=== PATIENT | female | born 1955 | race Two or more races ===

== ENCOUNTER 2021-05-02 14:00 | Outpatient (RCR) | payer OTHER, SELFPAY ==
--- NOTE | 2021-05-02 15:14 | MHC.PT.OD ---
[facility] [place] Office [place] Office [place] Office [address] Mckenzie Coughlin [address] [phone] F: [phone] F: [phone] F: [phone] F: [phone] Physical Therapy Daily Note Diagnosis: Low back pain initial eval and treat signed by Kristin Raymond date of script 04/03/21 Date of Surgery: Date of Evaluation: 04/15/21 Date of Treatment: 05/02/21 Treatments to Date: Cancellations to Date: No Shows to Date: Authorized Visits: 2 Insurance End Date: Precautions/ Contraindications:hx bipolar disorder, hx lumbar surgery in the past (pt unclear of what exactly was done presents with brace on) Subjective: Pt arrives stated she has an appt with walk in for migraine/R temporal sx which have been present for two weeks. Pt emotional and tearful. Pain Score and Location: Objective Flowsheet: Tests & Measures BP taken L UE 138/84mmHg, HR 67 bpm, 97% Sp02 Neuro screen, UE/LE appear symmetrical ROM/nursing home manager strength. Finger to nose (normal and accurate bilaterally. Reports blurred vision worsening over past few weeks but also stated has not had recent eye exam. Reports chronic migraines- denies any treatment/medication which she uses for this. Smile normal and (-) tongue deviation Bed mobility S level with Min A to rise from supine<>sit. Encouraged core recruitment with functional mobility Exercises Neuro screen, assessment vitals. Hooklying posterior pelvic tilt, pain reported radiating R LE to height of knee>intermittent ankle. Pt emotional expressing concerns for housing situation, she reports she was placed in first floor handicap apartment, but did not request this and wishes to be moved out of WC accessible apartment due to heights and constant need to bend forward. Pt also addressing emotional matters impacting her pain. Pt positioned in L SL for trial of gentle STM to lumbar and R posterior hip>extending to ITB>knee in effort to reduce spasm and minimize sensation of burning/radiation of R LE sx. Pt verbalized presence of these sx which have been present for two weeks. We trialed use of roller and without roller pt expressed both were comfotable, I can tell something is being done. We discussed benefit in using AD with two points of stability vs single point stability such as cane which could be impacting her LE/sciatica sx. Pt reports use of back brace daily, educated re: importance of trying to recruit/activate her abdominals vs always relying on external brace to provide her with support, try to conserve use of brace for when she is upright and doing a lot of moving, or when in a lot of pain. Educated chronic use of external support can decreased her strength. Difficult to redirect and engage patient in active exercise as her emotional state was very disrupted re: housing issues and chronic pain. This therapist listened to patients current LE exercises she reports doing, therapist encouraged her to keep moving, keep walking, and continue to do her best in addition to pursuing PT. ENcourgement for partcipation, giving therapy a chance to work, education to come to PT when having back pain therapist may be able to help Modalities Assessment: 05/02/21 Pt was last seen here 17 days ago for initial evaluation. She arrives for her appt at 2:00pm today stating she has a walk in scheduled for 2:30pm with PCP to address some ongoing housing issues, desire to fill out healthcare proxy form, and two week history of migraine in R temporal region. Her vital signs are stable, negative neuro screen during assessment. She reports history of chronic migraines however this particular one seems different she states. Pt trialed in L SL position for manual therapy at site of central lumbar and R proximal hip/lateral hip region today in effort to ease sx. She also expresses newer onset of pain at site of L dorsum of foot. During inspection (-) cuts bruises present. She denies injury/fall (+) hx neuropathy. Pt encouraged to continue with PT however her current emotional is unstable and she has difficulty composing herself when carrying on conversation and was noted to cry about her current circumstances. She has chronic pain and may benefit from referral to pain management to address if PT is unable to help her. She reports she last spoke to her counselor on Thursday, however she may benefit from further intervention as she repeatedly expressed how she feels unsafe being alone in her apartment secondary to panic attacks and anxiety. Pt to see Kristin Raymond DNP, today at end of PT appt. 04/15/21Pt is a RHD 65 y/o female with chronic low back pain referred to PT from PCP Kristin Raymond DNP, with referral date of 04/03/21 with PMH significant for bipolar disorder, history of lumbar back surgery, and history of stroke. Pt exhibits fair rehab prognosis due to significant psychological and emotional barriers observed at time evaluation. Pt to be seen in office 1x/week to start with goal of establishing compliance with home program and if positive response is observed pt will be increased to twice weekly. Pt was noted to cry/yell out in severe pain during basic/simple mobility screening with concern for psysomatic and/or malingering behavior. Evaluation of LE assessment this date with poor tolerance displayed for AROM/strength screening. Pt exhibited (-) SLR, but did showcase weakness in her B LE and trunk. She completed 2 reps of sit<>stand and stand<>sit in 30 seconds and demonstrated gait instability with use of std cane in R UE. She reports she does have a walker, shower bench, and HEALTH INSURANCE ASSESSOR (her son)who aides her 4 hours per day. She expresses she is involved with a therapist who she works with at a frequency of 1x/week. She would most certainly benefit from PT however she has be willing to actively participate with poor tolerance for screening. Therapist educated her of goals and encouraged her for active participation in therapy when she was feeling pain. I wanted to call in and cancel. I feel like my bones are crumbling around me. PT Plan: 1x/week to start Short Term Goals: 1. Reduce back pain by 25%. 2. Initiate HEP program. 3. Pt will demonstrate sit<>stand on first attempt. 4. Complete bed mobility MOD I with sx <4/10 VAS scale. [facility] Goals: 1. Improve back pain by 75%. 2. I HEP for core/hip stabilization. 3. Strength SLR 5/5 B. 4. Strength hip abd 5/5 B. 5. Good eccentric control with functional transfers. 6. Bridge with good control for bed mobility. Electronically signed by: Roselia Bhakta, PT, DPT
== END 2021-08-23 14:10 | disposition home or self-care (01) ==
LOC: HO.PTWFD 14:00
PROVIDERS: Visit Provider Hospitalist
DX: M54.50 Low back pain, unspecified (principal)
CPT/HCPCS: 97110; 97140; 97162; 97535

== ENCOUNTER 2021-05-15 08:22 | Outpatient (REF) | payer OTHER, SELFPAY ==
[2021-05-15 11:16] LABS: Hematocrit 40.8 % (37.0-47.0); Hemoglobin 13.4 g/dl (12.0-16.0); Mean Corpuscular HGB Conc 32.8 g/dl (31.0-35.0); Mean Corpuscular Hemoglobin 29.3 pg (27.0-33.0); Mean Corpuscular Volume 89.3 fL (80.0-98.0); Mean Platelet Volume 14.5 fL (9.4-12.3); Platelet Count 123 X10*3/uL (160-400); Red Blood Count 4.57 X10*6/uL (4.20-5.50); Red Cell Distribution Width 12.7 % (11.0-16.0); White Blood Count 4.3 X10*3/uL (4.8-10.8)
[2021-05-15 11:43] LABS: Alanine Aminotransferase 25 U/L (0-31); Alkaline Phosphatase 78 U/L (39-117); Anion Gap 10 (12-20); Aspartate Amino Transferase 24 U/L (5-31); Bilirubin Total 0.8 mg/dL (0.0-1.0); Blood Urea Nitrogen 11 mg/dL (9-16); Calcium 9.7 mg/dL (8.4-10.2); Carbon Dioxide 28 mmol/L (22-29); Chloride 106 mmol/L (96-108); Cholesterol 142 mg/dL; Estimated Glomerular Filt Rate > 60; Glucose Fasting 118 mg/dL (60-99); HDL Cholesterol 52 mg/dL; LDL Cholesterol Calculated 71 mg/dl; Potassium 4.4 mmol/L (3.3-5.1); Sodium 140 mmol/L (135-145); Total Protein 6.6 g/dL (6.5-8.0); Triglycerides 95 mg/dL
[2021-05-15 12:02] LABS: Erythrocyte Sedimentation Rate 6 MM/HR (0-20)
[2021-05-15 12:06] LABS: TSH reflex Free T4 1.47 uIU/mL (0.32-4.0)
[2021-05-17 15:26] LABS: CRP High Sensitivity 0.3 mg/L
== END 2021-05-15 08:23 | disposition home or self-care (01) ==
LOC: HO.WFDLDS 08:22
PROVIDERS: Visit Provider Hospitalist
DX: Z00.00 Encounter for general adult medical examination without abnormal findings (principal); M25.522 Pain in left elbow; E11.9 Type 2 diabetes mellitus without complications; M06.9 Rheumatoid arthritis, unspecified
CPT/HCPCS: 36415; 80053; 80061; 84443; 85027; 85652; 86141

== ENCOUNTER 2021-09-26 11:55 | Outpatient (REF) | payer OTHER, SELFPAY ==
--- NOTE | ~2021-09-26 | XR_ITS ---
EXAMINATION: XR CHEST CLINICAL INFORMATION: Dyspnea. COMPARISON: None TECHNIQUE: 2 views of the chest were obtained. FINDINGS: No significant abnormality is noted involving the heart, lungs, mediastinum, bony thorax or soft tissues. XR/XR chest 2V IMPRESSION: No acute cardiopulmonary process.
[2021-09-26 13:47] LABS: B Type Natriuretic Peptide 117 pg/mL (<100)
== END 2021-09-26 11:56 | disposition home or self-care (01) ==
LOC: HO.LAB 11:55
PROVIDERS: PCP Hospitalist; Visit Provider Hospitalist
DX: R06.09 Other forms of dyspnea (principal); R63.5 Abnormal weight gain
CPT/HCPCS: 36415; 71046; 83880

== ENCOUNTER 2021-12-24 10:32 | Outpatient (REF) | payer OTHER, SELFPAY ==
[2021-12-24 15:04] LABS: Influenza A PCR NEGATIVE (Negative); Influenza B PCR NEGATIVE (Negative); Resp Syncy Virus RNA Qual PCR NEGATIVE (Negative); SARS COV2 PCR INHOUSE NEGATIVE (Negative)
== END 2021-12-24 10:33 | disposition home or self-care (01) ==
LOC: HO.LAB 10:32
PROVIDERS: Visit Provider Hospitalist
DX: Z20.822 Contact with and (suspected) exposure to COVID-19 (principal)
CPT/HCPCS: 0241U

== ENCOUNTER 2022-02-19 13:40 | Outpatient (REF) | payer OTHER, SELFPAY ==
--- NOTE | ~2022-02-19 | MM_ITS ---
EXAMINATION: MM SCREENING DIGITAL BREAST TOMOSYNTHESIS, BILATERAL CLINICAL INFORMATION: Screening. Asymptomatic. The lifetime risk of breast cancer based on the Tyrer-Cuzick Model is 3%. COMPARISON: Mammography: None TECHNIQUE: Digital breast tomosynthesis is performed in both the craniocaudal and mediolateral oblique views along with computer-aided detection (CAD). Synthesized 2D images are generated from the tomosynthesis. FINDINGS: There are scattered areas of fibroglandular density (ACR BI-RADS breast composition Category b). No suspicious left breast findings are present with no abnormal dominant mass or suspicious grouping of microcalcifications. Within the deep upper outer aspect of the right breast there is a 3 mm well-circumscribed density without microcalcifications but without fatty cleft being appreciated on the images. This likely does represent intramammary lymph node. Since old studies are not available to check on stability I recommend ultrasound evaluation of the right breast deep upper outer aspect. MM/MM tomosynthesis screening BI IMPRESSION: Right breast density likely representing intramammary lymph node for which ultrasound is recommended. ASSESSMENT: BI-RADS 0: Incomplete - Need Additional Imaging Evaluation RECOMMENDATION: Targeted right breast ultrasound.
== END 2022-02-19 13:41 | disposition home or self-care (01) ==
LOC: HO.MAMMO 13:40
PROVIDERS: PCP Hospitalist; Visit Provider Hospitalist
DX: Z12.31 Encounter for screening mammogram for malignant neoplasm of breast (principal)
CPT/HCPCS: 77063; 77067

== ENCOUNTER → 2022-02-25 10:55 | Outpatient (BNVA) | payer OTHER, SELFPAY | PROVIDERS: PCP Hospitalist; Visit Provider Physician Assistant | DX: R13.10 Dysphagia, unspecified (principal); K59.01 Slow transit constipation; K21.9 Gastro-esophageal reflux disease without esophagitis; Z12.11 Encounter for screening for malignant neoplasm of colon | CPT/HCPCS: 99202 ==

== ENCOUNTER 2022-02-27 13:06 | Outpatient (REF) | payer OTHER, SELFPAY ==
--- NOTE | ~2022-02-27 | US_ITS ---
EXAMINATION: US DIAGNOSTIC ULTRASOUND BREAST, RIGHT CLINICAL INFORMATION: Right breast density. COMPARISON: Mammography of 02/19/2022. TECHNIQUE: Ultrasound of the breast is performed with real-time wheeler scale imaging and color Doppler. FINDINGS: At the 9 o'clock position approximately 9 cm from the nipple there is a hypoechoic lesion without distal sound shadowing. This measures approximately 3 x 3 x 2 mm in size and has internal vascularity with the appearance of a lymph node. Results are discussed with the patient at time of visit. US/US breast RT limited IMPRESSION: Mammographic abnormality upper outer quadrant of the right breast corresponds to an intramammary lymph node. ASSESSMENT: BI-RADS 2: Benign RECOMMENDATION: Routine annual mammography screening. This patient's information was entered into a reminder system with a target due date for their next mammogram.
== END 2022-02-27 13:07 | disposition home or self-care (01) ==
LOC: HO.MAMMO 13:06
PROVIDERS: PCP Hospitalist; Visit Provider Hospitalist
DX: R92.2 Inconclusive mammogram (principal)
CPT/HCPCS: 76642

== ENCOUNTER 2022-04-23 10:30 | Outpatient (REF) | payer OTHER, SELFPAY ==
--- NOTE | ~2022-04-23 | FL_ITS ---
EXAMINATION: FL BARIUM SWALLOW CLINICAL INFORMATION: R13.10 - Dysphagia, unspecified COMPARISON: Chest radiographs 09/26/2021 TECHNIQUE: Barium swallow examination is performed using fluoroscopic evaluation in addition to multiple fluoroscopic spot views, including cine images during swallowing. The patient is imaged both upright and prone and using both thick and thin sulfate along with effervescent granules. Barium pill challenge also performed. Fluoroscopy time: 1.6 minutes DAP: 3.734 Gycm2 Images: 42 FINDINGS: Swallowing function is normal and there is no aspiration. The cervical esophagus has no web or diverticulum or stricture. The cervical thoracic junction appears normal. No cervical achalasia. The thoracic esophagus primarily showed normal motility. There is one episode of mild transient tertiary contraction. No obstruction, stricture, or ulceration. There is no hiatal hernia or reflux seen despite use of provocative maneuvers (prone Valsalva and water siphon test, respectively). A cursory view of the upper abdomen shows no gastric outlet obstruction. There is prompt transit of the barium pill from mouth to stomach. Cursory view upper abdomen shows no gastric outlet obstruction. FL/FL barium swallow IMPRESSION: -Essentially normal study. There is one episode of mild transient tertiary contraction thoracic esophagus. Otherwise normal motility. -No hiatal hernia or reflux.
== END 2022-04-23 10:31 | disposition home or self-care (01) ==
LOC: HO.XRAY 10:30
PROVIDERS: Visit Provider Physician Assistant
DX: R13.10 Dysphagia, unspecified (principal); K21.9 Gastro-esophageal reflux disease without esophagitis; K59.01 Slow transit constipation
CPT/HCPCS: 74220

== ENCOUNTER 2022-04-30 12:27 | Outpatient (REF) | payer OTHER, SELFPAY ==
[2022-04-30 14:05] LABS: Hemoglobin 13.8 g/dl (12.0-16.0); Mean Corpuscular HGB Conc 32.9 g/dl (31.0-35.0); Mean Corpuscular Hemoglobin 29.1 pg (27.0-33.0); Mean Corpuscular Volume 88.6 fL (80.0-98.0); Mean Platelet Volume 13.5 fL (9.4-12.3); Platelet Count 136 X10*3/uL (160-400); Red Blood Count 4.74 X10*6/uL (4.20-5.50); Red Cell Distribution Width 13.2 % (11.0-16.0); White Blood Count 5.9 X10*3/uL (4.8-10.8)
[2022-04-30 14:14] LABS: Alanine Aminotransferase 37 U/L (0-31); Albumin Level 4.1 g/dL (3.5-5.0); Alkaline Phosphatase 96 U/L (39-117); Anion Gap 11 (12-20); Aspartate Amino Transferase 30 U/L (5-31); Bilirubin Total 0.6 mg/dL (0.0-1.0); Blood Urea Nitrogen 15 mg/dL (9-16); Calcium 9.7 mg/dL (8.4-10.2); Carbon Dioxide 29 mmol/L (22-29); Chloride 105 mmol/L (96-108); Estimated Glomerular Filt Rate 59; Glucose Fasting 255 mg/dL (60-99); Magnesium 1.9 mg/dL (1.6-2.6); Potassium 4.9 mmol/L (3.3-5.1); Sodium 140 mmol/L (135-145); Total Protein 6.7 g/dL (6.5-8.0)
[2022-04-30 14:18] LABS: Estimated Average Glucose 180 mg/dL; Hemoglobin A1c % 7.9 %
== END 2022-04-30 12:28 | disposition home or self-care (01) ==
LOC: HO.WFDLDS 12:27
PROVIDERS: Visit Provider Nurse Practitioner Family
DX: R10.9 Unspecified abdominal pain (principal); E11.9 Type 2 diabetes mellitus without complications
CPT/HCPCS: 36415; 80053; 83036; 83735; 85027

== ENCOUNTER 2022-08-22 12:55 | Outpatient (AMB) | payer OTHER, SELFPAY ==
[2022-08-22 13:01] VITALS: BP 124/72; PULSE 66; RESP 12; TEMP 36.6; O2SAT 98; BMI 41.3
--- NOTE | 2022-08-22 13:01 | A.OFFPC_ITS ---
Vital Signs 08/22/22 13:01 Height 5 ft 4 in Weight 240 lb 9 oz BMI 41.3 BP 124/72 Blood Pressure Location Lt brachial Position Sitting Respiration 12 Pulse 66 Pulse Source Pulse Oximeter Temp 97.8 F Temp Source Temporal Artery Scan Pulse Oximetry (%) 98 Oxygen Delivery Method Room Air Intake Visit Reasons: [facility]/ 08-12-22/Heart palpatations Intake Note: Patient states she is currently feeling better and would like to discuss her diabetes due to her having high glucose test. 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 Accompanied by: Self / Same As Patient Allergies Penicillins Allergy (Intermediate, Verified 08/22/22 14:09) itchy, hives lisinopril Adverse Reaction (Intermediate, Verified 08/22/22 14:09) Cough prednisone Adverse Reaction (Intermediate, Verified 08/22/22 14:09) high blood pressure Medication List - Last Reconciled 08/22/22 by Kimberley Almazan CNP albuterol sulfate 90 mcg/actuation 2 puffs inhalation BID 30 days albuterol sulfate 2.5 mg (3 mL) inhalation Q6H PRN 1 month apixaban 5 mg PO BID aspirin 81 mg PO DAILY atorvastatin 40 mg PO DAILY bisacodyl (Dulcolax (bisacodyl)) 10 mg (2 x 5 mg) PO ONCE 1 day blood pressure monitor As directed blood sugar diagnostic (Four Eyes Clubuch Ultra Test strips) test blood sugar two to three time a day calcium carbonate-vitamin D3 600 mg-10 mcg (400 unit) TAKE 1 TABLET BY MOUTH AT BEDTIME clonazepam 1 mg PO BEDTIME PRN clonazepam 0.5 mg PO QAM diltiazem HCl 120 mg PO DAILY fluticasone propion-salmeterol 115-21 mcg/actuation (Advair HFA) 2 puffs inhalation BID fluticasone propionate 110 mcg/actuation (Flovent HFA) 1 puff inhalation BID 30 days lancets (Four Eyes Clubuch UltraSoft Lancets) check blood sugar twice a day and as needed for s/s of dm lancets (introNetworksTouch Delica Plus Lancet) As directed loratadine 10 mg PO DAILY metformin ER 500 mg PO BID metoprolol succinate ER TAKE 1 TABLET BY MOUTH EVERY DAY mirtazapine 30 mg PO BEDTIME mirtazapine 30 mg PO BEDTIME miscellaneous medical supply skin sealents, protectants, moisturiszre, ointments any type and size as directed; miscellaneous medical supply disposable linner/shield/guard/pad/undergarment for incontinence as directed; miscellaneous medical supply diabetic shoes as directed; miscellaneous medical supply Aleotouch wipes, frag free 110/pk incont supply as directed; miscellaneous medical supply incontinence prod, disp large underpads as directed; multivitamin 1 tab PO DAILY oxcarbazepine 600 mg PO BID pantoprazole 40 mg PO DAILY pantoprazole (Protonix) 40 mg PO DAILY polyethylene glycol 3350 (Miralax) 238 grams PO ONCE 1 day Tobacco use date assessed: 08/22/22 Fall risk assessment: 1 Fall in past year Last assessed Fall Risk: 08/22/22 Dental Screening Dental Screen Date: 08/22/22 Did you have a dental visit in the last 12 months?: Yes Did you have a dental problem in the last 6 months where you did not have access to dental care?: No Was dental information given to patient?: Patient has dentist HPI HPI Comments History of Present Illness Details 67 y/o female presents for a follow up visit visit She was evaluated at [facility] on 08/14/2022, was admitted and treated for palpitations She was discharged on Eliquis and diltiazem which she notes she has been taking twice daily as prescribed She has been on aspirin She notes she has not had palpitation since her recent hospital discharge She states that she takes all of her medications as prescribed She states she established with a automotive parts specialist this week [facility] Medical History (Updated 08/22/22 @ 14:24 by Kimberley Almazan CNP) No pertinent past medical history Surgical History History of back surgery History of hand surgery Family History Other Mental health disorder Substance use disorder Social History (Updated 08/22/22 @ 13:31 by Jaclyn Olmedo MA) Household Members: Other Housing: Apartment Are you a primary lawn care worker to a significant other at home: No Do you presently have visiting nurse or other home services: Yes 75 years or older and lives alone: No Alcohol intake: never Patient Tobacco Use Status: Former Tobacco user Tobacco use type: Cigarette Smoked in Last 30 Days: No e-Cigarette/Vaping Use: Never Used Patient Interested in Nicotine Replacement: No Patient Given Instructions on How to Stop Smoking: No Second Hand Smoke Exposure: Yes Encourage to stop smoking at least 8hrs prior to surgery: No Use of substances other than those prescribed or required for medical reasons: No Currently Displaying Signs/Symptoms of Drug Intoxication Withdrawal: No Any prior treatment program specific to substance use: No Have you been hit, kicked, punched, or otherwise hurt by someone within the past year? If so, by whom?: No Do you feel safe in your current relationship?: No Current Relationship Is there a partner from a previous relationship who is making you feel unsafe now?: No Are you made to feel afraid or neglected: No [facility]: [facility] Special jeannette needs: No Agree to transfusion: Yes Are you DNR?: No Advance Directives: No Advance Directives Information Provided: No Advance Directives on File: No Healthcare Proxy: Yes If Yes to HCP, is it invoked: Yes Guardian: No Access to Firearms: No Do you have thoughts of harming others: None Do you have a plan to hurt others: No Plan Do you have the means to hurt others: No Current Diet: Other Recently lost weight without trying: No Eating poorly because of decreased appetite: No Nutrition Risks: No Nutritional Risk Patient : No : No Visits dentist regularly: Yes Poor oral hygiene: No service: No Current occupational status: disabled Current occupational exposures/hazards: No Sexually active: No Sexual orientation: Straight/Heterosexual Gender identity: Female Cognitive needs: Yes (cane) Hearing needs: Yes (hearing aide) Vision needs: Yes (Glasses) Questionnaire PHQ-9 Over the last 2 weeks, how often have you been bothered by any of the following problems? 1. Little interest or pleasure in doing things: several days 2. Feeling down, depressed, or hopeless: nearly every day 3. Trouble falling or staying asleep, or sleeping too much: several days 4. Feeling tired or having little energy: nearly every day 5. Poor appetite or overeating: several days 6. Feeling bad about yourself - or that you are a failure or have let yourself or your family down: not at all 7. Trouble concentrating on things, such as reading the newspaper or watching television: several days 8. Moving or speaking so slowly that other people could have noticed. Or the opposite - being so fidgety or restless that you have been moving around a lot more than usual: not at all 9. Thoughts that you would be better off or of hurting yourself in some way: not at all Total score: 10 Source: Developed by Drs. Jose D Lundy, Madalyn Henry, Marty Carrasco and colleagues, with an educational simeon from [employer]. Thrive Questionnaire Date Thrive assessed: 08/22/22 I am a: Patient What is your living situation today?: I have a steady place to live Within the past 12 months, did the food you bought not last and you didn't have the money to get more?: Sometimes True Within the past 12 months, did you worry whether your food would run out before you got money to buy more?: Sometimes True Do you have trouble paying for medicines?: No Do you have trouble getting transportation to medical appointments?: No Do you have trouble paying your heating and electricity bill?: No Do you have trouble taking care of your child, family member or friend?: No Do you have trouble with day-to-day activities such as bathing, preparing meals, shopping, managing finances, etc.?: Yes Are you currently unemployed and looking for a job?: No Are you interested in more education?: No Please select the resources that you would like help with: Food and Daily support Currently or been in a relationship where the following occur: no concerns reported AUDIT C Alcohol Use Questionnaire (AUDIT-C) 1. How often do you have a drink containing alcohol?: Never 3. How often do you have six or more drinks on one occasion?: Never Total Score: 0 MATTHEW-7 AMB Questionnaire MATTHEW-7 Date MATTHEW - 7 assessed: 08/22/22 Feeling nervous, anxious, or on edge: 2 = More than half the days Not being able to stop or control worryin = Nearly every day Worrying too much about different things: 3 = Nearly every day Trouble relaxin = Several days Being so restless that it is hard to sit still: 1 = Several days Becoming easily annoyed or irritable: 1 = Several days Feeling afraid as if something awful might happen: 1 = Several days Total MATTHEW-7 score (0-4 normal; 5-9 mild; 10-14 moderate; 15-21 severe): 12 Source: Developed by Drs. Jose D Lundy, Madalyn Henry, Marty Carrasco and colleagues, with an educational smieon from [employer]. Review of Systems Const Details: Const Denies chills, Denies fatigue, Denies fever(s), Denies headache(s) and Denies weakness ENT Denies dizziness and Denies headache(s) Card Denies chest pain, Denies lightheadedness, Denies dyspnea and Denies other (Palpitations) Resp Denies cough, Denies dyspnea, Denies wheezing and Denies other ( shortness of breath) GI Denies abdominal pain, Denies melena, Denies hematochezia, Denies change in bowel habits, Denies dyspepsia and Denies nausea Denies hematuria and Denies dysuria Musc Denies abnormal gait, Denies myalgias, Denies arthralgias, Denies numbness and Denies tingling Skin/Breast Denies rash, Denies unusual bruising and Denies wounds Neuro Denies abnormal gait, Denies dizziness, Denies headache(s), Denies memory loss, Denies numbness, Denies Sensory deficit (Neuro), Denies tingling and Denies weakness Psych Denies anxiety and Denies depression Endo Denies cold intolerance, Denies fatigue, Denies heat intolerance, Denies polydipsia and Denies polyuria Aller/Immun Denies wheezing Physical exam (Primary Care) Vital Signs: Last Vital Signs Temp 97.8 F 08/22/22 13:01 Pulse 66 08/22/22 13:01 Resp 12 08/22/22 13:01 BP 124/72 08/22/22 13:01 Pulse Ox 98 08/22/22 13:01 Oxygen Delivery Method Room Air 08/22/22 13:01 BMI result Body Mass Index 41.3 Tobacco/Smoking Status: Tobacco use Status Tobacco use date assessed 08/22/22 08/22/22 13:37 Patient Tobacco Use Status Former Tobacco user 08/22/22 13:37 Tobacco use type Cigarette 08/22/22 13:37 e-Cigarette/Vaping Use Never Used 08/22/22 13:37 PHQ-9: PHQ-9 Score PHQ-9: Total score 23 14:17 Thrive Assessment: Date of Thrive Assessment Date Thrive assessed 08/22/22 08/22/22 13:37 Currently or been in a relationship where the following occur: no concerns reported Const Other: General: no acute distress and well developed Nutritional Appearance: well nourished Orientation/consciousness: patient oriented x3 [facility] Head: Yes normocephalic and Yes atraumatic Eyes General: appearance normal, both eyes and all related structures Pupils: Equal, round and reactive pupils present EOM: EOMs intact bilaterally Resp Effort & Inspection: normal respiratory effort Auscultation: clear to auscultation bilaterally Cardio Rate: regular rate Rhythm: regular rhythm Heart sounds: S1 normal heart sound present, S2 normal heart sound present, no gallops, no murmurs and no rubs GI Palpation (GI): No Abdominal aortic bruit present, Soft to palpation, nontender, No hepatosplenomegaly present and No Rebound tenderness present Auscultation: normal bowel sounds General: Yes no CVA tenderness Back/Spine/Pelvis Back: no CVA tenderness Cervical Spine: cervical ROM normal and No Cervical spine tenderness Thoracic/Lumbar Spine: thoraco-lumbar ROM normal, No pain with thoraco-lumbar ROM, No thoracic spinal tenderness and No lumbar spinal tenderness Extrem General: Yes normal to inspection, No edema and No calf tenderness Skin General: warm and dry. Normal skin color. Normal skin turgor Lesions: no lesions Rashes: no rashes Trauma: no lacerations or abrasions Wounds: no wounds Nails: normal Neuro General: patient oriented x3, gait normal and no focal neuro deficit Cranial nerves: Yes Equal, round and reactive pupils present Cognition (Neuro): normal cognition Gait exam (Neuro): Normal gait present Sensory Exam: No Sensory deficit (Neuro) Psych Appearance: grossly normal Affect: normal affect Attitude: cooperative Thought process: Normal thought process present Results AMB Hemoglobin A1c AMB Hemoglobin A1c 7.7 % Last Edit by Jaclyn Olmedo MA on 08/22/22 16:30 Results Reviewed Results Reviewed: Laboratory Last Values Hgb A1c (Clinic) 7.7 % (4.0-6.0) H 08/22/22 14:39 Assessment and Plan Assessment & Plan (1) Palpitations: Code(s): R00.2 - Palpitations Plan: Resolved Eliquis, diltiazem, and aspirin as prescribed Follow-up with cardiology as planned Return with new or worsening symptoms Verbalized understanding and agreed with treatment plan. (2) Diabetes: Code(s): E11.9 - Type 2 diabetes mellitus without complications Plan: A1c is 7.7% today, above goal of less than 7.0% Previous A1c was 7.9% Continue to take metformin as prescribed ADA diet and routine exercise encouraged Follow-up in 3 months or return sooner with symptoms or concerns Verbalized understanding and agreed with treatment plan. (3) HTN (hypertension): Code(s): I10 - Essential (primary) hypertension Plan: Blood pressure is 124/72, within goal of less than 130/80 Diltiazem and metoprolol as prescribed Low-sodium diet encouraged Follow-up with PCP in 3 months or return sooner with symptoms or concerns Verbalized understanding and agreed with treatment plan. (4) High cholesterol: Code(s): E78.00 - Pure hypercholesterolemia, unspecified Plan: Normal lipid levels on 05/2021 LDL was 71, within goal of less than 100 She is on atorvastatin 40 mg daily. Advise to take as prescribed Healthy diet and routine exercise encouraged Lipid panel ordered. Encouraged to get fasting blood work done before next visit Follow-up in 3 months or return sooner with symptoms or concerns Verbalized understanding and agreed with treatment plan. Orders: Orders Lipid Panel Today E78.00 - Pure hypercholesterolemia, unspecified AMB Hemoglobin A1c Today Z13.9 - Encounter for screening, unspecified Coding Level of Care Code Est Pt Level 4 (99753) Diagnoses Palpitations R00.2 Diabetes E11.9 HTN (hypertension) I10 High cholesterol E78.00 Time Spent (min) 35
== END 2022-08-22 14:22 | disposition home or self-care (01) ==
PROVIDERS: PCP Hospitalist; Visit Provider Nurse Practitioner Family
DX: Z13.9 Encounter for screening, unspecified (principal)
CPT/HCPCS: 83036; 99214

== ENCOUNTER 2022-12-08 11:58 | Outpatient (AMB) | payer OTHER, SELFPAY ==
--- NOTE | 2022-12-08 14:05 | MHC.OFFWIV ---
Intake Vital Signs 12/08/22 14:06 Height 5 ft 4 in Weight 234 lb 8 oz BMI 40.2 BP 128/80 Blood Pressure Location Rt brachial Position Sitting Pulse 56 Pulse Source Pulse Oximeter Temp 98.2 F Temp Source Oral Pulse Oximetry (%) 94 Oxygen Delivery Method Room Air Intake Visit Reasons: EP LT arm pain Intake Note: Pt presents to the office today for c/o left arm pain. Pt states this started about 3 weeks ago. Pt states she is favoring the left arm because she needs a shoulder replacement in February 2023.Pt states the pain is from her left shoulder to her elbow. Patient Tobacco Use Status: Former Tobacco user Accompanied by: Friend Allergies Penicillins Allergy (Intermediate, Verified 12/08/22 14:11) itchy, hives lisinopril Adverse Reaction (Intermediate, Verified 12/08/22 14:11) Cough prednisone Adverse Reaction (Intermediate, Verified 12/08/22 14:11) high blood pressure HPI EP LT arm pain HPI Details 67-year-old female presents to the office for a sick visit. Patient is complaining of pain in the left shoulder for the past 1 month. Does not recall any fall or injury prior to the onset of symptoms. Patient is reporting that she is unable to lift her arm over the shoulder level. Unable to comb her hair with the left hand. Patient received a steroid injection in the left shoulder a month ago. 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 [facility] Medical History No pertinent past medical history Surgical History History of hand surgery History of back surgery Family History Other Mental health disorder Substance use disorder Social History Household Members: Other Housing: Apartment Are you a primary care manager to a significant other at home: No Do you presently have visiting nurse or other home services: Yes Alcohol intake: never Patient Tobacco Use Status: Former Tobacco user Tobacco use type: Cigarette e-Cigarette/Vaping Use: Never Used Second Hand Smoke Exposure: Yes Special jeannette needs: No Agree to transfusion: Yes service: No Current occupational status: disabled Current occupational exposures/hazards: No Sexual orientation: Straight/Heterosexual Gender identity: Female Cognitive needs: Yes (cane) Hearing needs: Yes (hearing aide) Vision needs: Yes (Glasses) Physical Exam Vital Signs: Last Vital Signs Temp 98.2 F 12/08/22 14:06 Pulse 56 12/08/22 14:06 BP 128/80 12/08/22 14:06 Pulse Ox 94 12/08/22 14:06 Oxygen Delivery Method Room Air 12/08/22 14:06 BMI result Body Mass Index 40.2 Extrem Other: Left arm: No AC joint tenderness. Range of motion: Abduction less than 90 degrees. Full adduction. Full internal and external rotation. Assessment & Plan Assessment & Plan (1) Sprain of left shoulder: Code(s): S43.402A - Unspecified sprain of left shoulder joint, initial encounter Plan: x-ray images personally reviewed by me. Meloxicam called in. arm sling provided. Orders: Orders XR shoulder LT min 2V Today S43.402A - Unspecified sprain of left shoulder joint, initial encounter Medications: New meloxicam 15 mg PO DAILY 7 tabs 0RF Coding Level of Care Code Est Pt Level 4 (80754) Diagnoses Sprain of left shoulder S43.402A
[2022-12-08 14:06] VITALS: BP 128/80; PULSE 56; TEMP 36.8; O2SAT 94; BMI 40.2
== END 2022-12-08 15:05 | disposition home or self-care (01) ==
PROVIDERS: PCP Hospitalist; Visit Provider Internal Medicine
DX: S43.402A Unspecified sprain of left shoulder joint, initial encounter (principal)
CPT/HCPCS: 99214

== ENCOUNTER 2022-12-08 14:36 | Outpatient (REF) | payer OTHER, SELFPAY ==
--- NOTE | ~2022-12-08 | XR_ITS ---
EXAMINATION: XR SHOULDER, LEFT CLINICAL INFORMATION: Left shoulder sprain COMPARISON: None available. TECHNIQUE: Two views of the left shoulder. FINDINGS: Moderate degenerative changes with hypertrophic change at the acromioclavicular joint. Hypertrophic spurring along the inferior aspect of the acromion. Glenohumeral alignment preserved. XR/XR shoulder LT min 2V IMPRESSION: Moderate degenerative changes in the shoulder on the 2 views provided.
== END 2022-12-08 14:37 | disposition home or self-care (01) ==
LOC: HO.HMGCX 14:36
PROVIDERS: PCP Hospitalist; Visit Provider Internal Medicine
DX: S43.402A Unspecified sprain of left shoulder joint, initial encounter (principal)
CPT/HCPCS: 73030

== ENCOUNTER 2022-12-11 11:24 | Outpatient (AMB) | payer OTHER, SELFPAY ==
[2022-12-11 11:48] VITALS: BP 134/76; PULSE 68; RESP 13; TEMP 36.4; O2SAT 98; BMI 40.4
--- NOTE | 2022-12-11 11:48 | A.OFFPC_ITS ---
Vital Signs 12/11/22 11:48 Height 5 ft 4 in Weight 235 lb 6 oz BMI 40.4 BP 134/76 Blood Pressure Location Lt brachial Position Sitting Respiration 13 Pulse 68 Pulse Source Pulse Oximeter Temp 97.6 F Temp Source Temporal Artery Scan Pulse Oximetry (%) 98 Oxygen Delivery Method Room Air Intake Visit Reasons: Diabetes issues Intake Note: Patient states that her sugars and BP has been elevated lately. Patient states that she has been getting prescribed alot of BP medication and its been causing issues. Doll Surgeon Required: No Accompanied by: Self / Same As Patient Allergies Penicillins Allergy (Intermediate, Verified 12/11/22 11:59) itchy, hives lisinopril Adverse Reaction (Intermediate, Verified 12/11/22 11:59) Cough prednisone Adverse Reaction (Intermediate, Verified 12/11/22 11:59) high blood pressure Tobacco use date assessed: 08/22/22 Fall risk assessment: 1 Fall in past year Last assessed Fall Risk: 12/11/22 Dental Screening Dental Screen Date: 12/11/22 Did you have a dental visit in the last 12 months?: Yes Did you have a dental problem in the last 6 months where you did not have access to dental care?: No Was dental information given to patient?: Patient has dentist HPI HPI Comments History of Present Illness Details 67-year-old female presents for diabetes follow-up. Her former PCP is TOMMY who is no longer with the practice. She admits to taking her medications as prescribed. She reports right and left left shoulder pain. She is currently on Meloxicam. She is followed by [facility]. She notes she will be having right shoulder surgery in 02/2023. She requests a referral for weight management. [facility] Medical History No pertinent past medical history Surgical History History of hand surgery History of back surgery Family History Other Mental health disorder Substance use disorder Social History Household Members: Other Housing: Apartment Are you a primary emergency care attendant to a significant other at home: No Do you presently have visiting nurse or other home services: Yes 75 years or older and lives alone: No Alcohol intake: never Patient Tobacco Use Status: Former Tobacco user Tobacco use type: Cigarette e-Cigarette/Vaping Use: Never Used Second Hand Smoke Exposure: Yes Special jeannette needs: No Agree to transfusion: Yes service: No Current occupational status: disabled Current occupational exposures/hazards: No Sexual orientation: Straight/Heterosexual Gender identity: Female Cognitive needs: Yes (cane) Hearing needs: Yes (hearing aide) Vision needs: Yes (Glasses) Questionnaire Thrive Questionnaire Date Thrive assessed: 08/22/22 MATTHEW-7 AMB Questionnaire MATTHEW-7 Date MATTHEW - 7 assessed: 08/22/22 Source: Developed by Drs. Jose D Lundy, Madalyn Henry, Marty Carrasco and colleagues, with an educational simeon from [employer]. Review of Systems Const Details: Const Denies chills, Denies fatigue, Denies fever(s), Denies headache(s) and Denies weakness ENT Denies dizziness and Denies headache(s) Card Denies chest pain, Denies lightheadedness, Denies dyspnea and Denies other (Palpitations) Resp Denies cough, Denies dyspnea, Denies wheezing and Denies other ( shortness of breath) GI Denies abdominal pain, Denies melena, Denies hematochezia, Denies change in bowel habits, Denies dyspepsia and Denies nausea Denies hematuria and Denies dysuria Musc Reports as per HPI Skin/Breast Denies rash, Denies unusual bruising and Denies wounds Neuro Denies abnormal gait, Denies dizziness, Denies headache(s), Denies memory loss, Denies numbness, Denies Sensory deficit (Neuro), Denies tingling and Denies weakness Psych Denies anxiety, Denies depression, Denies memory loss Endo Denies cold intolerance, Denies fatigue, Denies heat intolerance, Denies polydipsia and Denies polyuria Aller/Immun Denies wheezing Physical exam (Primary Care) Vital Signs: Last Vital Signs Temp 97.6 F 12/11/22 11:48 Pulse 68 12/11/22 11:48 Resp 13 12/11/22 11:48 BP 134/76 12/11/22 11:48 Pulse Ox 98 12/11/22 11:48 Oxygen Delivery Method Room Air 12/11/22 11:48 BMI result Body Mass Index 40.4 Tobacco/Smoking Status: Tobacco use Status Tobacco use date assessed 08/22/22 12/11/22 11:48 Patient Tobacco Use Status Former Tobacco user 12/11/22 11:48 Tobacco use type Cigarette 12/11/22 11:48 e-Cigarette/Vaping Use Never Used 12/11/22 11:48 Thrive Assessment: Date of Thrive Assessment Date Thrive assessed 08/22/22 12/11/22 11:48 Const Other: General: no acute distress and well developed Nutritional Appearance: well nourished Orientation/consciousness: patient oriented x3 HENPR Head: Yes normocephalic and Yes atraumatic Eyes General: appearance normal, both eyes and all related structures Pupils: Equal, round and reactive pupils present EOM: EOMs intact bilaterally Resp Effort & Inspection: normal respiratory effort Auscultation: clear to auscultation bilaterally Cardio Rate: regular rate Rhythm: regular rhythm Heart sounds: S1 normal heart sound present, S2 normal heart sound present, no gallops, no murmurs and no rubs GI Palpation (GI): No Abdominal aortic bruit present, Soft to palpation, nontender, No hepatosplenomegaly present and No Rebound tenderness present Auscultation: normal bowel sounds General: Yes no CVA tenderness Back/Spine/Pelvis Back: no CVA tenderness Cervical Spine: cervical ROM normal and No Cervical spine tenderness Thoracic/Lumbar Spine: thoraco-lumbar ROM normal, No pain with thoraco-lumbar ROM, No thoracic spinal tenderness and No lumbar spinal tenderness Extrem General: Yes normal to inspection, No edema and No calf tenderness Skin General: warm and dry. Normal skin color. Normal skin turgor Neuro General: patient oriented x3, gait normal and no focal neuro deficit Cranial nerves: Yes Equal, round and reactive pupils present Cognition (Neuro): normal cognition Gait exam (Neuro): Normal gait present Sensory Exam: No Sensory deficit (Neuro) Psych Appearance: grossly normal Affect: normal affect Attitude: cooperative Thought process: Normal thought process present Results AMB Hemoglobin A1c AMB Hemoglobin A1c 9.8 % Last Edit by Jamee Henley CMA on 12/11/22 12:37 Assessment and Plan Assessment & Plan (1) Diabetes: Code(s): E11.9 - Type 2 diabetes mellitus without complications Qualifiers: Diabetes mellitus type: type 2 Diabetes mellitus complication status: without complication Plan: Her A1c is 9.8% today, above goal of less than 7.0%. Previous A1c was 7.7% Will increase metformin to 1000 mg in the morning and 500 mg at night; advised to take as prescribed Jardiance ordered. Take as prescribed ADA diet and routine exercise encouraged Advised to monitor blood glucose 3 times daily, record readings, and bring to next appointment Follow-up in 1 month or return sooner with symptoms or concerns Verbalized understanding and agreed with treatment plan. (2) HTN (hypertension): Code(s): I10 - Essential (primary) hypertension Qualifiers: Hypertension type: primary hypertension Qualified Code(s): I10 - Essential (primary) hypertension Plan: Blood pressure is 134/76, slightly above goal of less than 130/80 Continue current treatment regimen Low-sodium diet encouraged Follow-up in 1 month Verbalized understanding and agreed with treatment plan. (3) Chronic pain of both shoulders: Code(s): M25.511 - Pain in right shoulder; M25.512 - Pain in left shoulder; G89.29 - Other chronic pain Plan: Reports chronic bilateral shoulder pain. On meloxicam. Followed by [facility]. Continue with current treatment regimen Warm/cool compresses encouraged Follow-up with [facility] as planned Return with symptoms or concerns Verbalized understanding and agreed with treatment plan. (4) Morbid obesity with BMI of 40.0-44.9, adult: Code(s): E66.01 - Morbid (severe) obesity due to excess calories; Z68.41 - Body mass index [BMI] 40.0-44.9, adult Plan: She weighs 235 lb, BMI is 40.4 Healthy dietary choices and routine exercise encouraged Referred to weight management Return with symptoms or concerns Verbalized understanding and agreed with treatment plan. Orders: Orders AMB Hemoglobin A1c Today Z13.9 - Encounter for screening, unspecified Referrals Medical Weight Management Referral E11.9 - Type 2 diabetes mellitus without complications, E66.01 - Morbid (severe) obesity due to excess calories, Z68.41 - Body mass index [BMI] 40.0-44.9, adult Medications: New metformin ER 500 mg PO QPM 30 days 30 tabs 3RF Z00.00 - Encounter for general adult medical examination without abnormal findings empagliflozin (Jardiance) 10 mg PO QAM 30 days 30 tabs 3RF Z00.00 - Encounter for general adult medical examination without abnormal findings metformin ER 1,000 mg PO DAILY 30 days 30 tabs 3RF Z00.00 - Encounter for general adult medical examination without abnormal findings Discontinued metformin ER Discontinued Reason: Doctor's Order 500 mg PO BID 180 tabs 3RF Coding Level of Care Code Est Pt Level 3 (58818) Diagnoses Diabetes E11.9 Diabetes mellitus type: type 2 Diabetes mellitus complication status: without complication Primary hypertension I10 Hypertension type: primary hypertension Chronic pain of both shoulders M25.511; M25.512; G89.29 Morbid obesity with BMI of 40.0-44.9, adult E66.01; Z68.41
== END 2022-12-11 12:33 | disposition home or self-care (01) ==
PROVIDERS: PCP Hospitalist; Visit Provider Nurse Practitioner Family
DX: E11.9 Type 2 diabetes mellitus without complications (principal); E66.01 Morbid (severe) obesity due to excess calories; Z68.41 Body mass index [BMI] 40.0-44.9, adult; I10 Essential (primary) hypertension; M25.511 Pain in right shoulder; M25.512 Pain in left shoulder; G89.29 Other chronic pain
CPT/HCPCS: 83036; 99213

== ENCOUNTER 2023-02-04 07:57 | Outpatient (AMB) | payer OTHER, SELFPAY ==
--- NOTE | 2023-02-04 08:01 | A.OFFPC_ITS ---
Vital Signs 02/04/23 08:10 Height 5 ft 4 in Weight 221 lb 4 oz BMI 38.0 BP 126/62 Blood Pressure Location Lt brachial Position Sitting Respiration 15 Pulse 76 Pulse Source Pulse Oximeter Pulse Oximetry (%) 100 Oxygen Delivery Method Room Air Intake Visit Reasons: [facility] 01/31 - RSV / AFIB Intake Note: Patient is here with her son-Jose D. Patient reports she was in the hospital 10 days with RSV which exacerbated her AFIB. 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 She presented with complaints of feeling generally unwell, palpitations, shortness of breath, intermittent cough, and body aches. She reported not taking her Eliquis or Cardizem over the past couple of days. She was diagnosed with RSV on 01/20/2023. EKG revealed AFib with RVR. CTA chest without PE or abnormality. Chest x-ray with perhaps mild bronchitis. Her heart rate was 124 on arrival to the emergency department. TSH was normal. According to Cardiology, her AFib and tachycardia may be attributed to a combination of RSV and the patient or taking her medications for several days. She was sent home on diltiazem and metoprolol. She was advised to follow-up with her head animal trainer, Dr. Espinosa and her PCP, and to return to the ED with symptoms She notes that her symptoms have improved. She denies chest pain, palpitations, sob, or acute symptoms at this time She notes that she is awaiting a call back from her head animal trainer for her appointment She is set up to have VNA services, including medication management, starting today She admits to taking her medications as prescribed [facility] Medical History No pertinent past medical history Surgical History History of hand surgery History of back surgery Family History Other Mental health disorder Substance use disorder Social History Household Members: Other Housing: Apartment Are you a primary complex care nurse practitioner to a significant other at home: No Do you presently have visiting nurse or other home services: Yes 75 years or older and lives alone: No Alcohol intake: never Patient Tobacco Use Status: Former Tobacco user Tobacco use type: Cigarette e-Cigarette/Vaping Use: Never Used Second Hand Smoke Exposure: Yes Special jeannette needs: No Agree to transfusion: Yes service: No Current occupational status: disabled Current occupational exposures/hazards: No Sexual orientation: Straight/Heterosexual Gender identity: Female Cognitive needs: Yes (cane) Hearing needs: Yes (hearing aide) Vision needs: Yes (Glasses) Questionnaire Thrive Questionnaire Date Thrive assessed: 08/22/22 MATTHEW-7 AMB Questionnaire MATTHEW-7 Date MATTHEW - 7 assessed: 08/22/22 Source: Developed by Drs. Jose D Lundy, Madalyn Henry, Marty Carrasco and colleagues, with an educational simeon from [employer]. Review of Systems Const Details: Const Denies chills, Denies fatigue, Denies fever(s), Denies headache(s) and Denies weakness ENT Denies dizziness and Denies headache(s) Card Denies chest pain, Denies lightheadedness, Denies dyspnea and Denies other (Palpitations) Resp Denies cough, Denies dyspnea, Denies wheezing and Denies other ( shortness of breath) GI Denies abdominal pain, Denies melena, Denies hematochezia, Denies change in maggie l habits, Denies dyspepsia and Denies nausea Denies hematuria and Denies dysuria Musc Denies abnormal gait, Denies myalgias, Denies arthralgias, Denies numbness and Denies tingling Skin/Breast Denies rash, Denies unusual bruising and Denies wounds Neuro Denies abnormal gait, Denies dizziness, Denies headache(s), Denies memory loss, Denies numbness, Denies Sensory deficit (Neuro), Denies tingling and Denies weakness Psych Denies anxiety, Denies depression, Denies memory loss Endo Denies cold intolerance, Denies fatigue, Denies heat intolerance, Denies polydipsia and Denies polyuria Aller/Immun Denies wheezing Physical exam (Primary Care) Tobacco/Smoking Status: Tobacco use Status Tobacco use date assessed 08/22/22 02/04/23 08:02 Patient Tobacco Use Status Former Tobacco user 02/04/23 08:02 Tobacco use type Cigarette 02/04/23 08:02 e-Cigarette/Vaping Use Never Used 02/04/23 08:02 Thrive Assessment: Date of Thrive Assessment Date Thrive assessed 08/22/22 02/04/23 08:02 Const Other: General: no acute distress and well developed Nutritional Appearance: well nourished Orientation/consciousness: patient oriented x3 HENMT Head: Yes normocephalic and Yes atraumatic Eyes General: appearance normal, both eyes and all related structures Pupils: Equal, round and reactive pupils present EOM: EOMs intact bilaterally Resp Effort & Inspection: normal respiratory effort Auscultation: clear to auscultation bilaterally Cardio Rate: regular rate Rhythm: Regularly irregular rhythm Heart sounds: S1 normal heart sound present, S2 normal heart sound present, no gallops, no murmurs and no rubs GI Palpation (GI): No Abdominal aortic bruit present, Soft to palpation, nontender, No hepatosplenomegaly present and No Rebound tenderness present Auscultation: normal bowel sounds General: Yes no CVA tenderness Back/Spine/Pelvis Back: no CVA tenderness Cervical Spine: cervical ROM normal and No Cervical spine tenderness Thoracic/Lumbar Spine: thoraco-lumbar ROM normal, No pain with thoraco-lumbar ROM, No thoracic spinal tenderness and No lumbar spinal tenderness Extrem General: Yes normal to inspection, No edema and No calf tenderness Skin General: warm and dry. Normal skin color. Normal skin turgor Neuro General: patient oriented x3, gait normal and no focal neuro deficit Cranial nerves: Yes Equal, round and reactive pupils present Cognition (Neuro): normal cognition Gait exam (Neuro): Normal gait present Sensory Exam: No Sensory deficit (Neuro) Psych Appearance: grossly normal Affect: normal affect Attitude: cooperative Thought process: Normal thought process present Assessment and Plan Assessment & Plan (1) A-fib: Code(s): I48.91 - Unspecified atrial fibrillation Plan: No current symptoms Heart rate regularly irregular Continue current treatment regimen Encouraged to take medications as prescribed and to not stop taking her medication without notifying her PCP Follow-up in 1 month for transfer of care return or return sooner or go to the ED with symptoms or concerns Follow-up with Cardiology as planned VNA to help with medication management Verbalized understanding and agreed with treatment plan Coding Level of Care Code Est Pt Level 4 (70025) Diagnoses A-fib I48.91
[2023-02-04 08:10] VITALS: BP 126/62; PULSE 76; RESP 15; O2SAT 100; BMI 38.0
== END 2023-02-04 08:51 | disposition home or self-care (01) ==
PROVIDERS: PCP Nurse Practitioner Family; Visit Provider Nurse Practitioner Family
DX: I48.91 Unspecified atrial fibrillation (principal)
CPT/HCPCS: 99214

== ENCOUNTER 2023-03-13 15:57 | Outpatient (AMB) | payer OTHER, SELFPAY ==
[2023-03-13 16:01] VITALS: BP 114/60; PULSE 82; RESP 13; TEMP 36.2; O2SAT 96; BMI 38.4
--- NOTE | 2023-03-13 16:01 | A.OFFPC_ITS ---
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 Allergies Penicillins Allergy (Intermediate, Verified 03/13/23 16:19) itchy, hives lisinopril Adverse Reaction (Intermediate, Verified 03/13/23 16:19) Cough prednisone Adverse Reaction (Intermediate, Verified 03/13/23 16:19) high blood pressure Medication List - Last Reconciled 03/13/23 by Kimberley Almazan CNP albuterol sulfate 90 mcg/actuation 2 puffs inhalation BID 30 days albuterol sulfate 2.5 mg (3 mL) inhalation Q6H PRN 1 month apixaban 5 mg PO BID aspirin 81 mg PO DAILY atorvastatin 40 mg PO DAILY bisacodyl (Dulcolax (bisacodyl)) 10 mg (2 x 5 mg) PO ONCE 1 day blood pressure monitor As directed blood sugar diagnostic ([employer] Ultra Test strips) test blood sugar two to three time a day blood-glucose meter ([employer] Ultra2 Meter) As directed budesonide-formoterol 160-4.5 mcg/actuation (Symbicort) inhalation calcium carbonate-vitamin D3 600 mg-10 mcg (400 unit) TAKE 1 TABLET BY MOUTH AT BEDTIME clonazepam 1 mg PO BEDTIME PRN clonazepam 0.5 mg PO QAM diltiazem HCl 360 mg PO DAILY empagliflozin (Jardiance) 10 mg PO QAM 30 days fluticasone propion-salmeterol 115-21 mcg/actuation (Advair HFA) 2 puffs inhalation BID fluticasone propionate 110 mcg/actuation (Flovent HFA) 1 puff inhalation BID 30 days lancets ([employer] UltraSoft Lancets) check blood sugar twice a day and as needed for s/s of dm lancets ([employer] Delica Plus Lancet) As directed loratadine 10 mg PO DAILY losartan 25 mg PO DAILY 30 days meloxicam 15 mg PO DAILY metformin ER 1,000 mg (2 x 500 mg) PO BID 30 days metoprolol succinate ER 200 mg PO DAILY mirtazapine 30 mg PO BEDTIME mirtazapine 30 mg PO BEDTIME miscellaneous medical supply skin sealents, protectants, moisturiszre, ointments any type and size as directed; miscellaneous medical supply disposable linner/shield/guard/pad/undergarment for incontinence as directed; miscellaneous medical supply diabetic shoes as directed; miscellaneous medical supply Aleotouch wipes, frag free 110/pk incont supply as directed; miscellaneous medical supply incontinence prod, disp large underpads as directed; multivitamin 1 tab PO DAILY oxcarbazepine 600 mg PO BID pantoprazole 40 mg PO DAILY pantoprazole (Protonix) 40 mg PO DAILY polyethylene glycol 3350 (Miralax) 238 grams PO ONCE 1 day Tobacco use date assessed: 03/13/23 Fall risk assessment: No Falls in past year Last assessed Fall Risk: 03/13/23 Dental Screening Dental Screen Date: 03/13/23 Did you have a dental visit in the last 12 months?: Yes Did you have a dental problem in the last 6 months where you did not have access to dental care?: No Was dental information given to patient?: Patient has dentist HPI HPI Comments History of Present Illness Details 67-year-old female, accompanied by son, presents for diabetes and hypertension follow-up She admits to taking her medications as prescribed without adverse reactions She admits to making healthy dietary choices She [place] [facility] [place] However, she notes she has not been contacted She is followed by [facility]. Per cardiology notes, she has an appointment on 03/23/23 for AMADO guided cardioversion to correct a-fib. There is question about noncompliant with Eliquis [facility] Medical History No pertinent past medical history Surgical History History of hand surgery History of back surgery Family History Other Mental health disorder Substance use disorder Social History Household Members: Other Housing: Apartment Are you a primary care support representative to a significant other at home: No Do you presently have visiting nurse or other home services: Yes 75 years or older and lives alone: No Alcohol intake: never Patient Tobacco Use Status: Former Tobacco user Tobacco use type: Cigarette e-Cigarette/Vaping Use: Never Used Second Hand Smoke Exposure: Yes Special jeannette needs: No Agree to transfusion: Yes service: No Current occupational status: disabled Current occupational exposures/hazards: No Sexual orientation: Straight/Heterosexual Gender identity: Female Cognitive needs: No (cane) Hearing needs: No (hearing aide) Vision needs: No (Glasses) Questionnaire Thrive Questionnaire Date Thrive assessed: 08/22/22 MATTHEW-7 AMB Questionnaire MATTHEW-7 Date MATTHEW - 7 assessed: 08/22/22 Source: Developed by Drs. Jose D Lundy, Madalyn Henry, Marty Carrasco and colleagues, with an educational simeon from [employer]. Review of Systems Const Details: Const Denies chills, Denies fatigue, Denies fever(s), Denies headache(s) and Denies weakness ENT Denies dizziness and Denies headache(s) Card Denies chest pain, Denies lightheadedness, Denies dyspnea and Denies other (Palpitations) Resp Denies cough, Denies dyspnea, Denies wheezing and Denies other ( shortness of breath) GI Denies abdominal pain, Denies melena, Denies hematochezia, Denies change in bowel habits, Denies dyspepsia and Denies nausea Denies hematuria and Denies dysuria Musc Denies abnormal gait, Denies myalgias, Denies arthralgias, Denies numbness and Denies tingling Skin/Breast Denies rash, Denies unusual bruising and Denies wounds Neuro Denies abnormal gait, Denies dizziness, Denies headache(s), Denies memory loss, Denies numbness, Denies Sensory deficit (Neuro), Denies tingling and Denies weakness Psych Denies anxiety, Denies depression, Denies memory loss Endo Denies cold intolerance, Denies fatigue, Denies heat intolerance, Denies polydipsia and Denies polyuria Aller/Immun Denies wheezing Physical exam (Primary Care) Vital Signs: Last Vital Signs Temp 97.1 F 03/13/23 16:01 Pulse 82 03/13/23 16:01 Resp 13 03/13/23 16:01 BP 114/60 03/13/23 16:01 Pulse Ox 96 03/13/23 16:01 Oxygen Delivery Method Room Air 03/13/23 16:01 BMI result Body Mass Index 38.4 Tobacco/Smoking Status: Tobacco use Status Tobacco use date assessed 03/13/23 03/13/23 16:16 Patient Tobacco Use Status Former Tobacco user 03/13/23 16:01 Tobacco use type Cigarette 03/13/23 16:01 e-Cigarette/Vaping Use Never Used 03/13/23 16:01 Thrive Assessment: Date of Thrive Assessment Date Thrive assessed 08/22/22 03/13/23 16:01 Const Other: General: no acute distress and well developed Nutritional Appearance: well nourished Orientation/consciousness: patient oriented x3 HENMT Head: Yes normocephalic and Yes atraumatic Eyes General: appearance normal, both eyes and all related structures Pupils: Equal, round and reactive pupils present EOM: EOMs intact bilaterally Resp Effort & Inspection: normal respiratory effort Auscultation: clear to auscultation bilaterally Cardio Rate: regular rate Rhythm: regular rhythm Heart sounds: S1 normal heart sound present, S2 normal heart sound present, no gallops, no murmurs and no rubs GI Palpation (GI): No Abdominal aortic bruit present, Soft to palpation, nontender, No hepatosplenomegaly present and No Rebound tenderness present Auscultation: normal bowel sounds General: Yes no CVA tenderness Back/Spine/Pelvis Back: no CVA tenderness Cervical Spine: cervical ROM normal and No Cervical spine tenderness Thoracic/Lumbar Spine: thoraco-lumbar ROM normal, No pain with thoraco-lumbar ROM, No thoracic spinal tenderness and No lumbar spinal tenderness Extrem General: Yes normal to inspection, No edema and No calf tenderness Skin General: warm and dry. Normal skin color. Normal skin turgor Neuro General: patient oriented x3, gait normal and no focal neuro deficit Cranial nerves: Yes Equal, round and reactive pupils present Cognition (Neuro): normal cognition Gait exam (Neuro): Normal gait present Sensory Exam: No Sensory deficit (Neuro) Psych Appearance: grossly normal Affect: normal affect Attitude: cooperative Thought process: Normal thought process present Assessment and Plan Assessment & Plan (1) HTN (hypertension): Code(s): I10 - Essential (primary) hypertension Qualifiers: Hypertension type: primary hypertension Qualified Code(s): I10 - Essential (primary) hypertension Plan: Blood pressure is 114/60, within goal of less than 130/80 Continue current treatment regimen Low-sodium diet encouraged Will continue to monitor Will check routine labs. Advised to fast for 10-12 hours, may drink water only, and get blood work done before next visit Follow-up in 1 month for an extended physical exam and bipolar Return sooner with symptoms or concerns Verbalized understanding and agreed with treatment plan (2) Diabetes: Code(s): E11.9 - Type 2 diabetes mellitus without complications Qualifiers: Diabetes mellitus type: type 2 Diabetes mellitus complication status: without complication Plan: A1c today is 7.8%, above goal of less than 7.0%. Previous A1c was 9.8% Continue current treatment regimen ADA diet and routine exercise encouraged Will recheck A1c in 3 months Verbalized understanding and agreed with treatment plan (3) Morbid obesity with BMI of 40.0-44.9, adult: Code(s): E66.01 - Morbid (severe) obesity due to excess calories; Z68.41 - Body mass index [BMI] 40.0-44.9, adult Plan: She notes she has not been contacted for an appointment with weight management The MA will contact [facility] [place] regarding an appointment for the patient Orders: Orders Complete Blood Count Auto Diff Today Z00.00 - Encounter for general adult medical examination without abnormal findings UA CC w/rflx Micro + Cult Today Z00.00 - Encounter for general adult medical examination without abnormal findings Comprehensive Imperial. Panel Fast Today Z00.00 - Encounter for general adult medical examination without abnormal findings Lipid Panel Today Z00.00 - Encounter for general adult medical examination without abnormal findings TSH reflex Free T4 Today Z00.00 - Encounter for general adult medical examination without abnormal findings Coding Level of Care Code Est Pt Level 4 (92400) Diagnoses Primary hypertension I10 Hypertension type: primary hypertension Diabetes E11.9 Diabetes mellitus type: type 2 Diabetes mellitus complication status: without complication Morbid obesity with BMI of 40.0-44.9, adult E66.01; Z68.41
== END 2023-03-13 17:49 | disposition home or self-care (01) ==
PROVIDERS: PCP Nurse Practitioner Family; Visit Provider Nurse Practitioner Family
DX: E11.9 Type 2 diabetes mellitus without complications (principal)
CPT/HCPCS: 83036; 99214

== ENCOUNTER 2023-04-03 15:29 | Outpatient (AMB) | payer OTHER, SELFPAY ==
--- NOTE | 2023-04-03 15:37 | MHC.PC.OV ---
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 Accompanied by: Family/Other Allergies Penicillins Allergy (Intermediate, Verified 04/03/23 16:12) itchy, hives lisinopril Adverse Reaction (Intermediate, Verified 04/03/23 16:12) Cough prednisone Adverse Reaction (Intermediate, Verified 04/03/23 16:12) high blood pressure Medication List - Last Reconciled 04/03/23 by Kimberley Almazan CNP albuterol sulfate 90 mcg/actuation 2 puffs inhalation BID 30 days albuterol sulfate 2.5 mg (3 mL) inhalation Q6H PRN 1 month apixaban 5 mg PO BID aspirin 81 mg PO DAILY atorvastatin 40 mg PO DAILY blood pressure monitor As directed blood sugar diagnostic ([employer] Ultra Test strips) test blood sugar two to three time a day blood-glucose meter ([employer] Ultra2 Meter) As directed budesonide-formoterol 160-4.5 mcg/actuation (Symbicort) inhalation calcium carbonate-vitamin D3 600 mg-10 mcg (400 unit) TAKE 1 TABLET BY MOUTH AT BEDTIME clonazepam 1 mg PO BEDTIME PRN clonazepam 0.5 mg PO QAM diltiazem HCl 360 mg PO DAILY 30 days empagliflozin (Jardiance) 10 mg PO QAM 30 days fluticasone propion-salmeterol 115-21 mcg/actuation (Advair HFA) 2 puffs inhalation BID fluticasone propionate 110 mcg/actuation (Flovent HFA) 1 puff inhalation BID 30 days lancets ([employer] UltraSoft Lancets) check blood sugar twice a day and as needed for s/s of dm lancets ([employer] Delica Plus Lancet) As directed loratadine 10 mg PO DAILY losartan 25 mg PO DAILY 30 days metformin ER 1,000 mg (2 x 500 mg) PO BID 30 days metoprolol succinate ER 200 mg PO DAILY 30 days mirtazapine 30 mg PO BEDTIME mirtazapine 30 mg PO BEDTIME miscellaneous medical supply skin sealents, protectants, moisturiszre, ointments any type and size as directed; miscellaneous medical supply disposable linner/shield/guard/pad/undergarment for incontinence as directed; miscellaneous medical supply diabetic shoes as directed; miscellaneous medical supply Aleotouch wipes, frag free 110/pk incont supply as directed; miscellaneous medical supply incontinence prod, disp large underpads as directed; multivitamin 1 tab PO DAILY oxcarbazepine 600 mg PO BID pantoprazole 40 mg PO DAILY polyethylene glycol 3350 (Miralax) 238 grams PO ONCE 1 day Tobacco use date assessed: 03/13/23 Dental Screening Dental Screen Date: 04/03/23 Did you have a dental visit in the last 12 months?: No Did you have a dental problem in the last 6 months where you did not have access to dental care?: No Was dental information given to patient?: Patient has dentist HPI HPI Comments History of Present Illness Details 67-year-old female, accompanied by her son, presents for a follow-up visit. She underwent AMADO and cardioversion on 03/23/2023 at [facility]. Flecainide was administered without conversion. She remained in AFib. 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 On 03/25/2023, she presented at [facility] ED for palpitations, difficulty sleeping, and chest pressure. She was admitted for management of AFib RVR. Lab work was unremarkable. Chest x-ray showed no abnormality. EKG showed AFib RVR with no ischemic changes. She was discharged on 03/28/2023 On 03/31/2023, she presented to [facility] emergency department for shortness of breath and AFib. She reported persistent shortness breath. She attributed her symptoms to AFib. A dose of flecainide to 100 mg was administered. However, patient did not convert and continued on a rate controlled AFib. She was hemodynamically stable and therefore discharged home with instructions to follow-up with her livestock farmers. She reports continued chest tightness, fatigue, weakness, swelling to her lower legs and ankles, and intermittent shortness of breath and blurry vision. She notes that she has an appointment with her livestock farmers on Thursday04/06/2023 She notes that she was prescribed lisinopril at [facility] ED, however, she was unable to find medication at the pharmacy [facility] Medical History No pertinent past medical history Surgical History History of hand surgery History of back surgery Family History Other Mental health disorder Substance use disorder Social History Household Members: Other Housing: Apartment Are you a primary nursing care attendant to a significant other at home: No Do you presently have visiting nurse or other home services: Yes 75 years or older and lives alone: No Alcohol intake: never Patient Tobacco Use Status: Former Tobacco user Tobacco use type: Cigarette e-Cigarette/Vaping Use: Never Used Second Hand Smoke Exposure: Yes Special jeannette needs: No Agree to transfusion: Yes service: No Current occupational status: disabled Current occupational exposures/hazards: No Sexual orientation: Straight/Heterosexual Gender identity: Female Cognitive needs: No (cane) Hearing needs: No (hearing aide) Vision needs: No (Glasses) Questionnaire Thrive Questionnaire Date Thrive assessed: 08/22/22 MATTHEW-7 AMB Questionnaire MATTHEW-7 Date MATTHEW - 7 assessed: 08/22/22 Source: Developed by Drs. Jose D Lundy, Madalyn Henry, Marty Carrasco and colleagues, with an educational simeon from [employer]. Review of Systems Const Details: Const Denies chills, Reports fatigue, Denies fever(s), Denies headache(s) and Denies weakness ENT Denies dizziness and Denies headache(s) Card Reports chest tightness, Denies lightheadedness, Reports dyspnea and Denies other (Palpitations) Resp Denies cough, Denies dyspnea, Denies wheezing GI Denies abdominal pain, Denies melena, Denies hematochezia, Denies change in bowel habits, Denies dyspepsia and Denies nausea Denies hematuria and Denies dysuria Musc Denies abnormal gait, Denies myalgias, Denies arthralgias, Denies numbness and Denies tingling Skin/Breast Denies rash, Denies unusual bruising and Denies wounds Neuro Denies abnormal gait, Denies dizziness, Denies headache(s), Denies memory loss, Denies numbness, Denies Sensory deficit (Neuro), Denies tingling and Reports weakness Psych Denies anxiety, Denies depression, Denies memory loss Endo Denies cold intolerance, Reports fatigue, Denies heat intolerance, Denies polydipsia and Denies polyuria Aller/Immun Denies wheezing Physical exam (Primary Care) Vital Signs: Last Vital Signs Temp 97.3 F 04/03/23 15:38 Pulse 76 04/03/23 15:38 Resp 15 04/03/23 15:38 BP 140/80 H 04/03/23 15:38 Pulse Ox 98 04/03/23 15:38 Oxygen Delivery Method Room Air 04/03/23 15:38 BMI result Body Mass Index 40.1 Tobacco/Smoking Status: Tobacco use Status Tobacco use date assessed 03/13/23 04/03/23 16:01 Patient Tobacco Use Status Former Tobacco user 04/03/23 16:01 Tobacco use type Cigarette 04/03/23 16:01 e-Cigarette/Vaping Use Never Used 04/03/23 16:01 Thrive Assessment: Date of Thrive Assessment Date Thrive assessed 08/22/22 04/03/23 16:01 Const Other: General: no acute distress and well developed Nutritional Appearance: well nourished Orientation/consciousness: patient oriented x3 HENMT Head: Yes normocephalic and Yes atraumatic Eyes General: appearance normal, both eyes and all related structures Pupils: Equal, round and reactive pupils present EOM: EOMs intact bilaterally Resp Effort & Inspection: normal respiratory effort Auscultation: clear to auscultation bilaterally Cardio Rate: Irregular Rhythm: Irregular Heart sounds: S1 normal heart sound present, S2 normal heart sound present, no gallops, no murmurs and no rubs GI Palpation (GI): No Abdominal aortic bruit present, Soft to palpation, nontender, No hepatosplenomegaly present and No Rebound tenderness present Auscultation: normal bowel sounds General: Yes no CVA tenderness Back/Spine/Pelvis Back: no CVA tenderness Cervical Spine: cervical ROM normal and No Cervical spine tenderness Thoracic/Lumbar Spine: thoraco-lumbar ROM normal, No pain with thoraco-lumbar ROM, No thoracic spinal tenderness and No lumbar spinal tenderness Extrem General: Yes normal to inspection, No calf tenderness Moderate nonpitting edema noted to bilateral lower legs and ankles Skin General: warm and dry. Normal skin color. Normal skin turgor Neuro General: patient oriented x3, gait normal and no focal neuro deficit Cranial nerves: Yes Equal, round and reactive pupils present Cognition (Neuro): normal cognition Gait exam (Neuro): Normal gait present Sensory Exam: No Sensory deficit (Neuro) Psych Appearance: grossly normal Affect: normal affect Attitude: cooperative Thought process: Normal thought process present Assessment and Plan Assessment & Plan (1) A-fib: Code(s): I48.91 - Unspecified atrial fibrillation Plan: She reports continued chest tightness, fatigue, weakness, swelling to her lower legs and ankles, and intermittent shortness of breath and blurry vision Lung sounds clear and equal bilaterally Irregular heart rate and rhythm EKG in the office revealed AFib with rapid ventricular response, nonspecific ST and T-wave abnormality; similar to the one done in the ED on 03/31/2023 Moderate nonpitting edema noted to bilateral lower legs and ankles Her symptoms may be attributed to AFib Lasix 20 mg twice daily ordered. Take as prescribed Advised to maintain a low-salt diet Follow-up with cardiology as planned in 4 days or go to the ED with worsening or new symptoms Verbalized understanding and agreed with treatment plan EKG reviewed by Dr. Allen Orders: Orders AMB EKG-In Office Today I48.91 - Unspecified atrial fibrillation Medications: New furosemide (Lasix) 20 mg PO DAILY 7 days 7 tabs 0RF furosemide (Lasix) 20 mg PO BID 7 days 14 tabs 0RF furosemide (Lasix) 20 mg PO BID 7 days 14 tabs 0RF Coding Level of Care Code Est Pt Level 4 (91845) Diagnoses A-fib I48.91
[2023-04-03 15:38] VITALS: BP 140/80; PULSE 76; RESP 15; TEMP 36.3; O2SAT 98; BMI 40.1
== END 2023-04-03 17:57 | disposition home or self-care (01) ==
PROVIDERS: PCP Nurse Practitioner Family; Visit Provider Nurse Practitioner Family
DX: I48.91 Unspecified atrial fibrillation (principal)
CPT/HCPCS: 99214

== ENCOUNTER 2023-04-14 15:02 | Outpatient (AMB) | payer OTHER, SELFPAY ==
[2023-04-14 15:05] VITALS: BP 124/64; PULSE 74; RESP 14; TEMP 36.3; O2SAT 99; BMI 38.3
--- NOTE | 2023-04-14 15:05 | MHC.PC.OV ---
Vital Signs 04/14/23 15:05 Height 5 ft 4 in Weight 223 lb 6 oz BMI 38.3 BP 124/64 Blood Pressure Location Rt brachial Position Sitting Respiration 14 Pulse 74 Pulse Source Pulse Oximeter Temp 97.3 F Temp Source Temporal Artery Scan Pulse Oximetry (%) 99 Oxygen Delivery Method Room Air Intake Visit Reasons: mercy, heart issues Weight Checker Required: No Accompanied by: Family/Other Allergies Penicillins Allergy (Intermediate, Verified 04/14/23 15:12) itchy, hives lisinopril Adverse Reaction (Intermediate, Verified 04/14/23 15:12) Cough prednisone Adverse Reaction (Intermediate, Verified 04/14/23 15:12) high blood pressure Tobacco use date assessed: 04/14/23 Fall risk assessment: No Falls in past year Last assessed Fall Risk: 04/14/23 Dental Screening Dental Screen Date: 04/14/23 Did you have a dental visit in the last 12 months?: No Did you have a dental problem in the last 6 months where you did not have access to dental care?: No Was dental information given to patient?: Patient has dentist HPI HPI Comments History of Present Illness Details 67-year-old female, accompanied by her son, presents for follow-up visit Her last visit of was 10 days ago due to continued chest tightness, fatigue, weakness, swelling to her lower legs and ankles, and intermittent shortness of breath and blurry vision related to AFib She notes that her symptoms have resolved. She denies acute symptoms at this time She notes that she saw her veterinarian laboratory animal care at [facility] on 04/06/2023 and was manually cardioverted. Diltiazem and metoprolol were discontinued. She was started on Sotolol 80mg twice daily. She admits to taking her medications as prescribed without adverse reactions. She notes that she has a follow up appointment with cardiology on 04/20/2023 She brought document for request for reasonable accommodation for a first-floor apartment to be signed by her PCP [facility] Medical History History of cardioversion No pertinent past medical history Surgical History History of hand surgery History of back surgery Family History Other Mental health disorder Substance use disorder Social History Household Members: Other Housing: Apartment Are you a primary attending ambulatory care to a significant other at home: No Do you presently have visiting nurse or other home services: Yes 75 years or older and lives alone: No Alcohol intake: never Patient Tobacco Use Status: Former Tobacco user Tobacco use type: Cigarette e-Cigarette/Vaping Use: Never Used Second Hand Smoke Exposure: Yes Special jeannette needs: No Agree to transfusion: Yes service: No Current occupational status: disabled Current occupational exposures/hazards: No Sexual orientation: Straight/Heterosexual Gender identity: Female Cognitive needs: No (cane) Hearing needs: No (hearing aide) Vision needs: No (Glasses) Questionnaire Thrive Questionnaire Date Thrive assessed: 08/22/22 MATTHEW-7 AMB Questionnaire MATTHEW-7 Date MATTHEW - 7 assessed: 08/22/22 Source: Developed by Drs. Jose D Lundy, Madalyn Henry, Marty Carrasco and colleagues, with an educational simeon from [employer]. Review of Systems Const Details: Const Denies chills, Denies fatigue, Denies fever(s), Denies headache(s) and Denies weakness ENT Denies dizziness and Denies headache(s) Card Denies chest pain, Denies lightheadedness, Denies dyspnea and Denies other (Palpitations) Resp Denies cough, Denies dyspnea, Denies wheezing and Denies other ( shortness of breath) GI Denies abdominal pain, Denies melena, Denies hematochezia, Denies change in bowel habits, Denies dyspepsia and Denies nausea Denies hematuria and Denies dysuria Musc Denies abnormal gait, Denies myalgias, Denies arthralgias, Denies numbness and Denies tingling Skin/Breast Denies rash, Denies unusual bruising and Denies wounds Neuro Denies abnormal gait, Denies dizziness, Denies headache(s), Denies memory loss, Denies numbness, Denies Sensory deficit (Neuro), Denies tingling and Denies weakness Psych Denies anxiety, Denies depression, Denies memory loss Endo Denies cold intolerance, Denies fatigue, Denies heat intolerance, Denies polydipsia and Denies polyuria Aller/Immun Denies wheezing Physical exam (Primary Care) Vital Signs: Last Vital Signs Temp 97.3 F 04/14/23 15:05 Pulse 74 04/14/23 15:05 Resp 14 04/14/23 15:05 BP 124/64 04/14/23 15:05 Pulse Ox 99 04/14/23 15:05 Oxygen Delivery Method Room Air 04/14/23 15:05 BMI result Body Mass Index 38.3 Tobacco/Smoking Status: Tobacco use Status Tobacco use date assessed 04/14/23 04/14/23 15:16 Patient Tobacco Use Status Former Tobacco user 04/14/23 15:16 Tobacco use type Cigarette 04/14/23 15:16 e-Cigarette/Vaping Use Never Used 04/14/23 15:16 Thrive Assessment: Date of Thrive Assessment Date Thrive assessed 08/22/22 04/14/23 15:16 Const Other: General: no acute distress and well developed Nutritional Appearance: well nourished Orientation/consciousness: patient oriented x3 HENMT Head: Yes normocephalic and Yes atraumatic Eyes General: appearance normal, both eyes and all related structures Pupils: Equal, round and reactive pupils present EOM: EOMs intact bilaterally Resp Effort & Inspection: normal respiratory effort Auscultation: clear to auscultation bilaterally Cardio Rate: regular rate Rhythm: regular rhythm Heart sounds: S1 normal heart sound present, S2 normal heart sound present, no gallops, no murmurs and no rubs GI Palpation (GI): No Abdominal aortic bruit present, Soft to palpation, nontender, No hepatosplenomegaly present and No Rebound tenderness present Auscultation: normal bowel sounds General: Yes no CVA tenderness Back/Spine/Pelvis Back: no CVA tenderness Cervical Spine: cervical ROM normal and No Cervical spine tenderness Thoracic/Lumbar Spine: thoraco-lumbar ROM normal, No pain with thoraco-lumbar ROM, No thoracic spinal tenderness and No lumbar spinal tenderness Extrem General: Yes normal to inspection, No edema and No calf tenderness Skin General: warm and dry. Normal skin color. Normal skin turgor Neuro General: patient oriented x3, gait normal and no focal neuro deficit Cranial nerves: Yes Equal, round and reactive pupils present Cognition (Neuro): normal cognition Gait exam (Neuro): Normal gait present Sensory Exam: No Sensory deficit (Neuro) Psych Appearance: grossly normal Affect: normal affect Attitude: cooperative Thought process: Normal thought process present Assessment and Plan Assessment & Plan (1) A-fib: Code(s): I48.91 - Unspecified atrial fibrillation Plan: Stable Heart regular rate and rhythm Continue current treatment regimen Follow-up with cardiology as planned Return in 1 month for an extended physical exam or sooner with symptoms or concerns Request for reasonable accommodation for a first-floor apartment signed Verbalized understanding and agreed with treatment plan Orders: Orders AMB Hemoglobin A1c 03/13/23 E11.9 - Type 2 diabetes mellitus without complications Coding Level of Care Code Est Pt Level 3 (51563) Diagnoses A-fib I48.91
== END 2023-04-14 15:42 | disposition home or self-care (01) ==
PROVIDERS: PCP Nurse Practitioner Family
DX: I48.91 Unspecified atrial fibrillation (principal)
CPT/HCPCS: 99213

== ENCOUNTER 2023-05-05 13:07 | Outpatient (AMB) | payer OTHER, SELFPAY ==
--- NOTE | 2023-05-05 13:08 | MHC.PC.OV ---
Vital Signs 05/05/23 13:09 Height 5 ft 4 in Weight 224 lb BMI 38.4 BP 116/62 Blood Pressure Location Lt brachial Position Sitting Respiration 13 Pulse 66 Pulse Source Pulse Oximeter Intake Visit Reasons: [facility] from [facility] Intake Note: Patient is here for transfer of care from [place] to . Patient is accompanied by Joo. Patient reports she needs a letter of accommodation for a first floor apartment due to heart condition, chronic pain and walks with a cane. Patient has 14 steps to go up to enter her apartment. Patient has a nurse that comes to her home every morning. Patient has had surgery on her heart. English Language Arts Teacher Required: No Accompanied by: Son Allergies Penicillins Allergy (Intermediate, Verified 05/05/23 13:28) itchy, hives lisinopril Adverse Reaction (Intermediate, Verified 05/05/23 13:28) Cough prednisone Adverse Reaction (Intermediate, Verified 05/05/23 13:28) high blood pressure Medication List - Last Reconciled 05/05/23 by Hiral Leo, [facility]- albuterol sulfate 90 mcg/actuation 2 puffs inhalation BID 30 days albuterol sulfate 2.5 mg (3 mL) inhalation Q6H PRN 1 month apixaban 5 mg PO BID aspirin 81 mg PO DAILY atorvastatin 40 mg PO DAILY blood pressure monitor As directed blood sugar diagnostic ([employer] Ultra Test strips) test blood sugar two to three time a day blood-glucose meter ([employer] Ultra2 Meter) As directed budesonide-formoterol 160-4.5 mcg/actuation (Symbicort) inhalation calcium carbonate-vitamin D3 600 mg-10 mcg (400 unit) TAKE 1 TABLET BY MOUTH AT BEDTIME clonazepam 1 mg PO BEDTIME PRN clonazepam 0.5 mg PO QAM empagliflozin (Jardiance) 10 mg PO QAM 30 days fluticasone propion-salmeterol 115-21 mcg/actuation (Advair HFA) 2 puffs inhalation BID fluticasone propionate 110 mcg/actuation (Flovent HFA) 1 puff inhalation BID 30 days furosemide (Lasix) 20 mg PO BID 7 days lancets ([employer] UltraSoft Lancets) check blood sugar twice a day and as needed for s/s of dm lancets ([employer] Delica Plus Lancet) As directed loratadine 10 mg PO DAILY losartan 25 mg PO DAILY 30 days metformin ER 1,000 mg (2 x 500 mg) PO BID 30 days mirtazapine 30 mg PO BEDTIME mirtazapine 30 mg PO BEDTIME miscellaneous medical supply skin sealents, protectants, moisturiszre, ointments any type and size as directed; miscellaneous medical supply disposable linner/shield/guard/pad/undergarment for incontinence as directed; miscellaneous medical supply diabetic shoes as directed; miscellaneous medical supply Aleotouch wipes, frag free 110/pk incont supply as directed; miscellaneous medical supply incontinence prod, disp large underpads as directed; multivitamin 1 tab PO DAILY oxcarbazepine 600 mg PO BID pantoprazole 40 mg PO DAILY polyethylene glycol 3350 (Miralax) 238 grams PO ONCE 1 day sotalol 80 mg PO BID 30 days Tobacco use date assessed: 04/14/23 Fall risk assessment: No Falls in past year Last assessed Fall Risk: 05/05/23 Dental Screening Dental Screen Date: 05/05/23 Did you have a dental visit in the last 12 months?: Yes Did you have a dental problem in the last 6 months where you did not have access to dental care?: No Was dental information given to patient?: Patient has dentist HPI HPI Comments History of Present Illness Details 67-year-old female with AFib, GERD, hyperlipidemia, bipolar disorder, mild intermittent asthma, CVA (2002), seasonal allergies, diabetes 2, hypertension, urinary incontinence, LAURITA, fibromyalgia, pulmonary hypertension, nephrolithiasis, venous insufficiency of bilateral lower extremities, cirrhosis, osteoarthritis, microalbuminuria, Anxiety with panic, CHF, empty sella syndrome, former smoker Specialists [facility] Cardiology appt this week, [facility] - no longer active w/ Dr Schrader Pulmonology [facility] Pap ASCUS 2016 normal, 2020 NIL negative HPV Mammogram 02/19/2022 within normal limits Hemoglobin A1c 7.8% 03/13/2023 Colonoscopy reports has not had one, referral placed today [facility] [place] reports UTD AMADO 03/23/2023 shows normal ventricular size and systolic function with ejection fraction 55-60% Creatinine clearance 57.50 03/23/23 Here today w/ son Joo to est care Needs note for first floor apart; has a cane and cardiac conditions needs Mammo and Dexa order, placed today Has pain in RUQ described as cramping that comes and goes. Known cirrhosis. Ok w GI referral for mgmt Has some edema BLE that is at baseline. was on prn lasix bid x 7 days. completed this. reports weighs daily. Stable. [facility] Medical History Chronic pain of both shoulders Back pain with left-sided sciatica Constipation by delayed colonic transit Chronic low back pain History of cardioversion No pertinent past medical history Surgical History History of hand surgery History of back surgery Family History Other Mental health disorder Substance use disorder Social History Household Members: Other Housing: Apartment Are you a primary medicare insurance specialist to a significant other at home: No Do you presently have visiting nurse or other home services: Yes 75 years or older and lives alone: No Alcohol intake: never Patient Tobacco Use Status: Former Tobacco user Tobacco use type: Cigarette e-Cigarette/Vaping Use: Never Used Second Hand Smoke Exposure: Yes Special jeannette needs: No Agree to transfusion: Yes service: No Current occupational status: disabled Current occupational exposures/hazards: No Sexual orientation: Straight/Heterosexual Gender identity: Female Cognitive needs: No (cane) Hearing needs: No (hearing aide) Vision needs: No (Glasses) Questionnaire PHQ-9 Over the last 2 weeks, how often have you been bothered by any of the following problems? 1. Little interest or pleasure in doing things: not at all 2. Feeling down, depressed, or hopeless: more than half the days 3. Trouble falling or staying asleep, or sleeping too much: more than half the days 4. Feeling tired or having little energy: more than half the days 5. Poor appetite or overeating: several days 6. Feeling bad about yourself - or that you are a failure or have let yourself or your family down: several days 7. Trouble concentrating on things, such as reading the newspaper or watching television: not at all 8. Moving or speaking so slowly that other people could have noticed. Or the opposite - being so fidgety or restless that you have been moving around a lot more than usual: more than half the days 9. Thoughts that you would be better off or of hurting yourself in some way: not at all Total score: 10 Depression Screening Interpretation: Positive Depression Screening Done: Yes 59643 - PHQ-9 Billing: Yes Source: Developed by Drs. Jose D Lundy, Madalyn Henry, Marty Carrasco and colleagues, with an educational simeon from [employer]. Thrive Questionnaire Date Thrive assessed: 08/22/22 AUDIT C Alcohol Use Questionnaire (AUDIT-C) 1. How often do you have a drink containing alcohol?: Never 3. How often do you have six or more drinks on one occasion?: Never Total Score: 0 MATTHEW-7 AMB Questionnaire MATTHEW-7 Date MATTHEW - 7 assessed: 05/05/23 Feeling nervous, anxious, or on edge: 2 = More than half the days Not being able to stop or control worryin = More than half the days Worrying too much about different things: 2 = More than half the days Trouble relaxin = More than half the days Being so restless that it is hard to sit still: 0 = Not at all Becoming easily annoyed or irritable: 0 = Not at all Feeling afraid as if something awful might happen: 3 = Nearly every day Total MATTHEW-7 score (0-4 normal; 5-9 mild; 10-14 moderate; 15-21 severe): 11 Source: Developed by Drs. Jose D Lundy, Madalyn Henry, Marty Carrasco and colleagues, with an educational simeon from [employer]. MATTHEW-7 Assessment Billing MATTHEW-7 Assessment Tool: MATTHEW-7 Assessment 09102 Review of Systems Const All systems reviewed & are unremarkable except as noted in HPI and below Physical exam (Primary Care) Vital Signs: Last Vital Signs Pulse 66 05/05/23 13:09 Resp 13 05/05/23 13:09 BP 116/62 05/05/23 13:09 BMI result Body Mass Index 38.4 Tobacco/Smoking Status: Tobacco use Status Tobacco use date assessed 04/14/23 05/05/23 13:08 Patient Tobacco Use Status Former Tobacco user 05/05/23 13:08 Tobacco use type Cigarette 05/05/23 13:08 e-Cigarette/Vaping Use Never Used 05/05/23 13:08 PHQ-9: PHQ-9 Score PHQ-9: Total score 10 05/05/23 14:01 Depression Screening Interpretation: Positive Thrive Assessment: Date of Thrive Assessment Date Thrive assessed 08/22/22 05/05/23 13:08 Const Other: awake alert NAD accompanied by son JOO [place] nonicteric bilat RRR LS CTAB BLE skin intact, decreased PP, trace edema, hairless Amb w/ cane Assessment and Plan Assessment & Plan (1) A-fib: Comment: Status post cardioversion, managed by Cardiology. On Eliquis 5 mg p.o. b.i.d. and sotalol 80 mg p.o. b.i.d.. Code(s): I48.91 - Unspecified atrial fibrillation Qualifiers: Atrial fibrillation type: paroxysmal Qualified Code(s): I48.0 - Paroxysmal atrial fibrillation (2) Diabetes mellitus type 2 with complications: Comment: Hemoglobin A1c 7.8% March of 2023. She reports that she is up-to-date on diabetic eye exam. I will need to obtain this records. She is currently maintained on Jardiance 10 mg p.o. q.a.m., metformin ER a 1000 mg p.o. b.i.d. On Arb, losartan 25 mg p.o. daily Code(s): E11.8 - Type 2 diabetes mellitus with unspecified complications (3) Bipolar 1 disorder, depressed, moderate: Comment: Controlled on current medications Code(s): F31.32 - Bipolar disorder, current episode depressed, moderate (4) HTN (hypertension): Comment: Blood pressure at goal on losartan 25 mg p.o. daily and sotalol 80 mg p.o. b.i.d. Code(s): I10 - Essential (primary) hypertension Qualifiers: Hypertension type: primary hypertension Qualified Code(s): I10 - Essential (primary) hypertension (5) High cholesterol: Comment: On atorvastatin 40 mg p.o. daily. Update labs and titrate to effect Code(s): E78.00 - Pure hypercholesterolemia, unspecified (6) CHF (congestive heart failure): Comment: Appears euvolemic on exam today Dry weight 225lbs TE 03/23/2023 shows normal ventricular size and systolic function with ejection fraction 55-60% Managed by [facility], next appt 05/07/23 on Jardiance, Losartan, Sotalol. Was on 7 day RX for lasix 20mg BID. Code(s): I50.9 - Heart failure, unspecified Qualifiers: Heart failure chronicity: chronic Heart failure type: diastolic Qualified Code(s): I50.32 - Chronic diastolic (congestive) heart failure (7) Asthma, mild intermittent, well-controlled: Comment: Managed by pulmonology at [place]. Doing well on p.r.n. albuterol; Symbicort & Advair reported by patient. We will get updated records from pulmonology to clarify this. As she should not be both on Symbicort and Advair. Code(s): J45.20 - Mild intermittent asthma, uncomplicated (8) Venous insufficiency of both lower extremities: Comment: Was active with Dr. Schrader in the past. Has no interest in following with vascular. On aspirin and statin continue. Monitor skin integrity. Code(s): I87.2 - Venous insufficiency (chronic) (peripheral) (9) Cirrhosis: Comment: Noted on imaging. Refer to GI for further evaluation and treatment Code(s): K74.60 - Unspecified cirrhosis of liver Qualifiers: Hepatic cirrhosis type: unspecified hepatic cirrhosis (10) Colon cancer screening: Comment: Refer to GI for colonoscopy Code(s): Z12.11 - Encounter for screening for malignant neoplasm of colon (11) Menopause: Comment: DEXA ordered Code(s): Z78.0 - Asymptomatic menopausal state (12) Screening mammogram for breast cancer: Comment: Mammo ordered today Code(s): Z12.31 - Encounter for screening mammogram for malignant neoplasm of breast Plan This note is constructed using voice recognition software. While every effort has been made to ensure accuracy in firefighter, still errors may have been included Sometimes, these errors may affect the content or meaning of the given sentence . Total time spent caring for the patient today was 60 minutes. This includes time spent before the visit reviewing the chart, time spent during the visit, and time spent after the visit on documentation Orders: Orders XR DEXA axial skeleton Today Z12.31 - Encounter for screening mammogram for malignant neoplasm of breast, Z78.0 - Asymptomatic menopausal state Comprehensive Met. Panel Today E11.8 - Type 2 diabetes mellitus with unspecified complications, I48.91 - Unspecified atrial fibrillation, I50.9 - Heart failure, unspecified, K74.60 - Unspecified cirrhosis of liver TSH reflex Free T4 Today E11.8 - Type 2 diabetes mellitus with unspecified complications, I48.91 - Unspecified atrial fibrillation, I50.9 - Heart failure, unspecified, K74.60 - Unspecified cirrhosis of liver MM screening mammo BI Today Z12.31 - Encounter for screening mammogram for malignant neoplasm of breast LDL Cholesterol Direct Today E11.8 - Type 2 diabetes mellitus with unspecified complications, I48.91 - Unspecified atrial fibrillation, I50.9 - Heart failure, unspecified, K74.60 - Unspecified cirrhosis of liver Vitamin D 1,25 dihydroxy Today E11.8 - Type 2 diabetes mellitus with unspecified complications, I48.91 - Unspecified atrial fibrillation, I50.9 - Heart failure, unspecified, K74.60 - Unspecified cirrhosis of liver Microalbumin, Random (w Creat) Today E11.8 - Type 2 diabetes mellitus with unspecified complications, I48.91 - Unspecified atrial fibrillation, I50.9 - Heart failure, unspecified, K74.60 - Unspecified cirrhosis of liver Referrals Gastroenterology Referral K74.60 - Unspecified cirrhosis of liver, Z12.11 - Encounter for screening for malignant neoplasm of colon Medications: Discontinued furosemide (Lasix) Discontinued Reason: Patient Completed Course 20 mg PO BID 7 days 14 tabs 0RF Patient Instructions: Return to office in 2-3 weeks to review labs and optimize medication and review chronic diseases sooner as needed. Coding Level of Care Code Est Pt Level 5 (67103) Diagnoses Paroxysmal atrial fibrillation I48.0 Atrial fibrillation type: paroxysmal Diabetes mellitus type 2 with complications E11.8 Bipolar 1 disorder, depressed, moderate F31.32 Primary hypertension I10 Hypertension type: primary hypertension High cholesterol E78.00 Chronic diastolic congestive heart failure I50.32 Heart failure chronicity: chronic Heart failure type: diastolic Asthma, mild intermittent, well-controlled J45.20 Venous insufficiency of both lower extremities I87.2 Cirrhosis K74.60 Hepatic cirrhosis type: unspecified hepatic cirrhosis Colon cancer screening Z12.11 Menopause Z78.0 Screening mammogram for breast cancer Z12.31 Additional Codes MATTHEW-7 Assessment Billing - MATTHEW-7 Assessment Tool: MATTHEW-7 Assessment 53436 ([id number])
[2023-05-05 13:09] VITALS: BP 116/62; PULSE 66; RESP 13; BMI 38.4
== END 2023-05-05 14:06 | disposition home or self-care (01) ==
PROVIDERS: PCP Nurse Practitioner Family; Visit Provider Nurse Practitioner Family
DX: I48.0 Paroxysmal atrial fibrillation (principal); E11.8 Type 2 diabetes mellitus with unspecified complications; F31.32 Bipolar disorder, current episode depressed, moderate; I50.32 Chronic diastolic (congestive) heart failure; K74.60 Unspecified cirrhosis of liver; I10 Essential (primary) hypertension; E78.00 Pure hypercholesterolemia, unspecified; J45.20 Mild intermittent asthma, uncomplicated; I87.2 Venous insufficiency (chronic) (peripheral); Z12.11 Encounter for screening for malignant neoplasm of colon; Z78.0 Asymptomatic menopausal state; Z12.31 Encounter for screening mammogram for malignant neoplasm of breast
CPT/HCPCS: 99215

== ENCOUNTER 2023-06-02 12:02 | Outpatient (REF) | payer OTHER, SELFPAY ==
[2023-06-02 14:59] LABS: Creatinine Urine 58.89 mg/dL; Microalbum/Creatinine Ratio Ur 15.2 ug/mg cr (<30)
[2023-06-02 15:09] LABS: Alanine Aminotransferase 23 U/L (0-31); Albumin Level 3.8 g/dL (3.5-5.0); Alkaline Phosphatase 71 U/L (39-117); Anion Gap 12 (12-20); Aspartate Amino Transferase 29 U/L (5-31); Bilirubin Total 0.5 mg/dL (0.0-1.0); Blood Urea Nitrogen 12 mg/dL (9-16); Calcium 9.5 mg/dL (8.4-10.2); Carbon Dioxide 25 mmol/L (22-29); Chloride 108 mmol/L (96-108); Estimated Glomerular Filt Rate > 60; Glucose Random 163 mg/dL (60-115); Sodium 141 mmol/L (135-145); Total Protein 6.9 g/dL (6.5-8.0)
[2023-06-02 15:27] LABS: TSH reflex Free T4 1.82 uIU/mL (0.32-4.0)
[2023-06-04 08:45] LABS: LDL Cholesterol Direct 91 mg/dL (<100)
[2023-06-06 15:12] LABS: VITAMIN D (1,25 OH) D3 10 pg/mL; Vit D (1,25-Dihydroxy) Total 10 pg/mL (18-72); Vitamin D (1,25 OH) D2 <8 pg/mL
== END 2023-06-02 12:03 | disposition home or self-care (01) ==
LOC: HO.WFDLDS 12:02
PROVIDERS: Visit Provider Nurse Practitioner Family
DX: K74.60 Unspecified cirrhosis of liver (principal); I50.9 Heart failure, unspecified; I48.91 Unspecified atrial fibrillation; E11.8 Type 2 diabetes mellitus with unspecified complications
CPT/HCPCS: 36415; 80053; 82043; 82570; 82652; 83721; 84443

== ENCOUNTER 2023-06-03 | Outpatient (REF) | payer OTHER, SELFPAY ==
[2023-06-04 12:41] LABS: Influenza A PCR NEGATIVE (Negative); Influenza B PCR NEGATIVE (Negative); Resp Syncy Virus RNA Qual PCR NEGATIVE (Negative); SARS COV2 PCR INHOUSE NEGATIVE (Negative)
== END 2023-06-03 00:01 | disposition home or self-care (01) ==
LOC: HO.LNP
PROVIDERS: Visit Provider Nurse Practitioner Family
DX: R09.89 Other specified symptoms and signs involving the circulatory and respiratory systems (principal); J06.9 Acute upper respiratory infection, unspecified
CPT/HCPCS: 0241U

== ENCOUNTER 2023-06-03 13:12 | Outpatient (AMB) | payer OTHER, SELFPAY ==
--- NOTE | 2023-06-03 13:19 | A.OFFPC_ITS ---
Vital Signs 06/03/23 13:20 Height 5 ft 4 in Weight 217 lb BMI 37.2 BP 122/66 Blood Pressure Location Lt brachial Position Sitting Respiration 13 Pulse 71 Pulse Source Pulse Oximeter Pulse Oximetry (%) 96 Oxygen Delivery Method Room Air Intake Visit Reasons: bodyaches Intake Note: Patient reports she has body aches x2 days, patient notes she has been very tired and her seasonal allergies are bothering her. Patient reports the only difference is she had OT on Thursday. Patient notes her voice is pitched differently due to procedure which strained her vocal cords. Rn Lpn Cna Required: No Accompanied by: Self / Same As Patient Allergies Penicillins Allergy (Intermediate, Verified 06/03/23 13:41) itchy, hives lisinopril Adverse Reaction (Intermediate, Verified 06/03/23 13:41) Cough prednisone Adverse Reaction (Intermediate, Verified 06/03/23 13:41) high blood pressure Medication List - Last Reconciled 06/03/23 by Hiral Leo, [facility]- albuterol sulfate 90 mcg/actuation 2 puffs inhalation BID 30 days albuterol sulfate 2.5 mg (3 mL) inhalation Q6H PRN 1 month apixaban 5 mg PO BID aspirin 81 mg PO DAILY atorvastatin 40 mg PO DAILY blood pressure monitor As directed blood sugar diagnostic (FlowboxTouch Ultra Test strips) test blood sugar two to three time a day blood-glucose meter (EVaultuch Ultra2 Meter) As directed budesonide-formoterol 160-4.5 mcg/actuation (Symbicort) inhalation calcium carbonate-vitamin D3 600 mg-10 mcg (400 unit) TAKE 1 TABLET BY MOUTH AT BEDTIME clonazepam 1 mg PO BEDTIME PRN clonazepam 0.5 mg PO QAM empagliflozin (Jardiance) 10 mg PO QAM 30 days lancets (FlowboxTouch UltraSoft Lancets) check blood sugar twice a day and as needed for s/s of dm lancets (FlowboxTouch Delica Plus Lancet) As directed loratadine 10 mg PO DAILY losartan 25 mg PO DAILY 90 days metformin ER 1,000 mg (2 x 500 mg) PO BID 30 days mirtazapine 30 mg PO BEDTIME miscellaneous medical supply skin sealents, protectants, moisturiszre, ointments any type and size as directed; miscellaneous medical supply disposable linner/shield/guard/pad/undergarment for incontinence as directed; miscellaneous medical supply diabetic shoes as directed; miscellaneous medical supply Aleotouch wipes, frag free 110/pk incont supply as directed; miscellaneous medical supply incontinence prod, disp large underpads as directed; multivitamin 1 tab PO DAILY oxcarbazepine 600 mg PO BID pantoprazole 40 mg PO DAILY polyethylene glycol 3350 (Miralax) 238 grams PO ONCE 1 day sotalol 80 mg PO BID 30 days Tobacco use date assessed: 04/14/23 Dental Screening Dental Screen Date: 05/05/23 HPI HPI Comments History of Present Illness Details 67-year-old female with AFib, GERD, hype rlipidemia, bipolar disorder, mild intermittent asthma, CVA (2002), seasonal allergies, diabetes, hypertension, urinary incontinence, LAURITA, fibromyalgia, pulmonary hypertension, nephrolithiasis, venous insufficiency of bilateral lower extremities, cirrhosis, osteoarthritis, microalbuminuria, Anxiety with panic,MDD, CHF, empty sella syndrome, former smoker Status post right lower extremity endovenous laser ablation 2019, L4-L5 bilateral laminectomy, partial facetectomy, removal of synovial cyst on the right side in 2017, cataract removal bilat, trigger finger release on the right 2009 PFT 03/19/21 FVC is 103% of predicted, FEV1 is 121% predicted, FEV1/FEC is 117. No signifcant response to bronchodilator. TLC 94% predicted, RV 70% predicted. Uncorrected diffusion capacity is normal 18 or 83% Specialists GI Cardiology Podiatry Vascular Pulmonology Health maintenance Pap ASCUS 2016 normal, 2020 NIL negative HPV Mammogram 02/19/2022 within normal limits Hemoglobin A1c 7.8% 03/13/2023 Here today for c/o back pain & generalized body aches, headache, sore throat. [place] a lump on left side of throat yesterday. Pushed on it and it went away. Reports she was active yesterday and exercising & wonders if this contributed. Took APAP arthritis with some relief. Started crying during exam. Talking about being lonely and depressed. Does not have a counselor. Interested in counseling. Needs help at home. Son is current paid caregiver. She feels she needs more. [facility]LY [facility] Medical History Chronic pain of both shoulders Back pain with left-sided sciatica Constipation by delayed colonic transit Chronic low back pain History of cardioversion No pertinent past medical history Surgical History History of hand surgery History of back surgery Family History Other Mental health disorder Substance use disorder Social History Household Members: Other Housing: Apartment Are you a primary technical healthcare consultant to a significant other at home: No Do you presently have visiting nurse or other home services: Yes 75 years or older and lives alone: No Alcohol intake: never Patient Tobacco Use Status: Former Tobacco user Tobacco use type: Cigarette e-Cigarette/Vaping Use: Never Used Second Hand Smoke Exposure: Yes Special jeannette needs: No Agree to transfusion: Yes service: No Current occupational status: disabled Current occupational exposures/hazards: No Sexual orientation: Straight/Heterosexual Gender identity: Female Cognitive needs: No (cane) Hearing needs: No (hearing aide) Vision needs: No (Glasses) Questionnaire Thrive Questionnaire Date Thrive assessed: 08/22/22 MATTHEW-7 AMB Questionnaire MATTHEW-7 Date MATTHEW - 7 assessed: 05/05/23 Source: Developed by Drs. Jose D Lundy, Madalyn Henry, Marty Carrasco and colleagues, with an educational simeon from [employer]. Review of Systems Const All systems reviewed & are unremarkable except as noted in HPI and below Physical exam (Primary Care) Vital Signs: Last Vital Signs Pulse 71 06/03/23 13:20 Resp 13 06/03/23 13:20 BP 122/66 06/03/23 13:20 Pulse Ox 96 06/03/23 13:20 Oxygen Delivery Method Room Air 06/03/23 13:20 BMI result Body Mass Index 37.2 Tobacco/Smoking Status: Tobacco use Status Tobacco use date assessed 04/14/23 06/03/23 13:26 Patient Tobacco Use Status Former Tobacco user 06/03/23 13:26 Tobacco use type Cigarette 06/03/23 13:26 e-Cigarette/Vaping Use Never Used 06/03/23 13:26 Thrive Assessment: Date of Thrive Assessment Date Thrive assessed 08/22/22 06/03/23 13:26 Const Other: awake alert NAD scleras nonicteric bilat, conjunctiva clear bilat TM intact, mild erythema left TM Nares patent, sinuses nontender pharynx clear, voice wraspy RRR LS CTAB BLE skin intact, decreased PP, trace edema, hairless Amb w/ cane Crying and mentioning she is depressed Assessment and Plan Assessment & Plan (1) Bipolar 1 disorder, depressed, moderate: Comment: Controlled on current medications Referred to counseling today Message sent to [place] to call [facility] health care aide to see if they can asst w more help in the home. Code(s): F31.32 - Bipolar disorder, current episode depressed, moderate (2) Flu-like symptoms: Comment: supportive care at this time to include APAP Viral swab obtained and pending Will f/u w her once results are available. Code(s): R68.89 - Other general symptoms and signs Orders: Orders SARS-CoV2/FLU/RSV Today R09.89 - Other specified symptoms and signs involving the circulatory and respiratory systems Referrals Counseling Referral F31.32 - Bipolar disorder, current episode depressed, moderate Coding Level of Care Code Est Pt Level 4 (18519) Diagnoses Bipolar 1 disorder, depressed, moderate F31.32 Flu-like symptoms R68.89
[2023-06-03 13:20] VITALS: BP 122/66; PULSE 71; RESP 13; O2SAT 96; BMI 37.2
== END 2023-06-03 16:08 | disposition home or self-care (01) ==
PROVIDERS: PCP Nurse Practitioner Family; Visit Provider Nurse Practitioner Family
DX: F31.32 Bipolar disorder, current episode depressed, moderate (principal); R68.89 Other general symptoms and signs
CPT/HCPCS: 99214

== ENCOUNTER 2023-06-05 10:54 | Outpatient (REF) | payer OTHER, SELFPAY ==
--- NOTE | ~2023-06-05 | MM_ITS ---
EXAMINATION: BONE DENSITOMETRY CLINICAL INDICATION: Asymptomatic menopausal state. COMPARISON: This is the patient's baseline examination. TECHNIQUE: Using a Upower DXA System (software version: 13.1) manufactured by [facility], dual-energy x-ray absorptiometry was performed of the lumbar spine and left hip. The images are of good technical quality. Summary results are attached. FINDINGS: LEFT FEMUR, NECK: BMD 0.764 g/cm2, Z-score -1.1, T-score -2.0, osteopenia. LEFT FEMUR, TOTAL: BMD 0.958 g/cm2, Z-score 0.2, T-score -0.4, normal. AP SPINE L1-L2 (excluding L3 and L4): The data of L1-L4 has been changed to exclude the L3 and L4 vertebral bodies, because degenerative sclerosis at these levels may cause overestimation of lumbar spine density. BMD 1.189 g/cm2, Z-score 0.7, T-score 0.2, normal. IDENTIFIED RISK FACTORS: Anticonvulsant, height loss, early menopause, secondary osteoporosis, recurrent falls. HISTORY OF FRACTURE: None listed. MEDICATIONS: Calcium, vitamin D. MM/XR DEXA axial skeleton IMPRESSION: 1. DIAGNOSIS: Osteopenia based on the lowest T-score value of -2.0 in the femoral neck applying World Health Organization criteria. 2. 10-YEAR FRACTURE RISK PREDICTION, FRAX: Major osteoporotic fracture (clinical spine, forearm, hip or shoulder) 5.9%. Hip fracture 1.0%. 3. Treatment Recommendations: NOF guidelines recommend consideration for treatment in postmenopausal women and men age 50 and older presenting with the following: -A hip or vertebral (clinical or morphometric) fracture. -T-score less than or equal to -2.5 at the femoral neck or spine after appropriate evaluation to exclude secondary causes. -Low bone mass at the hip or spine and a 10-year fracture probability by FRAX of greater than or equal to 3% for hip fracture or greater than or equal to 20% for major osteoporotic fracture based on the [place] adapted WHO algorithm. 4. Other Recommendations: All treatment decisions require clinical judgment and consideration of individual patient factors, including patient preferences, comorbidities, previous drug use, risk factors not captured in the FRAX model (e.g. frailty, falls, vitamin D deficiency, increased bone turnover, interval significant decline in bone density) and possible under or overestimation of fracture risk by FRAX. Additional medical evaluation for secondary cause of low bone mineral density may be appropriate. FUTURE SCAN RECOMMENDATION: People with diagnosed cases of osteoporosis or at high risk for fracture should have regular bone mineral density tests. For patients eligible for Medicare, routine testing is allowed once every 2 years. The testing frequency can be increased to one year for patients who have rapidly progressing disease, those who are receiving or discontinuing medical therapy to restore bone mass, or have additional risk factors.
--- NOTE | ~2023-06-05 | MM_ITS ---
EXAMINATION: MM SCREENING DIGITAL BREAST TOMOSYNTHESIS, BILATERAL CLINICAL INFORMATION: Screening. Asymptomatic. COMPARISON: Mammography: 02/19/2022 ([facility]); right breast targeted ultrasound 02/27/2022 (intramammary lymph node). TECHNIQUE: Digital breast tomosynthesis is performed in both the craniocaudal and mediolateral oblique views along with computer-aided detection (CAD). Synthesized 2D images are generated from the tomosynthesis. FINDINGS: There are scattered areas of fibroglandular density (ACR BI-RADS breast composition Category b). There are scattered bilateral skin calcifications. Many of these are lucent centered. There are no suspicious calcifications. Tiny intramammary lymph node in the far lateral upper right breast. There are no suspicious masses, suspicious grouped calcifications, or areas of architectural distortion in either breast. The parenchymal pattern is stable from prior exams. No skin or axillary abnormality. MM/MM tomosynthesis screening BI IMPRESSION: No mammographic evidence of malignancy. ASSESSMENT: BI-RADS BI-RADS 2 - Benign Findings RECOMMENDATION: Routine annual mammography screening. 1 year F/U This examination should not preclude the clinical evaluation of a suspicious palpable abnormality. This patient's information was entered into a reminder system with a target due date for their next mammogram.
== END 2023-06-05 10:55 | disposition home or self-care (01) ==
LOC: HO.MAMMO 10:54
PROVIDERS: PCP Nurse Practitioner Family; Visit Provider Nurse Practitioner Family
DX: Z12.31 Encounter for screening mammogram for malignant neoplasm of breast (principal); Z13.820 Encounter for screening for osteoporosis; Z78.0 Asymptomatic menopausal state
CPT/HCPCS: 77063; 77067; 77080

== ENCOUNTER → 2023-06-05 11:30 | Outpatient (BNV) | payer OTHER, SELFPAY | PROVIDERS: PCP Nurse Practitioner Family; Visit Provider Radiology Diagnostic Radiology | DX: Z12.31 Encounter for screening mammogram for malignant neoplasm of breast (principal) | CPT/HCPCS: 77063; 77067 ==

== ENCOUNTER 2023-09-03 12:26 | Outpatient (AMB) | payer OTHER, SELFPAY ==
--- NOTE | 2023-09-03 12:30 | MHC.PC.OV ---
Vital Signs 09/03/23 12:36 Weight 223 lb BP 118/60 Blood Pressure Location Rt brachial Position Sitting Respiration 16 Pulse 66 Pulse Source Pulse Oximeter Temp 97.7 F Temp Source Oral Pulse Oximetry (%) 99 Oxygen Delivery Method Room Air Intake Visit Reasons: Follow up Intake Note: richard t here for follow up Educational Therapist Required: No Is last menstrual period known: No Post menopausal: No Patient : No Allergies Penicillins Allergy (Intermediate, Verified 09/03/23 12:55) itchy, hives lisinopril Adverse Reaction (Intermediate, Verified 09/03/23 12:55) Cough prednisone Adverse Reaction (Intermediate, Verified 09/03/23 12:55) high blood pressure Medication List - Last Reconciled 09/03/23 by Hiral Leo [facility]- albuterol sulfate 90 mcg/actuation 2 puffs inhalation BID 30 days albuterol sulfate 2.5 mg (3 mL) inhalation Q6H PRN 1 month apixaban 5 mg PO BID atorvastatin 40 mg PO DAILY blood pressure monitor As directed blood sugar diagnostic (Tvoopuch Ultra Test strips) test blood sugar two to three time a day blood-glucose meter (Tvoopuch Ultra2 Meter) As directed budesonide-formoterol 160-4.5 mcg/actuation (Symbicort) inhalation cholecalciferol (vitamin D3) 1,250 mcg PO QWEEK clonazepam 1 mg PO BEDTIME PRN clonazepam 0.5 mg PO QAM empagliflozin (Jardiance) 10 mg PO QAM 30 days lancets ([employer]Touch UltraSoft Lancets) check blood sugar twice a day and as needed for s/s of dm lancets ([employer]Touch Delica Plus Lancet) As directed loratadine 10 mg PO DAILY losartan 25 mg PO DAILY 90 days metformin ER 1,000 mg (2 x 500 mg) PO BID 30 days mirtazapine 30 mg PO BEDTIME miscellaneous medical supply skin sealents, protectants, moisturiszre, ointments any type and size as directed; miscellaneous medical supply disposable linner/shield/guard/pad/undergarment for incontinence as directed; miscellaneous medical supply diabetic shoes as directed; miscellaneous medical supply Aleotouch wipes, frag free 110/pk incont supply as directed; miscellaneous medical supply incontinence prod, disp large underpads as directed; multivitamin 1 tab PO DAILY oxcarbazepine 600 mg PO BID pantoprazole 40 mg PO DAILY polyethylene glycol 3350 (Miralax) 238 grams PO ONCE 1 day sotalol 80 mg PO BID 30 days Tobacco use date assessed: 09/03/23 Fall risk assessment: No Falls in past year Dental Screening Dental Screen Date: 09/03/23 Did you have a dental visit in the last 12 months?: No Did you have a dental problem in the last 6 months where you did not have access to dental care?: No Was dental information given to patient?: Patient has dentist HPI HPI Comments History of Present Illness Details 67-year-old female with AFib, GERD, hyperlipidemia, bipolar disorder, mild intermittent asthma, CVA (2002), seasonal allergies, diabetes, hypertension, urinary incontinence, LAURITA, fibromyalgia, pulmonary hypertension, nephrolithiasis, venous insufficiency of bilateral lower extremities, cirrhosis, osteoarthritis, microalbuminuria, Anxiety with panic,MDD, CHF, empty sella syndrome, former smoker, osteopenia Status post right lower extremity endovenous laser ablation 2019, L4-L5 bilateral laminectomy, partial facetectomy, removal of synovial cyst on the right side in 2017, cataract removal bilat, trigger finger release on the right 2009 PFT 03/19/21 FVC is 103% of predicted, FEV1 is 121% predicted, FEV1/FEC is 117. No signifcant response to bronchodilator. TLC 94% predicted, RV 70% predicted. Uncorrected diffusion capacity is normal 18 or 83% Specialists GI Cardiology Podiatry Vascular Pulmonology Health maintenance Pap ASCUS 2016 normal, 2020 NIL negative HPV Mammogram 02/19/2022 within normal limits Hemoglobin A1c 7.8% 03/13/2023, 6.5% 08/2023 DEXA 06/05/23 Osteopenia based on the lowest T-score value of -2.0 in the femoral neck applying World Health Organization criteria. Here today for routine follow up of chronic conditions. Since last office visit she remains tolerant and compliant of her medications. Taking all as directed. I reviewed with her her medical record which include several requests from multiple different people about multiple different things. I reviewed each item with her. The 1st is that of a stat cardiology referral. When I asked her about this and reminded her that she was already active with Cardiology she states that she only needed the relay tester to complete a dental form for her. She shows me a voicemail from 09/02/2023 from [facility] stating that the form was received and she was cleared to proceed with routine cleaning and dental procedures. I showed her a copy of the form which was also on my desk to complete. She states she does not know why this was sent to me and that she does not need this form completed. The next is that for a referral to ENT. She reports that she was active with an ENT for hearing loss and vocal cord issues. Has already received her hearing aid. She unfortunately missed her ENT appointment and now needs a new referral placed. That referral was placed today. Mentions needing new diabetic shoes & needs a referral to podiatry for this. She also reports today that she needs a lumbar back support, raised toilet seat and a shower chair. She would like these to be sent to [facility] in [place]. She is overdue for routine screening labs & she will get these done today. Exam: awake alert NAD RRR LS CTAB BLE skin intact, decreased PP, trace edema, hairless, healing scabbed areas to inside aspect of bilat feet caused from shoes that were too tight. Healing w/o infection. Amb w/ cane AOx 3 Labs from 06/02/2023 show normal electrolytes, normal renal function, random glucose 163, normal LFTs, normal TSH, normal urine microalbumin creatinine ratio, LDL 91 Plan: DME orders placed and to be faxed to [facility] in [place] Referral for podiatry and ENT placed today. Labs from today show normal electrolytes, normal renal function, hemoglobin A1c 6.5%, normal LFTs, normal B12, direct LDL 97, normal vitamin-D and folate... these are stable/improved. Cont all meds as currently prescribed. RTO in 4-6 months for 30 minute appt to fu on chronic conditions, sooner PRN This note is constructed using voice recognition software. While every effort has been made to ensure accuracy in route rider, still errors may have been included Sometimes, these errors may affect the content or meaning of the given sentence . Total time spent caring for the patient today was 48 minutes. This includes time spent before the visit reviewing the chart, time spent during the visit, and time spent after the visit on documentation [facility] Medical History (Updated 09/05/23 @ 12:11 by Hiral Leo [facility]) Chronic low back pain Chronic pain of both shoulders Back pain with left-sided sciatica Constipation by delayed colonic transit History of cardioversion No pertinent past medical history Surgical History History of hand surgery History of back surgery Family History Other Mental health disorder Substance use disorder Social History Household Members: Other Housing: Apartment Are you a primary care team coordinator scheduler to a significant other at home: No Do you presently have visiting nurse or other home services: Yes Alcohol intake: never Patient Tobacco Use Status: Former Tobacco user Tobacco use type: Cigarette e-Cigarette/Vaping Use: Never Used Second Hand Smoke Exposure: Yes Special jeannette needs: No Agree to transfusion: Yes service: No Current occupational status: disabled Current occupational exposures/hazards: No Sexual orientation: Straight/Heterosexual Gender identity: Female Cognitive needs: No (cane) Hearing needs: No (hearing aide) Vision needs: No (Glasses) Questionnaire PHQ-9 Over the last 2 weeks, how often have you been bothered by any of the following problems? Depression Screening Interpretation: Positive Depression Screening Done: Yes Source: Developed by Drs. Jose D Lundy, Madalyn Henry, Marty Carrasco and colleagues, with an educational simeon from [employer]. Thrive Questionnaire Date Thrive assessed: 08/22/22 MATTHEW-7 AMB Questionnaire MATTHEW-7 Date MATTHEW - 7 assessed: 05/05/23 Source: Developed by Drs. Jose D Lundy, Madalyn Henry, Marty Carrasco and colleagues, with an educational simeon from [employer]. Physical exam (Primary Care) Vital Signs: Last Vital Signs Temp 97.7 F 09/03/23 12:36 Pulse 66 09/03/23 12:36 Resp 16 09/03/23 12:36 BP 118/60 09/03/23 12:36 Pulse Ox 99 09/03/23 12:36 Oxygen Delivery Method Room Air 09/03/23 12:36 Tobacco/Smoking Status: Tobacco use Status Tobacco use date assessed 09/03/23 09/03/23 12:40 Patient Tobacco Use Status Former Tobacco user 09/03/23 12:31 Tobacco use type Cigarette 09/03/23 12:31 e-Cigarette/Vaping Use Never Used 09/03/23 12:31 Depression Screening Interpretation: Positive Thrive Assessment: Date of Thrive Assessment Date Thrive assessed 08/22/22 09/03/23 12:31 Assessment and Plan Assessment & Plan (1) Dysphagia: Code(s): R13.10 - Dysphagia, unspecified Qualifiers: Dysphagia type: unspecified Qualified Code(s): R13.10 - Dysphagia, unspecified (2) Vertigo: Code(s): R42 - Dizziness and giddiness (3) Hard of hearing: Code(s): H91.90 - Unspecified hearing loss, unspecified ear (4) Diabetes mellitus type 2 with complications: Comment: She reports that she is up-to-date on diabetic eye exam. I will need to obtain this records. She is currently maintained on Jardiance 10 mg p.o. q.a.m., metformin ER a 1000 mg p.o. b.i.d. On Arb, losartan 25 mg p.o. daily Code(s): E11.8 - Type 2 diabetes mellitus with unspecified complications (5) High cholesterol: Comment: On atorvastatin 40 mg p.o. daily. Code(s): E78.00 - Pure hypercholesterolemia, unspecified (6) Vitamin D deficiency: Comment: 05/2023 start Vitamin D3 50,000 IU Qweek x 6 months. Code(s): E55.9 - Vitamin D deficiency, unspecified (7) Limited mobility: Code(s): Z74.09 - Other reduced mobility (8) Chronic low back pain: Code(s): M54.50 - Low back pain, unspecified; G89.29 - Other chronic pain Qualifiers: Back pain laterality: midline Sciatica presence: without sciatica Qualified Code(s): M54.50 - Low back pain, unspecified; G89.29 - Other chronic pain Orders: Orders Vitamin B12 and Folate 09/03/23 E11.8 - Type 2 diabetes mellitus with unspecified complications, E55.9 - Vitamin D deficiency, unspecified, E78.00 - Pure hypercholesterolemia, unspecified Vitamin D 25-OH Total 09/03/23 E11.8 - Type 2 diabetes mellitus with unspecified complications, E55.9 - Vitamin D deficiency, unspecified, E78.00 - Pure hypercholesterolemia, unspecified LDL Cholesterol Direct 09/03/23 E11.8 - Type 2 diabetes mellitus with unspecified complications, E55.9 - Vitamin D deficiency, unspecified, E78.00 - Pure hypercholesterolemia, unspecified Comprehensive Met. Panel 09/03/23 E11.8 - Type 2 diabetes mellitus with unspecified complications, E55.9 - Vitamin D deficiency, unspecified, E78.00 - Pure hypercholesterolemia, unspecified Hemoglobin A1c 09/03/23 E11.8 - Type 2 diabetes mellitus with unspecified complications, E55.9 - Vitamin D deficiency, unspecified, E78.00 - Pure hypercholesterolemia, unspecified Referrals Ear/Nose/Throat Referral H91.90 - Unspecified hearing loss, unspecified ear, R13.10 - Dysphagia, unspecified, R42 - Dizziness and giddiness Podiatry Referral E11.8 - Type 2 diabetes mellitus with unspecified complications Medications: New miscellaneous medical supply As directed, RAISED TOILET SEAT WITH ARMS 1 ea 0RF Z74.09 - Other reduced mobility back brace As directed LUMBAR SACRAL SUPPORT WITH OVERLAP ABD BELT 10 , SIZE XXXL 1 ea 0RF G89.29 - Other chronic pain, M54.50 - Low back pain, unspecified Shower Chair As directed BATH BENCH 1 ea 0RF Z74.09 - Other reduced mobility Coding Level of Care Code Est Pt Level 5 (04564) Complex EM visit Add On G2211 Diagnoses Dysphagia, unspecified type R13.10 Dysphagia type: unspecified Vertigo R42 Hard of hearing H91.90 Diabetes mellitus type 2 with complications E11.8 High cholesterol E78.00 Vitamin D deficiency E55.9 Limited mobility Z74.09 Chronic midline low back pain without sciatica M54.50; G89.29 Back pain laterality: midline Sciatica presence: without sciatica
[2023-09-03 12:36] VITALS: BP 118/60; PULSE 66; RESP 16; TEMP 36.5; O2SAT 99
== END 2023-09-03 13:10 | disposition home or self-care (01) ==
PROVIDERS: PCP Nurse Practitioner Family; Visit Provider Nurse Practitioner Family
DX: R13.10 Dysphagia, unspecified (principal); R42 Dizziness and giddiness; H91.90 Unspecified hearing loss, unspecified ear; E11.8 Type 2 diabetes mellitus with unspecified complications; E78.00 Pure hypercholesterolemia, unspecified; E55.9 Vitamin D deficiency, unspecified; Z74.09 Other reduced mobility; M54.50 Low back pain, unspecified; G89.29 Other chronic pain
CPT/HCPCS: 99214; G2211

== ENCOUNTER 2023-09-03 13:16 | Outpatient (REF) | payer OTHER, SELFPAY ==
[2023-09-03 14:16] LABS: Estimated Average Glucose 140 mg/dL; Hemoglobin A1c % 6.5 % (<6.0)
[2023-09-03 14:41] LABS: Alanine Aminotransferase 25 U/L (0-31); Albumin Level 3.9 g/dL (3.5-5.0); Alkaline Phosphatase 88 U/L (39-117); Anion Gap 15 (12-20); Aspartate Amino Transferase 23 U/L (5-31); Bilirubin Total 0.4 mg/dL (0.0-1.0); Blood Urea Nitrogen 18 mg/dL (9-16); Calcium 10.2 mg/dL (8.4-10.2); Carbon Dioxide 26 mmol/L (22-29); Chloride 106 mmol/L (96-108); Estimated Glomerular Filt Rate > 60; Glucose Random 133 mg/dL (60-115); Potassium 4.6 mmol/L (3.3-5.1); Sodium 142 mmol/L (135-145); Total Protein 6.9 g/dL (6.5-8.0)
[2023-09-03 14:58] LABS: Vitamin D 25-OH Total 45.1 ng/mL (>30)
[2023-09-03 15:10] LABS: Folate 8.6 ng/mL (> or = 4.0); Vitamin B12 343 pg/mL (200-900)
[2023-09-05 08:49] LABS: LDL Cholesterol Direct 97 mg/dL (<100)
== END 2023-09-03 13:17 | disposition home or self-care (01) ==
LOC: HO.WFDLDS 13:16
PROVIDERS: Visit Provider Nurse Practitioner Family
DX: E55.9 Vitamin D deficiency, unspecified (principal); E11.8 Type 2 diabetes mellitus with unspecified complications; E78.00 Pure hypercholesterolemia, unspecified
CPT/HCPCS: 36415; 80053; 82306; 82607; 82746; 83036; 83721

== ENCOUNTER 2023-12-09 11:49 | Outpatient (AMB) | payer OTHER, SELFPAY ==
--- NOTE | 2023-12-09 11:53 | MHC.PC.OV ---
Vital Signs 12/09/23 11:58 Height 5 ft 4 in Weight 216 lb 6 oz BMI 37.1 BP 122/70 Blood Pressure Location Rt brachial Position Sitting Respiration 13 Pulse 68 Pulse Source Pulse Oximeter Pulse Oximetry (%) 98 Oxygen Delivery Method Room Air Intake Visit Reasons: 4-6 months routine fu 30 min complex conditions Intake Note: routine follow up. Patient is complaining of upper back pain and upper right side of the abd pain for months Allergies Penicillins Allergy (Intermediate, Verified 12/09/23 12:10) itchy, hives lisinopril Adverse Reaction (Intermediate, Verified 12/09/23 12:10) Cough prednisone Adverse Reaction (Intermediate, Verified 12/09/23 12:10) high blood pressure Medication List - Last Reconciled 12/09/23 by Hiral Leo [employer]- albuterol sulfate 90 mcg/actuation 2 puffs inhalation BID 30 days albuterol sulfate 2.5 mg (3 mL) inhalation Q6H PRN 1 month apixaban 5 mg PO BID atorvastatin 40 mg PO DAILY back brace As directed LUMBAR SACRAL SUPPORT WITH OVERLAP ABD BELT 10 , SIZE XXXL blood pressure monitor As directed blood sugar diagnostic (OneTouch Ultra Test strips) test blood sugar two to three time a day blood-glucose meter (TellWiseTouch Ultra2 Meter) As directed budesonide-formoterol 160-4.5 mcg/actuation (Symbicort) inhalation cholecalciferol (vitamin D3) 1,250 mcg PO QWEEK clonazepam 1 mg PO BEDTIME PRN clonazepam 0.5 mg PO QAM empagliflozin (Jardiance) 10 mg PO QAM 30 days lancets (OneTouch UltraSoft Lancets) check blood sugar twice a day and as needed for s/s of dm lancets (OneTouch Delica Plus Lancet) As directed loratadine 10 mg PO DAILY losartan 25 mg PO DAILY 90 days metformin ER 1,000 mg (2 x 500 mg) PO BID 30 days mirtazapine 30 mg PO BEDTIME miscellaneous medical supply skin sealents, protectants, moisturiszre, ointments any type and size as directed; miscellaneous medical supply disposable linner/shield/guard/pad/undergarment for incontinence as directed; miscellaneous medical supply diabetic shoes as directed; miscellaneous medical supply As directed, RAISED TOILET SEAT WITH ARMS miscellaneous medical supply Aleotouch wipes, frag free 110/pk incont supply as directed; miscellaneous medical supply incontinence prod, disp large underpads as directed; multivitamin 1 tab PO DAILY oxcarbazepine 600 mg PO BID pantoprazole 40 mg PO DAILY polyethylene glycol 3350 (Miralax) 238 grams PO ONCE 1 day Shower Chair As directed BATH BENCH sotalol 80 mg PO BID Tobacco use date assessed: 09/03/23 Dental Screening Dental Screen Date: 09/03/23 HPI HPI Comments History of Present Illness Details 68-year-old female with AFib, GERD, hyperlipidemia, bipolar disorder, mild intermittent asthma, CVA (2002), seasonal allergies, diabetes, hypertension, urinary incontinence, LAURITA, fibromyalgia, pulmonary hypertension, nephrolithiasis, venous insufficiency of bilateral lower extremities, cirrhosis, osteoarthritis, microalbuminuria, Anxiety with panic,MDD, CHF, empty sella syndrome, former smoker, osteopenia Status post right lower extremity endovenous laser ablation 2019, L4-L5 bilateral laminectomy, partial facetectomy, removal of synovial cyst on the right side in 2017, cataract removal bilat, trigger finger release on the right 2009 PFT 03/19/21 FVC is 103% of predicted, FEV1 is 121% predicted, FEV1/FEC is 117. No signifcant response to bronchodilator. TLC 94% predicted, RV 70% predicted. Uncorrected diffusion capacity is normal 18 or 83% Specialists GI Cardiology Podiatry Vascular Pulmonology ENT Health maintenance Pap ASCUS 2016 normal, 2020 NIL negative HPV Mammogram 05/2023 WNL DEXA 06/05/23 Osteopenia based on the lowest T-score value of -2.0 in the femoral neck applying World Health Organization criteria. Tdap 2017 Flu declined 2023 Colon referred to [facility] in April, she no showed the appt. New referral placed again today. Here today for routine chronic disease mgmt Since last office visit, she is taking all meds. Taking losartan QOD not QD. BP at goal on current meds. A1c done in office today 6.6% stable Has chronic upper back pain and cramping in upper abd. Cont to look for new first floor apt. Using a cane. Occasional urinary incont. Has initial appt w/ Podiatry coming up. has bilat foot pain, cramps. Toe nail fungus R great toe. Did see ENT, i do not have this consult note. Reports she has a f/u scheduled. Was referred to [facility] but she does not think this was helpful. Had 2 cortisone shots in shoulder w/o relief. C/o headaches, daily c/o hairloss worse over the last few months Exam: awake alert NAD RRR LS CTAB BLE skin intact, decreased PP, trace edema, hairless, varicose veins ble . Amb w/ cane AOx 3 Plan A1c 6.6% today, stable Screening labs today cont all meds as currently prescribed. will review labs and make changes PRN cont care w/ care team RTO 6 months for CPE, sooner PRN This note is constructed using voice recognition software. While every effort has been made to ensure accuracy in charger operator, still errors may have been included Sometimes, these errors may affect the content or meaning of the given sentence . Total time spent caring for the patient today was 45 minutes. This includes time spent before the visit reviewing the chart, time spent during the visit, and time spent after the visit on documentation [facility] Medical History (Updated 12/09/23 @ 13:21 by Hiral Leo, [facility]) Chronic low back pain Chronic pain of both shoulders Back pain with left-sided sciatica Constipation by delayed colonic transit History of cardioversion No pertinent past medical history Surgical History History of hand surgery History of back surgery Family History Other Mental health disorder Substance use disorder Social History Household Members: Other Housing: Apartment Are you a primary animal care supervisor to a significant other at home: No Do you presently have visiting nurse or other home services: Yes Alcohol intake: never Patient Tobacco Use Status: Former Tobacco user Tobacco use type: Cigarette e-Cigarette/Vaping Use: Never Used Second Hand Smoke Exposure: Yes Special jeannette needs: No Agree to transfusion: Yes service: No Current occupational status: disabled Current occupational exposures/hazards: No Sexual orientation: Straight/Heterosexual Gender identity: Female Cognitive needs: No (cane) Hearing needs: No (hearing aide) Vision needs: No (Glasses) Questionnaire Thrive Questionnaire Date Thrive assessed: 08/22/22 MATTHEW-7 AMB Questionnaire MATTHEW-7 Date MATTHEW - 7 assessed: 05/05/23 Source: Developed by DrsEllen Lundy, Madalyn Henry, Marty Carrasco and colleagues, with an educational simeon from [employer]. Physical exam (Primary Care) Vital Signs: Last Vital Signs Pulse 68 12/09/23 11:58 Resp 13 12/09/23 11:58 BP 122/70 12/09/23 11:58 Pulse Ox 98 12/09/23 11:58 Oxygen Delivery Method Room Air 12/09/23 11:58 BMI result Body Mass Index 37.1 Tobacco/Smoking Status: Tobacco use Status Tobacco use date assessed 09/03/23 12/09/23 11:55 Patient Tobacco Use Status Former Tobacco user 12/09/23 11:55 Tobacco use type Cigarette 12/09/23 11:55 e-Cigarette/Vaping Use Never Used 12/09/23 11:55 Thrive Assessment: Date of Thrive Assessment Date Thrive assessed 08/22/22 12/09/23 11:55 Results AMB Hemoglobin A1c AMB Hemoglobin A1c 6.6 % Last Edit by Bri Ayers MA on 12/09/23 12:26 Results Reviewed Results Reviewed: Laboratory Last Values Hgb A1c (Clinic) 6.6 % (4.0-6.0) H 12/09/23 12:14 Coding Level of Care Code Est Pt Level 5 (92562) Complex EM visit Add On G2211 Diagnoses Diabetes mellitus type 2 with complications E11.8 High cholesterol E78.00 Paroxysmal atrial fibrillation I48.0 Atrial fibrillation type: paroxysmal Chronic diastolic congestive heart failure I50.32 Heart failure chronicity: chronic Heart failure type: diastolic Hair loss L65.9 Cirrhosis of liver without ascites, unspecified hepatic cirrhosis type K74.60 Hepatic cirrhosis type: unspecified hepatic cirrhosis Ascites presence: without ascites Venous insufficiency of both lower extremities I87.2 Stress incontinence N39.3 Primary hypertension I10 Hypertension type: primary hypertension Secondary hypercoagulability disorder D68.69 Assessment & Plan Assessment & Plan (1) Diabetes mellitus type 2 with complications: Comment: She reports that she is up-to-date on diabetic eye exam. I will need to obtain this records. She is currently maintained on Jardiance 10 mg p.o. q.a.m., metformin ER a 1000 mg p.o. b.i.d. On Arb, losartan 25 mg p.o. daily Code(s): E11.8 - Type 2 diabetes mellitus with unspecified complications Category: Medical Plan: . (2) High cholesterol: Comment: On atorvastatin 40 mg p.o. daily. Code(s): E78.00 - Pure hypercholesterolemia, unspecified Category: Medical Plan: . (3) A-fib: Comment: Status post cardioversion, managed by Cardiology. w/ secondary hypercoaguable state On Eliquis 5 mg p.o. b.i.d. and sotalol 80 mg p.o. b.i.d.. Code(s): I48.91 - Unspecified atrial fibrillation Category: Medical Qualifiers: Atrial fibrillation type: paroxysmal Qualified Code(s): I48.0 - Paroxysmal atrial fibrillation Plan: . (4) CHF (congestive heart failure): Comment: Appears euvolemic on exam today Dry weight 225lbs TE 03/23/2023 shows normal ventricular size and systolic function with ejection fraction 55-60% Managed by [facility], next appt 05/07/23 on Jardiance, Losartan, Sotalol. Code(s): I50.9 - Heart failure, unspecified Category: Medical Qualifiers: Heart failure chronicity: chronic Heart failure type: diastolic Qualified Code(s): I50.32 - Chronic diastolic (congestive) heart failure Plan: . (5) Hair loss: Code(s): L65.9 - Nonscarring hair loss, unspecified Category: Medical Plan: . (6) Cirrhosis: Comment: Noted on imaging. Refer to GI for further evaluation and treatment Code(s): K74.60 - Unspecified cirrhosis of liver Category: Medical Qualifiers: Hepatic cirrhosis type: unspecified hepatic cirrhosis Ascites presence: without ascites Qualified Code(s): K74.60 - Unspecified cirrhosis of liver Plan: . (7) Venous insufficiency of both lower extremities: Comment: Was active with Dr. Schrader in the past. Has no interest in following with vascular. On aspirin and statin continue. Monitor skin integrity. Code(s): I87.2 - Venous insufficiency (chronic) (peripheral) Category: Medical Plan: . (8) Stress incontinence: Code(s): N39.3 - Stress incontinence (female) (male) Category: Medical Plan: . (9) HTN (hypertension): Comment: Blood pressure at goal on losartan 25 mg p.o. daily and sotalol 80 mg p.o. b.i.d. Code(s): I10 - Essential (primary) hypertension Category: Medical Qualifiers: Hypertension type: primary hypertension Qualified Code(s): I10 - Essential (primary) hypertension Plan: . (10) Secondary hypercoagulability disorder: Comment: d/t Afib on Eliquis Code(s): D68.69 - Other thrombophilia Category: Medical Plan: . Plan . Orders: Orders AMB Hemoglobin A1c Today E11.8 - Type 2 diabetes mellitus with unspecified complications Lipid Panel Today E11.8 - Type 2 diabetes mellitus with unspecified complications, E78.00 - Pure hypercholesterolemia, unspecified, I48.0 - Paroxysmal atrial fibrillation, I50.32 - Chronic diastolic (congestive) heart failure IRON PROFILE Today L65.9 - Nonscarring hair loss, unspecified Comprehensive Met. Panel Today E11.8 - Type 2 diabetes mellitus with unspecified complications, E78.00 - Pure hypercholesterolemia, unspecified, I48.0 - Paroxysmal atrial fibrillation, I50.32 - Chronic diastolic (congestive) heart failure Microalbumin, Random (w Creat) Today E11.8 - Type 2 diabetes mellitus with unspecified complications, E78.00 - Pure hypercholesterolemia, unspecified, I48.0 - Paroxysmal atrial fibrillation, I50.32 - Chronic diastolic (congestive) heart failure TSH reflex Free T4 Today E11.8 - Type 2 diabetes mellitus with unspecified complications, E78.00 - Pure hypercholesterolemia, unspecified, I48.0 - Paroxysmal atrial fibrillation, I50.32 - Chronic diastolic (congestive) heart failure Vitamin B12 and Folate Today E11.8 - Type 2 diabetes mellitus with unspecified complications, E78.00 - Pure hypercholesterolemia, unspecified, I48.0 - Paroxysmal atrial fibrillation, I50.32 - Chronic diastolic (congestive) heart failure Complete Blood Count no Diff Today L65.9 - Nonscarring hair loss, unspecified Ferritin Today L65.9 - Nonscarring hair loss, unspecified
[2023-12-09 11:58] VITALS: BP 122/70; PULSE 68; RESP 13; O2SAT 98; BMI 37.1
== END 2023-12-09 12:37 | disposition home or self-care (01) ==
LOC: HO.HMCFM 11:49
PROVIDERS: PCP Nurse Practitioner Family; Visit Provider Nurse Practitioner Family
DX: E11.8 Type 2 diabetes mellitus with unspecified complications (principal); I48.0 Paroxysmal atrial fibrillation; I50.32 Chronic diastolic (congestive) heart failure; K74.60 Unspecified cirrhosis of liver; I11.0 Hypertensive heart disease with heart failure; D68.69 Other thrombophilia; E78.00 Pure hypercholesterolemia, unspecified; L65.9 Nonscarring hair loss, unspecified; I87.2 Venous insufficiency (chronic) (peripheral); N39.3 Stress incontinence (female) (male)

== ENCOUNTER → 2023-12-09 11:49 | Outpatient (BNVA) | payer OTHER, SELFPAY | PROVIDERS: PCP Nurse Practitioner Family; Visit Provider Nurse Practitioner Family | DX: E11.8 Type 2 diabetes mellitus with unspecified complications (principal); E78.00 Pure hypercholesterolemia, unspecified; I48.0 Paroxysmal atrial fibrillation; I50.32 Chronic diastolic (congestive) heart failure; L65.9 Nonscarring hair loss, unspecified; K74.60 Unspecified cirrhosis of liver; I87.2 Venous insufficiency (chronic) (peripheral); N39.3 Stress incontinence (female) (male); I10 Essential (primary) hypertension; D68.69 Other thrombophilia; Z79.01 Long term (current) use of anticoagulants; Z79.899 Other long term (current) drug therapy | CPT/HCPCS: 83036 ==

== ENCOUNTER 2023-12-09 12:41 | Outpatient (REF) | payer OTHER, SELFPAY ==
[2023-12-09 14:53] LABS: Hematocrit 44.9 % (37.0-47.0); Mean Corpuscular HGB Conc 33.4 g/dl (31.0-35.0); Mean Corpuscular Hemoglobin 30.2 pg (27.0-33.0); Mean Corpuscular Volume 90.5 fL (80.0-98.0); PLT CLUMP 1; Red Blood Count 4.96 X10*6/uL (4.20-5.50)
[2023-12-09 15:07] LABS: Creatinine Urine 19.74 mg/dL; Microalbumin Urine < 5.0 mg/L
[2023-12-09 15:19] LABS: Alanine Aminotransferase 52 U/L (0-31); Alkaline Phosphatase 87 U/L (39-117); Anion Gap 14 (12-20); Aspartate Amino Transferase 30 U/L (5-31); Bilirubin Total 0.5 mg/dL (0.0-1.0); Blood Urea Nitrogen 15 mg/dL (9-16); Calcium 9.7 mg/dL (8.4-10.2); Carbon Dioxide 28 mmol/L (22-29); Chloride 102 mmol/L (96-108); Cholesterol 219 mg/dL (<200); Estimated Glomerular Filt Rate 60; Glucose Random 191 mg/dL (60-115); HDL Cholesterol 51 mg/dL (>40); Iron 109 mcg/dL (30-160); LDL Cholesterol Calculated 107 mg/dL (<100); Mean Platelet Volume 13.9 fL (9.4-12.3); Percent Iron Saturation 33 % (15-50); Platelet Count 151 X10*3/uL (160-400); Sodium 140 mmol/L (135-145); Total Iron Binding Capacity 327 mcg/dL (228-428); Total Protein 7.1 g/dL (6.5-8.0); Triglycerides 306 mg/dL (<150); Unsaturated Iron Binding 218 ug/dL
[2023-12-09 15:29] LABS: Ferritin 55 ng/mL (10-250); TSH reflex Free T4 1.76 uIU/mL (0.32-4.0)
[2023-12-09 15:41] LABS: Folate 9.4 ng/mL (> or = 4.0); Vitamin B12 314 pg/mL (200-900)
== END 2023-12-09 12:42 | disposition home or self-care (01) ==
LOC: HO.WFDLDS 12:41
PROVIDERS: Visit Provider Nurse Practitioner Family
DX: L65.9 Nonscarring hair loss, unspecified (principal); E78.00 Pure hypercholesterolemia, unspecified; I48.0 Paroxysmal atrial fibrillation; E11.8 Type 2 diabetes mellitus with unspecified complications; I50.32 Chronic diastolic (congestive) heart failure
CPT/HCPCS: 36415; 80053; 80061; 82043; 82570; 82607; 82728; 82746; 83540; 84443; 85027

== ENCOUNTER 2023-12-24 11:16 | Outpatient (AMB) | payer OTHER, SELFPAY ==
--- NOTE | 2023-12-24 11:39 | A.OFFPC_ITS ---
Vital Signs 12/24/23 11:46 Height 5 ft 3 in Weight 213 lb BMI 37.7 BP 113/53 L Blood Pressure Location Rt brachial Position Sitting Respiration 16 Pulse 64 Pulse Source Pulse Oximeter Temp 97.7 F Temp Source Oral Pulse Oximetry (%) 99 Oxygen Delivery Method Room Air Intake Visit Reasons: est/hdf afib Intake Note: patient here for hdf afib Real Estate Lawyer Required: No Is last menstrual period known: No Post menopausal: No Patient : No Allergies Penicillins Allergy (Intermediate, Verified 12/24/23 11:46) itchy, hives lisinopril Adverse Reaction (Intermediate, Verified 12/24/23 11:46) Cough prednisone Adverse Reaction (Intermediate, Verified 12/24/23 11:46) high blood pressure Medication List - Last Reconciled 12/24/23 by Hiral Leo [employer]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- albuterol sulfate 90 mcg/actuation 2 puffs inhalation BID 30 days albuterol sulfate 2.5 mg (3 mL) inhalation Q6H PRN 1 month apixaban 5 mg PO BID atorvastatin 80 mg PO BEDTIME back brace As directed LUMBAR SACRAL SUPPORT WITH OVERLAP ABD BELT 10 , SIZE XXXL blood pressure monitor As directed blood sugar diagnostic (3yy game platformTouch Ultra Test strips) test blood sugar two to three time a day blood-glucose meter (3yy game platformTouch Ultra2 Meter) As directed budesonide-formoterol 160-4.5 mcg/actuation (Symbicort) inhalation cholecalciferol (vitamin D3) 1,250 mcg PO QWEEK clonazepam 1 mg PO BEDTIME PRN clonazepam 0.5 mg PO QAM empagliflozin (Jardiance) 10 mg PO QAM 30 days lancets (OneTouch UltraSoft Lancets) check blood sugar twice a day and as needed for s/s of dm lancets (OneTouch Delica Plus Lancet) As directed loratadine 10 mg PO DAILY losartan 25 mg PO DAILY 90 days metformin ER 1,000 mg (2 x 500 mg) PO BID 30 days mirtazapine 30 mg PO BEDTIME miscellaneous medical supply skin sealents, protectants, moisturiszre, ointments any type and size as directed; miscellaneous medical supply disposable linner/shield/guard/pad/undergarment for incontinence as directed; miscellaneous medical supply diabetic shoes as directed; miscellaneous medical supply As directed, RAISED TOILET SEAT WITH ARMS miscellaneous medical supply Aleotouch wipes, frag free 110/pk incont supply as directed; miscellaneous medical supply incontinence prod, disp large underpads as directed; oxcarbazepine 600 mg PO BID pantoprazole 40 mg PO DAILY polyethylene glycol 3350 (Miralax) 238 grams PO ONCE 1 day Shower Chair As directed BATH BENCH sotalol 80 mg PO BID Tobacco use date assessed: 12/24/23 Fall risk assessment: No Falls in past year Last assessed Fall Risk: 12/24/23 Dental Screening Dental Screen Date: 12/24/23 Did you have a dental visit in the last 12 months?: Yes Did you have a dental problem in the last 6 months where you did not have access to dental care?: No Was dental information given to patient?: Patient has dentist HPI HPI Comments History of Present Illness Details 68-year-old female with AFib with second dereje hypercoaguable state, GERD, hyperlipidemia, bipolar disorder, mild intermittent asthma, CVA (2002), seasonal allergies, diabetes, hypertension, urinary incontinence, LAURITA, fibromyalgia, pulmonary hypertension, nephrolithiasis, venous insufficiency of bilateral lower extremities, cirrhosis, osteoarthritis, microalbuminuria, Anxiety with panic,MDD, CHF, empty sella syndrome, former smoker, osteopenia Status post right lower extremity endovenous laser ablation 2019, L4-L5 bilateral laminectomy, partial facetectomy, removal of synovial cyst on the right side in 2017, cataract removal bilat, trigger finger release on the right 2009 PFT 03/19/21 FVC is 103% of predicted, FEV1 is 121% predicted, FEV1/FEC is 117. No signifcant response to bronchodilator. TLC 94% predicted, RV 70% predicted. Uncorrected diffusion capacity is normal 18 or 83% [facility] Cardiology Podiatry Vascular Pulmonology Health maintenance Pap ASCUS 2016 normal, 2020 NIL negative HPV Mammogram 02/19/2022 within normal limits Hemoglobin A1c 7.8% 03/13/2023 DEXA 06/05/23 Osteopenia based on the lowest T-score value of -2.0 in the femoral neck applying World Health Organization criteria. Here today for a Transitional Care Management Visit Discharge summary reviewed. Transferred from [facility] to [facility] for AFib with RVR. Status post successful ablation. The discharge plan included follow up with Cardiology and assess need for Eliquis based on CHADS-VASc score, follow up on need for sotalol. Noted to have UTI, treated w/ Bactrim Admission Date: 12/17/23 Discharge Date: 12/22/2023 Hospital: [facility] Date of interactive contact with Nurse Mccall: as documented in chart Pending diagnostic tests/treatments: none Pending consults: none DME: no new PT/OT/DRAWER IN DOBBY LOOM/VNA: [facility], active. Home Health Aide/ELECTRICIAN BUS: current, active Referrals: No new referrals. Active w/ [facility], next appt 12/25/23 Medications reconciled & updated. During todays TCM visit, the d/c summary was reviewed, along with the need for or follow-up on pending diagnostic tests and treatments, as necessary interaction with other health director of primary care who will assume or reassume care of the beneficiary?s system-specific problems was done or is being worked on, education was provided to the beneficiary, family, guardian, and/or caregiver, referrals to establish or re-establish and arrange needed community resources we completed, assistance in scheduling required follow-up with community providers and services & finally updated medication list given to patient/caregiver Presents today w/ Son. Reports she now has migraine headaches Worried about incision sites, as she took a shower. Denies any urinary sx today. Denies any palpitations, syncope. She reports that she has been coughing for several days. Reports that this started after receiving the flu vaccine. She was prescribed inhalers but did not take today. She worries about her brain. She feels like she is not herself since returning home. The son is here with her today and does not note a change in cognition. Exam awake alert NAD RRR LS ins/exp wheezing throughout BLE skin intact, decreased PP, trace edema, hairless, varicose veins ble . Inguinal incisions w/o infection, dressings removed, area cleansed and DCD replaced Amb w/ cane AOx 3 Plan She has not taken any of her inhalers yet today. Advised to take them when she returns home. We will check a chest x-ray to rule out infection. Urinalysis performed today in the office and results as below. UA done and negative for infection. Continue all medications as currently prescribed. Follow up with Cardiology tomorrow as scheduled. Return to the office as scheduled for routine follow up, sooner as needed. This note is constructed using voice recognition software. While every effort has been made to ensure accuracy in food aide, still errors may have been included Sometimes, these errors may affect the content or meaning of the given sentence . Total time spent caring for the patient today was 50 minutes. This includes time spent before the visit reviewing the chart, time spent during the visit, and time spent after the visit on documentation [facility] Medical History (Updated 12/24/23 @ 12:07 by Hiral Leo, [facility] [place]) Chronic low back pain Chronic pain of both shoulders Back pain with left-sided sciatica Constipation by delayed colonic transit History of cardioversion No pertinent past medical history Surgical History History of hand surgery History of back surgery Family History Other Mental health disorder Substance use disorder Social History Household Members: Other Housing: Apartment Are you a primary critical care educator to a significant other at home: No Do you presently have visiting nurse or other home services: Yes 75 years or older and lives alone: No Alcohol intake: never Patient Tobacco Use Status: Former Tobacco user Tobacco use type: Cigarette e-Cigarette/Vaping Use: Never Used Second Hand Smoke Exposure: Yes Special jeannette needs: No Agree to transfusion: Yes Patient : No service: No Current occupational status: disabled Current occupational exposures/hazards: No Sexual orientation: Straight/Heterosexual Gender identity: Female Cognitive needs: No (cane) Hearing needs: No (hearing aide) Vision needs: No (Glasses) Questionnaire Thrive Questionnaire Date Thrive assessed: 08/22/22 I am a: Patient What is your living situation today?: I have a steady place to live Within the past 12 months, did the food you bought not last and you didn't have the money to get more?: Often true Within the past 12 months, did you worry whether your food would run out before you got money to buy more?: I choose not to answer this question Do you have trouble paying for medicines?: I choose not to answer this question Do you have trouble getting transportation to medical appointments?: I choose not to answer this question Do you have trouble paying your heating and electricity bill?: I choose not to answer this question Do you have trouble taking care of your child, family member or friend?: I choose not to answer this question Do you have trouble with day-to-day activities such as bathing, preparing meals, shopping, managing finances, etc.?: I choose not to answer this question Are you currently unemployed and looking for a job?: I choose not to answer this question Are you interested in more education?: I choose not to answer this question Please select the resources that you would like help with: None Currently or been in a relationship where the following occur: I choose not to answer THRIVE Score: 1 AUDIT C Alcohol Use Questionnaire (AUDIT-C) 1. How often do you have a drink containing alcohol?: Never Total Score: 0 MATTHEW-7 AMB Questionnaire MATTHEW-7 Date MATTHEW - 7 assessed: 05/05/23 Feeling nervous, anxious, or on edge: 0 = Not at all Not being able to stop or control worryin = Not at all Worrying too much about different things: 0 = Not at all Trouble relaxin = Not at all Being so restless that it is hard to sit still: 0 = Not at all Becoming easily annoyed or irritable: 0 = Not at all Feeling afraid as if something awful might happen: 0 = Not at all Total MATTHEW-7 score (0-4 normal; 5-9 mild; 10-14 moderate; 15-21 severe): 0 Source: Developed by Drs. Jose D Lundy, Madalyn Henry, Marty Carrasco and colleagues, with an educational simeon from [employer]. Physical exam (Primary Care) Vital Signs: Last Vital Signs Temp 97.7 F 12/24/23 11:46 Pulse 64 12/24/23 11:46 Resp 16 12/24/23 11:46 BP 113/53 L 12/24/23 11:46 Pulse Ox 99 12/24/23 11:46 Oxygen Delivery Method Room Air 12/24/23 11:46 BMI result Body Mass Index 37.7 Tobacco/Smoking Status: Tobacco use Status Tobacco use date assessed 12/24/23 12/24/23 11:51 Patient Tobacco Use Status Former Tobacco user 12/24/23 11:41 Tobacco use type Cigarette 12/24/23 11:41 e-Cigarette/Vaping Use Never Used 12/24/23 11:41 Thrive Assessment: Date of Thrive Assessment Date Thrive assessed 08/22/22 12/24/23 11:41 Currently or been in a relationship where the following occur: I choose not to answer Results AMB Urinalysis, Automated UA Leukoctes 0 Adamaris/uL Last Edit by Funmilayo Mercado on 12/24/23 12:32 UA Nitrite Negative Last Edit by Funmilayo Mercado on 12/24/23 12:32 UA Urobilinogen 0 mg/dL Last Edit by Funmilayo Mercado on 12/24/23 12:32 UA Protein 0 mg/dL Last Edit by Funmilayo Mercado on 12/24/23 12:32 UA pH 0 Last Edit by Funmilayo Mercado on 12/24/23 12:32 UA Blood 0 Bry/uL Last Edit by Funmilayo Mercado on 12/24/23 12:32 UA Specific Dexter 1.010 Last Edit by Funmilayo Mercado on 12/24/23 12:32 UA Ketone Negative Last Edit by Funmilayo Mercado on 12/24/23 12:32 UA Bilirubin 1 mg/dL Last Edit by Funmilayo Mercado on 12/24/23 12:32 UA Glucose 1000 mg/dL Last Edit by Funmilayo Mercado on 12/24/23 12:32 Results Reviewed Results Reviewed: Laboratory Last Values Urine pH (Auto) 0 12/24/23 11:57 Specific Dexter (Auto) 1.010 12/24/23 11:57 Urine Protein (Auto) 0 mg/dL 12/24/23 11:57 Glucose (UA)(Auto) 1000 mg/dL 12/24/23 11:57 Urine Ketones (Auto) Negative 12/24/23 11:57 Urine Blood (Auto) 0 Bry/uL 12/24/23 11:57 Urine Nitrite (Auto) Negative 12/24/23 11:57 Urine Bilirubin (Auto) 1 mg/dL 12/24/23 11:57 Urine Urobilinogen (Auto) 0 mg/dL 12/24/23 11:57 Leukocyte Esterase (Auto) 0 Adamaris/uL 12/24/23 11:57 Coding Level of Care Code TCM High MDM <= 7 Days Complex EM visit Add On G2211 Diagnoses Hospital discharge follow-up Z09 Paroxysmal atrial fibrillation I48.0 Atrial fibrillation type: paroxysmal Secondary hypercoagulability disorder D68.69 Asthma, mild intermittent, well-controlled J45.20 Assessment & Plan Assessment & Plan (1) Hospital discharge follow-up: Code(s): Z09 - Encounter for follow-up examination after completed treatment for conditions other than malignant neoplasm Plan: . (2) A-fib: Comment: Status post cardioversion, managed by Cardiology. w/ secondary hypercoagulable state On Eliquis 5 mg p.o. b.i.d. and sotalol 80 mg p.o. b.i.d.. w/ RVR 12/2023 s/p successful ablation. Code(s): I48.91 - Unspecified atrial fibrillation Category: Medical Qualifiers: Atrial fibrillation type: paroxysmal Qualified Code(s): I48.0 - Paroxysmal atrial fibrillation Plan: . (3) Secondary hypercoagulability disorder: Comment: d/t Afib on Eliquis Code(s): D68.69 - Other thrombophilia Category: Medical Plan: . (4) Asthma, mild intermittent, well-controlled: Comment: Managed by pulmonology at [place]. Doing well on p.r.n. albuterol; Symbicort Code(s): J45.20 - Mild intermittent asthma, uncomplicated Category: Medical Plan . Orders: Orders AMB Urinalysis Automated Today Z13.9 - Encounter for screening, unspecified XR chest 2V Today R06.2 - Wheezing
[2023-12-24 11:46] VITALS: BP 113/53; PULSE 64; RESP 16; TEMP 36.5; O2SAT 99; BMI 37.7
== END 2023-12-24 12:32 | disposition home or self-care (01) ==
PROVIDERS: PCP Nurse Practitioner Family; Visit Provider Nurse Practitioner Family
DX: I48.0 Paroxysmal atrial fibrillation (principal); D68.69 Other thrombophilia; Z09 Encounter for follow-up examination after completed treatment for conditions other than malignant neoplasm; J45.20 Mild intermittent asthma, uncomplicated

== ENCOUNTER → 2023-12-24 11:16 | Outpatient (BNVA) | payer OTHER, SELFPAY | PROVIDERS: PCP Nurse Practitioner Family; Visit Provider Nurse Practitioner Family ==

== ENCOUNTER 2023-12-30 15:25 | Outpatient (AMB) | payer OTHER, SELFPAY ==
--- NOTE | 2023-12-30 14:46 | A.OFFPC_ITS ---
Intake Visit Reasons: fill out paperwork Intake Note: patient here for follow up telehealth to fill out paper work Charge Operator Required: No Accompanied by: Son Is last menstrual period known: No Post menopausal: No Patient : No Allergies Penicillins Allergy (Intermediate, Verified 12/30/23 16:36) itchy, hives lisinopril Adverse Reaction (Intermediate, Verified 12/30/23 16:36) Cough prednisone Adverse Reaction (Intermediate, Verified 12/30/23 16:36) high blood pressure Medication List - Last Reconciled 12/30/23 by Hiral Leo, [facility] albuterol sulfate 90 mcg/actuation 2 puffs inhalation BID 30 days albuterol sulfate 2.5 mg (3 mL) inhalation Q6H PRN 1 month apixaban 5 mg PO BID atorvastatin 80 mg PO BEDTIME back brace As directed LUMBAR SACRAL SUPPORT WITH OVERLAP ABD BELT 10 , SIZE XXXL blood pressure monitor As directed blood sugar diagnostic (NodeableTouch Ultra Test strips) test blood sugar two to three time a day blood-glucose meter (NodeableTouch Ultra2 Meter) As directed budesonide-formoterol 160-4.5 mcg/actuation (Symbicort) inhalation cholecalciferol (vitamin D3) 1,250 mcg PO QWEEK clonazepam 1 mg PO BEDTIME PRN clonazepam 0.5 mg PO QAM empagliflozin (Jardiance) 10 mg PO QAM 30 days lancets (OneTouch UltraSoft Lancets) check blood sugar twice a day and as needed for s/s of dm lancets (OneTouch Delica Plus Lancet) As directed loratadine 10 mg PO DAILY losartan 25 mg PO DAILY 90 days metformin ER 1,000 mg (2 x 500 mg) PO BID 30 days mirtazapine 30 mg PO BEDTIME miscellaneous medical supply skin sealents, protectants, moisturiszre, ointments any type and size as directed; miscellaneous medical supply disposable linner/shield/guard/pad/undergarment for incontinence as directed; miscellaneous medical supply diabetic shoes as directed; miscellaneous medical supply As directed, RAISED TOILET SEAT WITH ARMS miscellaneous medical supply Aleotouch wipes, frag free 110/pk incont supply as directed; miscellaneous medical supply incontinence prod, disp large underpads as directed; oxcarbazepine 600 mg PO BID pantoprazole 40 mg PO DAILY polyethylene glycol 3350 (Miralax) 238 grams PO ONCE 1 day Shower Chair As directed BATH BENCH sotalol 80 mg PO BID Tobacco use date assessed: 12/30/23 Fall risk assessment: No Falls in past year Last assessed Fall Risk: 12/30/23 Dental Screening Dental Screen Date: 12/30/23 Did you have a dental visit in the last 12 months?: Yes Did you have a dental problem in the last 6 months where you did not have access to dental care?: No Was dental information given to patient?: Patient has dentist HPI HPI Comments History of Present Illness Details History of Present Illness The patient is a 68-year-old female presenting with the need for assistance in coordinating caregiving support by her Son, Jose D Ahumada. The patient previously utilized family and medical leave for her mother's care in 2018 but now seeks guidance on filing for [facility] family medical leave, due to her current employment obligations. The patient requests bi-weekly intermittent leave to assist in attending her mother's medical appointments. Additionally, the patient requires a supporting letter for her mother's relocation to a first- floor apartment from both her mother's charge account authorizer and the current provider, emphasizing this adjustment as critical to health management. Patient has history of cardiac issues, resides on the second floor and there are challenges in securing a first-floor apartment to accommodate her mobility needs. Note: This physical exam was conducted in conjunction with the patient via our Telehealth platform. Plan 1. Coordinated paperwork for [facility] paid family medical leave for the son/caregiver to take intermittent leave for caregiving responsibilities, set at twice per week, four hours per time. 2. Prepared and provided a letter to sup port the relocation of the patient's mother to a first-floor apartment 3. Documentation of these arrangements w ill be recorded in the mother's medical chart. Patient was informed and verbally consented to the use of an ambient scribe for clinic note documentation during this visit. Patient Instructions - supervisor heading the completed paperwork at the front end web designer. - Attend mother's appointments as needed using the arranged intermittent leave. - Provide the relocation letter along wi th the charge account authorizer's letter to facilitate her mother's move to a first-floor apartment. Total time spent caring for the patient today was 15 minutes. This includes time spent before the visit reviewing the chart, time spent during the visit, and time spent after the visit on documentation [facility] Medical History (Updated 12/30/23 @ 16:36 by Hiral Leo [facility]) Chronic low back pain Chronic pain of both shoulders Back pain with left-sided sciatica Constipation by delayed colonic transit History of cardioversion No pertinent past medical history Surgical History History of hand surgery History of back surgery Family History Other Mental health disorder Substance use disorder Social History Household Members: Other Housing: Apartment Are you a primary field care coordinator to a significant other at home: No Do you presently have visiting nurse or other home services: Yes 75 years or older and lives alone: No Alcohol intake: never Patient Tobacco Use Status: Former Tobacco user Tobacco use type: Cigarette e-Cigarette/Vaping Use: Never Used Second Hand Smoke Exposure: Yes Special jeannette needs: No Agree to transfusion: Yes Patient : No service: No Current occupational status: disabled Current occupational exposures/hazards: No Sexual orientation: Straight/Heterosexual Gender identity: Female Cognitive needs: No (cane) Hearing needs: No (hearing aide) Vision needs: No (Glasses) Questionnaire Thrive Questionnaire Date Thrive assessed: 08/22/22 MATTHEW-7 AMB Questionnaire MATTHEW-7 Date MATTHEW - 7 assessed: 05/05/23 Source: Developed by Drs. Jose D Lundy, Madalyn Henry, Marty Carrasco and colleagues, with an educational simeon from [employer]. Physical exam (Primary Care) Tobacco/Smoking Status: Tobacco use Status Tobacco use date assessed 12/30/23 12/30/23 14:50 Patient Tobacco Use Status Former Tobacco user 12/30/23 14:50 Tobacco use type Cigarette 12/30/23 14:50 e-Cigarette/Vaping Use Never Used 12/30/23 14:50 Thrive Assessment: Date of Thrive Assessment Date Thrive assessed 08/22/22 12/30/23 14:50 Telehealth Telehealth Telehealth Platform: Telephone Location of provider rendering services: practice address Location of patient: address on file Patient Identification confirmed using: Name, : Yes Telehealth method: voice only Patient verbally consented to treatment: Yes Patient verbally consented to billing insurance company: Yes Patient informed of any privacy concerns related to visit: Yes Minutes spent on Phone/Video with Pt.: 6 Coding Level of Care Code Tele Est Pt Level 2 (75386) Complex EM visit Add On G2211 Diagnoses Encounters for administrative purpose Z02.9 Chronic diastolic congestive heart failure I50.32 Heart failure type: diastolic Heart failure chronicity: chronic Limited mobility Z74.09 Assessment & Plan Assessment & Plan (1) Encounters for administrative purpose: Code(s): Z02.9 - Encounter for administrative examinations, unspecified (2) CHF (congestive heart failure): Comment: Dry weight 225lbs TE 03/23/2023 shows normal ventricular size and systolic function with ejection fraction 55-60% Managed by [facility], next appt 05/07/23 on Jardiance, Losartan, Sotalol. Code(s): I50.9 - Heart failure, unspecified Category: Medical Qualifiers: Heart failure type: diastolic Heart failure chronicity: chronic Qualified Code(s): I50.32 - Chronic diastolic (congestive) heart failure (3) Limited mobility: Code(s): Z74.09 - Other reduced mobility Category: Medical Plan .
== END 2023-12-30 16:32 | disposition home or self-care (01) ==
LOC: HO.HMCFM 15:25
PROVIDERS: PCP Nurse Practitioner Family; Visit Provider Nurse Practitioner Family
DX: I50.32 Chronic diastolic (congestive) heart failure (principal); Z74.09 Other reduced mobility

== ENCOUNTER → 2024-01-11 23:59 | Outpatient (BNV) | payer OTHER, SELFPAY | PROVIDERS: PCP Nurse Practitioner Family; Visit Provider Nurse Practitioner Family | DX: I48.91 Unspecified atrial fibrillation (principal); I11.0 Hypertensive heart disease with heart failure; E11.9 Type 2 diabetes mellitus without complications | CPT/HCPCS: G0180 ==

== ENCOUNTER 2024-02-23 09:07 | Outpatient (AMB) | payer OTHER, SELFPAY ==
--- NOTE | 2024-02-23 09:08 | A.OFFPC_ITS ---
Vital Signs 02/23/24 09:17 Height 5 ft 3 in Weight 216 lb 6 oz BMI 38.3 BP 124/72 Blood Pressure Location Lt brachial Position Sitting Respiration 12 Pulse 69 Pulse Source Pulse Oximeter Pulse Oximetry (%) 100 Oxygen Delivery Method Room Air Intake Visit Reasons: insurance paperwork Intake Note: follow up and patient had two falls, one was in Dec and the other fall was a week ago. Patient also needs insurance paperwork filled out paperwork. Felt Cementer Required: No Allergies Penicillins Allergy (Intermediate, Verified 02/23/24 09:09) itchy, hives lisinopril Adverse Reaction (Intermediate, Verified 02/23/24 09:09) Cough prednisone Adverse Reaction (Intermediate, Verified 02/23/24 09:09) high blood pressure Tobacco use date assessed: 12/30/23 Dental Screening Dental Screen Date: 12/30/23 HPI HPI Comments History of Present Illness Details 68-year-old female with AFib with second dereje hypercoaguable state, GERD, hyperlipidemia, bipolar disorder, mild intermittent asthma, CVA (2002), seasonal allergies, diabetes, hypertension, urinary incontinence, LAURITA, fibromyalgia, pulmonary hypertension, nephrolithiasis, venous insufficiency of bilateral lower extremities, cirrhosis, osteoarthritis, microalbuminuria, Anxiety with panic,MDD, CHF, empty sella syndrome, former smoker, osteopenia Status post right lower extremity endovenous laser ablation 2019, L4-L5 bilateral laminectomy, partial facetectomy, removal of synovial cyst on the right side in 2017, cataract removal bilat, trigger finger release on the right 2009 PFT 03/19/21 FVC is 103% of predicted, FEV1 is 121% predicted, FEV1/FEC is 117. No signifcant response to bronchodilator. TLC 94% predicted, RV 70% predicted. Uncorrected diffusion capacity is normal 18 or 83% Specialists GI Cardiology Podiatry Vascular Pulmonology Health maintenance Pap ASCUS 2016 normal, 2020 NIL negative HPV Mammogram 02/19/2022 within normal limits Hemoglobin A1c 7.8% 03/13/2023 DEXA 06/05/23 Osteopenia based on the lowest T-score value of -2.0 in the femoral neck applying World Health Organization criteria. Here today with son, Joo. The patient is a 68-year-old female presenting with a history of falls. She reports she has experienced multiple falls, which have exacerbated her weakness and resulted in difficulty with mobility, particularly navigating stairs to her second-floor apartment. The patient has been on anticoagulation therapy, which increases her risk of injury from falls. She also reported an falls resulting in significant hyperextension, affecting her mobility. Her housing situation involves navigating stairs, contributing to her condition. Her recent history involves shoulder degeneration, which limits her ability to regain balance during falls, and knee issues attributed to meniscal tears. Additionally, the patient has diabetes mellitus.. She has Afib & cardiomyopathy, monitored by a contract law specialist. Last visit 12/2023, consult note reviewed, next visit 6 mo. Bipolar with medication management through clonazepam; she does not have a counselor. Son states she jennifer only do it if someone comes to the house or if its remote but even then she may not participate. The physical limitations have caused apprehension about being home alone, in light of the potential risk of falls. The patient has expressed that these issues, compounded by feeling forgetful, impact her ability to manage her health and appointments. Several referrals have been placed for her. She has not ff'd up or attended the appt. Stating she forgets. Son does his best to help manage. c/o abd pain - referred to GI 11/2023... she did not schedule appt c/o multiple chronic joint pain -- referred to Ortho... insurance approved 12/09/23 ... but she did not go Brings me form from [employer] after in home medicare wellness screen. Form reviewed today. Requesting form for Emergency Medical condition to be completed to help w/ housing. Reviewed form. It is asking me to state that she has a medical emergency, which she does not have. Explained in great detail to her and son that if i thought that were the case should would not be safe to be at home alone. Both agree that is not the case. She is safe. She would just be better off in first floor housing. I returned the form to her today - i did not complete. I have already written 2 letters for 1st floor housing. Asked me for rX for bed rail and other home modifications. Social History - Housing: Currently resides in a second -floor apartment without an elevator which poses difficulty in case of emergencies. - Living Situation: Lives alone, has a l padmini line - Pet Ownership: Owns a dog with heart p roblems, contributing stress regarding housing decisions. - Physical Limitations: Reports concerns about mobility limitations and safety within her home environment. Uses a cane. Drives. Needs handicap placard renewal. . - Neurological/Behavioral: Expresses for getfulness and mentioned difficulties related to recent falls impacting safety evaluation. Results - Labs: Hemoglobin A1c today 6.2%, indic ative of good glucose control. Exam awake alert NAD RRR LS clear throughout LLE 2 healing superficial skin tears to anterior aspect, no signs of infection. JOURDAN. Decreased but palp pulse on the L with trace edema, hairless, varicose veins, c/o pain w palp over anterior paredes, left anterior knee, left great toe, arch of left foot and medial malleolus L ankle. Amb w cane, slow gait. RLE skin intact, decreased PP, trace edema, hairless, varicose veins . AOx 3 Sobbing when I talked to her about the ramifications of stating she is not safe at home and the 2nd floor apt would cause her to . Cooperative. Plan Explained in great detail along w/ chart review about all of the referrals placed to date. Made aware some agency is coming in her home and requesting DME equipment Rx which i have been signing and faxing. If she needs addl DME she needs to consult w/ them. She states she knows the RX are being sent but doesnt know where her stuff is. - [facility] per request. - Pursue x-ray imaging of the left lower ext to assess for acute injuries. - Initiate referrals for physical therap y to strengthen weak areas and possibly mitigate fall risks. Prefers to get done at agency of their choice. - Seconf referral to a delivery consultant for fo ot and ankle evaluation and to manage diabetic foot care. - Explore memory evaluative testing thro [facility] neurology referral to address cognitive concerns. - Follow up with a contract law specialist for ongo ing monitoring of Afib and anticoagulation management. - Continue current diabetes management v ia nutrition and glucose monitoring. - Review antidepressant therapy under be havioral health and consider further counseling options through [facility]. Referral placed - Pursue administrative advocacy by prov iding necessary documentation to facilitate securing a first-floor apartment. _ handicap placard completed at time of visit and returned to son. Patient was informed and verbally consented to the use of an ambient scribe for clinic note documentation during this visit. Discussion Notes I discussed with the patient the significant risks associated with her current living situation, considering her recent falls and anticoagulation therapy. We reviewed the risks and steps to improve her safety, including the necessity for housing modifications and physical therapy. For her reported forgetfulness, I recommended neurological assessment to evaluate cognitive status. I reaffirmed that ensuring safety at home requires interdisciplinary interventions. The patient's A1c value indicates positive diabetes control, and her current cardiac interventions continue unchanged, pending cardiology follow-up. The possibility of counseling telehealth services was endorsed, particularly given transportation constraints and prior documentation efforts for housing transition to a more accessible unit were acknowledged. I confirmed that proactive appointments and a structured follow-up could be facilitated via the patient portal to assist in ongoing health management. Very complex patient, with mutliple providers and lack of follow through. Patient Instructions - Follow up with recommended specialty a ppointments, including cardiology, orthopedics, physical therapy, and podiatry. - Attend to housing form documentation p romptly, ensuring accurate representation of health needs. - Maintain diabetes monitoring and adher e to dietary recommendations. - Utilize personal safety alarms as nece ssary, given the risk of falls. - Engage in memory exercises and keep ap pointments for neurological evaluations. - Seek behavioral health support if avai lable as discussed, including exploring options for therapy. - Monitor and report any new symptoms, o r concerns regarding current health conditions. - Confirm all future medical appointment s are arranged timely, enabling family involvement where possible. Total time spent caring for the patient today was 75 minutes. This includes time spent before the visit reviewing the chart, time spent during the visit, and time spent after the visit on documentation This note is constructed using voice recognition software. While every effort has been made to ensure accuracy in yard manager, still errors may have been included Sometimes, these errors may affect the content or meaning of the given sentence . [facility] Medical History (Updated 02/23/24 @ 10:29 by FADI Cm-) Chronic low back pain Chronic pain of both shoulders Back pain with left-sided sciatica Constipation by delayed colonic transit History of cardioversion No pertinent past medical history Surgical History History of hand surgery History of back surgery Family History Other Mental health disorder Substance use disorder Social History Household Members: Other Housing: Apartment Are you a primary clinical care leader to a significant other at home: No Do you presently have visiting nurse or other home services: Yes 75 years or older and lives alone: No Alcohol intake: never Patient Tobacco Use Status: Former Tobacco user Tobacco use type: Cigarette e-Cigarette/Vaping Use: Never Used Second Hand Smoke Exposure: Yes Special jeannette needs: No Agree to transfusion: Yes service: No Current occupational status: disabled Current occupational exposures/hazards: No Sexual orientation: Straight/Heterosexual Gender identity: Female Cognitive needs: No (cane) Hearing needs: No (hearing aide) Vision needs: No (Glasses) Questionnaire PHQ-9 Over the last 2 weeks, how often have you been bothered by any of the following problems? 1. Little interest or pleasure in doing things: several days 2. Feeling down, depressed, or hopeless: not at all 3. Trouble falling or staying asleep, or sleeping too much: not at all 4. Feeling tired or having little energy: not at all 5. Poor appetite or overeating: not at all 6. Feeling bad about yourself - or that you are a failure or have let yourself or your family down: not at all 7. Trouble concentrating on things, such as reading the newspaper or watching television: not at all 8. Moving or speaking so slowly that other people could have noticed. Or the opposite - being so fidgety or restless that you have been moving around a lot more than usual: not at all 9. Thoughts that you would be better off or of hurting yourself in some way: not at all Total score: 1 Depression Screening Interpretation: Negative Depression Screening Done: Yes 35740 - PHQ-9 Billing: Yes Source: Developed by Drs. Jose D Lundy, Madalyn Henry, Marty Carrasco and colleagues, with an educational simeon from [employer]. Thrive Questionnaire Date Thrive assessed: 02/23/24 I am a: Patient What is your living situation today?: I choose not to answer this question Within the past 12 months, did the food you bought not last and you didn't have the money to get more?: I choose not to answer this question Within the past 12 months, did you worry whether your food would run out before you got money to buy more?: I choose not to answer this question Do you have trouble paying for medicines?: I choose not to answer this question Do you have trouble getting transportation to medical appointments?: I choose not to answer this question Do you have trouble paying your heating and electricity bill?: I choose not to answer this question Do you have trouble taking care of your child, family member or friend?: I choose not to answer this question Do you have trouble with day-to-day activities such as bathing, preparing meals, shopping, managing finances, etc.?: I choose not to answer this question Are you currently unemployed and looking for a job?: I choose not to answer this question Are you interested in more education?: I choose not to answer this question Please select the resources that you would like help with: None Currently or been in a relationship where the following occur: I choose not to answer THRIVE Score: 0 AUDIT C Alcohol Use Questionnaire (AUDIT-C) 1. How often do you have a drink containing alcohol?: Never 3. How often do you have six or more drinks on one occasion?: Never Total Score: 0 Score Reviewed/Action Taken: Yes MATTHEW-7 AMB Questionnaire MATTHEW-7 Date MATTHEW - 7 assessed: 02/23/24 Feeling nervous, anxious, or on edge: 0 = Not at all Not being able to stop or control worryin = Not at all Worrying too much about different things: 0 = Not at all Trouble relaxin = Not at all Being so restless that it is hard to sit still: 0 = Not at all Becoming easily annoyed or irritable: 0 = Not at all Feeling afraid as if something awful might happen: 0 = Not at all Total MATTHEW-7 score (0-4 normal; 5-9 mild; 10-14 moderate; 15-21 severe): 0 Source: Developed by Drs. Jose D Lundy, Madalyn Henry, Marty Carrasco and colleagues, with an educational simeon from [employer]. MATTHEW-7 Assessment Billing MATTHEW-7 Assessment Tool: MATTHEW-7 Assessment 06337 Physical exam (Primary Care) Vital Signs: Last Vital Signs Pulse 69 02/23/24 09:17 Resp 12 02/23/24 09:17 BP 124/72 02/23/24 09:17 Pulse Ox 100 02/23/24 09:17 Oxygen Delivery Method Room Air 02/23/24 09:17 BMI result Body Mass Index 38.3 BMI Assessment/Plan discussion: High BMI High, discussed plan: lifestyle and weight reduction Tobacco/Smoking Status: Tobacco use Status Tobacco use date assessed 12/30/23 02/23/24 09:11 Patient Tobacco Use Status Former Tobacco user 02/23/24 09:11 Tobacco use type Cigarette 02/23/24 09:11 e-Cigarette/Vaping Use Never Used 02/23/24 09:11 PHQ-9: PHQ-9 Score PHQ-9: Total score 1 02/23/24 09:11 Depression Screening Interpretation: Negative Thrive Assessment: Date of Thrive Assessment Date Thrive assessed 02/23/24 02/23/24 09:11 Currently or been in a relationship where the following occur: I choose not to answer Results AMB Hemoglobin A1c AMB Hemoglobin A1c 6.2 % Last Edit by Bri Ayers MA on 02/23/24 09:29 Coding Level of Care Code Est Pt Level 5 (04981) Complex EM visit Add On G2211 Diagnoses Diabetes mellitus type 2 with complications E11.8 Bipolar 1 disorder, depressed, moderate F31.32 Paroxysmal atrial fibrillation I48.0 Atrial fibrillation type: paroxysmal BMI 38.0-38.9,adult Z68.38 Secondary hypercoagulability disorder D68.69 Class 2 severe obesity due to excess calories with serious comorbidity and body mass index (BMI) of 38.0 to 38.9 in adult E66.812; E66.01; Z68.38 Obesity type: due to excess calories Multiple joint pain M25.50 Multiple falls R29.6 Injury of left lower extremity, initial encounter S89.92XA Encounter type: initial encounter Pain in both feet M79.671; M79.672 Laterality: bilateral Limited mobility Z74.09 Cognitive impairment, mild, so stated G31.84 Left foot pain M79.672 Acute left ankle pain M25.572 Chronicity: acute Cirrhosis of liver without ascites, unspecified hepatic cirrhosis type K74.60 Hepatic cirrhosis type: unspecified hepatic cirrhosis Ascites presence: without ascites Chronic diastolic congestive heart failure I50.32 Heart failure type: diastolic Heart failure chronicity: chronic Primary hypertension I10 Hypertension type: primary hypertension Complex care coordination Z71.89 CPT Codes PROLONG OUTPT/OFFICE VIS - G2212 Additional Codes MATTHEW-7 Assessment Billing - MATTHEW-7 Assessment Tool: MATTHEW-7 Assessment 97822 ([id number]) PHQ-9 - 87097 - PHQ-9 Billing: Yes ([id number]) Assessment & Plan Assessment & Plan (1) Diabetes mellitus type 2 with complications: Comment: She reports that she is up-to-date on diabetic eye exam. I will need to obtain this records. She is currently maintained on Jardiance 10 mg p.o. q.a.m., metformin ER a 1000 mg p.o. b.i.d. On Arb, losartan 25 mg p.o. daily Code(s): E11.8 - Type 2 diabetes mellitus with unspecified complications Category: Medical (2) Bipolar 1 disorder, depressed, moderate: Comment: Controlled on current medications Referred to counseling today Message sent to [place] to call [facility] mgr to see if they can asst w more help in the home. Code(s): F31.32 - Bipolar disorder, current episode depressed, moderate Category: Medical (3) A-fib: Comment: Status post cardioversion, managed by Cardiology. w/ secondary hypercoagulable state On Eliquis 5 mg p.o. b.i.d. and sotalol 80 mg p.o. b.i.d.. w/ RVR 12/2023 s/p successful ablation. Code(s): I48.91 - Unspecified atrial fibrillation Category: Medical Qualifiers: Atrial fibrillation type: paroxysmal Qualified Code(s): I48.0 - Paroxysmal atrial fibrillation (4) BMI 38.0-38.9,adult: Code(s): Z68.38 - Body mass index [BMI] 38.0-38.9, adult Category: Medical (5) Secondary hypercoagulability disorder: Comment: d/t Afib on Eliquis Code(s): D68.69 - Other thrombophilia Category: Medical (6) Class 2 severe obesity with serious comorbidity and body mass index (BMI) of 38.0 to 38.9 in adult: Comment: dm2 and afib Code(s): E66.812 - Obesity, class 2; E66.01 - Morbid (severe) obesity due to excess calories; Z68.38 - Body mass index [BMI] 38.0-38.9, adult Category: Medical Qualifiers: Obesity type: due to excess calories Qualified Code(s): E66.812 - Obesity, class 2; E66.01 - Morbid (severe) obesity due to excess calories; Z68.38 - Body mass index [BMI] 38.0-38.9, adult (7) Multiple joint pain: Code(s): M25.50 - Pain in unspecified joint Category: Medical (8) Multiple falls: Code(s): R29.6 - Repeated falls Category: Medical (9) Injury of left leg: Code(s): S89.92XA - Unspecified injury of left lower leg, initial encounter Category: Medical Qualifiers: Encounter type: initial encounter Qualified Code(s): S89.92XA - Unspecified injury of left lower leg, initial encounter (10) Foot pain: Code(s): M79.673 - Pain in unspecified foot Category: Medical Qualifiers: Laterality: bilateral Qualified Code(s): M79.671 - Pain in right foot; M79.672 - Pain in left foot (11) Limited mobility: Code(s): Z74.09 - Other reduced mobility Category: Medical (12) Cognitive impairment, mild, so stated: Code(s): G31.84 - Mild cognitive impairment of uncertain or unknown etiology Category: Medical (13) Left foot pain: Code(s): M79.672 - Pain in left foot Category: Medical (14) Left ankle pain: Code(s): M25.572 - Pain in left ankle and joints of left foot Category: Medical Qualifiers: Chronicity: acute Qualified Code(s): M25.572 - Pain in left ankle and joints of left foot (15) Cirrhosis: Comment: Noted on imaging. Referred to GI for further evaluation and treatment Code(s): K74.60 - Unspecified cirrhosis of liver Category: Medical Qualifiers: Hepatic cirrhosis type: unspecified hepatic cirrhosis Ascites presence: without ascites Qualified Code(s): K74.60 - Unspecified cirrhosis of liver (16) CHF (congestive heart failure): Comment: Dry weight 225lbs TE 03/23/2023 shows normal ventricular size and systolic function with ejection fraction 55-60% Managed by PV Jefferson, next appt 05/07/23 on Jardiance, Losartan, Sotalol. Code(s): I50.9 - Heart failure, unspecified Category: Medical Qualifiers: Heart failure type: diastolic Heart failure chronicity: chronic Qualified Code(s): I50.32 - Chronic diastolic (congestive) heart failure (17) HTN (hypertension): Comment: Blood pressure at goal on losartan 25 mg p.o. daily and sotalol 80 mg p.o. b.i.d. Code(s): I10 - Essential (primary) hypertension Category: Medical Qualifiers: Hypertension type: primary hypertension Qualified Code(s): I10 - Essential (primary) hypertension (18) Complex care coordination: Code(s): Z71.89 - Other specified counseling Plan . Orders: Orders PT Evaluation and Treatment Today M79.673 - Pain in unspecified foot, R29.6 - Repeated falls, S89.92XA - Unspecified injury of left lower leg, initial encounter, Z74.09 - Other reduced mobility XR ankle LT 2V Today M25.50 - Pain in unspecified joint, M25.572 - Pain in left ankle and joints of left foot, M79.672 - Pain in left foot, M79.673 - Pain in unspecified foot, R29.6 - Repeated falls, S89.92XA - Unspecified injury of left lower leg, initial encounter XR tibia fibula LT 2V Today M25.50 - Pain in unspecified joint, M25.572 - Pain in left ankle and joints of left foot, M79.672 - Pain in left foot, M79.673 - Pain in unspecified foot, R29.6 - Repeated falls, S89.92XA - Unspecified injury of left lower leg, initial encounter XR knee LT 2V Today M25.50 - Pain in unspecified joint, M25.572 - Pain in left ankle and joints of left foot, M79.672 - Pain in left foot, M79.673 - Pain in unspecified foot, R29.6 - Repeated falls, S89.92XA - Unspecified injury of left lower leg, initial encounter AMB Hemoglobin A1c Today Z13.9 - Encounter for screening, unspecified XR foot LT 2V Today M25.50 - Pain in unspecified joint, M25.572 - Pain in left ankle and joints of left foot, M79.672 - Pain in left foot, M79.673 - Pain in unspecified foot, R29.6 - Repeated falls, S89.92XA - Unspecified injury of left lower leg, initial encounter Referrals Podiatry Referral E11.8 - Type 2 diabetes mellitus with unspecified complications, M79.673 - Pain in unspecified foot Neurology Referral G31.84 - Mild cognitive impairment of uncertain or unknown etiology Orthopedics Referral M25.50 - Pain in unspecified joint, R29.6 - Repeated fall s, S89.92XA - Unspecified injury of left lower leg, initial encounter Counseling Referral F31.32 - Bipolar disorder, current episode depressed, moderate
[2024-02-23 09:17] VITALS: BP 124/72; PULSE 69; RESP 12; O2SAT 100; BMI 38.3
== END 2024-02-23 10:10 | disposition home or self-care (01) ==
PROVIDERS: PCP Nurse Practitioner Family; Visit Provider Nurse Practitioner Family
DX: E11.8 Type 2 diabetes mellitus with unspecified complications (principal); F31.32 Bipolar disorder, current episode depressed, moderate; I48.0 Paroxysmal atrial fibrillation; Z68.38 Body mass index [BMI] 38.0-38.9, adult; D68.69 Other thrombophilia; E66.812 Obesity, class 2; E66.01 Morbid (severe) obesity due to excess calories; M25.50 Pain in unspecified joint; R29.6 Repeated falls; S89.92XA Unspecified injury of left lower leg, initial encounter; K74.60 Unspecified cirrhosis of liver; I50.32 Chronic diastolic (congestive) heart failure; M79.671 Pain in right foot; M79.672 Pain in left foot; Z74.09 Other reduced mobility; G31.84 Mild cognitive impairment of uncertain or unknown etiology; M25.572 Pain in left ankle and joints of left foot; I10 Essential (primary) hypertension; Z71.89 Other specified counseling; Z13.9 Encounter for screening, unspecified

== ENCOUNTER → 2024-02-23 09:07 | Outpatient (BNVA) | payer OTHER, SELFPAY | PROVIDERS: PCP Nurse Practitioner Family; Visit Provider Nurse Practitioner Family | DX: E11.8 Type 2 diabetes mellitus with unspecified complications (principal); F31.32 Bipolar disorder, current episode depressed, moderate; I48.0 Paroxysmal atrial fibrillation; D68.69 Other thrombophilia; E66.812 Obesity, class 2; E66.01 Morbid (severe) obesity due to excess calories; Z68.38 Body mass index [BMI] 38.0-38.9, adult; M25.50 Pain in unspecified joint; R29.6 Repeated falls; S89.92XD Unspecified injury of left lower leg, subsequent encounter; M79.671 Pain in right foot; M79.672 Pain in left foot; G31.84 Mild cognitive impairment of uncertain or unknown etiology; M25.572 Pain in left ankle and joints of left foot; K74.60 Unspecified cirrhosis of liver; I11.0 Hypertensive heart disease with heart failure; I50.32 Chronic diastolic (congestive) heart failure; Z71.89 Other specified counseling; Z86.73 Personal history of transient ischemic attack (TIA), and cerebral infarction without residual deficits; Z79.01 Long term (current) use of anticoagulants; Z79.84 Long term (current) use of oral hypoglycemic drugs; Z79.899 Other long term (current) drug therapy; Z74.09 Other reduced mobility | CPT/HCPCS: 83036; 96127 ==

== ENCOUNTER 2024-03-14 10:15 | Outpatient (REF) | payer OTHER, SELFPAY | END 2024-03-14 10:16 | disposition home or self-care (01) | LOC: HO.LAB 10:15 | PROVIDERS: PCP Nurse Practitioner Family; Visit Provider Nurse Practitioner Family | DX: R31.9 Hematuria, unspecified (principal) | CPT/HCPCS: 81002; 87086 ==

== ENCOUNTER 2024-03-14 10:15 | Outpatient (REF) | payer OTHER, SELFPAY ==
--- OUTSIDE RECORDS SUMMARY | 2024-03-14 16:04 | XMS_ITS | Clinical Summary ---
Author Organization [facility] Address [address] [place] [address] Phone Care Team Providers Care Chief Revenue Officer Name Role Phone Roge Allen MD Primary [...] supply misc Misc. Devices (EXTENDABLE BEDSIDE RAIL) [facility] [place] Each by Does not apply route [...] Type Department Care Team Description 02/26/2024 Telephone [facility] Cardiology [facility] [address] [place] [address] Deb Albert MA Med Refill (Rf Incoming fax [facility] Specialty pharmacy for Eliquis 5mg ) 02/11/2024 Telephone [facility] - [address] [place] [address] Kai Espinosa MD 02/04/2024 Telephone [facility] - [address] [place] [address] Kai Espinosa MD paperwork ; questions 01/05/2024 Telephone [facility] - [address] [place] [address] Tish Farley MA note (See notes) 01/04/2024 Telephone [facility] - [address] [place] [address] Kai Espinosa MD Other (Letter ) 12/25/2023 10:50 AM EST Office Visit [facility] [address] [place] [address] Kai Espinosa MD Paroxysmal atrial fibrillation (CMS/HCC) (Primary Dx); Heart failure with preserved ejection fraction, unspecified HF chronicity (CMS/HCC) 12/17/2023 Telephone [facility] - [address] [facility] [address] [place] [address] Kai Espinosa MD FYI from [...] yrs OTHER SURGICAL HISTORY 05/23/2009 Right PROCEDURE: AR SYNVCT TDN SHTH RAD FLXR TDN PALM&/FNGR EA TDN; COMMENT: ring finger, tenosynovectomy BACK SURGERY 11/26/2017 PROCEDURE: HISTORICAL BACK SURGERY; COMMENT: L4/L5 daisha.laminotomy,partial facetectomy,foraminotomy,removal synovial cyst R side,facet arthrodesis L4/L5 OTHER SURGICAL HISTORY 12/11/2017 PROCEDURE: AR REMOVAL IMPLANT DEEP; COMMENT: Irrigation debridement lumbar wound w/ removal of posterior hardware CATARACT EXTRACTION Bilateral PROCEDURE: HISTORICAL CATARACT REMOVAL OTHER SURGICAL HISTORY 09/20/2019 Right PROCEDURE: ---- OTHER ----; COMMENT: Right lower extremity endovenous laser ablation Medical History Medical History Date Comments (HFpEF) heart failure with p reserved ejection fraction ([facility]) 05/26/2023 Atrial fibrillation ([facility]) 08/21/2022 SOB (shortness of breath) 12/13/2020 Palpitations 12/13/2020 Portopulmonary hypertension ([facility]) 12/12/2020 Nephrolithiasis 10/07/2019 Diabetes mellitus ([facility]) 04/27/2019 Type 2 Asthma 11/07/2016 GERD (gastroesophageal reflux disease) 7 Hyperlipidemia 11/07/2016 Right heart failure ([facility]) 11/07/2016 du e to pulmonary hypertension Morbid obesity with BMI of 4 0.0-44.9, adult ([facility]) 11/07/2016 DX:Morbid obesity with BMI o f 40.0-44.9, adult ([facility]) Depression 11/07/2016 DX:Depression Fibromyalgia 11/07/2016 DX:Fibromyalgia LAURITA (obstructive sleep apnea) 11/07/2016 DX :LAURITA (obstructive sleep apnea); COMMENT: CPAP Anxiety 11/07/2016 DX:Anxiety Asthma 11/07/2016 DX:Asthma Allergic rhinitis 11/07/2016 DX:Allergic rh initis GERD (gastroesophageal reflux disease) 11/07/2016 DX:GERD (gastroesophageal reflux disease) Overactive bladder 11/07/2016 DX:Overactive bladder Hyperlipidemia 11/07/2016 DX:Hyperlipidemi a Empty sella syndrome ([facility]) 11/07/2016 D X:Empty sella syndrome ([facility]) Panic attacks 11/07/2016 DX:Panic attacks Prediabetes 11/07/2016 DX:Prediabetes Right heart failure due to p ulmonary hypertension ([facility]) 11/07/2016 DX:Right heart failure due t o pulmonary hypertension ([facility]); COMMENT: H/O Fen- Phen use Bilateral chronic [...] GEMUSE QTc 408 ms GEMUSE P Wave Cecilia 72 degrees GEMUSE R Cecilia 61 degrees GEMUSE T Cecilia 53 degrees GEMUSE ECG Interpretation Normal sinus [...] Recently Relevant to Health Maintenance Care Teams Chief Revenue Officer Relationship Specialty Start Date End Date Roge Allen MD [address] [place] [address] Dr Mike MA PCP - General 05/26/23
--- OUTSIDE RECORDS SUMMARY | 2024-03-14 16:04 | XMS_ITS | Clinical Summary ---
Author Organization [facility] Address [address] [place] [address] Care Team Providers Care Line Supply Name Role Phone Katlyn Shi DMD Primary Care Provider [phone] Source Comments PLEASE NOTE, if this patient [...] Plan of Treatment Not on file Insurance [facility] [employer] [address] [place], [place] [address] Care Teams Line Supply Relationship Specialty Start Date End Date Katlyn Shi DMD [address] [place] [address] PCP - General 04/20/20
--- OUTSIDE RECORDS SUMMARY | 2024-03-14 16:04 | XMS_ITS | Encounter Summary ---
Author Organization [facility] Address [address] [place] [address] Care Team Providers Care Woodwinds Teacher Name Role Phone Roge Allen MD Primary Care Provider [phone] Reason for Visit * Reason Onset Date Comments Med Refill 02/26/[address] [facility] Specialty pharmacy for Eliquis 5mg Encounter Details Date Type Department Care Team (Late st Contact Info) Description 02/26/2024 Telephone [facility] - [address] [facility] [address] [place] [address] Deb Albert MA Med Refill (Rf Incoming fax [facility] Specialty pharmacy for Eliquis 5mg ) Social [...] 02/26/2024 2:40 PM EST Rf Incoming fax [facility] Specialty pharmacy for Eliquis 5mg [address] [...] documented as of this encounter Care Teams Woodwinds Teacher Relationship Specialty Start Date End Date Roge Allen MD [address] [place] [address] Dr Mike MA PCP - General 05/26/23 documented as of this encounter
--- OUTSIDE RECORDS SUMMARY | 2024-03-14 16:04 | XMS_ITS | Encounter Summary ---
Author Organization [facility] [place] [address] Care Team Providers Care Core Piler Name Role Phone Roge Allen MD Primary Care Provider Encounter Details Date Type Department Care Team (Late st Contact Info) Description 02/11/2024 Telephone [facility] - [facility] [address] [facility] [address] [place] [address] Kai Espinosa MD [address] [place] [address] Social History Tobacco Use Types Packs/Day Years [...] on filedocumented in this encounter Care Teams Core Piler Relationship Specialty Start Date End Date Roge Allen MD [address] [place] [address] Dr Mike MA PCP - General 05/26/23 documented as of this encounter
[2024-03-14 17:31] LABS: Influenza A PCR POSITIVE (Negative); Influenza B PCR NEGATIVE (Negative); Resp Syncy Virus RNA Qual PCR NEGATIVE (Negative); SARS COV2 PCR INHOUSE NEGATIVE (Negative)
== END 2024-03-14 10:16 | disposition home or self-care (01) ==
LOC: HO.LNP 10:15
PROVIDERS: Visit Provider Nurse Practitioner Family
DX: J11.1 Influenza due to unidentified influenza virus with other respiratory manifestations (principal); R09.89 Other specified symptoms and signs involving the circulatory and respiratory systems; R68.89 Other general symptoms and signs
CPT/HCPCS: 0241U

== ENCOUNTER 2024-03-14 10:15 | Outpatient (AMB) | payer OTHER, SELFPAY ==
--- NOTE | 2024-03-14 10:31 | A.OFFPC_ITS ---
Intake Visit Reasons: body ache/fever/headaches Allergies Penicillins Allergy (Intermediate, Verified 02/23/24 09:09) itchy, hives lisinopril Adverse Reaction (Intermediate, Verified 02/23/24 09:09) Cough prednisone Adverse Reaction (Intermediate, Verified 02/23/24 09:09) high blood pressure Tobacco use date assessed: 12/30/23 Dental Screening Dental Screen Date: 12/30/23 [facility] Medical History (Updated 02/23/24 @ 10:29 by Hiral Leo, [facility]) Chronic low back pain Chronic pain of both shoulders Back pain with left-sided sciatica Constipation by delayed colonic transit History of cardioversion No pertinent past medical history Surgical History History of hand surgery History of back surgery Family History Other Mental health disorder Substance use disorder Social History Household Members: Other Housing: Apartment Are you a primary direct care professional to a significant other at home: No Do you presently have visiting nurse or other home services: Yes 75 years or older and lives alone: No Alcohol intake: never Patient Tobacco Use Status: Former Tobacco user Tobacco use type: Cigarette e-Cigarette/Vaping Use: Never Used Second Hand Smoke Exposure: Yes Special jeannette needs: No Agree to transfusion: Yes service: No Current occupational status: disabled Current occupational exposures/hazards: No Sexual orientation: Straight/Heterosexual Gender identity: Female Cognitive needs: No (cane) Hearing needs: No (hearing aide) Vision needs: No (Glasses) Questionnaire Thrive Questionnaire Date Thrive assessed: 02/23/24 MATTHEW-7 AMB Questionnaire MATTHEW-7 Date MATTHEW - 7 assessed: 02/23/24 Source: Developed by Drs. Jose D Lundy, Madalyn Henyr, Marty Carrasco and colleagues, with an educational simeon from [email or web address]. Physical exam (Primary Care) Tobacco/Smoking Status: Tobacco use Status Tobacco use date assessed 12/30/23 02/23/24 09:11 Patient Tobacco Use Status Former Tobacco user 02/23/24 09:11 Tobacco use type Cigarette 02/23/24 09:11 e-Cigarette/Vaping Use Never Used 02/23/24 09:11 Thrive Assessment: Date of Thrive Assessment Date Thrive assessed 02/23/24 02/23/24 09:11 Coding
--- NOTE | 2024-03-14 10:34 | AM.OFFWIN_ITS ---
Intake Vital Signs 03/14/24 10:38 BP 118/72 Blood Pressure Location Rt brachial Position Sitting Respiration 18 Pulse 90 Pulse Source Pulse Oximeter Temp 99.7 F Temp Source Oral Pulse Oximetry (%) 96 Oxygen Delivery Method Room Air Intake Visit Reasons: body ache/fever/headaches Intake Note: Body aches, fever, headaches. coughing up blood, dark yellow and possible blood in urine. Fell 3 weeks and hit head, was not seen for it. Patient Tobacco Use Status: Former Tobacco user Allergies Penicillins Allergy (Intermediate, Verified 03/14/24 11:10) itchy, hives lisinopril Adverse Reaction (Intermediate, Verified 03/14/24 11:10) Cough prednisone Adverse Reaction (Intermediate, Verified 03/14/24 11:10) high blood pressure Medication List - Last Reconciled 03/14/24 by Hiral Leo, GENERAL INTERNIST- albuterol sulfate 90 mcg/actuation 2 puffs inhalation BID 30 days albuterol sulfate 2.5 mg (3 mL) inhalation Q6H PRN 1 month apixaban 5 mg PO BID atorvastatin 80 mg PO BEDTIME back brace As directed LUMBAR SACRAL SUPPORT WITH OVERLAP ABD BELT 10 , SIZE XXXL blood pressure monitor As directed blood sugar diagnostic (OneTouch Ultra Test strips) test blood sugar two to three time a day blood-glucose meter ([employer]Touch Ultra2 Meter) As directed budesonide-formoterol 160-4.5 mcg/actuation (Symbicort) inhalation cholecalciferol (vitamin D3) 1,250 mcg PO QWEEK clonazepam 1 mg PO BEDTIME PRN clonazepam 0.5 mg PO QAM empagliflozin (Jardiance) 10 mg PO QAM 30 days lancets (OneTouch UltraSoft Lancets) check blood sugar twice a day and as needed for s/s of dm lancets (OneTouch Delica Plus Lancet) As directed loratadine 10 mg PO DAILY losartan 25 mg PO DAILY 90 days metformin ER 1,000 mg (2 x 500 mg) PO BID 30 days mirtazapine 30 mg PO BEDTIME miscellaneous medical supply skin sealents, protectants, moisturiszre, ointments any type and size as directed; miscellaneous medical supply disposable linner/shield/guard/pad/undergarment for incontinence as directed; miscellaneous medical supply diabetic shoes as directed; miscellaneous medical supply As directed, RAISED TOILET SEAT WITH ARMS miscellaneous medical supply Aleotouch wipes, frag free 110/pk incont supply as directed; miscellaneous medical supply incontinence prod, disp large underpads as directed; oxcarbazepine 600 mg PO BID pantoprazole 40 mg PO DAILY polyethylene glycol 3350 (Miralax) 238 grams PO ONCE 1 day Shower Chair As directed BATH BENCH sotalol 80 mg PO BID Do you need a note to return to daycare/school/sports/work: No HPI HPI Comments History of Present Illness Details The patient is a 68-year-old female presenting with symptoms of body aches, headache, chest pain, congestion, and bilateral ear aches. Symptoms began approximately four days ago on Thursday, with the worst severity reported yesterday. The patient reports nasal bleeding, potentially due to severe coughing, which occasionally produces blood-tinged sputum. She is experiencing hematuria, describing urine as very red, progressing to a darker color over time. This condition appears not to cause burning during urination. The patient has taken Tylenol for the symptoms, with minimal relief. Reduced fluid intake; mentions drinking cranberry juice. There is a concern about hydration due to the dark urine. The patient also reports nausea and weakness, which may exacerbate her symptoms. Physical Exam General: Awake, alert. No apparent distress, mildly ill, accompanied by son Joo Eyes: Sclera and conjunctiva clear bilaterally Nose: Nares clear drainage, turbinates within normal limits, no sinus tenderness with palpation bilaterally Ears: Tympanic membranes intact and clear bilaterally Throat: Moist mucosa membrane, pharynx mild erythema, no exudate Cardiovascular: irregular irregular Pulm: ins/exp wheeze throughout, congested cough w/o distress Abd: no CVAT bilat, UA as below. No abd pain w palp Results - Labs and Diagnostic Tests: Nasal swab for Influenza, COVID-19, and RSV sent to the lab; Urine sample sent for bacterial analysis. Discussion Notes I discussed with the patient that the differential diagnosis for her symptoms includes Influenza, COVID-19, and RSV. I explained the importance of the nasal swab and urine culture to determine the specific cause and to rule out bacterial infection. I emphasized the need for adequate hydration to address potential dehydration, which could be affecting the urinary symptoms. Tylenol use should continue for symptom relief. We went over the use of Benadryl to manage nausea and vomiting, noting that it could cause drowsiness and aid in sleep. I also reinforced the importance of fluid intake, even in the absence of appetite, to prevent dehydration. I advised the patient to expect a call with lab results and further treatment recommendations. Patient Instructions - Continue taking Tylenol as needed for symptom relief. - Ensure adequate fluid intake, especial ly if not eating. - Use Benadryl as instructed for nausea prevention. - Rest as much as possible. - Expect a follow-up call once test resu lts are available. Plan - Await results of the nasal swab test f or Influenza, COVID-19, and RSV for definitive diagnosis and management. - Continue symptomatic management of res piratory symptoms with Tylenol and hydration. - Consider Benadryl for nausea managemen t. - Monitor hematuria and evaluate urine t est results for bacterial infection. - Rest and supportive care are prioritiz ed at this time. - Maintain communication regarding lab r esults to determine further therapeutic interventions. Patient was informed and verbally consented to the use of an ambient scribe for clinic note documentation during this visit. Patient's son shonda was called at [phone]. No answer. Detailed message left in the machine with a positive flu findings. Tamiflu has been sent in. Patient will be notified once urine culture results are back. Total time spent caring for the patient today was 30 minutes. This includes time spent before the visit reviewing the chart, time spent during the visit, and time spent after the visit on documentation, reviewing laboratory results, diagnostic imaging, medications, performing a medically necessary evaluation, counseling on diagnoses, care coordination, ordering appropriate tests, ordering appropriate medications, review of tests performed by other providers, reporting test results with the patient, communication with other healthcare providers. [facility] Medical History (Updated 03/14/24 @ 17:37 by Hiral Leo, [facility]) Back pain with left-sided sciatica Chronic low back pain Chronic pain of both shoulders Constipation by delayed colonic transit History of cardioversion No pertinent past medical history Surgical History History of back surgery History of hand surgery Family History Other Mental health disorder Substance use disorder Social History Household Members: Other Housing: Apartment Are you a primary home health care coordinator to a significant other at home: No Do you presently have visiting nurse or other home services: Yes 75 years or older and lives alone: No Alcohol intake: never Patient Tobacco Use Status: Former Tobacco user Tobacco use type: Cigarette e-Cigarette/Vaping Use: Never Used Second Hand Smoke Exposure: Yes Special jeannette needs: No Agree to transfusion: Yes service: No Current occupational status: disabled Current occupational exposures/hazards: No Sexual orientation: Straight/Heterosexual Gender identity: Female Cognitive needs: No (cane) Hearing needs: No (hearing aide) Vision needs: No (Glasses) Physical Exam Vital Signs: Last Vital Signs Temp 99.7 F 03/14/24 10:38 Pulse 90 03/14/24 10:38 Resp 18 03/14/24 10:38 BP 118/72 03/14/24 10:38 Pulse Ox 96 03/14/24 10:38 Oxygen Delivery Method Room Air 03/14/24 10:38 Results AMB Urinalysis Dipstick UR Leukocytes Negative Last Edit by Summer Sommer CMA on 03/14/24 16:48 UR Nitrite Negative Last Edit by Summer Sommer CMA on 03/14/24 16:48 UR Urobilinogen 1 Last Edit by Summer Sommer CMA on 03/14/24 16:48 UR Protein Trace Last Edit by Summer Sommer CMA on 03/14/24 16:48 UR Ph 6.0 Last Edit by Summer Sommer CMA on 03/14/24 16:48 UR Blood Negative Last Edit by Summer Sommer CMA on 03/14/24 16:48 UR Specific [place] 1.025 Last Edit by Summer Sommer CMA on 03/14/24 16: 48 UR Ketone Moderate Last Edit by Summer Sommer CMA on 03/14/24 16:48 UR Bilirubin Moderate Last Edit by Summer Sommer CMA on 03/14/24 16:48 UR Glucose 100 Last Edit by Summer Sommer CMA on 03/14/24 16:48 Results Reviewed Results Reviewed: Laboratory Last Values Urine pH (Clinic) 6.0 03/14/24 16:45 Specific [place] (Clinic) 1.025 03/14/24 16:45 Ur Protein (Clinic) Trace 03/14/24 16:45 Ur Ketones (Clinic) Moderate 03/14/24 16:45 Urine Blood (Clinic) Negative 03/14/24 16:45 Urine Nitrite Negative 03/14/24 16:45 Urine Bilirubin (Clinic) Moderate 03/14/24 16:45 Urobilinogen (Clinic) 1 03/14/24 16:45 Leukocyte Esterase (Clinic) Negative 03/14/24 16:45 Urine Glucose (Clinic) 100 03/14/24 16:45 RUN: 03/14/24 [id number] PAGE 1 [facility] [address] [place] [id number] [employer] Superintendent: Roge Reed M.D. Specimen Inquiry Name: Kristin Madrid Age/Sex: 68/F : 1955 Unit#: [id number] Attend Dr: Hiral Leo Re03/14/24 Status: REG REF Location: [facility] Disch: SPEC : [id number] GHULAM: 03/14/24 STATUS: COMP REQ : [id number] RECD: 03/14/[address] [facility] [address]: Hiral Leo COMP: 03/14/24 ENTERED: 03/14/[address] [facility] [address]: ORDERED: SARS/FLU/RSV Test Result Flag Reference Influenza A PCR POSITIVE A Negative Influenza B PCR NEGATIVE Negative RSV RNA QualPCR NEGATIVE Negative SARSCOV2 RT-PCR NEGATIVE Negative All test results must be correlated with clinical findings. Negative results do not preclude SARS-CoV2, influenza A virus, influenza B virus and/or RSV infection and should not be used as the sole basis for treatment or other patient management decisions. Negative results must be combined with clinical observations, patient history, and epidemiological information. This test has not been evaluated for monitoring treatment of infection. This test has been authorized by the FDA under an Emergency Use Authorization (EUA) for use by authorized laboratories. Testing performed on the [employer] GeneXpert utilizing real-time RT-PCR. All SARS CoV2 and positive influenza A/B results are reported to [facility]. END OF REPORT Assessment & Plan Assessment & Plan (1) Influenza: Code(s): J11.1 - Influenza due to unidentified influenza virus with other respiratory manifestations (2) Flu-like symptoms: Code(s): R68.89 - Other general symptoms and signs (3) Hematuria: Code(s): R31.9 - Hematuria, unspecified Qualifiers: Hematuria type: unspecified type Qualified Code(s): R31.9 - Hematuria, unspecified Plan . Orders: Orders SARS-CoV2/FLU/RSV Today R09.89 - Other specified symptoms and signs involving the circulatory and respiratory systems, R68.89 - Other general symptoms and signs Urine Culture Today R31.9 - Hematuria, unspecified AMB Urinalysis Dipstick Today Z13.9 - Encounter for screening, unspecified Medications: New oseltamivir (Tamiflu) 75 mg PO Q12H 5 days 10 caps 0RF Patient Instructions: Influenza (flu) is an infection in the lungs and breathing passages. It is caused by the influenza virus. There are different strains, or types, of the flu virus from year to year. Unlike the common cold, the flu comes on suddenly and the symptoms can be more severe. These symptoms include a cough, congestion, fever, chills, fatigue, aches, and pains. These symptoms may last for a few weeks. Although the flu can make you feel very sick, it usually doesn't cause serious health problems. Home treatment is usually all you need for flu symptoms. But your doctor may prescribe antiviral medicine to prevent other health problems, such as pneumonia, from developing. The risk of other health problems from the flu is highest for young children (under 5), older adults (over 65), women, people with long-term health conditions, people who live in nursing homes or long-term care centres, and indigenous peoples. How can you care for yourself at home? Get plenty of rest. Drink plenty of fluids. If you have to limit fluids because of a health problem, talk with your doctor before you increase the amount of fluids you drink. Take an kdjy-mba-vlcekhg pain medicine if needed, such as acetaminophen (Tylenol), ibuprofen (Advil, Motrin), or naproxen (Aleve), to relieve fever, headache, and muscle aches. Read and follow all instructions on the label. No one younger than 18 should take aspirin. It has been linked to Noy syndrome, a serious illness. Take any prescribed medicine exactly as directed. Do not smoke. Smoking can make the flu worse. If you need help quitting, talk to your doctor about stop-smoking programs and medicines. These can increase your chances of quitting for good. If the skin around your nose and lips becomes sore, put some petroleum jelly (such as Vaseline) on the area. To ease coughing: Suck on cough drops or plain, hard candy. Try an oesk-npw-rtkcnlt cough or cold medicine. Read and follow all instructions on the label. Raise your head at night with an extra pillow. This may help you rest if coughing keeps you awake. To avoid spreading the flu Wash your hands regularly, and keep your hands away from your face. Stay home from school, work, and other public places until you are feeling better and your fever has been gone for at least 24 hours. The fever needs to have gone away on its own without the help of medicine. Ask people living with you to talk to their doctors about preventing the flu. They may get antiviral medicine to keep from getting the flu from you. To prevent the flu in the future, get the flu vaccine every fall. Encourage people living with you to get the vaccine. Cover your mouth when you cough or sneeze. If you can, cough or sneeze into the bend of your elbow, not your hands. When should you call for help? Call 911 anytime you think you may need emergency care. For example, call if: You have severe trouble breathing. You have a seizure. Call your doctor or nurse advice line now or seek immediate medical care if: You have trouble breathing. You have a fever with a stiff neck or a severe headache. You have pain or pressure in your chest or belly. You have a fever or cough that returns after getting better. You feel very sleepy, dizzy, or confused. You are not urinating. You have severe muscle pain. You have severe weakness, or you are unsteady. You have medical conditions that are getting worse Watch closely for changes in your health, and be sure to contact your doctor or nurse advice line if: You do not get better as expected. You are having a problem with your medicine. Coding Level of Care Code Est Pt Level 4 (43496) Diagnoses Influenza J11.1 Flu-like symptoms R68.89 Hematuria, unspecified type R31.9 Hematuria type: unspecified type
[2024-03-14 10:38] VITALS: BP 118/72; PULSE 90; RESP 18; TEMP 37.6; O2SAT 96
--- OUTSIDE RECORDS SUMMARY | 2024-03-14 10:58 | XMS_ITS | Clinical Summary ---
Author Organization [facility] Address [address] [place] [address] Care Team Providers Care Hospice Director Name Role Phone Katlyn Shi DMD Primary Care Provider [phone] Source Comments PLEASE NOTE, if this patient is a minor, it may be UNLAWFUL to discuss sensitive information that is contained in these records (such as FAMILY PLANNING, MENTAL HEALTH or SUBSTANCE ABUSE) with the minor patient's parent or other person without the patient's specific authorization.[facility] Social History Tobacco Use Types Packs/Day Years Used Date Smoking Tobacco: Never Assessed Social Connections Answer Date Recorded Social Connections and Isolation 0 12/29/2018 Financial Resource Strain Answer Date R ecorded Financial Resource Strain 0 2018 Stress Answer Date Recorded Stress 0 12/29/2018 Physical Activity Answer Date Recorded Physical Activity 0 12/29/2018 Food Insecurity Answer Date Recorded Food 0 12/29/2018 Transportation Needs Answer Date Record ed Transportation 0 12/29/2018 Housing Stability Answer Date Recorded Housing 0 12/29/2018 Safety and Environment Answer Date Juan Carlos rded Safety 0 12/29/2018 Utilities Answer Date Recorded Utilities 0 12/29/2018 Employment Answer Date Recorded Employment 0 12/29/2018 Comments Unknown Sex and Gender Information Value Date Recorded Sex Assigned at Not on file Legal Sex Female 11:46 AM PDT Gender Identity Not on file Sexual Orientation Not on file Plan of Treatment Not on file Insurance [facility] [employer] [address] [place], [place] [id number] DENTAL Care Teams Hospice Director Relationship Specialty Start Date End Date Katlyn Shi DMD [address] [place] [address] PCP - General 04/20/20
--- OUTSIDE RECORDS SUMMARY | 2024-03-14 10:58 | XMS_ITS | Clinical Summary ---
Author Organization [address] [facility] Address [address] [place] [address] Phone Care Team Providers Care Asbestos Removal Worker Name Role Phone Roge Allen MD Primary Care Provider Allergies Active Allergy Reactions Criticality Noted Date Comments Other 2019 Seasonal allergies Penicillins Itching,Rash 11/07/2016 Prednisone 09/14/2019 Elevated blood sugar Medications Medication Sig Dispensed Refills Start Date End Date Status empagliflozin (Jardiance) 10 mg tablet Take 10 mg by mouth daily. Active mirtazapine (REMERON) 30 mg tablet Take 1 Tablet by mouth at bedtime. Active sotaloL (BETAPACE) 80 mg tablet Take 1 Tablet by mouth 2 times daily. 04/20/2023 Active albuterol 2.5 mg /3 mL (0.083 %) nebulizer solution Take 1 Vial by nebulization every 4 hours as needed for Wheezing, Shortness of Breath or Cough. 03/27/2023 Active fluticasone propionate (FLONASE) 50 mcg/actuation nasal spray 2 Sprays by Nasal route daily. 03/27/2023 Active budesonide-formo teroL (Symbicort) 160-4.5 mcg/actuation inhaler Inhale 2 Puffs into the lungs 2 times daily. 03/27/2023 Active losartan (COZAAR) 25 mg tablet Take 1 Tablet by mouth daily. Active metFORMIN XR (GLUCOPHAGE-XR) 500 mg 24 hr tablet Take 2 tablets (1,000 mg total) by mouth 2 (two) times a day. 11/06/2020 Active loratadine (CLARITIN) 10 mg tablet Take 1 Tablet by mouth daily. Active inhalational spacing device inhaler SPACER/AERO-HOLDIN G CHAMBERS (BREATHERITE VALVED MDI CHAMBER) DEVICE 1 Each by Does not apply route as needed for Other (with use of inhalers 06/16/2022 Active albuterol HFA (PROAIR HFA ; PROVENTIL HFA ; VENTOLIN HFA) 90 mcg/actuation inhaler INHALE 2 PUFFS BY MOUTH EVERY 6 HOURS NEEDED FOR COUGH OR WHEEZING OR SHORTNESS OF BREATH 11/05/2021 Active calcium carbonate-vitami n D3 600 mg-10 mcg (400 unit) chewable tablet Take by mouth. Activ e atorvastatin (LIPITOR) 40 mg tablet TAKE 1 TABLET BY MOUTH AT BEDTIME 01/04/2021 Active polyethylene glycol (MIRALAX) 17 gram packet Take 17 g by mouth daily as needed for Constipation. 10/12/2020 Active lancets lancets ONE TOUCH ULTRASOFT LANCETS Misc Use to check blood sugar twice daily 10/12/2020 Active glucose blood test strip ONE TOUCH BASIC STRIPS 1 Strip by Does not apply route 2 times daily. 08/03/2020 Active blood-glucose meter kit BLOOD GLUCOSE MONITORING SUPPL (ONE TOUCH ULTRA 2) W/DEVICE KIT Use to test suigars twice daily 08/03/2020 Active clonazePAM (KlonoPIN) 1 mg tablet Take 1 Tab by mouth at bedtime. 03/09/2020 Active OXcarbazepine (TRILEPTAL) 600 mg tablet Take 1 Tab by mouth 2 times daily. 03/09/2020 Active clonazePAM (KlonoPIN) 0.5 mg tablet Take 1 Tab by mouth every morning. 03/06/2020 Active blood sugar diagnostic (FreeStyle Lite Strips) test strip 1 Strip by In Vitro route daily. 09/02/2019 Active alcohol swabs (Alcohol Wipes) pads, medicated Alcohol Swabs (ALCOHOL WIPES) 70 % Pads 1 Applicator by Does not apply route daily. 09/02/2019 Active blood glucose control high,low (FreeStyle Control) solution Check FSG once daily for DM II without known complications 04/27/2019 Active miscellaneous medical supply misc Foot Care Products (SHOE HORN) Misc 1 Each by Does not apply route daily. To be used to help put on shoes 04/01/2019 Active miscellaneous medical supply misc Misc. Devices (EXTENDABLE BEDSIDE RAIL) [facility] 1 Each by Does not apply route daily. 03/30/2019 Active reservoir inhalation (INSPIREASE) device SPACER DEVICE-ADULT To be used prn with albuterol and with flovent 06/14/2018 Active apixaban (Eliquis) 5 mg tablet Take 1 tablet (5 mg total) by mouth 2 (two) times a day. 180 tablet 2 02/26/2024 Active apixaban (Eliquis) 5 mg tablet TAKE 1 TABLET BY MOUTH TWICE DAILY 03/27/2023 Discontinue d(Reorder) Active Problems Problem Noted Date Diagnosed Date (HFpEF) heart failure with preserved ejection fr action 05/26/2023 Overview (11/26/2023): Elevated BNP and dyspnea on exertion likely multifactorial due to mild pulmonary hypertension, diastolic dysfunction. She does have venous insufficiency has seen a vascular physician. Last Assessment & Plan: Kristin has acute decompensated heart failure from diastolic dysfunction and right heart failure with signs of mild volume overload. Significant exertional dyspnea and given her elevated proBNP in the past and excellent response to Lasix when she did use it and better represcribe her 20 mg and have her take it every other day along with a low-sodium diet. I will get some labs in a week to be sure her renal function and potassium remain in the normal range. I encourage compliance with CPAP Assessment & Plan (12/25/2023 11:53 AM EST): Does not appears volume overloaded. She is on Jardiance. Atrial fibrillation 08/21/2022 Overview (11/26/2023): Paroxysmal atrial fibrillation first diagnosed in July 2022 and she had another episode in January of that year when she had an RSV infection. She underwent AMADO cardioversion. This was done on March 23 and after a recurrence she had another cardioversion was started on sotalol. She has obstructive sleep apnea and has been intermittently on CPAP with some malfunctioning of her machine. She does not drink alcohol to excess. She does not have hyperthyroidism. She has normal biventricular function on echocardiogram and no valvular disease. He has normal QTc. CHADSVASC score of 4 for age, female gender, diabetes and hypertension Last Assessment & Plan: Kristin is maintaining sinus rhythm on sotalol. Her QTc is within normal limits and renal function remains normal. I went through the options which include continued sotalol use, proceed to catheter ablation with pulmonary vein isolation or transitioning to an alternative medication. Given she is tolerating the medicine doing well we are going to continue with it. I would have a low threshold to move to catheter ablation if she has any recurrent atrial fibrillation or breakthrough on the medication. I did talk about potential use of other drugs such as amiodarone or propafenone. We went through the side effects of those medications as well. We will continue with sotalol and close monitoring for any recurrence. She will minimize alcohol, continue efforts at weight loss and treat her blood pressure. Assessment & Plan (12/25/2023 11:53 AM EST): Multiple cardioversions prior to starting sotalol. She had breakthrough atrial fibrillation on sotalol this month and eventually had a ablation procedure. She is in sinus rhythm currently. I will maintain sotalol at current dose. Will continue Eliquis. Orders: ECG 12 lead Shortness of breath 12/13/2020 Overview (11/26/2023): Last Assessment & Plan: She had RSV infection less than months ago and lung sounds quite clear currently. The shortness of breath probably related to recurrent atrial fibrillation and baseline left ventricular diastolic dysfunction. Hopeful, restoring sinus rhythm will help her symptoms. Will check BMP, BNP and magnesium. Will decide whether she would benefit from low-dose diuretics. Palpitations 12/13/2020 Overview (11/26/2023): Last Assessment & Plan: The patient continues with palpitations that have not improved with metoprolol therapy. However, she has multiple positives in her review of systems. I wonder if perhaps her symptoms are actually related to anxiety/depression rather than any arrhythmia. She did not have any significant arrhythmia noted on her recent monitoring. Continue her metoprolol at current dose. Continue to follow. Pulmonary hypertension 12/12/2020 Overview (11/26/2023): Last Assessment & Plan: Pulmonary arterial systolic pressure is mildly to moderately elevated. Is likely related to the combination of left ventricular diastolic function, obesity, angina obstructive sleep apnea. Nephrolithiasis 10/07/2019 Venous insufficiency of both lower extremities 0 08/03/2019 Overview (11/26/2023): Follows with vascular, Dr Alexis Schrader Varicose veins of both lower extremities 020 DM (diabetes mellitus), type 2 with peripheral vascular complications 04/27/2019 Cirrhosis 07/02/2018 Overview (11/26/2023): Per abd/pelvis CT 06/2018 Osteoarthritis 12/16/2017 Overview (11/26/2023): Thoracic & Lumbosacral Spine Post-operative infection 12/16/2017 Overview (11/26/2023): MRSA -Lumbar wound, & both pedicle screws (that were removed) Puncture wound of foot 12/16/2017 Overview (11/26/2023): 07/2017 Left,plantar aspect at the great toe,2 small punctures,stepped on metal lazyboy pin while barefoot.Txd w/ Keflex & received Tetanus shot. Declined treatment with po Levofloxacin d/t potential side effects. Spinal stenosis of lumbar region 11/17/2017 Vertigo 09/24/2017 Microalbuminuria 03/09/2017 Atypical squamous cells of u ndetermined significance (ASCUS) on Papanicolaou smear of cervix 03/09/2017 Overview (11/26/2023): 12/2016 normal 02/29/20 NIL neg HPV Bilateral chronic knee pain 11/26/2016 Nail abnormalities 11/26/2016 Depression 11/07/2016 Fibromyalgia 11/07/2016 LAURITA (obstructive sleep apnea) 11/07/2016 Overview (11/26/2023): CPAP Asthma 11/07/2016 Anxiety 11/07/2016 Allergic rhinitis 11/07/2016 GERD (gastroesophageal reflux disease) 7 Overactive bladder 11/07/2016 Hyperlipidemia 11/07/2016 Overview (11/26/2023): Last Assessment & Plan: Patient's lipid profile is well controlled on her current dose statin. Continue the same. Panic attacks 11/07/2016 Osteoarthritis of knees, bilateral 11/07/2016 Overview (11/26/2023): knees Right heart failure due to pulmonary hypertensio n 11/07/2016 Overview (11/26/2023): H/O Fen- Phen use Empty sella syndrome 11/07/2016 Encounters Date Type Department Care Team Description 02/26/2024 Telephone [facility] [address] [place] [address] Deb Albert MA Med Refill (Rf Incoming fax [facility] for Eliquis 5mg ) 02/11/2024 Telephone [facility] [address] [place] [address] Kai Espinosa MD 02/04/2024 Telephone [facility] [address] [place] [address] Kai Espinosa MD paperwork ; questions 01/05/2024 Telephone [facility] [address] [place] [address] Tish Farley MA note (See notes) 01/04/2024 Telephone [facility] [address] [place] [address] Kai Espinosa MD Other (Letter ) 12/25/2023 10:50 AM EST Office Visit [facility] [address] [place] [address] Kai Espinosa MD Paroxysmal atrial fibrillation (CMS/HCC) (Primary Dx); Heart failure with preserved ejection fraction, unspecified HF chronicity (CMS/HCC) 12/17/2023 Telephone [facility] [address] [facility] [address] [place] [address] Kai Espinosa MD FYI from Last 3 Months Immunizations Name Administration Dates Next Due Influenza trivalent, 0.5mL (Fluad) 65yo and olde r 11/23/2019 Pneumococcal polysaccharide 23 valent (Pneumovax 23) 2yo and older 05/19/2006 Td Tetanus diptheria (Tdvax) 7yo and older 02/22 Tdap Tetanus diptheria acell ular pertussis (Boostrix; Adacel) 7yo and older 08/05/2017 Surgical History Surgery Date Site/Laterality Comments CARDIOVERSION 03/23/2023 Afib COLONOSCOPY 03/07/2009 PROCEDURE: HISTORICAL COLONOSCOPY; COMMENT: Repeat 10 yrs OTHER SURGICAL HISTORY 05/23/2009 Right PROCEDURE: ND SYNVCT TDN SHTH RAD FLXR TDN PALM&/FNGR EA TDN; COMMENT: ring finger, tenosynovectomy BACK SURGERY 11/26/2017 PROCEDURE: HISTORICAL BACK SURGERY; COMMENT: L4/L5 daisha.laminotomy,partial facetectomy,foraminotomy,removal synovial cyst R side,facet arthrodesis L4/L5 OTHER SURGICAL HISTORY 12/11/2017 PROCEDURE: ND REMOVAL IMPLANT DEEP; COMMENT: Irrigation debridement lumbar wound w/ removal of posterior hardware CATARACT EXTRACTION Bilateral PROCEDURE: HISTORICAL CATARACT REMOVAL OTHER SURGICAL HISTORY 09/20/2019 Right PROCEDURE: ---- OTHER ----; COMMENT: Right lower extremity endovenous laser ablation Medical History Medical History Date Comments (HFpEF) heart failure with p reserved ejection fraction ([facility]) 05/26/2023 Atrial fibrillation ([facility]) 08/21/2022 SOB (shortness of breath) 12/13/2020 Palpitations 12/13/2020 Portopulmonary hypertension ([facility]) 12/12/2020 Nephrolithiasis 10/07/2019 Diabetes mellitus ([facility]) 04/27/2019 Type 2 Asthma 11/07/2016 GERD (gastroesophageal reflux disease) 7 Hyperlipidemia 11/07/2016 Right heart failure ([facility]) 11/07/2016 du e to pulmonary hypertension Morbid obesity with BMI of 4 0.0-44.9, adult ([facility]) 11/07/2016 DX:Morbid obesity with BMI o f 40.0-44.9, adult ([facility]) Depression 11/07/2016 DX:Depression Fibromyalgia 11/07/2016 DX:Fibromyalgia LAURITA (obstructive sleep apnea) 11/07/2016 DX :LAURITA (obstructive sleep apnea); COMMENT: CPAP Anxiety 11/07/2016 DX:Anxiety Asthma 11/07/2016 DX:Asthma Allergic rhinitis 11/07/2016 DX:Allergic rh initis GERD (gastroesophageal reflux disease) 11/07/2016 DX:GERD (gastroesophageal reflux disease) Overactive bladder 11/07/2016 DX:Overactive bladder Hyperlipidemia 11/07/2016 DX:Hyperlipidemi a Empty sella syndrome ([facility]) 11/07/2016 D X:Empty sella syndrome ([facility]) Panic attacks 11/07/2016 DX:Panic attacks Prediabetes 11/07/2016 DX:Prediabetes Right heart failure due to p ulmonary hypertension ([facility]) 11/07/2016 DX:Right heart failure due t o pulmonary hypertension ([facility]); COMMENT: H/O Fen- Phen use Bilateral chronic knee pain 11/26/2016 DX:B ilateral chronic knee pain Microalbuminuria 03/09/2017 DX:Microalbumin uria Osteoarthritis of knees, bilateral 11/07/2016 DX:Osteoarthritis of knees, bilateral; COMMENT: knees Spinal stenosis of lumbar region 11/17/2017 DX:Spinal stenosis of lumbar region History of CVA (cerebrovascu lar accident) without residual deficits 03/09/2017 DX:History of CVA (cerebrovascular accident) without residual deficits; COMMENT: 2002 Post-operative infection 12/16/2017 DX:Post -operative infection; COMMENT: MRSA -Lumbar wound, & both pedicle screws (that were removed) Puncture wound of foot 12/16/2017 DX:Punctu re wound of foot; COMMENT: 07/2017 Left,plantar aspect at the great toe,2 small punctures,stepped on metal lazyboy pin while barefoot.Txd w/ Keflex & received Tetanus shot. Declined treatment with po Levofloxacin d/t potential side effects. Vertigo 09/24/2017 DX:Vertigo Screening for cervical cancer 11/26/2016 DX :Screening for cervical cancer Osteoarthritis 12/16/2017 DX:Osteoarthriti s; COMMENT: Thoracic & Lumbosacral Spine Nail abnormalities 11/26/2016 DX:Nail abnor malities Encounter for screening mamm ogram for breast cancer 11/26/2016 DX:Encounter for screening m ammogram for breast cancer Atypical squamous cells of undetermined significance (ASCUS) on Papanicolaou smear of cervix 03/09/2017 DX:Atypical squamous cell s of undetermined significance (ASCUS) on Papanicolaou smear of cervix; COMMENT: 12/2016 normal Essential hypertension DX:Essent ial hypertension Diabetes mellitus type 2, co ntrolled, with complications (CMS/HCC) DX:Diabetes mellitus type 2, controlled, with complications (HCC) Family history of cardiovasc ular disease DX:Family history of cardiov ascular disease Family History Medical History Relation Name Comments No Known Problems Brother CABG Mother ESRD, DM, CHF Diabetes Mother Heart failure Mother Other: Other Sister bone problems Other: psoriasis Son Breast cancer Neg Hx Cancer of Small Bowel Neg Hx Colon cancer Neg Hx Kidney cancer Neg Hx Ovarian cancer Neg Hx Pancreatic cancer Neg Hx Uterine cancer Neg Hx Relation Name Status Comments Brother Alive Mother Sister Alive Son Alive Social History Tobacco Use Types Packs/Day Years Used Date Smoking Tobacco: Former Cigarettes Q uit: 11/26/2014 Passive Smoke Exposure: Never Smokeless Tobacco: Never Tobacco Cessation:Counseling Given: Not Answered Alcohol Use Standard Drinks/Week Comments No 2 (1 standard drink = 0.6 oz pur e alcohol) Sex and Gender Information Value Date Recorded Sex Assigned at Not on file Gender Identity Not on file Sexual Orientation Not on file Job Start Date Occupation Industry Not on file Not on file Not on file Obstetrics History Last Filed Vital Signs Vital Sign Reading Time Taken Comments Blood Pressure 114/60 12/25/2023 10:53 AM EST Pulse 71 12/25/2023 10:53 AM EST Temperature - - Respiratory Rate - - Oxygen Saturation 98% 12/25/2023 10:53 AM EST Inhaled Oxygen Concentration - - Weight 96.2 kg (212 lb) 12/25/2023 10:53 AM EST Height 162.6 cm (5' 4 ) 12/25/2023 10:53 AM EST Body Mass Index 36.39 12/25/2023 10:53 AM EST Plan of Treatment Health Maintenance Due Date Last Done Comments Breast Cancer Screening 1954 Diabetes: Annual Foot Exam 1964 Diabetes: Annual Retina Eye Exam 1965 Pneumococcal Vaccine: 65+ Years (2 of 2 - PCV) 05/20/2007 05/19/2006 RSV Immunization Patients 60+ Years Old (1 - Risk 60-74 years 1-dose series) 2014 Zoster Vaccines (2 of 2) 01/02/2021 11/07/2020 Diabetes: Annual GFR (Glomerular Filtration Rate) 11/07/2021 11/07/2020 Depression Screening 01/18/2022 Falls Risk Assessment 01/18/2022 Hepatitis C Screening 01/18/2022 Medicare Annual Wellness Visit 01/18/2022 Osteoporosis Screening (Bone Density Screening) 01/18/2022 Social Influencers of Health Screening 01/18/2022 Diabetes: Annual Urine Albumin-Creatinine Ratio (uACR) 01/25/2022 11/07/2020 Diabetes: Blood Sugar Control Test (HGBA1C) 01/25/2022 11/07/2020 Hypertension/CHF/CAD Annual BMP Blood Test 09/08/2023 11/07/2020 COVID-19 Vaccine ( season) 2023 06/02/2020, 05/05/2020 Cholesterol Screening (Lipid Panel) 11/07/2025 11/07/2020 DTaP,Tdap,and Td Vaccines (3 - Td or Tdap) 08/06/2027 08/05/2017, 02/22/2007 Colorectal Cancer Screening: Colonoscopy 01/10/2031 01/10/2021 Influenza Vaccine Completed 12/16/2023, , 11/07/2020, Additional history exists HIB Vaccines Aged Out No longer eligi ble based on patient's age to complete this topic HPV Vaccines Aged Out No longer eligi ble based on patient's age to complete this topic Hepatitis A Vaccines Aged Out No long er eligible based on patient's age to complete this topic Hepatitis B Vaccines Aged Out No long er eligible based on patient's age to complete this topic IPV Vaccines Aged Out No longer eligi ble based on patient's age to complete this topic MMR Vaccines Aged Out No longer eligi ble based on patient's age to complete this topic Meningococcal ACWY Vaccine Aged Out N o longer eligible based on patient's age to complete this topic RSV Immunization Patients Under 20 months Aged Out No longer eligible based on patient's age to complete this topic Varicella Vaccines Aged Out No longer eligible based on patient's age to complete this topic Procedures Procedure Name Priority Date/Time Associated Diagnosis Comments ECG 12-LEAD Routine 12/25/2023 11:01 AM EST Paroxysmal atrial fibrillation (CMS/HCC) COLONOSCOPY Routine 01/10/2021 URINE ALBUMIN CREATININE RATIO Routine 11/07/2020 ANNUAL BMP BLOOD TEST Routine 11/07/2020 HEMOGLOBIN A1C Routine 11/07/2020 LIPID PANEL Routine 11/07/2020 from Last 3 Months or Most Recently Relevant to Health Maintenance Results * ECG 12 lead (12/25/2023 11:01 AM EST) Ventricular Rate ECG 71 BPM GEMUSE Atrial Rate 71 BPM GEMUSE P-R Interval 138 ms GEMUSE QRS Duration 64 ms GEMUSE Q-T Interval 376 ms GEMUSE QTc 408 ms GEMUSE P Wave [place] 72 degrees GEMUSE R [place] 61 degrees GEMUSE T [place] 53 degrees GEMUSE ECG Interpretation Normal sinus rhythm with sinus arrhythmia Nonspecific T wave abnormality Abnormal ECG When compared with ECG of 12-APR-2023 10:13, Nonspecific T wave abnormality, improved in Lateral leads Confirmed by Ciro ESPINOSA YUFENG ([id number]) on 12/25/2023 11:06:09 AM GEMUSE 12/25/2023 11:0 1 AM EST 12/25/2023 11:06 AM EST Kai Espinosa MD ECG ORDERABLES GEMUSE * Colonoscopy (01/10/2021) Colonoscopy abstracted, no interpretation Anatomical Region Laterality Modality Other Historical Provider MD PREM MERRITTANC E * Urine Albumin Creatinine Ratio (11/07/2020) Urine Albumin Creatinine Ratio abstracted Historical Provider MD PREM BORREGO E * Annual BMP Blood Test (11/07/2020) Annual BMP Blood Test abstracted Historical Provider MD PREM BORREGO E * Hemoglobin A1c (11/07/2020) Hemoglobin A1C 6.0 6.5 % Blood Venous blood specimen / Unknown Historical Provider LAB BLOOD ORDERAB LES * Lipid panel (11/07/2020) LDL/HDL Ratio 2 0 - 4 Triglycerides 108 0 - 150 mg/dL Cholesterol 150 0 - 200 mg/dL HDL 66 40 mg/dL LDL Cholesterol 63 0 - 100 mg/dL Blood Venous blood specimen / Unknown Historical Provider LAB BLOOD ORDERAB LES from Last 3 Months or Most Recently Relevant to Health Maintenance Care Teams Asbestos Removal Worker Relationship Specialty Start Date End Date Roge Allen MD [address] [place] [address] Dr Mike MA PCP - General 05/26/23
--- OUTSIDE RECORDS SUMMARY | 2024-03-14 10:58 | XMS_ITS | Encounter Summary ---
Author Organization [facility] Address [address] [place] [address] Care Team Providers Care Beverage Distiller Name Role Phone Roge Allen MD Primary Care Provider Reason for Visit * Reason Onset Date Comments Med Refill 02/26/2024 Rf Incoming fax [facility] pharmacy for Eliquis 5mg Encounter Details Date Type Department Care Team (Late st Contact Info) Description 02/26/2024 Telephone [facility] [address] [facility] [address] [place] [address] Deb Albert MA Med Refill (Rf Incoming fax [facility] for Eliquis 5mg ) Social History Tobacco Use Types Packs/Day Years Used Date Smoking Tobacco: Former Cigarettes Q uit: 11/26/2014 Passive Smoke Exposure: Never Smokeless Tobacco: Never Alcohol Use Standard Drinks/Week Comments No 2 (1 standard drink = 0.6 oz pur e alcohol) Sex and Gender Information Value Date Recorded Sex Assigned at Not on file Gender Identity Not on file Sexual Orientation Not on file Job Start Date Occupation Industry Not on file Not on file Not on file documented as of this encounter Ordered Prescriptions Prescription Sig Dispensed Refills Start Date End Da te apixaban (Eliquis) 5 mg tablet Take 1 tablet (5 mg total) by mouth 2 (two) times a day. 180 tablet 2 02/26/2024 documented in this encounter Progress Notes * Deb Albert MA - 02/26/2024 2:40 PM EST Rf Incoming fax [facility] pharmacy for Eliquis 5mg [address] Espinosa Rx renewed. documented in this encounter Plan of Treatment Not on file documented as of this encounter Visit Diagnoses Not on filedocumented in this encounter Discontinued Medications Medication Sig Discontinue Reason Start Date End Da te apixaban (Eliquis) 5 mg tablet TAKE 1 TABLET BY MOUTH TWICE DAILY Reorder 03/27/2023 02/26/2024 documented as of this encounter Care Teams Beverage Distiller Relationship Specialty Start Date End Date Roge Allen MD [address] [place] [address] Dr Mike MA PCP - General 05/26/23 documented as of this encounter
--- OUTSIDE RECORDS SUMMARY | 2024-03-14 10:58 | XMS_ITS | Encounter Summary ---
Author Organization [facility] [place] [address] Care Team Providers Care Subwarehouse Supervisor Name Role Phone Roge Allen MD Primary Care Provider [phone] Encounter Details Date Type Department Care Team (Late st Contact Info) Description 02/11/2024 Telephone [facility] - [facility] [address] [facility] [address] [place] [phone] Kai Espinosa MD [address] [place] [address] Social History Tobacco Use Types Packs/Day Years [...] on file documented as of this encounter Progress Notes * Moon Lazo - 02/11/2024 12:52 PM EST Pt son came in and picked up paper work for mom he aslo asked about an appt , he said he was supposed to get a call, I checked and didn't see anything, I wasn't sure if you were working on it documented in this encounter Plan of Treatment Not on file documented as of this encounter Visit Diagnoses Not on filedocumented in this encounter Care Teams Subwarehouse Supervisor Relationship Specialty Start Date End Date Roge Allen MD [address] [place] [address] Dr Mike MA PCP - General 05/26/23 documented as of this encounter
== END 2024-03-14 11:38 | disposition home or self-care (01) ==
LOC: HO.HMCWIW 10:15
PROVIDERS: PCP Nurse Practitioner Family; Visit Provider Nurse Practitioner Family
DX: J11.1 Influenza due to unidentified influenza virus with other respiratory manifestations (principal); R68.89 Other general symptoms and signs; R31.9 Hematuria, unspecified; Z13.9 Encounter for screening, unspecified

== ENCOUNTER 2024-04-19 09:58 | Outpatient (AMB) | payer OTHER, SELFPAY ==
--- NOTE | 2024-04-19 09:58 | A.OFFPC_ITS ---
Intake Visit Reasons: er discharge ortega Intake Note: ER discharge follow up Manager Installation Required: No Allergies Penicillins Allergy (Intermediate, Verified 04/19/24 09:59) itchy, hives lisinopril Adverse Reaction (Intermediate, Verified 04/19/24 09:59) Cough prednisone Adverse Reaction (Intermediate, Verified 04/19/24 09:59) high blood pressure Tobacco use date assessed: 04/19/24 Fall risk assessment: 2 + Falls in past year Last assessed Fall Risk: 04/19/24 Dental Screening Dental Screen Date: 04/19/24 Did you have a dental visit in the last 12 months?: Yes Did you have a dental problem in the last 6 months where you did not have access to dental care?: No Was dental information given to patient?: Patient has dentist HPI HPI Comments History of Present Illness Details 68-year-old female with AFib, GERD, hype rlipidemia, bipolar disorder, mild intermittent asthma, CVA (2002), seasonal allergies, diabetes, hy pertension, urinary incontinence, LAURITA, fibromyalgia, pulmonary hypertension, nephrolithiasis, venous insufficiency of bilateral lower extremities, cirrhosis, osteoarthritis, microalbuminuria, Anxiety with panic,MDD, CHF, empty sella syndrome, former smoker, osteopenia History of Present Illness - The patient is a 68[facility] following a mechanical fall. - She was seen at the [facility] ergency department on March 24 due to the fall. - Extensive tests were conducted, reveal ing benign results in most; however, calcific tendinitis of the right humerus was noted. - The patient reports subjective 25-poun d weight reduction; however this is not objectively identified. She is a very poor historian. Call to patients phone #, female answered, states she is not Kristin and she does not know Kristin I then called her son Joo call sent to [employer] left detailed message on machine that i reviewed the workup unless there is any change or concern, no need to reschedule todays visit i will send a message via the portal to check in. I spent 15 minutes on this visit. Getting the records, reviewing them, attempting to contact the patient, documenting and following up on the portal. Assessment and Plan 1. Calcific tendinitis of the right bharath tru: 2. Status post mechanical fall: 3. Weight loss of 25 pounds: Subjective only Telehealth Attestation I attest that this visit was conducted through telephony, and the information has been documented accurately to the best of my ability. The patient has been explained that this is an interactive (audio/video) telehealth encounter and what that consists of. The patient understands and wishes to proceed. [employer] platform was used. Total time spent caring for the patient today was 15 minutes. This includes time spent before the visit reviewing the chart, time spent during the visit, and time spent after the visit on documentation, reviewing laboratory results, diagnostic imaging, medications, performing a medically necessary evaluation, counseling on diagnoses, care coordination, ordering appropriate tests, ordering appropriate medications, review of tests performed by other providers, reporting test results with the patient, communication with other healthcare providers. [facility] Medical History (Updated 03/14/24 @ 17:37 by Hiral Leo, [facility]) Back pain with left-sided sciatica Chronic low back pain Chronic pain of both shoulders Constipation by delayed colonic transit History of cardioversion No pertinent past medical history Surgical History History of back surgery History of hand surgery Family History Other Mental health disorder Substance use disorder Social History Household Members: Other Housing: Apartment Are you a primary career based intervention coordinator to a significant other at home: No Do you presently have visiting nurse or other home services: Yes 75 years or older and lives alone: No Alcohol intake: never Patient Tobacco Use Status: Former Tobacco user Tobacco use type: Cigarette e-Cigarette/Vaping Use: Never Used Second Hand Smoke Exposure: Yes Special jeannette needs: No Agree to transfusion: Yes service: No Current occupational status: disabled Current occupational exposures/hazards: No Sexual orientation: Straight/Heterosexual Gender identity: Female Cognitive needs: No (cane) Hearing needs: No (hearing aide) Vision needs: No (Glasses) Questionnaire PHQ-9 Over the last 2 weeks, how often have you been bothered by any of the following problems? 55322 - PHQ-9 Billing: Patient declined-do not bill Source: Developed by Drs. Jose D Lundy, Madalyn B.W. Marty Henry and colleagues, with an educational simeon from [employer]. Thrive Questionnaire Date Thrive assessed: 04/19/24 I am a: Patient What is your living situation today?: I have a steady place to live Within the past 12 months, did the food you bought not last and you didn't have the money to get more?: Never true Within the past 12 months, did you worry whether your food would run out before you got money to buy more?: Never true Do you have trouble paying for medicines?: No Do you have trouble getting transportation to medical appointments?: No Do you have trouble paying your heating and electricity bill?: No Do you have trouble taking care of your child, family member or friend?: No Do you have trouble with day-to-day activities such as bathing, preparing meals, shopping, managing finances, etc.?: No Are you currently unemployed and looking for a job?: No Are you interested in more education?: No THRIVE Score: 0 MATTHEW-7 AMB Questionnaire MATTHEW-7 Date MATTHEW - 7 assessed: 02/23/24 Source: Developed by Drs. Jose D Lundy, Marty Estevez and colleagues, with an educational simeon from [employer]. Physical exam (Primary Care) Tobacco/Smoking Status: Tobacco use Status Tobacco use date assessed 04/19/24 04/19/24 10:01 Patient Tobacco Use Status Former Tobacco user 04/19/24 10:01 Tobacco use type Cigarette 04/19/24 10:01 e-Cigarette/Vaping Use Never Used 04/19/24 10:01 Thrive Assessment: Date of Thrive Assessment Date Thrive assessed 04/19/24 04/19/24 10:01 Telehealth Telehealth Telehealth Platform: Telephone Location of provider rendering services: practice address Location of patient: address on file Patient Identification confirmed using: Name, : Yes Telehealth method: voice only Patient verbally consented to treatment: Yes Patient verbally consented to billing insurance company: Yes Patient informed of any privacy concerns related to visit: Yes Coding Level of Care Code Tele Est Pt Level 2 (75825) Complex EM visit Add On G2211 Diagnoses Hospital discharge follow-up Z09 Tendonitis M77.9 Weight loss R63.4 Assessment & Plan Assessment & Plan (1) Hospital discharge follow-up: Code(s): Z09 - Encounter for follow-up examination after completed treatment for conditions other than malignant neoplasm (2) Tendonitis: Code(s): M77.9 - Enthesopathy, unspecified (3) Weight loss: Code(s): R63.4 - Abnormal weight loss Plan: subjective only. Plan .
== END 2024-04-19 16:25 | disposition home or self-care (01) ==
LOC: HO.HMCFM 09:58
PROVIDERS: PCP Nurse Practitioner Family; Visit Provider Nurse Practitioner Family
DX: R63.4 Abnormal weight loss (principal); M77.9 Enthesopathy, unspecified; Z09 Encounter for follow-up examination after completed treatment for conditions other than malignant neoplasm

== ENCOUNTER 2024-06-10 11:58 | Outpatient (AMB) | payer OTHER, SELFPAY ==
--- NOTE | 2024-06-10 12:01 | MHC.PC.OV ---
Vital Signs 06/10/24 12:05 Height 5 ft 3 in Weight 218 lb 6 oz BMI 38.7 BP 122/72 Blood Pressure Location Rt brachial Position Sitting Respiration 12 Pulse 58 Pulse Source Pulse Oximeter Temp 97.5 F Temp Source Oral Pulse Oximetry (%) 99 Oxygen Delivery Method Room Air Intake Visit Reasons: 6 mo CPE Intake Note: CPE Utility Inspector Required: No Allergies Penicillins Allergy (Intermediate, Verified 06/10/24 12:30) itchy, hives lisinopril Adverse Reaction (Intermediate, Verified 06/10/24 12:30) Cough prednisone Adverse Reaction (Intermediate, Verified 06/10/24 12:30) high blood pressure Medication List - Last Reconciled 06/10/24 by Hiral Leo, LANGUAGE INTERPRETER- albuterol sulfate 90 mcg/actuation 2 puffs inhalation BID 30 days albuterol sulfate 2.5 mg (3 mL) inhalation Q6H PRN 1 month apixaban 5 mg PO BID atorvastatin 80 mg PO BEDTIME back brace As directed LUMBAR SACRAL SUPPORT WITH OVERLAP ABD BELT 10 , SIZE XXXL blood pressure monitor As directed blood sugar diagnostic (Shutter GuardianTouch Ultra Test strips) test blood sugar two to three time a day blood-glucose meter (Shutter GuardianTouch Ultra2 Meter) As directed budesonide-formoterol 160-4.5 mcg/actuation (Symbicort) inhalation cholecalciferol (vitamin D3) 1,250 mcg PO QWEEK clonazepam 1 mg PO BEDTIME PRN clonazepam 0.5 mg PO QAM empagliflozin (Jardiance) 10 mg PO QAM 30 days furosemide mg PO DAILY lancets (OneTouch UltraSoft Lancets) check blood sugar twice a day and as needed for s/s of dm lancets (OneTouch Delica Plus Lancet) As directed loratadine 10 mg PO DAILY losartan 25 mg PO DAILY 90 days metformin ER 1,000 mg (2 x 500 mg) PO BID 30 days mirtazapine 30 mg PO BEDTIME miscellaneous medical supply skin sealents, protectants, moisturiszre, ointments any type and size as directed; miscellaneous medical supply disposable linner/shield/guard/pad/undergarment for incontinence as directed; miscellaneous medical supply diabetic shoes as directed; miscellaneous medical supply As directed, RAISED TOILET SEAT WITH ARMS miscellaneous medical supply Aleotouch wipes, frag free 110/pk incont supply as directed; miscellaneous medical supply incontinence prod, disp large underpads as directed; oseltamivir (Tamiflu) 75 mg PO Q12H 5 days oxcarbazepine 600 mg PO BID pantoprazole 40 mg PO DAILY polyethylene glycol 3350 (Miralax) 238 grams PO ONCE 1 day Shower Chair As directed BATH BENCH sotalol 80 mg PO BID [traveling bed rail standard 5000 As directed] Tobacco use date assessed: 06/10/24 Fall risk assessment: 2 + Falls in past year Last assessed Fall Risk: 06/10/24 Dental Screening Dental Screen Date: 06/10/24 Did you have a dental visit in the last 12 months?: Yes Did you have a dental problem in the last 6 months where you did not have access to dental care?: No Was dental information given to patient?: Patient has dentist HPI HPI Comments History of Present Illness Details 69-year-old female with AFib, GERD, hyperlipidemia, bipolar disorder, mild intermittent asthma, CVA (2002), seasonal allergies, diabetes, hypertension, urinary incontinence, LAURITA, fibromyalgia, pulmonary hypertension, nephrolithiasis, venous insufficiency of bilateral lower extremities, cirrhosis, osteoarthritis, microalbuminuria, Anxiety with panic,MDD, CHF, empty sella syndrome, former smoker, osteopenia Status post right lower extremity endovenous laser ablation 2019, L4-L5 bilateral laminectomy, partial facetectomy, removal of synovial cyst on the right side in 2017, cataract removal bilat, trigger finger release on the right 2009 PFT 03/19/21 FVC is 103% of predicted, FEV1 is 121% predicted, FEV1/FEC is 117. No significant response to bronchodilator. TLC 94% predicted, RV 70% predicted. Uncorrected diffusion capacity is normal 18 or 83% Specialists GI Cardiology Podiatry Vascular Pulmonology Health maintenance Pap ASCUS 2016 normal, 2020 NIL negative HPV Mammogram 05/2023 WNL DEXA 06/05/23 Osteopenia based on the lowest T-score value of -2.0 in the femoral neck applying World Health Organization criteria. Colon referred again to [facility] [place] History of Present Illness - The patient is a 69-year-old female presenting for a complete physical exam & complex dz mgmt. She has a complex medical history including multiple chronic conditions and concerns with medication compliance. Recent history includes three falls within the year, resulting in restricted mobility and pain with dressing, she also describes memory issues impacting her ability to adhere to scheduled interventions and appointments, requiring family support. - She seeks to continue management on her current medications which include several medications addressing chronic conditions like atrial fibrillation, hypertension, and type 2 diabetes. - She discusses problematic access to incontinence supplies and has confusion regarding the need for continued screening colonoscopy past 64 years of age. - She reports anxiety regarding her cognitive changes, impact of recent bereavement og dog, and overall reduced mobility and increased prevailing discomfort. Social History - She has support from her family, specifically mentioning her son Joo and her sister, although expresses limitations due to their own schedules. - Experiences difficulty with mobility and activities of daily living following recent falls. - Resides in housing that has moved her to a first-floor dwelling for better accessibility due to mobility challenges. Health Maintenance - Follow-up mammogram due; discussed contact with the women[facility] center for scheduling. - Bone density testing indicates osteopenia; repeat scan planned next year. - Concerns about overdue colonoscopy screening were discussed, with referral to a stomach specialist at [facility] for follow-up. - Support for dietary vitamin D discussed in improving bone health. Review of Systems - General: Reports feeling sleepy. - Respiratory: Reports mild intermittent asthma. - Musculoskeletal: Reports osteoarthritis, pain with dressing, and falls. - Psychiatric: Reports anxiety with panic disorder, depression, cognitive decline affecting memory. - Gastrointestinal: Reports history of GERD and abdominal discomfort. - Genitourinary: Reports urinary incontinence, history of nephrolithiasis. - Cardiovascular: Reports atrial fibrillation, hypertension, pulmonary hypertension, CHF. - Dermatologic: Reports venous insufficiency in lower extremities. Physical Exam General: Well developed, well nourished, in no acute distress. Appears stated age. Head: Normocephalic, atraumatic. Eyes: Pupils are equal, round and reactive to light and accommodation. Conjunctivae are clear. Vision grossly normal. Ears: TMs clear AU, EACS WNL Nose: Patent, without discharge. Neck: Supple, no adenopathy or thyromegaly. Breast: Edu on SBE. Lungs: Clear to auscultation bilaterally. No rales, rhonchi or wheeze noted. Good air flow in all can. Heart: Regular rate and rhythm. No murmurs, click, rubs or gallops are noted. Abdomen: Bowel sounds present in all quadrants. The abdomen is soft, nontender, with no masses or organomegaly noted. No hernias are noted. : Deferred. Reviewed recommendations for routine MEDICAL DONATION PROFESSIONAL. Reports urinary incontinence. Pulses: Peripheral pulses are equal and palpable bilaterally. Extremities: No clubbing, cyanosis nor edema is noted. + varicosities ble Neurologic: Gait and station normal. Cranial Nerves 2-12 intact. Motor strength grossly symmetrical and intact. No sensory loss. Balance normal. Skin: No rashes, ulcers, or lesions noted. Turgor is good. Skin color is good. Hair and nails are without abnormalities. Psych: Normal eye contact, affect and mood appropriate, and normal interactions. Patient is alert and appropriate to context. . Results See below. Stable. Discussion Notes The visit involved discussion regarding the need for complete physical examination and maintenance of routine health screenings. It was noted that the patient should schedule a mammogram, is scheduled for bone density monitoring next year, and requires follow-up with a specialist for a colonoscopy. The patient struggles with both medication management and accessing health services consistently due to subjective memory impairments and lack of coordinated family support. Suggestions for streamlining her appointment management and medication adherence were discussed, emphasizing the importance of cognitive and physical rehabilitation through physical therapy. It was acknowledged she lacks coordination of care with her multiple specialists, leading to oversight in regular screenings. Educational counseling concerning her medication was provided. I have had extensive convo w/ her son about this. She has been referred to numerous specialists and no showed the appts. The cognitive concern is subjective. Each visit, it does seem to be selective. For example today, could not remember many of the questions asked however she was able to easily recall phone numbers and names of where to fax her DME supplies and all of the supplies needed, without hesitation. I have referred her back to our NN team to help her, as i do not know what else to do. Of note, this has been done before. She also has support in the home, or thats what my records indicate anyhow. She states she needs podiatry; this referral was already placed. She was referred to neuro previously. She does remain active w/ her Cards. That is good. Assessment and Plan 1. Atrial Fibrillation Management to include continuation with apixaban; review adherence challenges noted, monitoring her response to the treatment is ongoing. 2. Medication Management A structured adherence plan includes [id number] in monthly bubble packs, ensuring all of her essential medications are consistently used. 3. Memory and Cognitive Concerns Explore external support options for cognitive support, with potential future neuropsychological testing as nonadherence continues to pose treatment challenges. 4. Screening Mammogram and Colonoscopy Encouraged engagement with mammography services and reassessment regarding overdue colonoscopy screening given her continued gastrointestinal complaints. Referral was placed for a gastroenterological consult. 5. Bone and Joint Health Continued with vitamin D supplementation;Monitor bone health status with scheduled density scan next year. 6. Urinary Incontinence Reassess incontinence management through available interventions including physical therapy for mobility enhancement and securing consistent access to incontinence products. Patient Instructions - Contact the women's center to schedule a mammogram if not done recently. - Schedule your bone density test as recommended. - Monitor medications using outlined monthly bubble pack system. - Engage Joo or your sister to help with coordination and appointment reminders. - Pursue consultation with a stomach specialist for further evaluation of gastrointestinal issues. - Continue taking your vitamin D daily for bone health. - Use prescribed urinary incontinence pads and reach out if issue persists. - Seek help from family for support and ensure follow-ups with all specialists are kept on track. RTO 1 year CPE sooner prn Consent Patient was informed and verbally consented to the use of an ambient scribe for clinic note documentation during this visit. An additional 33 minutes was spent addressing the problem(s) noted at todays visit. This includes time spent before the visit reviewing the chart, time spent during the visit, and time spent after the visit on documentation reviewing laboratory results, diagnostic imaging, medications, performing a medically necessary evaluation, counseling on diagnoses, care coordination, ordering appropriate tests, ordering appropriate medications, review of tests performed by other providers, reporting test results with the patient, communication with other healthcare providers. [facility] Medical History (Updated 06/11/24 @ 16:57 by Hiral Leo, [facility]) Back pain with left-sided sciatica Chronic low back pain Chronic pain of both shoulders Constipation by delayed colonic transit History of cardioversion No pertinent past medical history Surgical History History of back surgery History of hand surgery Family History Other Mental health disorder Substance use disorder Social History (Reviewed 05/05/23 @ 13:20 by JAYNE Peña Household Members: Other Housing: Apartment Are you a primary reproductive healthcare assistant to a significant other at home: No Do you presently have visiting nurse or other home services: Yes 75 years or older and lives alone: No Alcohol intake: never Patient Tobacco Use Status: Former Tobacco user Tobacco use type: Cigarette e-Cigarette/Vaping Use: Never Used Second Hand Smoke Exposure: Yes Special jeannette needs: No Agree to transfusion: Yes service: No Current occupational status: disabled Current occupational exposures/hazards: No Sexual orientation: Straight/Heterosexual Gender identity: Female Cognitive needs: No (cane) Hearing needs: No (hearing aide) Vision needs: No (Glasses) Questionnaire PHQ-9 Over the last 2 weeks, how often have you been bothered by any of the following problems? 1. Little interest or pleasure in doing things: not at all 2. Feeling down, depressed, or hopeless: not at all 3. Trouble falling or staying asleep, or sleeping too much: nearly every day 4. Feeling tired or having little energy: nearly every day 5. Poor appetite or overeating: more than half the days 6. Feeling bad about yourself - or that you are a failure or have let yourself or your family down: not at all 7. Trouble concentrating on things, such as reading the newspaper or watching television: nearly every day 8. Moving or speaking so slowly that other people could have noticed. Or the opposite - being so fidgety or restless that you have been moving around a lot more than usual: nearly every day 9. Thoughts that you would be better off or of hurting yourself in some way: not at all Total score: 14 Depression Screening Interpretation: Positive Depression Screening Follow-up: Existing condition and In treatment Depression Screening Done: Yes 66613 - PHQ-9 Billing: Yes Source: Developed by Drs. Jose D Lundy, Madalyn Henry, Marty Carrasco and colleagues, with an educational simeon from [employer]. Thrive Questionnaire Date Thrive assessed: 06/10/24 I am a: Patient What is your living situation today?: I choose not to answer this question Within the past 12 months, did the food you bought not last and you didn't have the money to get more?: I choose not to answer this question Within the past 12 months, did you worry whether your food would run out before you got money to buy more?: I choose not to answer this question Do you have trouble paying for medicines?: I choose not to answer this question Do you have trouble getting transportation to medical appointments?: I choose not to answer this question Do you have trouble paying your heating and electricity bill?: I choose not to answer this question Do you have trouble taking care of your child, family member or friend?: I choose not to answer this question Do you have trouble with day-to-day activities such as bathing, preparing meals, shopping, managing finances, etc.?: I choose not to answer this question Are you currently unemployed and looking for a job?: I choose not to answer this question Are you interested in more education?: I choose not to answer this question Please select the resources that you would like help with: None Currently or been in a relationship where the following occur: I choose not to answer THRIVE Score: 0 AUDIT C Alcohol Use Questionnaire (AUDIT-C) 1. How often do you have a drink containing alcohol?: Never 3. How often do you have six or more drinks on one occasion?: Never Total Score: 0 Score Reviewed/Action Taken: Yes MATTHEW-7 AMB Questionnaire MATTHEW-7 Date MATTHEW - 7 assessed: 06/10/24 Feeling nervous, anxious, or on edge: 0 = Not at all Not being able to stop or control worryin = Not at all Worrying too much about different things: 0 = Not at all Trouble relaxin = Not at all Being so restless that it is hard to sit still: 0 = Not at all Becoming easily annoyed or irritable: 0 = Not at all Feeling afraid as if something awful might happen: 0 = Not at all Total MATTHEW-7 score (0-4 normal; 5-9 mild; 10-14 moderate; 15-21 severe): 0 Source: Developed by Drs. Jose D Lundy, Madalyn Henry, Marty Carrasco and colleagues, with an educational simeon from [employer]. MATTHEW-7 Assessment Billing MATTHEW-7 Assessment Tool: MATTHEW-7 Assessment 95087 Physical exam (Primary Care) Vital Signs: Last Vital Signs Temp 97.5 F 06/10/24 12:05 Pulse 58 06/10/24 12:05 Resp 12 06/10/24 12:05 BP 122/72 06/10/24 12:05 Pulse Ox 99 06/10/24 12:05 Oxygen Delivery Method Room Air 06/10/24 12:05 BMI result Body Mass Index 38.7 BMI Assessment/Plan discussion: High BMI High, discussed plan: lifestyle Tobacco/Smoking Status: Tobacco use Status Tobacco use date assessed 06/10/24 06/10/24 12:04 Patient Tobacco Use Status Former Tobacco user 06/10/24 12:04 Tobacco use type Cigarette 06/10/24 12:04 e-Cigarette/Vaping Use Never Used 06/10/24 12:04 PHQ-9: PHQ-9 Score PHQ-9: Total score 14 06/10/24 17:27 Depression Screening Interpretation: Positive Depression Screening Follow-up: Existing condition and In treatment Thrive Assessment: Date of Thrive Assessment Date Thrive assessed 06/10/24 06/10/24 12:04 Currently or been in a relationship where the following occur: I choose not to answer Results Reviewed Results Reviewed: 06/10/24 Laboratory Result Units Range Interpretation Provider Comments White Blood Count 4.3 X10*3/uL (4.8-10.8) Low Red Blood Count 4.44 X10*6/uL (4.20-5.50) Hemoglobin 13.0 g/dl (12.0-16.0) Hematocrit 41.2 % (37.0-47.0) Mean Corpuscular Volume 92.8 fL (80.0-98.0) Mean Corpuscular Hemoglobin 29.3 pg (27.0-33.0) Mean Corpuscular Hemoglobin Concent 31.6 g/dl (31.0-35.0) Red Cell Distribution Width 14.5 % (11.0-16.0) Platelet Count 116 X10*3/uL (160-400) Low Mean Platelet Volume 13.7 fL (9.4-12.3) High Nucleated RBC Absolute Count (auto) 0.000 X10*3/uL (0.0-0.012) Nucleated Red Blood Cells % (auto) 0.0 /100WBC (0.0-0.2) Sodium Level 142 mmol/L (135-145) Potassium Level 4.5 mmol/L (3.3-5.1) Chloride Level 105 mmol/L (96-108) Carbon Dioxide Level 30 mmol/L (22-29) High Anion Gap 12 (12-20) Blood Urea Nitrogen 12 mg/dL (9-16) Creatinine 0.90 mg/dL (0.5-1.4) Estimated Creatinine Clearance Calc Not Reportable Estimat Glomerular Filtration Rate > 60 Random Glucose 200 mg/dL (60-115) High Estimated Average Glucose 171 mg/dL Hemoglobin A1c Percent 7.6 % (<6.0) High Calcium Level 9.4 mg/dL (8.4-10.2) Total Bilirubin 0.4 mg/dL (0.0-1.0) Aspartate Amino Transf (AST/SGOT) 37 U/L (5-31) High Alanine Aminotransferase (ALT/SGPT) 38 U/L (0-31) High Alkaline Phosphatase 88 U/L (39-117) Total Protein 6.5 g/dL (6.5-8.0) Albumin 3.7 g/dL (3.5-5.0) Triglycerides Level 183 mg/dL (<150) High Cholesterol Level 183 mg/dL (<200) LDL Cholesterol, Calculated 92 mg/dL (<100) HDL Cholesterol 55 mg/dL (>40) Vitamin B12 Level 342 pg/mL (200-900) 25-Hydroxy Vitamin D Total 60.8 ng/mL (>30) Folate 9.6 ng/mL (> or = 4.0) Thyroid Stimulating Hormone (TSH) 1.52 uIU/mL (0.32-4.0) Urine Creatinine 71.97 mg/dL Urine Microalbumin 8.0 mg/L Urine Microalbumin/Creatinine Ratio 11.1 ug/mg cr (<30) Coding Level of Care Code Est Pt Level 4 (35605) Est Pt Prev Care >65y(46742) Diagnoses Chronic GERD K21.9 Cirrhosis of liver without ascites, unspecified hepatic cirrhosis type K74.60 Ascites presence: without ascites Hepatic cirrhosis type: unspecified hepatic cirrhosis Primary hypertension I10 Hypertension type: primary hypertension Paroxysmal atrial fibrillation I48.0 Atrial fibrillation type: paroxysmal Laboratory tests ordered as part of a complete physical exam (CPE) Z00.00 Diabetes mellitus type 2 with complications E11.8 Venous insufficiency of both lower extremities I87.2 Menopause Z78.0 Vitamin D deficiency E55.9 Osteopenia of necks of both femurs M85.851; M85.852 Osteopenia location: femoral neck Laterality: bilateral Secondary hypercoagulability disorder D68.69 Encounter for screening involving social determinants of health (SDoH) Z13.9 Asthma, mild intermittent, well-controlled J45.20 Bipolar 1 disorder, depressed, moderate F31.32 BMI 38.0-38.9,adult Z68.38 Chronic diastolic congestive heart failure I50.32 Heart failure type: diastolic Heart failure chronicity: chronic Class 2 severe obesity due to excess calories with serious comorbidity and body mass index (BMI) of 38.0 to 38.9 in adult E66.812; E66.01; Z68.38 Obesity type: due to excess calories Cognitive impairment, mild, so stated G31.84 Colon cancer screening Z12.11 High cholesterol E78.00 Multiple falls R29.6 Screening mammogram for breast cancer Z12.31 Stress incontinence N39.3 Encounter for general adult medical examination with abnormal findings Z00.01 Additional Codes MATTHEW-7 Assessment Billing - MATTHEW-7 Assessment Tool: MATTHEW-7 Assessment 35878 ([id number]) PHQ-9 - 10936 - PHQ-9 Billing: Yes ([id number]) Assessment & Plan Assessment & Plan (1) Chronic GERD: Code(s): K21.9 - Gastro-esophageal reflux disease without esophagitis Category: Medical (2) Cirrhosis: Comment: Noted on imaging. Referred to GI for further evaluation and treatment Code(s): K74.60 - Unspecified cirrhosis of liver Category: Medical Qualifiers: Ascites presence: without ascites Hepatic cirrhosis type: unspecified hepatic cirrhosis Qualified Code(s): K74.60 - Unspecified cirrhosis of liver (3) HTN (hypertension): Comment: Blood pressure at goal on losartan 25 mg p.o. daily and sotalol 80 mg p.o. b.i.d. Code(s): I10 - Essential (primary) hypertension Category: Medical Qualifiers: Hypertension type: primary hypertension Qualified Code(s): I10 - Essential (primary) hypertension (4) A-fib: Comment: Status post cardioversion, managed by Cardiology. w/ secondary hypercoagulable state On Eliquis 5 mg p.o. b.i.d. and sotalol 80 mg p.o. b.i.d.. w/ RVR 12/2023 s/p successful ablation. Code(s): I48.91 - Unspecified atrial fibrillation Category: Medical Qualifiers: Atrial fibrillation type: paroxysmal Qualified Code(s): I48.0 - Paroxysmal atrial fibrillation (5) Laboratory tests ordered as part of a complete physical exam (CPE): Code(s): Z00.00 - Encounter for general adult medical examination without abnormal findings Category: Medical (6) Diabetes mellitus type 2 with complications: Comment: She reports that she is up-to-date on diabetic eye exam. I will need to obtain this records. She is currently maintained on Jardiance 10 mg p.o. q.a.m., metformin ER a 1000 mg p.o. b.i.d. On Arb, losartan 25 mg p.o. daily Code(s): E11.8 - Type 2 diabetes mellitus with unspecified complications Category: Medical (7) Venous insufficiency of both lower extremities: Comment: Was active with Dr. Schrader in the past. Has no interest in following with vascular. On aspirin and statin continue. Monitor skin integrity. Code(s): I87.2 - Venous insufficiency (chronic) (peripheral) Category: Medical (8) Menopause: Comment: DEXA utd Code(s): Z78.0 - Asymptomatic menopausal state Category: Medical (9) Vitamin D deficiency: Comment: 05/2023 start Vitamin D3 50,000 IU Qweek x 6 months. Code(s): E55.9 - Vitamin D deficiency, unspecified Category: Medical (10) Osteopenia: Comment: 06/05/2023 : Osteopenia based on the lowest T-score value of -2.0 in the femoral neck applying World Health Organization criteria. Code(s): M85.80 - Other specified disorders of bone density and structure, unspecified site Category: Medical Qualifiers: Osteopenia location: femoral neck Laterality: bilateral Qualified Code(s): M85.851 - Other specified disorders of bone density and structure, right thigh; M85.852 - Other specified disorders of bone density and structure, left thigh (11) Secondary hypercoagulability disorder: Comment: d/t Afib on Eliquis Code(s): D68.69 - Other thrombophilia Category: Medical (12) Encounter for screening involving social determinants of health (SDoH): Code(s): Z13.9 - Encounter for screening, unspecified Category: Medical (13) Asthma, mild intermittent, well-controlled: Comment: Managed by pulmonology at [facility]. Doing well on p.r.n. albuterol; Symbicort Code(s): J45.20 - Mild intermittent asthma, uncomplicated Category: Medical (14) Bipolar 1 disorder, depressed, moderate: Comment: Controlled on current medications Referred to counseling in past Message sent to [place] to call [facility] primary care sales representative to see if they can asst w more help in the home. Code(s): F31.32 - Bipolar disorder, current episode depressed, moderate Category: Medical (15) BMI 38.0-38.9,adult: Code(s): Z68.38 - Body mass index [BMI] 38.0-38.9, adult Category: Medical (16) CHF (congestive heart failure): Comment: Dry weight 225lbs TE 03/23/2023 shows normal ventricular size and systolic function with ejection fraction 55-60% Managed by [facility], next appt 05/07/23 on Jardiance, Losartan, Sotalol. Code(s): I50.9 - Heart failure, unspecified Category: Medical Qualifiers: Heart failure type: diastolic Heart failure chronicity: chronic Qualified Code(s): I50.32 - Chronic diastolic (congestive) heart failure (17) Class 2 severe obesity with serious comorbidity and body mass index (BMI) of 38.0 to 38.9 in adult: Comment: dm2 and afib Code(s): E66.812 - Obesity, class 2; E66.01 - Morbid (severe) obesity due to excess calories; Z68.38 - Body mass index [BMI] 38.0-38.9, adult Category: Medical Qualifiers: Obesity type: due to excess calories Qualified Code(s): E66.812 - Obesity, class 2; E66.01 - Morbid (severe) obesity due to excess calories; Z68.38 - Body mass index [BMI] 38.0-38.9, adult (18) Cognitive impairment, mild, so stated: Code(s): G31.84 - Mild cognitive impairment of uncertain or unknown etiology Category: Medical (19) Colon cancer screening: Comment: Refer to GI for colonoscopy Code(s): Z12.11 - Encounter for screening for malignant neoplasm of colon Category: Medical (20) High cholesterol: Comment: On atorvastatin 40 mg p.o. daily. Code(s): E78.00 - Pure hypercholesterolemia, unspecified Category: Medical (21) Multiple falls: Code(s): R29.6 - Repeated falls Category: Medical (22) Screening mammogram for breast cancer: Comment: Mammo ordered today Code(s): Z12.31 - Encounter for screening mammogram for malignant neoplasm of breast Category: Medical (23) Stress incontinence: Code(s): N39.3 - Stress incontinence (female) (male) Category: Medical (24) Encounter for general adult medical examination with abnormal findings: Onset Date: ~06/2024 Code(s): Z00.01 - Encounter for general adult medical examination with abnormal findings Category: Medical Plan . Orders: Orders Complete Blood Count no Diff 06/10/24 D68.69 - Other thrombophilia, E11.8 - Type 2 diabetes mellitus with unspecified complications, E55.9 - Vitamin D deficiency, unspecified, I10 - Essential (primary) hypertension, I48.0 - Paroxysmal atrial fibrillation, I87.2 - Venous insufficiency (chronic) (peripheral), K74.60 - Unspecified cirrhosis of liver, M85.80 - Other specified disorders of bone density and structure, unspecified site, Z00.00 - Encounter for general adult medical examination without abnormal findings, Z78.0 - Asymptomatic menopausal state Vitamin B12 and Folate 06/10/24 D68.69 - Other thrombophilia, E11.8 - Type 2 diabetes mellitus with unspecified complications, E55.9 - Vitamin D deficiency, unspecified, I10 - Essential (primary) hypertension, I48.0 - Paroxysmal atrial fibrillation, I87.2 - Venous insufficiency (chronic) (peripheral), K74.60 - Unspecified cirrhosis of liver, M85.80 - Other specified disorders of bone density and structure, unspecified site, Z00.00 - Encounter for general adult medical examination without abnormal findings, Z78.0 - Asymptomatic menopausal state Comprehensive Met. Panel 06/10/24 D68.69 - Other thrombophilia, E11.8 - Type 2 diabetes mellitus with unspecified complications, E55.9 - Vitamin D deficiency, unspecified, I10 - Essential (primary) hypertension, I48.0 - Paroxysmal atrial fibrillation, I87.2 - Venous insufficiency (chronic) (peripheral), K74.60 - Unspecified cirrhosis of liver, M85.80 - Other specified disorders of bone density and structure, unspecified site, Z00.00 - Encounter for general adult medical examination without abnormal findings, Z78.0 - Asymptomatic menopausal state Hemoglobin A1c 06/10/24 D68.69 - Other thrombophilia, E11.8 - Type 2 diabetes mellitus with unspecified complications, E55.9 - Vitamin D deficiency, unspecified, I10 - Essential (primary) hypertension, I48.0 - Paroxysmal atrial fibrillation, I87.2 - Venous insufficiency (chronic) (peripheral), K74.60 - Unspecified cirrhosis of liver, M85.80 - Other specified disorders of bone density and structure, unspecified site, Z00.00 - Encounter for general adult medical examination without abnormal findings, Z78.0 - Asymptomatic menopausal state Lipid Panel 06/10/24 D68.69 - Other thrombophilia, E11.8 - Type 2 diabetes mellitus with unspecified complications, E55.9 - Vitamin D deficiency, unspecified, I10 - Essential (primary) hypertension, I48.0 - Paroxysmal atrial fibrillation, I87.2 - Venous insufficiency (chronic) (peripheral), K74.60 - Unspecified cirrhosis of liver, M85.80 - Other specified disorders of bone density and structure, unspecified site, Z00.00 - Encounter for general adult medical examination without abnormal findings, Z78.0 - Asymptomatic menopausal state Microalbumin, Random (w Creat) 06/10/24 D68.69 - Other thrombophilia, E11.8 - Type 2 diabetes mellitus with unspecified complications, E55.9 - Vitamin D deficiency, unspecified, I10 - Essential (primary) hypertension, I48.0 - Paroxysmal atrial fibrillation, I87.2 - Venous insufficiency (chronic) (peripheral), K74.60 - Unspecified cirrhosis of liver, M85.80 - Other specified disorders of bone density and structure, unspecified site, Z00.00 - Encounter for general adult medical examination without abnormal findings, Z78.0 - Asymptomatic menopausal state TSH reflex Free T4 06/10/24 D68.69 - Other thrombophilia, E11.8 - Type 2 diabetes mellitus with unspecified complications, E55.9 - Vitamin D deficiency, unspecified, I10 - Essential (primary) hypertension, I48.0 - Paroxysmal atrial fibrillation, I87.2 - Venous insufficiency (chronic) (peripheral), K74.60 - Unspecified cirrhosis of liver, M85.80 - Other specified disorders of bone density and structure, unspecified site, Z00.00 - Encounter for general adult medical examination without abnormal findings, Z78.0 - Asymptomatic menopausal state Vitamin D 25-OH Total 06/10/24 D68.69 - Other thrombophilia, E11.8 - Type 2 diabetes mellitus with unspecified complications, E55.9 - Vitamin D deficiency, unspecified, I10 - Essential (primary) hypertension, I48.0 - Paroxysmal atrial fibrillation, I87.2 - Venous insufficiency (chronic) (peripheral), K74.60 - Unspecified cirrhosis of liver, M85.80 - Other specified disorders of bone density and structure, unspecified site, Z00.00 - Encounter for general adult medical examination without abnormal findings, Z78.0 - Asymptomatic menopausal state Referrals Gastroenterology Referral K21.9 - Gastro-esophageal reflux disease without esophagitis, K74.60 - Unspecified cirrhosis of liver, Z12.11 - Encounter for screening for malignant neoplasm of colon Nurse Navigator Referral Z13.9 - Encounter for screening, unspecified Medications: Refilled miscellaneous medical supply incontinence prod, disp large underpads as directed; 100 ea 11RF N39.3 - Stress incontinence (female) (male) miscellaneous medical supply disposable linner/shield/guard/pad/undergarment for incontinence as directed; 60 ea 11RF N39.3 - Stress incontinence (female) (male) miscellaneous medical supply skin sealents, protectants, moisturiszre, ointments any type and size as directed; 2 ea 11RF N39.3 - Stress incontinence (female) (male) miscellaneous medical supply Aleotouch wipes, frag free 110/pk incont supply as directed; 200 ea 11RF N39.3 - Stress incontinence (female) (male) Patient Instructions: Health screenings for women You should visit your health care provider from time to time, even if you are healthy. The purpose of these visits is to: Screen for medical issues Assess your risk for future medical problems Encourage a healthy lifestyle Update vaccinations and other preventive care services Help you get to know your provider in case of an illness Information Even if you feel fine, you should still see your provider for regular checkups. These visits can help you avoid problems in the future. For example, the only way to find out if you have high blood pressure is to have it checked regularly. High blood sugar and high cholesterol levels also may not have any symptoms in the early stages. A simple blood test can check for these conditions. There are specific times when you should see your provider or receive specific health screenings. The [place] Preventive Services Task Force publishes a list of recommended screenings. Below are screening guidelines for women ages 18 to 39. BLOOD PRESSURE SCREENING Your blood pressure should be checked at least once every 3 to 5 years if: Your blood pressure is in the normal range (top number less than 120 mm Hg and bottom number less than 80 mm Hg) You don't have risk factors for high blood pressure Ask your provider if you need your blood pressure checked more often if: The top number is 120 to 129 mm Hg or the bottom number is 70 to 79 mm Hg You have diabetes, heart disease, kidney problems, are overweight, or have certain other health conditions You have a first-degree relative with high blood pressure You are Black You had high blood pressure during a If the top number is 130 mm Hg or greater or the bottom number is 80 mm Hg or greater, this is considered stage 1 hypertension. Schedule an appointment with your provider to learn how you can reduce your blood pressure. Watch for blood pressure screenings in your area. Ask your provider if you can stop in to have your blood pressure checked. BREAST CANCER SCREENING Experts do not agree about the benefits of breast self-exams in finding breast cancer or saving lives. Talk to your provider about what is best for you. A screening mammogram is not recommended for most women under age 40. Your provider may discuss and recommend mammograms, MRI scans, or ultrasounds if you have an increased risk for breast cancer, such as: A mother or sister who had breast cancer at a young age (most often starting screening earlier than the age the close relative was diagnosed) You carry a high-risk genetic marker CERVICAL CANCER SCREENING Cervical cancer screening should start at age 21 years unless your provider advises otherwise. After the first test: Women ages 21 through 29 should have a Pap test every 3 years. Exoprts do not agree on whether HPV testing is recommended for this age group. Women ages 30 through 65 should be screened with either a Pap test every 3 years or the HPV test every 5 years or both tests every 5 years (called cotesting ). Women who have been treated for precancer (cervical dysplasia) should continue to have Pap tests for 20 years after treatment or until age 65, whichever is longer. If you have had your uterus and cervix removed (total hysterectomy), and you have not been diagnosed with cervical cancer or precancer (high grade cervical neoplasia), you do not need cervical cancer screening. CHOLESTEROL SCREENING Cholesterol screening should begin at: Age 45 for women with no known risk factors for coronary heart disease Age 20 for women with known risk factors for coronary heart disease Repeat cholesterol screening should take place: Every 5 years for women with normal cholesterol levels More often if changes occur in lifestyle (including weight gain and diet) More often if you have diabetes, heart disease, kidney problems, or certain other conditions DIABETES SCREENING You should be screened for diabetes starting at age 35 and then repeated every 3 years if you have no risk factors for diabetes. Screening may need to start earlier and be repeated more often if you have other risk factors for diabetes, such as: You have a first degree relative with diabetes. You are overweight or have obesity. You have high blood pressure, prediabetes, or a history of heart disease. Screening for diabetes should be done if you are planning to become and you are overweight and have other risk factors such as high blood pressure. DENTAL EXAM Go to the dentist once or twice every year for an exam and cleaning. Your dentist will evaluate if you need more frequent visits. EYE EXAM Have an eye exam every 5 to 10 years before age 40. If you have vision problems, have an eye exam every 2 years or more often if recommended by your provider. You should have an eye exam that includes an examination of your retina (back of your eye) at least every year if you have diabetes. IMMUNIZATIONS Commonly needed vaccines include: Flu shot: get one every year. COVID-19 vaccine: ask your provider what is best for you. Tetanus-diphtheria and acellular pertussis (Tdap) vaccine: have one at or after age 19 as one of your tetanus-diphtheria vaccines if you did not receive it as an adolescent. Tetanus-diphtheria: have a booster (or Tdap) every 10 years. Varicella vaccine: receive 2 doses if you never had chickenpox or the varicella vaccine. Hepatitis B vaccine: receive 2, 3, or 4 doses, depending on your exact circumstances. Measles, mumps, and rubella (MMR) vaccine: receive 1 to 2 doses if you are not already immune to MMR. Your provider can tell you if you are immune. Ask your provider about the human papillomavirus (HPV) vaccine if: You have not received the HPV vaccine in the past You have not completed the full vaccine series (you should catch up on this shot) Ask your provider if you should receive other immunizations if you have certain health problems that increase your risk for some diseases such as pneumonia. INFECTIOUS DISEASE SCREENING Women who are sexually active should be screened for chlamydia and gonorrhea up until age 25. Women 25 years and older should be screened for chlamydia and gonorrhea if at high risk. Screening for hepatitis C: All adults ages 18 to 79 should get a one-time test for hepatitis C. people should be screened at every . Screening for human immunodeficiency virus (HIV): All people ages 15 to 65 should get a one-time test for HIV. Depending on your lifestyle and medical history, you may also need to be screened for infections such as syphilis and HIV, as well as other infections. PHYSICAL EXAM All adults should visit their provider from time to time, even if they are healthy. The purpose of these visits is to: Screen for disease Assess your risk of future medical problems Encourage a healthy lifestyle Update your vaccinations and other preventive care services Maintain a relationship with a provider in case of an illness Your height, weight, and BMI should be checked at every exam. During your exam, your provider may ask you about: Depression and anxiety Diet and exercise Alcohol and tobacco use Safety issues, such as using seat belts, smoke detectors, and intimate partner violence Your medicines and risk for interactions SKIN SELF-EXAM Your provider may check your skin for signs of skin cancer, especially if you're at high risk, such as if you: Have had skin cancer before Have close relatives with skin cancer Have a weakened immune system OTHER SCREENING Talk with your provider about colon cancer screening if you have a strong family history of colon cancer or polyps, or if you have had inflammatory bowel disease or polyps yourself. Routine bone density screening of women under 40 is not recommended.
[2024-06-10 12:05] VITALS: BP 122/72; PULSE 58; RESP 12; TEMP 36.4; O2SAT 99; BMI 38.7
--- OUTSIDE RECORDS SUMMARY | 2024-06-10 12:49 | XMS_ITS | Clinical Summary ---
Author Organization [facility] Address [address] [place] [address] Care Team Providers Care Mouthpiece Maker Name Role Phone Katlyn Shi DMD Primary Care Provider Source Comments PLEASE NOTE, if this patient [...] Plan of Treatment Not on file Insurance [facility] [employer] [address] [place], [place] [id number] DENTAL Care Teams Mouthpiece Maker Relationship Specialty Start Date End Date Katlyn Shi DMD [address] [place] [id number] PCP - General 04/20/20
--- OUTSIDE RECORDS SUMMARY | 2024-06-10 12:49 | XMS_ITS | Clinical Summary ---
Author Organization [address] [place] [address] [place] [phone] Phone Care Team Providers Care Services Tech Name Role Phone Hiral Leo Primary Care Provider Allergies Active Allergy Reactions Criticality Noted Date Comments Other 2019 Seasonal allergies Penicillins Itching,Rash 11/07/2016 Prednisone 09/14/2019 Elevated blood sugar Medications empagliflozin (Jardiance) 10 mg tablet Take 10 mg by mouth daily. Active mirtazapine (REMERON) 30 mg tablet Take 1 Tablet by mouth at bedtime. Active albuterol 2.5 mg /3 mL (0.083 %) nebulizer solution Take 1 Vial by nebulization every 4 hours as needed for Wheezing, Shortness of Breath or Cough. 03/27/19 24 Active fluticasone propionate (FLONASE) 50 mcg/actuation nasal spray 2 Sprays by Nasal route daily. 03/27/19 24 Active budesonide-for moteroL (Symbicort) 160-4.5 mcg/actuation inhaler Inhale 2 Puffs into the lungs 2 times daily. 03/27/19 24 Active losartan (COZAAR) 25 mg tablet Take 1 Tablet by mouth daily. Active metFORMIN XR (GLUCOPHAGE-XR ) 500 mg 24 hr tablet Take 2 tablets (1,000 mg total) by mouth 2 (two) times a day. 11/07/19 21 Active inhalational spacing device inhaler SPACER/AERO-HOLDI NG CHAMBERS (BREATHERITE VALVED MDI CHAMBER) DEVICE 1 Each by Does not apply route as needed for Other (with use of inhalers 06/17/19 23 Active albuterol HFA (PROAIR HFA ; PROVENTIL HFA ; VENTOLIN HFA) 90 mcg/actuation inhaler INHALE 2 PUFFS BY MOUTH EVERY 6 HOURS NEEDED FOR COUGH OR WHEEZING OR SHORTNESS OF BREATH 11/06/19 22 Active calcium carbonate-elda min D3 600 mg-10 mcg (400 unit) chewable tablet Take by mouth. Activ e atorvastatin (LIPITOR) 40 mg tablet TAKE 1 TABLET BY MOUTH AT BEDTIME 01/05/20 21 Active polyethylene glycol (MIRALAX) 17 gram packet Take 17 g by mouth daily as needed for Constipation. 10/13/19 21 Active lancets lancets ONE TOUCH ULTRASOFT LANCETS Misc Use to check blood sugar twice daily 10/13/19 21 Active glucose blood test strip ONE TOUCH BASIC STRIPS 1 Strip by Does not apply route 2 times daily. 08/04/19 21 Active blood-glucose meter kit BLOOD GLUCOSE MONITORING SUPPL (ONE TOUCH ULTRA 2) W/DEVICE KIT Use to test suigars twice daily 08/04/19 21 Active clonazePAM (KlonoPIN) 1 mg tablet Take 1 Tab by mouth at bedtime. 03/09/19 21 Active OXcarbazepine (TRILEPTAL) 600 mg tablet Take 0.5 tablets (300 mg total) by mouth 2 (two) times a day. 03/09/19 21 Active clonazePAM (KlonoPIN) 0.5 mg tablet Take 1 Tab by mouth every morning. 03/06/19 21 Active blood sugar diagnostic (FreeStyle Lite Strips) test strip 1 Strip by In Vitro route daily. 09/02/19 20 Active alcohol swabs (Alcohol Wipes) pads, medicated Alcohol Swabs (ALCOHOL WIPES) 70 % Pads 1 Applicator by Does not apply route daily. 09/02/19 20 Active blood glucose control high,low (FreeStyle Control) solution Check FSG once daily for DM II without known complications 04/27/19 20 Active miscellaneous medical supply misc Foot Care Products (SHOE HORN) Misc 1 Each by Does not apply route daily. To be used to help put on shoes 04/01/19 20 Active miscellaneous medical supply misc Misc. Devices (EXTENDABLE BEDSIDE RAIL) Misc 1 Each by Does not apply route daily. 03/30/19 20 Active reservoir inhalation (INSPIREASE) device SPACER DEVICE-ADULT To be used prn with albuterol and with flovent 06/15/19 19 Active apixaban (Eliquis) 5 mg tablet Take 1 tablet (5 mg total) by mouth 2 (two) times a day. 180 tablet 2 02/25/19 25 Active sotaloL (BETAPACE) 80 mg tablet Take 1 Tablet by mouth 2 times daily. 04/20/19 24 025 Discontinu ed(Discont inued by another clinician) loratadine (CLARITIN) 10 mg tablet Take 1 Tablet by mouth daily. Discontinu ed(Formula ry change) Active Problems Problem Noted Date Diagnosed Date Chest pressure 06/01/2024 Assessment & Plan (06/01/2024 11:29 AM EDT): She had no elevated cardiac enzymes with atrial fibrillation with very rapid heart rate previously. Stress test was overall unremarkable year ago. There is no further ischemic needed at this point. Will continue to manage her anxiety and fibromyalgia. Pre-op evaluation 06/01/2024 Assessment & Plan (06/01/2024 11:29 AM EDT): She had no symptoms to suggest angina or heart failure. Her cardiac status is stable for planned surgery. She will have a increased risk of a recurrent atrial fibrillation postsurgically. Will suggest to continue sotalol and maintain her electrolyte balance. Will try to keep her potassium above 4 and magnesium above 2 postop. She will need to resume anticoagulation as soon as surgery allowed. (HFpEF) heart failure with p reserved ejection fraction (CMS/HCC V24, CMS/HCC V28) 05/26/2023 Overview (11/26/2023): Elevated BNP and dyspnea [...] encourage compliance with CPAP Assessment & Plan (06/01/2024 11:29 AM EDT): She has been off diuretics and is euvolemic currently. Continue to monitor. Assessment & Plan (12/25/2023 11:53 AM EST): Does not appears volume overloaded. She is on Jardiance. Atrial fibrillation (CMS/HCC V24, CMS/HCC V28) 0 08/21/2022 Overview (11/26/2023): Paroxysmal atrial fibrillation first [...] treat her blood pressure. Assessment & Plan (06/01/2024 11:29 AM EDT): Status post ablation procedure. She has been maintaining in sinus rhythm since then without perceived recurrent atrial fibrillation. EKG today showing normal QT /QTc. I will continue lower dose of sotalol along with Eliquis. Orders: ECG 12 lead Assessment & Plan (12/25/2023 11:53 AM EST): [...] current dose. Continue to follow. Pulmonary hypertension (CMS/HCC V24, CMS/HCC V28 ) 12/12/2020 Overview (11/26/2023): Last Assessment & Plan: [...] mellitus), type 2 with peripheral vascular complications (CMS/HCC V24, CMS/HCC V28) 04/27/2019 [place] [place] [facility] [place]) 07/02/2018 Overview (11/26/2023): Per abd/pelvis CT 06/2018 [...] (11/26/2023): knees Right heart failure due to p ulmonary hypertension ([facility] V24, [facility] V28) 11/07/2016 Overview (11/26/2023): H/O Fen- Phen use Empty sella syndrome ([facility] V24) 11/07/2016 Encounters Date Type Department Care Team Description 06/01/2024 10:50 AM EDT Office Visit [facility] - [address] [place] [address] Norah Espinosa MD Paroxysmal atrial fibrillation ([facility] V24, [facility] V28) (Primary Dx); Heart failure with preserved ejection fraction, unspecified HF chronicity ([facility] V24, [facility] V28); Chest pressure; Pre-op evaluation from Last 3 Months Immunizations Name Administration [...] yrs OTHER SURGICAL HISTORY 05/23/2009 Right PROCEDURE: AL SYNVCT TDN SHTH RAD FLXR TDN PALM&/FNGR EA TDN; COMMENT: ring finger, tenosynovectomy BACK SURGERY 11/26/2017 PROCEDURE: HISTORICAL BACK SURGERY; COMMENT: L4/L5 daisha.laminotomy,partial facetectomy,foraminotomy,removal synovial cyst R side,facet arthrodesis L4/L5 OTHER SURGICAL HISTORY 12/11/2017 PROCEDURE: AL REMOVAL IMPLANT DEEP; COMMENT: Irrigation debridement lumbar wound w/ removal of posterior hardware CATARACT EXTRACTION Bilateral PROCEDURE: HISTORICAL CATARACT REMOVAL OTHER SURGICAL HISTORY 09/20/2019 Right PROCEDURE: ---- OTHER ----; COMMENT: Right lower extremity endovenous laser ablation Medical History Medical History Date Comments (HFpEF) heart failure with p reserved ejection fraction ([facility] [place]24, [facility] [place]) 05/26/2023 Atrial fibrillation ([facility] [place] [facility] [place]) 08/21/2022 SOB (shortness of breath) 12/13/2020 Palpitations 12/13/2020 Portopulmonary hypertension ([facility] [place], [facility] [place]) 12/12/2020 Nephrolithiasis 10/07/2019 Diabetes mellitus ([facility] [place], [facility] [place]28) 04/27/2019 Type 2 Asthma 11/07/2016 GERD (gastroesophageal reflux disease) 7 Hyperlipidemia 11/07/2016 Right heart failure ([facility] [place], [facility] [place]) 11/07/2016 due to pulmonary hypertensio n Morbid obesity with BMI of 4 0.0-44.9, adult ([facility] [place], [facility] V28) 11/07/2016 DX:Morbid obesity wit h BMI of 40.0-44.9, adult ([facility]) Depression 11/07/2016 DX:Depression Fibromyalgia 11/07/2016 DX:Fibromyalgia LAURITA (obstructive sleep apnea) 11/07/2016 DX :LAURITA (obstructive sleep apnea); COMMENT: CPAP Anxiety 11/07/2016 DX:Anxiety Asthma 11/07/2016 DX:Asthma Allergic rhinitis 11/07/2016 DX:Allergic rh initis GERD (gastroesophageal reflux disease) 11/07/2016 DX:GERD (gastroesophageal reflux disease) Overactive bladder 11/07/2016 DX:Overactive bladder Hyperlipidemia 11/07/2016 DX:Hyperlipidemi a Empty sella syndrome ([facility] [place]) 11/07/2016 DX:Empty sella syndrome (HCC) Panic attacks 11/07/2016 DX:Panic attacks Prediabetes 11/07/2016 DX:Prediabetes Right heart failure due to p ulmonary hypertension ([facility] [place], [facility] [place]) 11/07/2016 DX:Right heart failure due t o pulmonary hypertension ([facility]); COMMENT: H/O Fen- Phen use Bilateral chronic [...] mellitus type 2, co ntrolled, with complications (CMS/HCC V24, CMS/HCC V28) DX:Diabetes mellitus type 2, controlled, with complications [...] drink = 0.6 oz pur e alcohol) Comments Unknown Sex and Gender Information Value Date Recorded Sex Assigned at Not on file Legal Sex Female 11:14 PM EST Gender Identity Not on file Sexual Orientation Not on file Obstetrics History Last Filed Vital Signs Vital Sign Reading Time Taken Comments Blood Pressure 116/66 06/01/2024 10:36 AM EDT Pulse 62 06/01/2024 10:36 AM EDT Temperature - - Respiratory Rate - - Oxygen Saturation 98% 06/01/2024 10:36 AM EDT Inhaled Oxygen Concentration - - Weight 99.3 kg (219 lb) 06/01/2024 10:36 AM EDT Height 162.6 cm (5' 4 ) 06/01/2024 10:36 AM EDT Body Mass Index 37.59 06/01/2024 10:36 AM EDT Plan of Treatment Upcoming Encounters Date Type Department Care Team (Late st Contact Info) Description 12/15/2024 2:40 PM EST Office Visit [facility] [address] [place] [address] Alejandra Alvarado NP [address] [place] [id number] Health Maintenance Due Date Last Done Comments Breast Cancer Screening 1955 Diabetes: Annual Foot Exam 1964 Diabetes: Annual Retina Eye Exam 1965 Pneumococcal Vaccine: 50+ Years (2 of 2 - PCV) 05/20/2007 05/19/2006 RSV Immunization Adult Patients (1 - Risk 60-74 years 1-dose series) [...] BMP Blood Test 09/08/2023 11/07/2020 COVID-19 Vaccine (3 - 2023- season) 2023 06/02/2020, 05/05/2020 Cholesterol Screening (Lipid [...] patient's age to complete this topic Meningococcal B Vaccine Aged Out No l onger eligible based on patient's age to complete this topic RSV Immunization Patients Under 20 months Aged Out No longer eligible based on patient's age to complete this topic Varicella Vaccines Aged Out No longer eligible based on patient's age to complete this topic Procedures Procedure Name Priority Date/Time Associated Diagnosis Comments ECG 12-LEAD Routine 06/01/2024 10:45 AM EDT Paroxysmal atrial fibrillation (CMS/HCC V24, CMS/HCC V28) EXTERNAL CLINICAL LAB Routine 03/24/2024 9:57 AM EST COLONOSCOPY Routine 01/10/2021 URINE ALBUMIN CREATININE RATIO Routine 11/07/2020 ANNUAL BMP BLOOD TEST Routine 11/07/2020 HEMOGLOBIN A1C Routine 11/07/2020 LIPID PANEL Routine 11/07/2020 from Last 3 Months or Most Recently Relevant to Health Maintenance Results * ECG 12 lead (06/01/2024 10:45 AM EDT) [facility] Ventricular Rate ECG 62 BPM GEMUSE Atrial Rate 62 BPM GEMUSE P-R Interval 138 ms GEMUSE QRS Duration 66 ms GEMUSE Q-T Interval 426 ms GEMUSE QTc 432 ms GEMUSE P Wave [place] 58 degrees GEMUSE R [place] 49 degrees GEMUSE T [place] 44 degrees GEMUSE ECG Interpretation Normal sinus rhythm Nonspecific ST and T wave abnormality Abnormal ECG When compared with ECG of 25-DEC-2023 11:01, No significant change was found Confirmed by Ciro ESPINOSA, NORAH ([id number]) on 06/01/2024 10:58:33 AM GEMUSE 06/01/2024 10:4 5 AM EDT 06/01/2024 10:58 AM EDT Result [facility] Norah Espinosa MD ECG ORDERABLES Final Result GEMUSE * External clinical lab (03/24/2024 9:57 AM EST) Result [facility] Provider LAB BLOOD ORDERABLES Frances l Result * Colonoscopy (01/10/2021) Health system Colonoscopy abstracted, no interpretation Anatomical Region Laterality Modality Other Result [facility] Provider HEALTH MAINTENANCE Final Result * Urine Albumin Creatinine Ratio (11/07/2020) Health system Urine Albumin Creatinine Ratio abstracted Result [facility] Provider HEALTH MAINTENANCE Final Result * Annual BMP Blood Test (11/07/2020) Health system Annual BMP Blood Test abstracted Result [facility] Provider HEALTH MAINTENANCE Final Result * Hemoglobin A1c (11/07/2020) [facility] Hemoglobin A1C 6.0 <=6.5 % Blood Venous blood specimen / Unknown Historical Provider LAB BLOOD ORDERABLES Frances l Result * Lipid panel (11/07/2020) LDL/HDL Ratio 2 0 - 4 Triglycerides 108 0 - 150 mg/dL Cholesterol 150 0 - 200 mg/dL HDL 66 >=40 mg/dL LDL Cholesterol 63 0 - 100 mg/dL Blood Venous blood specimen / Unknown Historical Provider LAB BLOOD ORDERABLES Frances l Result from Last 3 Months or Most Recently Relevant to Health Maintenance Insurance [address] [place] [address] [employer] Care Teams Services Tech Relationship Specialty Start Date End Date Hiral Leo FNP [address] [place] [phone] PCP - General Nurse Practitioner 06/01/24
--- OUTSIDE RECORDS SUMMARY | 2024-06-10 12:49 | XMS_ITS | Data Portability ---
Author Organization [place] - [facility], Allergy Address [address] [address] Care Team Providers Care Hot [place]ound [place] Production Supervisor Name Role Phone NORBERTO SOLIMAN Primary Care Provider [phone] Assessment Encounter Date Assessment Date Assessment LastModified by Organization Details LastModified Time 11/09/2023 11/09/2023 Patient describe s vocal changes after procedure to help manage her A-fib. Procedure was most likely a transesophageal echo as she described swallowing some gel. Fiberoptic larynx examination today was benign with mobile vocal cords bilaterally and no obvious lesions. There was a significant degree of anxiety at various points during the exam and her voice became very hoarse at those moments but improved when she was more relaxed. She may benefit from consultation with speech pathology to develop some exercises to reduce muscle tension dysphonia. [email or web address] Not available 11/09/2023 13:48:49 Plan of Treatment Reminders Order Date Submit Date Provider Last Modified By Organization Details Last Modified Time Details Appointments None recorded . Lab None recorded . Referral speech language patholog ist referral - Appt 11/19 @ 10am 2023 024 [facility], [address], [address], [place], [address], 09:53:44 Procedures None recorded . Surgeries None recorded . Imaging None recorded . Medication Orders None recorded . Patient TargetsNo targets recorded. Patient InstructionsNo instructions recorded. Reason for Referral Speech Language Pathologist Referral for Chronic hoarseness Appt 11/19 @ 10am Referring Physician: Tomasz Lawson, Otolaryngology, Encounter Date: 11/09/2023 Results Created Date Observation Date Name Description Value Unit Range Abnormal Flag Note LastModifiedBy Organization Detail LastModifiedTime 09/28/19 audio gram No observ ation record ed. [email or web address] Not Available 09/09 15:48:21 09/30/19 24 07/01/2022 imagi ng/di agnos tic resul t No observ ation record ed. [email or web address] Not Available 20:27:04 09/30/19 24 07/01/2022 imagi ng/di agnos tic resul t No observ ation record ed. [email or web address] Not Available 20:27:10 09/30/19 24 01/04/2020 imagi ng/di agnos tic resul t No observ ation record ed. [email or web address] Not Available 20:27:31 09/30/19 24 01/04/2020 imagi ng/di agnos tic resul t No observ ation record ed. [email or web address] Not Available 20:27:37 09/30/19 24 01/04/2020 audio gram No observ ation record ed. [email or web address] Not Available 20:28:02 Result Notes None recorded. Problems Name Problem SNOMED Code Status Onset Date Resolution Date Notes Provider Name and Address Organization Details Recorded Time Bilateral tinnitus 99810767893 02 Active 2022 Tinnitus, bilateral ; Note: Date Diagnosed : 07/01/2022 4:38 PM (H93.13) Not Available Formerly [facility] 4 02:17:56 Sensorine ural hearing loss of bilateral ears 241481757 Active 2019 Sensorine ural hearing loss, bilateral ; Note: Date Diagnosed : 0 12:19 PM (H90.3) Not Available [facility] 4 02:17:11 Dizziness and giddiness 755740637 Active 2019 Dizziness and giddiness ; Note: Date Diagnosed : 0 12:19 PM (R42) Not Available [facility] 4 02:17:13 Chronic hoarsenes s 10288262885 05 Active 2023 TOMASZ LAWSON MD [address] [facility],[place] [address], [place], [address] , [facility] 13:46:53 Problem Notes None recorded. Procedures Surgical History Date Name Laterality Status Provider Name and Address Organization Details Recorded Time 11/09/2023 FOL_DP completed TOMASZ LAWSON MD [address] [facility],[place] [address], [place], [address], [facility] - [facility] 11/06/2023 21:08:24 09/24/2023 Comp Audio with Tymps - 49316 & [id number] completed MATHEW MONSON MA, CCC-A [address] [facility],[place] [address], [place], [address], [facility] 09/24/2023 15:28:18 Imaging Results Imaging Date Name Status LastModified by Organiz ation Details LastModified Time 09/28/2023 audiogram completed [email or web address] Information n ot available 09/28/2023 15:48:21 07/01/2022 imaging/diagno stic result completed Information not available 09/30/2023 20:27:04 07/01/2022 imaging/diagno stic result completed Information not available 09/30/2023 20:27:10 01/04/2020 imaging/diagno stic result completed Information not available 09/30/2023 20:27:31 01/04/2020 imaging/diagno stic result completed Information not available 09/30/2023 20:27:37 01/04/2020 audiogram completed Information not available 09/30/2023 20:28:02 Procedure Notes None recorded. Medical Equipment None Reported. Medications Name Sig Start Date Stop Date Status Note LastModified by Organization Details LastModified Time calcium/vitam in d3 600-10 mg-mcg tabs active Not Available Not Available Not Available atorvastatin 40 mg tablet TAKE 1 TABLET BY MOUTH DAILY active Not Available Not Available No t Available atorvastatin 80 mg tablet TAKE 1 TABLET BY MOUTH AT BEDTIME active Not Available Not Available No t Available albuterol sulfate 2.5 mg/3 mL (0.083 %) solution for nebulization USE 1 VIAL VIA NEBULIZER EVERY 4 HOURS NEEDED FOR WHEEZING OR SHORTNESS OF BREATH OR COUGH active Not Available Not Available No t Available diltiazem CD 180 mg capsule,exten ded release 24 hr TAKE 1 CAPSULE BY MOUTH DAILY active Not Available Not Available No t Available sotalol 80 mg tablet TAKE 1 TABLET BY MOUTH TWICE DAILY active Not Available Not Available No t Available meloxicam 15 mg tablet TAKE 1 TABLET BY MOUTH EVERY DAY active Not Available Not Available No t Available metoprolol succinate ER 200 mg tablet,extend ed release 24 hr TAKE 1 TABLET BY MOUTH DAILY active Not Available Not Available No t Available clonazepam 0.5 mg tablet TAKE 1 TABLET BY MOUTH EVERY MORNING NEEDED active Not Available Not Available No t Available clonazepam 1 mg tablet TAKE ONE-HALF OF A TABLET BY MOUTH EVERY MORNING AND ONE TABLET EVERY NIGHT AT BEDTIME active Not Available Not Available No t Available meclizine 12.5 mg tablet TAKE 1 TABLET BY MOUTH 3 TIMES A DAY NEEDED FOR DIZZINESS FOR 3 DAYS active Not Available Not Available N ot Available diltiazem CD 360 mg capsule,exten ded release 24 hr TAKE 1 CAPSULE BY MOUTH DAILY active Not Available Not Available No t Available sulfamethoxaz ole 800 mg-trimethopr im 160 mg tablet TAKE 1 TABLET BY MOUTH TWICE A DAY FOR 2 DAYS active Not Available Not Available No t Available aspirin 81 mg tablet,delaye d release TAKE 1 TABLET BY MOUTH EVERY DAY active Not Available Not Available No t Available pantoprazole 40 mg tablet,delaye d release TAKE 1 TABLET BY MOUTH DAILY active Not Available Not Available No t Available mirtazapine 30 mg tablet TAKE 1 TABLET BY MOUTH AT BEDTIME active Not Available Not Available No t Available losartan 25 mg tablet TAKE 1 TABLET BY MOUTH DAILY active Not Available Not Available No t Available oxcarbazepine 600 mg tablet TAKE 1 TABLET BY MOUTH TWICE DAILY active Not Available Not Available No t Available furosemide 20 mg tablet TAKE 1 TABLET BY MOUTH DAILY active Not Available Not Available No t Available metoprolol succinate ER 25 mg tablet,extend ed release 24 hr TAKE 1 TABLET BY MOUTH EVERY DAY active Not Available Not Available No t Available fluticasone propionate 50 mcg/actuation nasal spray,suspens ion SHAKE LIQUID AND USE 2 SPRAYS IN EACH NOSTRIL DAILY active Not Available Not Available No t Available metformin ER 500 mg tablet,extend ed release 24 hr TAKE 2 TABLETS BY MOUTH TWICE DAILY active Not Available Not Available No t Available loratadine 10 mg tablet TAKE 1 TABLET BY MOUTH DAILY active Not Available Not Available No t Available oxycodone 5 mg tablet TAKE 1 TABLET BY MOUTH EVERY 6 HOURS NEEDED FOR PAIN FOR 3 DAYS active Not Available Not Available No t Available calcium 600 mg (as carbonate)-vi tamin D3 10 mcg (400 unit) tablet TAKE 1 TABLET BY MOUTH AT BEDTIME active Not Available Not Available No t Available Symbicort 160 mcg-4.5 mcg/actuation HFA aerosol inhaler INHALE 2 PUFFS INTO THE LUNGS TWICE A DAY active Not Available Not Available No t Available cholecalcifer ol (vitamin D3) 1,250 mcg (50,000 unit) capsule TAKE 1 CAPSULE BY MOUTH EVERY WEEK active Not Available Not Available N ot Available Eliquis 5 mg tablet TAKE 1 TABLET BY MOUTH TWICE DAILY active Not Available Not Available No t Available Jardiance 10 mg tablet TAKE 1 TABLET BY MOUTH EVERY MORNING active Not Available Not Available No t Available OneTouch Ultra2 Meter USE DIRECTED TO MONITOR BLOOD SUGAR active Not Available Not Available No t Available Vitals Date Recorded Body height Body mass index (BMI) Body weight Provider Name and Address Organization Details Last Updated DateTime 09/24/2023 162.56 cm 36.7 kg/m2 56227.77 g Abdulkadir Otero [facility] 09/24/2023 14:55:33 Date Recorded Body height Body mass index (BMI) Body weight Provider Name and Address Organization Details Last Updated DateTime 11/09/2023 162.56 cm 36.7 kg/m2 34684.77 g Carlita Frances [facility] 11/09/2023 13:31:41 Social History None recorded. Functional Status None recorded. Mental Status None recorded. Family History Nothing Reported. Medical History No medical history recorded. Gynecological HistoryNo gynecological history recorded. Obstetrics History GPAL:G 0 P 0 0 0 0 Past Encounters Encounter ID Performer Location Encounter Start Date Encounter Closed Date Diagnosis/Indication Diagnosis SNOMED-CT Code Diagnosis ICD10 Code Diagnosis Note [id number] EVANS CHOWDHURY PA-C [facility] [address] [address] 09/24/2023 14:37:21 09/24/2023 16:06:08 Bilateral tinnitus 0304890505 102 H93.13 68-year-ol d female presents for evaluation of hearing loss and tinnitus. On exam, bilateral tympanic membranes are intact with well aerated middle ear spaces. Audiometri c testing demonstrat ed borderline normal sloping to mild to moderate sensorineu ral hearing loss bilaterall y, improved compared to prior audiogram in June 2022. She is a candidate for amplificat ion and medical clearance was provided today. Masking techniques were recommende d for tinnitus. She will follow-up yearly for audiometri c testing, or sooner with any concerns. Patient would also like to be evaluated for intermitte nt hoarseness for the past 2 months. We will arrange follow-up for fiberoptic laryngosco py. Sensorineu ral hearing loss of bilateral ears 914252493 H90.3 Audiologic al evaluation results: Right ear: {{Normal N ormal through 2 kHz Mild M oderate Mo derately-s evere Michelle re Profoun d Borderli ne normal hearing sloping#}} {{hearing sloping to a mild slopi ng to a moderate s loping to moderately severe slo ping to severe slo ping to profound f lat high frequency low frequency mid frequency cookie bite diaz curve to a mild-moder ate SNHL#}} {{with* se nsorineura l hearing loss with condu ctive hearing loss with mixed hearing loss with}} {{excellen t* good fa ir poor no measurable }} word recognitio n. Left ear: {{Normal N ormal through 2 kHz Mild M oderate Mo derately-s evere Michelle re Profoun d Borderli ne normal hearing sloping #}} {{hearing sloping to a mild slopi ng to a moderate s loping to moderately severe slo ping to severe slo ping to profound f lat high frequency low frequency mid frequency cookie bite diaz curve to a mild to moderate SNHL #}} {{with* se nsorineura l hearing loss with condu ctive hearing loss with mixed hearing loss with}} {{excellen t* good fa ir poor no measurable }} word recognitio n. Tympanomet ry: Right Ear:{{Type A* Type As Type Ad Type C Type C, shallow & rounded Ty pe B Type B with large volume Cou ld not maintain a hermetic seal}} Left Ear:{{Type A* Type As Type Ad Type C Type C, shallow & rounded Ty pe B Type B with large volume Cou ld not maintain a hermetic seal}}Rec. : [place] [id number] TOMASZ LAWSON MD [facility] [address] [address] 11/09/2023 13:30:07 11/09/2023 13:49:27 Chronic hoarseness 0989914271 105 R49.0 Health Concerns Section Related Observation LastModified by Organization Detai ls LastModified Time None Recorded Concern Status LastModified by Organization Details LastModified Time None Recorded Advance Directives Directive None Recorded Payers Encounter Date Sequence Insurance Name Policy Number Policy Reyes Covered Member ID Reyes Member ID Guarantor Name 09/24/[address] [facility] - DUAL ELIGIBLE - [facility]IOR [facility] (MEDICARE REPLACEMENT /ADVANTAGE - HMO) Kristin Madrid [id number] Kristin Madrid 11/09/[address] [facility] - DUAL ELIGIBLE - [facility] - SENIOR PLAN (MEDICARE REPLACEMENT /ADVANTAGE - HMO) Kristin Madrid [id number] Kristin Madrid Notes Date Note Type Note Provider Name and Address Organization Details Recorded Time 09/24/2023 text/html 68-year-old talon rao presents for evaluation of hearing loss. She initially scheduled her appointment for intermittent hoarseness, but would prefer to discuss hearing loss today. She reports longstanding history of hearing loss and previously used amplification. She is interested in new hearing aids. She feels like her hearing has declined over the past year. Admits to intermittent tinnitus bilaterally, but denies vertigo, otalgia, and otorrhea. JARED MEDEROS MD [address] [place] [address], [phone], [facility] - [facility] 09/24/2023 17:23:06 11/09/2023 text/html intermittent hoarse for past 2 yrsAround 07/2023 had Afib at [facility]. had a trans esophageal exam but after procedure noted meds get stuck in throat and voice has been fluctuating PV 09/24/23 [facility] rec LESLIE LAWSON MD [address] [place] [address], [phone], [place] - [facility] 11/09/2023 13:49:08 OBGyn Episode No OBEpisode recorded.
== END 2024-06-10 13:11 | disposition home or self-care (01) ==
LOC: HO.HMCFM 11:59
PROVIDERS: PCP Nurse Practitioner Family; Visit Provider Nurse Practitioner Family
DX: K74.60 Unspecified cirrhosis of liver (principal); I48.0 Paroxysmal atrial fibrillation; E11.8 Type 2 diabetes mellitus with unspecified complications; F31.32 Bipolar disorder, current episode depressed, moderate; I50.32 Chronic diastolic (congestive) heart failure; E66.01 Morbid (severe) obesity due to excess calories; K21.9 Gastro-esophageal reflux disease without esophagitis; I10 Essential (primary) hypertension; I87.2 Venous insufficiency (chronic) (peripheral); Z78.0 Asymptomatic menopausal state; E55.9 Vitamin D deficiency, unspecified; J45.20 Mild intermittent asthma, uncomplicated

== ENCOUNTER → 2024-06-10 11:58 | Outpatient (BNVA) | payer OTHER, SELFPAY | PROVIDERS: PCP Nurse Practitioner Family; Visit Provider Nurse Practitioner Family | DX: Z13.89 Encounter for screening for other disorder (principal) ==

== ENCOUNTER 2024-06-10 13:00 | Outpatient (REF) | payer OTHER, SELFPAY ==
--- OUTSIDE RECORDS SUMMARY | 2024-06-10 13:22 | XMS_ITS | Clinical Summary ---
Author Organization [address] [place] [address] [place] [phone] Phone Care Team Providers Care Drive In Waiter/Waitress Name Role Phone Hiral Leo Primary Care [...] complications (CMS/HCC V24, CMS/HCC V28) 04/27/2019 Cirrhosis ([facility] V24, [facility] V28) 07/02/2018 Overview (11/26/2023): Per abd/pelvis CT [...] heart failure due to p ulmonary hypertension ([facility] V24, [facility] V28) 11/07/2016 Overview (11/26/2023): H/O Fen- Phen use Empty sella syndrome ([facility] V24) 11/07/2016 Encounters Date Type Department Care Team Description 06/01/2024 10:50 AM EDT Office Visit [facility] [address] [facility] [address] [place] [address] Norah Espinosa MD Paroxysmal atrial fibrillation ([facility] V24, [facility] V28) (Primary Dx); Heart failure with preserved ejection fraction, unspecified HF chronicity ([facility] V24, [facility] V28); Chest pressure; Pre-op evaluation from Last [...] yrs OTHER SURGICAL HISTORY 05/23/2009 Right PROCEDURE: SC SYNVCT TDN SHTH RAD FLXR TDN PALM&/FNGR EA TDN; COMMENT: ring finger, tenosynovectomy BACK SURGERY 11/26/2017 PROCEDURE: HISTORICAL BACK SURGERY; COMMENT: L4/L5 daisha.laminotomy,partial facetectomy,foraminotomy,removal synovial cyst R side,facet arthrodesis L4/L5 OTHER SURGICAL HISTORY 12/11/2017 PROCEDURE: SC REMOVAL IMPLANT DEEP; COMMENT: Irrigation debridement lumbar wound w/ removal of posterior hardware CATARACT EXTRACTION Bilateral PROCEDURE: HISTORICAL CATARACT REMOVAL OTHER SURGICAL HISTORY 09/20/2019 Right PROCEDURE: ---- OTHER ----; COMMENT: Right lower extremity endovenous laser ablation Medical History Medical History Date Comments (HFpEF) heart failure with p reserved ejection fraction ([facility] V24, [facility] V28) 05/26/2023 Atrial fibrillation ([facility] V24, [facility] V28) 08/21/2022 SOB (shortness of breath) 12/13/2020 Palpitations 12/13/2020 Portopulmonary hypertension ([facility] V24, [facility] V28) 12/12/2020 Nephrolithiasis 10/07/2019 Diabetes mellitus ([facility] V 24, [facility] V28) 04/27/2019 Type 2 Asthma 11/07/2016 GERD (gastroesophageal reflux disease) 7 Hyperlipidemia 11/07/2016 Right heart failure ([facility] V24, [facility] V28) 11/07/2016 due to pulmonary hypertensio n Morbid obesity with BMI of 4 0.0-44.9, adult ([facility] V24, [facility] V28) 11/07/2016 DX:Morbid obesity wit h BMI of 40.0-44.9, adult ([facility]) Depression 11/07/2016 DX:Depression Fibromyalgia 11/07/2016 DX:Fibromyalgia LAURITA (obstructive sleep apnea) 11/07/2016 DX :LAURITA (obstructive sleep apnea); COMMENT: CPAP Anxiety 11/07/2016 DX:Anxiety Asthma 11/07/2016 DX:Asthma Allergic rhinitis 11/07/2016 DX:Allergic rh initis GERD (gastroesophageal reflux disease) 11/07/2016 DX:GERD (gastroesophageal reflux disease) Overactive bladder 11/07/2016 DX:Overactive bladder Hyperlipidemia 11/07/2016 DX:Hyperlipidemi a Empty sella syndrome ([facility] V24) 11/07/2016 DX:Empty sella syndrome (HCC) Panic attacks 11/07/2016 DX:Panic attacks Prediabetes 11/07/2016 DX:Prediabetes Right heart failure due to p ulmonary hypertension ([facility] V24, [facility] V28) 11/07/2016 DX:Right heart failure due t o pulmonary hypertension ([facility]); COMMENT: H/O Fen- Phen use Bilateral [...] Description 12/15/2024 2:40 PM EST Office Visit [facility] [address] [facility] [address] [place] [address] Alejandra Alvarado NP [address] [place] [phone] Health Maintenance Due Date Last Done Comments [...] ECG 12 lead (06/01/2024 10:45 AM EDT) [facility] Ventricular Rate ECG 62 BPM GEMUSE Atrial Rate 62 BPM GEMUSE P-R Interval 138 ms GEMUSE QRS Duration 66 ms GEMUSE Q-T Interval 426 ms GEMUSE QTc 432 ms GEMUSE P Wave [place] 58 degrees GEMUSE R [place] 49 degrees GEMUSE T [place] 44 degrees GEMUSE ECG Interpretation Normal sinus rhythm Nonspecific ST and T wave abnormality Abnormal ECG When compared with ECG of 25-DEC-2023 11:01, No significant change was found Confirmed by Ciro ESPINOSA, NORAH ([id number]) on 06/01/2024 10:58:33 AM GEMUSE 06/01/2024 10:4 5 AM EDT 06/01/2024 10:58 AM EDT Result [facility] Norah Espinosa MD ECG ORDERABLES Final Result GEMUSE * External clinical lab (03/24/2024 9:57 AM EST) Result [facility] Provider LAB BLOOD ORDERABLES Frances l Result * Colonoscopy (01/10/2021) [facility] Colonoscopy abstracted, no interpretation Anatomical Region Laterality Modality Other Result [facility] Provider HEALTH MAINTENANCE Final Result * Urine Albumin Creatinine Ratio (11/07/2020) [facility] Urine Albumin Creatinine Ratio abstracted Result [facility] Provider HEALTH MAINTENANCE Final Result * Annual BMP Blood Test (11/07/2020) [facility] Annual BMP Blood Test abstracted Result [facility] Provider HEALTH MAINTENANCE Final Result * Hemoglobin A1c (11/07/2020) [facility] Hemoglobin A1C 6.0 <=6.5 % Blood Venous [...] to Health Maintenance Insurance [address] [place] [address] [facility] MEDICARE ADVANTAGE Care Teams Drive In Waiter/Waitress Relationship Specialty Start Date End Date Hiral Leo FNP [address] [place] [phone] PCP - General Nurse Practitioner 06/01/24
--- OUTSIDE RECORDS SUMMARY | 2024-06-10 13:22 | XMS_ITS | Clinical Summary ---
Author Organization [facility] Address [address] [place] [address] Care Team Providers Care Level Vial Inside Grinder Name Role Phone Katlyn Shi DMD Primary Care Provider [phone] Source Comments PLEASE NOTE, if this patient [...] of Treatment Not on file Insurance [facility] [employer] [address] [place], [place] [address]NET DENTAL Care Teams Level Vial Inside Grinder Relationship Specialty Start Date End Date Katlyn Shi DMD [address] [place] [address] PCP - General 04/20/20
[2024-06-10 14:42] LABS: Estimated Average Glucose 171 mg/dL; Hemoglobin A1c % 7.6 % (<6.0); Total Hemoglobin (HGBA1C) 3459.5246 umol/L
[2024-06-10 14:46] LABS: Hematocrit 41.2 % (37.0-47.0); Mean Corpuscular HGB Conc 31.6 g/dl (31.0-35.0); Mean Corpuscular Hemoglobin 29.3 pg (27.0-33.0); Mean Corpuscular Volume 92.8 fL (80.0-98.0); Mean Platelet Volume 13.7 fL (9.4-12.3); Platelet Count 116 X10*3/uL (160-400); Red Blood Count 4.44 X10*6/uL (4.20-5.50); Red Cell Distribution Width 14.5 % (11.0-16.0); White Blood Count 4.3 X10*3/uL (4.8-10.8)
[2024-06-10 14:59] LABS: Alanine Aminotransferase 38 U/L (0-31); Albumin Level 3.7 g/dL (3.5-5.0); Alkaline Phosphatase 88 U/L (39-117); Anion Gap 12 (12-20); Aspartate Amino Transferase 37 U/L (5-31); Bilirubin Total 0.4 mg/dL (0.0-1.0); Blood Urea Nitrogen 12 mg/dL (9-16); Calcium 9.4 mg/dL (8.4-10.2); Carbon Dioxide 30 mmol/L (22-29); Chloride 105 mmol/L (96-108); Cholesterol 183 mg/dL (<200); Estimated Glomerular Filt Rate > 60; Glucose Random 200 mg/dL (60-115); HDL Cholesterol 55 mg/dL (>40); LDL Cholesterol Calculated 92 mg/dL (<100); Potassium 4.5 mmol/L (3.3-5.1); Sodium 142 mmol/L (135-145); Total Protein 6.5 g/dL (6.5-8.0); Triglycerides 183 mg/dL (<150)
[2024-06-10 15:05] LABS: TSH reflex Free T4 1.52 uIU/mL (0.32-4.0); Vitamin D 25-OH Total 60.8 ng/mL (>30)
[2024-06-10 15:17] LABS: Creatinine Urine 71.97 mg/dL; Microalbum/Creatinine Ratio Ur 11.1 ug/mg cr (<30)
[2024-06-10 15:18] LABS: Folate 9.6 ng/mL (> or = 4.0); Vitamin B12 342 pg/mL (200-900)
== END 2024-06-10 13:01 | disposition home or self-care (01) ==
LOC: HO.WFDLDS 13:00
PROVIDERS: Visit Provider Nurse Practitioner Family
DX: Z00.00 Encounter for general adult medical examination without abnormal findings (principal); K21.9 Gastro-esophageal reflux disease without esophagitis; K74.60 Unspecified cirrhosis of liver; I10 Essential (primary) hypertension; I48.0 Paroxysmal atrial fibrillation; E11.8 Type 2 diabetes mellitus with unspecified complications; I87.2 Venous insufficiency (chronic) (peripheral); E55.9 Vitamin D deficiency, unspecified; M85.851 Other specified disorders of bone density and structure, right thigh; M85.852 Other specified disorders of bone density and structure, left thigh; D68.69 Other thrombophilia; J45.20 Mild intermittent asthma, uncomplicated; F31.32 Bipolar disorder, current episode depressed, moderate; E66.812 Obesity, class 2; E66.01 Morbid (severe) obesity due to excess calories; Z68.38 Body mass index [BMI] 38.0-38.9, adult; I50.32 Chronic diastolic (congestive) heart failure; G31.84 Mild cognitive impairment of uncertain or unknown etiology; E78.00 Pure hypercholesterolemia, unspecified; R29.6 Repeated falls; N39.3 Stress incontinence (female) (male); Z79.01 Long term (current) use of anticoagulants; Z79.84 Long term (current) use of oral hypoglycemic drugs; Z79.899 Other long term (current) drug therapy; Z78.0 Asymptomatic menopausal state
CPT/HCPCS: 36415; 80053; 80061; 82043; 82306; 82570; 82607; 82746; 83036; 84443; 85027; 96127

== ENCOUNTER → 2024-07-11 09:19 | Outpatient (BNVA) | payer OTHER, SELFPAY | PROVIDERS: PCP Nurse Practitioner Family ==

== ENCOUNTER 2024-08-04 14:00 | Outpatient (AMB) | payer OTHER, SELFPAY ==
--- NOTE | 2024-08-04 14:11 | MHC.OFFVIS ---
Vital Signs 08/04/24 14:17 Height 5 ft 3 in Weight 214 lb BMI 37.9 BP 118/58 L Blood Pressure Location Lt brachial Position Sitting Pulse 68 Pulse Oximetry (%) 95 Oxygen Delivery Method Room Air Intake Visit Reasons: pre colo, GERD Intake Note: patient complex follow up for GERD and pre Colonoscopy screening/Hayley moon was 02/25/2022 and she have BS results from 2022. Patient cc: abdominal bloating, diarrhea, acid reflux and some swallowing difficulty. Denies any other GI issues. Train Clerk Required: No Accompanied by: Son Allergies Penicillins Allergy (Intermediate, Verified 08/04/24 14:11) itchy, hives lisinopril Adverse Reaction (Intermediate, Verified 08/04/24 14:11) Cough prednisone Adverse Reaction (Intermediate, Verified 08/04/24 14:11) high blood pressure HPI HPI pre colo, GERD: Details: Patient is a 69-year-old female with PMH of bipolar, diabetes, AFib, CHF, hypertension, hyperlipidemia, asthma and GERD. Last visit with JIM Grant 02/25/2022 for pre colonoscopy screening. Patient is accompanied by her son who is translating some during our visit. They report her last colonoscopy was approx 10 years ago at [facility] and normal. She presents with chronic diarrhea, abdominal pain, and significant acid reflux. Symptoms of diarrhea have been ongoing for several months, characterized by frequent, loose, watery stools, often preceded by cramping. She reports defecating multiple times throughout the day, especially before leaving the house, sometimes up to five times. Kristin notes the diarrhea sometimes contains undigested food particles. There is no blood present in her stool. She has upper and lower abdominal pain daily, which is sometimes relieved after bowel movements but returns shortly after. She also experiences nausea, especially in the mornings, and frequent instances of salivary expulsion. Acid reflux has been persistent, with food and pills sometimes getting stuck in her throat, necessitating repositioning to swallow. Kristin reports difficulty swallowing and frequent choking. Kristin shares she had a UTI one week ago. Treated by outside provider. She also experiences chronic back pain and has a history of cardiac ablation for a-fib. Patient denies: fever/chills, unintentional wt loss or melena/hematochezia. [facility] Medical History (Updated 08/06/24 @ 13:09 by Jamaica French CNP) Diarrhea Chronic low back pain Chronic pain of both shoulders Back pain with left-sided sciatica Constipation by delayed colonic transit History of cardioversion No pertinent past medical history Surgical History History of hand surgery History of back surgery Family History Other Mental health disorder Substance use disorder Social History Household Members: Other Housing: Apartment Are you a primary care navigator to a significant other at home: No Do you presently have visiting nurse or other home services: Yes 75 years or older and lives alone: No Alcohol intake: never Patient Tobacco Use Status: Former Tobacco user Tobacco use type: Cigarette e-Cigarette/Vaping Use: Never Used Second Hand Smoke Exposure: Yes Special jeannette needs: No Agree to transfusion: Yes service: No Current occupational status: disabled Current occupational exposures/hazards: No Sexual orientation: Straight/Heterosexual Gender identity: Female Cognitive needs: No (cane) Hearing needs: No (hearing aide) Vision needs: No (Glasses) Review of Systems Const Reports as per HPI ENT Reports as per HPI Card Reports as per HPI Resp Reports as per HPI GI Reports as per HPI Reports as per HPI Physical Exam Vital Signs: Last Vital Signs Pulse 68 08/04/24 14:17 BP 118/58 L 08/04/24 14:17 Pulse Ox 95 08/04/24 14:17 Oxygen Delivery Method Room Air 08/04/24 14:17 BMI result Body Mass Index 37.9 Const General: healthy appearing, no acute distress and well developed Nutritional Appearance: well nourished Orientation/consciousness: patient oriented x3 HEENT Head: Yes normal to inspection, Yes normocephalic and Yes atraumatic Face and sinus: Yes normal facial exam Eyes General: appearance normal, both eyes and all related structures Neck Neck: Yes normal visual inspection Resp Effort & Inspection: normal respiratory effort, able to speak in complete sentences, no tracheal deviation and symmetric chest movement Auscultation: clear to auscultation bilaterally Cardio Jugular venous distension: no JVD Rate: regular rate Rhythm: regular rhythm Heart sounds: S1 normal heart sound present, S2 normal heart sound present, no gallops and no murmurs GI Inspection: Yes normal to inspection, No distended and Yes obesity Palpation (GI): Soft to palpation, not firm, nontender and No hepatosplenomegaly present Auscultation: normal bowel sounds Neuro General: patient oriented x3 Gait exam (Neuro): Normal gait present Psych Appearance: grossly normal Mental Status: mental status grossly normal Speech and movement: Normal speech and movement present Affect: normal affect Attitude: cooperative Thought process: Normal thought process present Thought content: Normal thought content present Insight: Good insight present (Psych) Judgement: Good judgement present (Psych) Results Reviewed Results Reviewed: Date of Service: 04/23/22 Procedure(s): FL barium swallow Accession Number(s): [id number] cc: Hayley Hamlin PA-C~ EXAMINATION: FL BARIUM SWALLOW CLINICAL INFORMATION: R13.10 - Dysphagia, unspecified COMPARISON: Chest radiographs 09/26/2021 TECHNIQUE: Barium swallow examination is performed using fluoroscopic evaluation in addition to multiple fluoroscopic spot views, including cine images during swallowing. The patient is imaged both upright and prone and using both thick and thin sulfate along with effervescent granules. Barium pill challenge also performed. Fluoroscopy time: 1.6 minutes DAP: 3.734 Gycm2 Images: 42 FINDINGS: Swallowing function is normal and there is no aspiration. The cervical esophagus has no web or diverticulum or stricture. The cervical thoracic junction appears normal. No cervical achalasia. The thoracic esophagus primarily showed normal motility. There is one episode of mild transient tertiary contraction. No obstruction, stricture, or ulceration. There is no hiatal hernia or reflux seen despite use of provocative maneuvers (prone Valsalva and water siphon test, respectively). A cursory view of the upper abdomen shows no gastric outlet obstruction. There is prompt transit of the barium pill from mouth to stomach. Cursory view upper abdomen shows no gastric outlet obstruction. FL/FL barium swallow IMPRESSION: -Essentially normal study. There is one episode of mild transient tertiary contraction thoracic esophagus. Otherwise normal motility. -No hiatal hernia or reflux. Assessment & Plan Assessment & Plan (1) Colon cancer screening: Code(s): Z12.11 - Encounter for screening for malignant neoplasm of colon Category: Medical Plan: Due for screening + chronic diarrhea We will review prep at follow-up (2) Diarrhea: Code(s): R19.7 - Diarrhea, unspecified Category: Medical Qualifiers: Diarrhea type: unspecified type Qualified Code(s): R19.7 - Diarrhea, unspecified Plan: Several months of frequent, loose, watery stools with undigested food, no blood, and associated abdominal pain. Etiology may include medication effect (metformin), diabetic enteropathy, IBS, or less likely IBD/celiac. Need to rule out infectious, inflammatory, and malabsorptive causes. Additional Tests: -Fasting labs (CBC, CMP, celiac panel, inflammatory markers) -Stool studies (for inflammation and fat) Medications: -Trial of loperamide PRN for symptomatic relief Lifestyle Modifications: Dietary review; reduce sweets, increase fiber as tolerated, maintain hydration (3) Chronic GERD: Code(s): K21.9 - Gastro-esophageal reflux disease without esophagitis Category: Medical Plan: Persistent reflux, dysphagia, regurgitation, and choking. Symptoms refractory to current PPI regimen, possible esophageal motility disorder or structural abnormality. Despite normal barium swallow April 2022, need to rule out complications (stricture, eosinophilic esophagitis, malignancy). Additional Tests: -EGD (to be performed with colonoscopy) Medications: -Continue pantoprazole, declined need for refills -Add famotidine at night PRN for breakthrough symptoms Encouraged to take pantoprazole as prescribed, taken at least 30-60 minutes before a meal. Education on GERD prevention : -Advised against heavy meals; encouraged small, frequent meals instead of large ones. - Instructed to remain upright for 2?3 hours after eating. - Advised to avoid late-night meals, spicy foods, caffeine, alcohol, known dietary triggers, and tight-fitting clothing. - Emphasis placed on gradual implementation of lifestyle changes to improve adherence and symptom control. Plan Follow up in 2 months or sooner as needed Time: I spent a total of 45 minutes on the date of encounter which includes: Preparing to see the patient (reviewed previous documentation, test results and medical history) Performing a medically appropriate exam and/or evaluation Ordering medications, tests, and procedures Documenting clinical information in the health record Orders: Orders C Reactive Protein 08/04/24 R19.7 - Diarrhea, unspecified Calprotectin, Fecal 08/04/24 R19.7 - Diarrhea, unspecified Fecal Fat Qualitative Today R19.7 - Diarrhea, unspecified Transglutaminase IgA 08/04/24 R19.7 - Diarrhea, unspecified Medications: New famotidine Take one tablet daily as needed for acid reflux 20 mg PO BEDTIME PRN 90 tabs 1RF GERD loperamide 4 mg orally PRN; 4 mg, followed by 2 mg after each loose stool; maximum: 16 mg/day 60 caps 0RF loose stool Coding Level of Care Code Established Pt Est Pt Level 5 (17873) Patient Type Established Diagnoses Colon cancer screening Z12.11 Diarrhea, unspecified type R19.7 Diarrhea type: unspecified type Chronic GERD K21.9
[2024-08-04 14:17] VITALS: BP 118/58; PULSE 68; O2SAT 95; BMI 37.9
--- OUTSIDE RECORDS SUMMARY | 2024-08-04 16:54 | XMS_ITS | Data Portability ---
Author Organization [place] [facility], [facility] Address [address] [place] [address] Care Team Providers Care Labor Relations Consultant Name Role Phone [employer] Primary Care Provider Assessment No assessment recorded. Plan of Treatment Reminders Order Date Submit Date Provider Last Modified By Organization Details Last Modified Time Details Appointments NEW PATIENT 15 2024 03:45P Jaskaran Pearza MD Not available Not available Not available RECHECK 15 2024 11:00A Jaskaran Perez CNP Not available Not available Not available Lab None recorded. Referral physical therapist referral - Evaluate & Rx Cervical Stabiliza tion Program 2024 025 [email or web address] Not available 07/25/2024 14:09:52 physical therapist referral - Evaluate & Rx Cervical Stabiliza tion Program 2024 025 Not available 05/17/2024 09:41:13 Procedures None recorded. Surgeries total shoulder arthropla sty (SURG) 2024 025 [email or web address] Not available 05/09/2024 17:22:45 Imaging XR, cervical spine, 2 or 3 view - cervical xrays rm 105 2024 025 [facility], [address], [place], [address], 05/17/2024 09:41:13 XR, shoulder, 2 or more view - 119, 4 views of bilateral shoulders . 2024 025 [email or web address] [facility], [address], [place], [address], 04/03/2024 15:41:20 Medication Orders cyclobenz aprine 10 mg tablet [address] [facility]) #[id number], [address] [place], [place], [phone], 07/20/2024 14:40:19 cyclobenz aprine 5 mg tablet [address]) #[id number], [address] [place], [place], [phone], 05/04/2024 10:19:10 Patient TargetsNo targets recorded. Patient InstructionsNo instructions recorded. Reason for Referral Physical Therapist Referral for Cervical radiculopathy Evaluate & RxCervical Stabilization Program Referring Physician: Sade Gonzalez, Orthopedic Surgery, Encounter Date: 05/04/2024 Physical Therapist Referral for Cervical radiculopathy Evaluate & RxCervical Stabilization Program Referring Physician: Sade Gonzalez Orthopedic Surgery, Encounter Date: 07/20/2024 Results Created Date Observation Date Name Description Value Unit Range Abnormal Flag Note LastModifiedBy Organization Detail LastModifiedTime 05/05/1905/04/2024 XR, cervi jose enrique spine , 2 or 3 view http:/ [email or web address] ?Encry pted=s hAaTro YD8dLq bEUv6g %2BXZw aYqtaq 0bqfl% 2Fg9IQ a4ajBk vP9nXo QUaueC m3YtLR FvZlgJ JJ8mAn HZtai3 6i3752 AC0KqY nqHWau mKiQtr Mw INTERFACE [facility] [address] [facility] [address], [place], [address], 05/04/2024 09:42:20 05/05/1905/04/2024 XR, cervi jose enrique spine , 2 or 3 view http:/ [email or web address] ?Encry pted=s hABarbarao YD8dLq bEUv6g %2BXZw aYqtaq 0bqfl% 2Fg9IQ a4ajBk vP9nXo QUaueC m3YtLR FvZlgJ JJ8mAn HZtai3 1g8331 AC0KqY nqHWau mKiQtr MwF INTERFACE [facility] [address] [facility] [address], [place], [address], 05/04/2024 09:42:23 Result Notes Documentation Provider Name and Address Organization Details Recorded Time Xr, Cervical Spine, 2 Or 3 View : [email or web address] Encrypted=zwAiQyePP3hTauA Uv6g%9SVPlgPjhyo2dddi%2Fg 1EQc3riLzpA4uWdYClyrSz7Ui RVEgOonHYD6aBeGMomo40l845 0DO8PsFfuPJdnpBjXkiJiE Not Available [facility] 05/04/2024 09:42: 21 Xr, Cervical Spine, 2 Or 3 View : [email or web address] 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 Procedures Surgical History Date Name Laterality Status Provider Name and Address Organization Details Recorded Time 5 Sports Shoulder Bilateral completed Paulette Cooper PA-C [address], [place], [address], [facility] 04/01/2024 14:17:24 4 Sports Shoulder Bilateral completed Kyle Cortez PA-C [address], [place], [address], [facility] 12/01/2023 21:23:23 4 Sports Shoulder completed Génesis Resendiz MD [address], [place], [address], [facility] 08/28/2023 11:33:23 Imaging Results None recorded. Procedure Notes None recorded. Medical Equipment None Reported. Allergies Allergen ID Allergen Name Allergen Category Reaction Reaction Severity Criticality Documentation Date Start Date Code Code System Note Provider Name and Address Organization Details Recorded Time 22687 Product containin g penicilli n (product) medicatio n Not available Not available Not available 04/13/20232008 97552 8001 SNOMED Aller gyRea ction : 'Skin React ion'; Not Available [facility] 4 11:38:28 03040 prednison e medicatio n Not available Not available Not available 04/13/20232021 8640 RxNorm Not Available [facility] 4 11:38:28 Medications Name Sig Start Date Stop Date Status Note LastModified by Organization Details LastModified Time calcium/vit hester d3 600-10 mg-mcg tabs 04/01 completed Not Available Not Available Not Available cyclobenzap rine 10 mg tablet TAKE 1 TABLET BY MOUTH THREE TIMES DAILY FOR 14 DAYS active Not Available Not Available No t Available atorvastati n 40 mg tablet TAKE 1 TABLET BY MOUTH DAILY 05/09 completed Not Available Not Available Not Available atorvastati n 80 mg tablet TAKE 1 TABLET BY MOUTH AT BEDTIME active Not Available Not Available No t Available albuterol sulfate 2.5 mg/3 mL (0.083 %) solution for nebulizatio n USE 1 VIAL VIA NEBULIZER EVERY 4 HOURS NEEDED FOR WHEEZING OR SHORTNESS OF BREATH OR COUGH 05/09 completed Not Available Not Available Not Available diltiazem CD 180 mg capsule,ext ended release 24 hr TAKE 1 CAPSULE BY MOUTH DAILY 08/27 completed Not Available Not Available Not Available sotalol 80 mg tablet TAKE 1 TABLET BY MOUTH TWICE DAILY active Not Available Not Available No t Available meloxicam 15 mg tablet TAKE 1 TABLET BY MOUTH EVERY DAY 08/27 completed Not Available Not Available Not Available metoprolol succinate ER 200 mg tablet,exte nded release 24 hr TAKE 1 TABLET BY MOUTH DAILY 04/01 completed Not Available Not Available Not Available clonazepam 0.5 mg tablet TAKE 1 TABLET BY MOUTH EVERY MORNING NEEDED 08/27 completed Not Available Not Available Not Available clonazepam 1 mg tablet TAKE ONE-HALF OF A TABLET BY MOUTH EVERY MORNING AND ONE TABLET EVERY NIGHT AT BEDTIME active Not Available Not Available No t Available meclizine 12.5 mg tablet TAKE 1 TABLET BY MOUTH 3 TIMES A DAY NEEDED FOR DIZZINESS FOR 3 DAYS active Not Available Not Available No t Available diltiazem CD 360 mg capsule,ext ended release 24 hr TAKE 1 CAPSULE BY MOUTH DAILY 04/01 completed Not Available Not Available Not Available sulfamethox azole 800 mg-trimetho prim 160 mg tablet TAKE 1 TABLET BY MOUTH TWICE A DAY FOR 5 DAYS active Not Available Not Available No t Available aspirin 81 mg tablet,stephen yed release TAKE 1 TABLET BY MOUTH EVERY DAY 04/01 completed Not Available Not Available Not Available pantoprazol e 40 mg tablet,stephen yed release TAKE 1 TABLET BY MOUTH DAILY active Not Available Not Available No t Available mirtazapine 30 mg tablet TAKE 1 TABLET BY MOUTH AT BEDTIME active Not Available Not Available No t Available oseltamivir 75 mg capsule 04/01 completed Not Available Not Available Not Available losartan 25 mg tablet TAKE 1 TABLET BY MOUTH DAILY active Not Available Not Available No t Available oxcarbazepi ne 600 mg tablet TAKE 1 TABLET BY MOUTH TWICE DAILY active Not Available Not Available No t Available furosemide 20 mg tablet TAKE 1 TABLET BY MOUTH DAILY active Not Available Not Available No t Available metoprolol succinate ER 25 mg tablet,exte nded release 24 hr TAKE 1 TABLET BY MOUTH EVERY DAY 08/27 completed Not Available Not Available Not Available fluticasone propionate 50 mcg/actuati on nasal spray,suspe nsion SHAKE LIQUID AND USE 2 SPRAYS IN EACH NOSTRIL DAILY active Not Available Not Available No t Available metformin ER 500 mg tablet,exte nded release 24 hr TAKE 2 TABLETS BY MOUTH TWICE DAILY active Not Available Not Available No t Available loratadine 10 mg tablet TAKE 1 TABLET BY MOUTH DAILY 05/04 completed Not Available Not Available Not Available oxycodone 5 mg tablet TAKE 1 TABLET BY MOUTH EVERY 6 HOURS NEEDED FOR PAIN FOR 3 DAYS 08/27 completed Not Available Not Available Not Available cyclobenzap rine 5 mg tablet TAKE 1 TABLET BY MOUTH EVERY DAY AT BEDTIME FOR 14 DAYS active Not Available Not Available No t Available oxcarbazepi ne OXcarbaze pine 600MG Tablet 02/06 completed Statu s: 'Disc ontin ued'; Not Available Not Available Not Available Vitamin D 08/27 completed Not Available Not Available Not Available calcium 600 mg (as carbonate)- vitamin D3 10 mcg (400 unit) tablet TAKE 1 TABLET BY MOUTH AT BEDTIME 04/01 completed Not Available Not Available Not Available Symbicort 160 mcg-4.5 mcg/actuati on HFA aerosol inhaler INHALE 2 PUFFS INTO THE LUNGS TWICE A DAY active Not Available Not Available No t Available cholecalcif jose juan (vitamin D3) 1,250 mcg (50,000 unit) capsule TAKE 1 CAPSULE BY MOUTH ONCE A WEEK active Not Available Not Available No t Available diclofenac 1 % topical gel APPLY 2 GRAMS TO THE AFFECTED AREA TOPICALLY FOUR TIMES DAILY active Not Available Not Available No t Available Eliquis 5 mg tablet TAKE 1 TABLET BY MOUTH TWICE DAILY active Not Available Not Available No t Available Jardiance 10 mg tablet TAKE 1 TABLET BY MOUTH EVERY MORNING active Not Available Not Available No t Available OneTouch Ultra2 Meter USE DIRECTED TO MONITOR BLOOD SUGAR 08/27 completed Not Available Not Available Not Available Vitals Date Recorded Body height Body mass index (BMI) Body weight Provider Name and Address Organization Details Last Updated DateTime 03/03/2024 165.1 cm 39.9 kg/m2 269023.17 g Megan Gomez [place] - [facility] 03/03/2024 12:51:52 Date Recorded Body height Body mass index (BMI) Body weight Provider Name and Address Organization Details Last Updated DateTime 04/01/2024 165.1 cm 39.9 kg/m2 649571.17 g Luis E Amesmo [facility] 04/01/2024 12:54:15 Date Recorded Body height Body mass index (BMI) Body weight Provider Name and Address Organization Details Last Updated DateTime 05/04/2024 165.1 cm 39.9 kg/m2 333568.17 g KEVIN DYLAN [facility] 05/04/2024 09:34:53 Date Recorded Body height Body mass index (BMI) Body weight Provider Name and Address Organization Details Last Updated DateTime 05/09/2024 165.1 cm 39.9 kg/m2 021715.17 g KEVIN DYLAN [facility] 05/09/2024 14:14:37 Date Recorded Body height Body mass index (BMI) Body weight Provider Name and Address Organization Details Last Updated DateTime 07/20/2024 165.1 cm 39.9 kg/m2 159499.17 g Angelic Hasmukh [facility] 07/20/2024 10:59:23 Social History None recorded. Functional Status None recorded. Mental Status None recorded. Family History Nothing Reported. Medical History Condition Response Allergies/Hayfever N Coronary Artery Disease N Anxiety/Depression N Breathing or lung disorders N Emphysema N Nerve Disorders Y Thyroid Problems N COPD N Pacemaker N Anemia N Kidney/Bladder Problems N Vascular Disease N Heart Trouble Y Heart Attack (AR) N Gastrointestinal Disease N Cholesterol Y Diabetes Y Autoimmune disease N Bleeding Disorder N Orthotics N Arthritis Y Seizures/Epilepsy N Blood Clot N AIDS/HIV N Congestive Heart Failure (CHF) N Acid Reflux (GERD) N Cancer N Stroke Y Asthma Y Circulation Problems Y Peripheral Vascular Disease N Sleep Apnea Y Hepatitis N Heart Disease N Rheumatoid Arthritis N Arrhythmia N Pulmonary Embolism N Headaches Y Fibromyalgia Y Hypertension Y Osteoporosis N Gynecological HistoryNo gynecological history recorded. Obstetrics History GPAL:G 0 P 0 0 0 0 Past Encounters Encounter ID Performer Location Encounter Start Date Encounter Closed Date Diagnosis/Indication Diagnosis SNOMED-CT Code Diagnosis ICD10 Code Diagnosis Note [id number] [facility] [address] [place] [address] 08/28/2023 10:44:29 09/28/2023 07:19:00 Bilateral shoulder joint pain 8443255118 5140952 M25.690 [id number] [facility] [address] [place] [address] 12/02/2023 13:01:38 12/18/2023 14:36:50 Osteoarthritis of joint of right shoulder region 9758500554 10263 M19.011 Osteoarthr itis of joint of left shoulder region 2317721470 45350 M19.141 [id number] [facility] [address] [place] [address] 03/03/2024 12:50:16 03/19/2024 09:50:12 Bilateral shoulder osteoarthritis 6458961114 92305 M19.011 M19.227 [id number] [facility] [address] [place] [address] 04/01/2024 12:44:52 04/18/2024 13:15:06 Pain of bilateral shoulder regions 7966217453 92408 M25.511 M25.512 Rotator cu ff arthropathy of right shoulder 8661800509 0505890 M75.101 M12.811 Reviewed patient's imaging and exam findings in detail with her. Reviewed that now that she has cleared her RSV infection and would make sense for her to follow-up with Dr. Ojeda to discuss whether she would be an operative candidate for reverse total shoulder replacemen t in the future. She does have extensive cardiac history which would require cardiac clearance but the for step would be to see if Dr. Ojeda would agree to move forward with operative interventi on. Offered cortisone injections today for symptomati c relief which she agrees to. We did perform these. Follow-up at Dr. Ojeda's next availabili ty. All questions and concerns were addressed and answered. Rotator cu ff arthropathy of left shoulder 8579811337 0426502 M75.102 M12.493 [id number] MD [facility] [address] [place] [address] 05/09/2024 13:57:44 05/24/2024 09:42:59 Osteoarthritis of right glenohumeral joint 4051755301 954201 M19.916 [id number] SADE GONZALEZ PA-C [facility] [address] [place] [address] 05/04/2024 09:28:04 05/17/2024 09:41:13 Cervical radiculopathy 19519151 M54.12 [id number] SADE GONZALEZ PA-C [facility] [address] [place] [address] 07/20/2024 10:45:14 07/25/2024 14:09:52 Cervical radiculopathy 93638594 M54.12 Health Concerns Section Related Observation LastModified by Organization Detai ls LastModified Time None Recorded Concern Status LastModified by Organization Details LastModified Time None Recorded Advance Directives Directive None Recorded Payers Insurance Date Sequence Insurance Name Policy Number Policy Reyes Covered Member ID Reyes Member ID Guarantor Name 07/25/2024 1 [facility] Kristin Madrid [id number] Kristin Madrid Notes Date Note Type Note Provider Name and Address Organization Details Recorded Time 03/03/2024 text/html I am seeing the patient today under the supervision of Dr. Mathews who was available but who did not see the patient.HPI:Patient returns follow-up bilateral shoulder pain. Her history is outlined by previous notes. She has significant discomfort about both shoulders. The left side is worse than the right according to the patient. She has multiple medical comorbidities. She did take a couple spills but landed on her back last month. She difficulty with overhead activities and pain at night. She has a history of A. fib with several cardioversions. She is due to see her diamond powder technician in the near future. She is a insulin-dependent diabetic and has significant fibromyalgia. She is crying in the office due to the pain.Past family, medical, social history and review of systems has been reviewed, updated and is located in the patient s chart.Examination:The patient is well appearing and in no apparent distress. Alert and oriented x3. Gait is symmetric. Her gentle active assistive range of motion is for elevation near 160 bilaterally with pain through mid range manipulations. External rotation to approximately 80 bilaterally. 4/5 strength of both shoulders. Peripheral, vascular, lymphatic examination, skin, neurological, coordination, reflexes, sensation are within normal limits.Impression:Sarai coburn rotator cuff tears of both shoulders. Multiple medical comorbidities and significant fibromyalgia.Plan:I reviewed the diagnosis with the patient. She states that the previous injections of cortisone have not helped her significantly. Therefore, we discussed her conservative options. Due to her multiple medical comorbidities at this point, I did not recommend going forward with surgery. She is on anticoagulants but I did put her on Voltaren gel. Tylenol recommended and discussed. Other topical treatments recommended and discussed. Activity modification discussed. If she wishes to try another cortisone injection happy to see her back. Otherwise, I think conservative management is the most appropriate treatment going forward. Kyle Cortez PA-C [address], [place], [address], [facility] 03/03/2024 13:08:21 04/01/2024 text/html I am seeing the patient under the general supervision of Dr. Cochran who was available but who did not see the patient. HPI:Patient is a 68 year old female who presents today with chief complaint of bilateral shoulder pain. Patient was recently seen by my colleague Kyle Cortez in February. She has known well-documented history of massive irreparable rotator cuff tears. She previously saw Dr. Resendiz and was scheduled for reverse total shoulder replacement but this was ultimately canceled due to hospitalization for RSV. Patient has been recovering. Does have substantial cardiac history including multiple ablations. She is on anticoagulants so initially was questionable whether she was an operative candidate or not. She states her diamond powder technician would likely clear her if Dr. Ojeda did agree for the surgery. She recently had a fall which worsened her pain. She would like to move forward with surgery if she could. States that cortisone injections do not provide her much if any relief. Paulette Cooper PA-C [address], [place], [address], [facility] 04/01/2024 14:17:52 05/04/2024 text/html I am seeing the patient today under the supervision of Dr. Lubin who was available but who did not see the patient. HPI: Patient is a pleasant 68-year-old female who presents for evaluation of ongoing neck pain and worsening right and left shoulder pain. Patient states she had a fall in March she was initially seen at [facility] on 03/24/2024 where she obtained a CT of the cervical spine without contrast. Patient states since this time she has been following up with a provider in our office in regards to the right shoulders and was trying to schedule a replacement however has had RSV and needs further clearance and follow-up. She states she is feeling overall better today she does have a follow-up with her diamond powder technician June 01. Patient states a history of a stroke that causes right sided weakness history of 3 cardioversions for A-fib is currently on a blood thinner. She states that she has neck pain with flexion and extension activities and pain that radiates from the right shoulder down into the hand and wrist. She has been taking Tylenol as needed at home without significant relief. TREATMENTS: As noted in HPI Past family, medical, social history and review of systems has been reviewed, updated and signed by me and is located in the patient s chart. Examination: The patient is well appearing, alert and oriented x3 and in no acute distress. Gait is antalgic patient ambulates with a cane at baseline. Patient is able to transition from seated to standing position with minimal difficulty. Inspection of the spine reveals no step off, deformity or overlying skin changes or atrophy. The spine is nontender over the paravertebral musculature. Nontender over the upper trapezius and SCM. Range of motion of the cervical spine is 80% of normal however endrange of motion in all 4 directions flexion extension right and left rotation causes pain in the neck without significant increase in radicular symptoms in the shoulder. Range of motion of the shoulder is significantly limited on the right to about 90 degrees of forward flexion with pain elicited. Strength in all upper extremity myotomes 5/5 in left upper extremity right upper extremity myotomes 4+/5 in shoulder abduction internal and external rotation, elbow flexion and extension. Wrist flexion extension 5/5. Sensation intact. Re exes normal 2+, brachial triceps, brachioradialis. Farmer's sign negative. X-rays ordered, obtained and reviewed at [facility], 2 views of the cervical spine reveals no fractures, instability or bony lesions. Degenerative disc disease noted Most pacifically at the levels of the 5 C6 C6-C7 there is some endplate spurring at the level of C4. Independent review of patient's CT scan dated March 24, 2024 most pacifically for evaluation of the cervical spine showed no acute evidence of fracture changes however patient does have loss of intervertebral disc space and osteophyte formation from C4-T1 Impression/Plan: Cervical degenerative disc disease with radicular symptoms patient also noted to have a history of rotator cuff tear arthropathy currently being treated and followed by a colleague of [facility] patient has a follow-up with Dr. Resendiz to again discuss potential surgical options. At this time in regards to her neck I would recommend starting some physical therapy in the time that she is able we discussed she should not be placed on any anti-inflammatory treatment as she is on a blood thinner at baseline for her A-fib. We did discuss starting and trialing a low-dose of a muscle relaxer at bedtime only we discussed risk and benefits of this medication such as drowsiness dizziness in the event she experiences any of these and worsening gait patterns I would recommend discontinuing this medication. She was prescribed cyclobenzaprine 5 mg. Plan to follow-up in regards to the cervical spine in 10 to 12 weeks however did discuss with the patient if she is in the midst of undergoing surgery for either shoulder we can adjust these appointments as needed I am here to assist i her moving forward. All her questions asked and answered. Patient expressed understanding with plan. [facility] speech recognition hyperbaric nurse software was used to create portions of this document. An attempt at proofreading has been made to minimize errors. Please call for corrections. SADE GONZALEZ PA-C [address] [place] [address] [address], [place], [address], [facility] 05/04/2024 10:38:16 05/09/2024 text/html Issue: Bilateral massive irreparable rotator cuff tearInterval History: This is a 68-year-old woman whom I have seen for massive, irreparable right rotator cuff tear. We had planned for a right reverse total shoulder arthroplasty in February 2023, but the patient contracted a severe case of RSV with multiple health complications, requiring her to cancel surgery. She continues to have pain and weakness in bilateral shoulders, worst on the right at this time. We have been managing symptoms with cortsione injections, most recently 04/05/2024. Notes increasing pain in the shoulder once more. Difficulty bringing the arm up overhead or behind her back. Occasional crepitus.Past family, medical, social history and review of systems have been reviewed and updated on the medical history sheet saved to the patient's chart. A 12-point review of systems is negative x12 except as noted above and/or on the medical history sheet.Examination: 68-year-old woman in no acute distress. 5 feet 4 inches, 240 lbs. On exam of the right upper extremity, skin over the shoulder is intact. Diffusely tender with touch over the shoulder. Active forward elevation 90, passive 165. Passive external rotation 60 with 10-degree ER lag (though questionable effort). No definite Hornblower's. internal rotation L4. Pain with rotator cuff testing all planes, with give way weakness, but likely a true 4/5 weakness with resisted ER. Yergason's causes pain at the hand were not holding onto it. In addition to pain in the shoulder, empty can causes pain at the elbow, where my hand is pressing down. Sensation intact in an axillary distribution. Fires EPL, FPL and intrinsics. Hand is warm and well-perfused.Imaging : 4 views of the right shoulder ordered and obtained at [facility] 08/28/2023 were reviewed during the visit. These demonstrate good preservation of any humeral joint space. Degenerative appearance to the greater tuberosity. Massive anterior acromial spur, type III acromion. Humeral head centered on axillary view. No proximal migration humeral head. 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 Right currently most symptomaticPlan: The patient is still struggling with respiratory and cardiac issues following her bout with RSV over the winter of 2022-05. She is seeing her diamond powder technician in May , and she is hopeful that she will be given clearance to proceed with surgery. If so, could proceed with surgery after 07/03/2024. Would do this at the hospital and plan for at least overnight stay. Will require medical and cardiac clearance as well as a 3D CT scan for preoperative planning purposes within a month of anticipated surgical date. [employer] speech recognition hyperbaric nurse software was used to create portions of this document. An attempt at proofreading has been made to minimize errors. Please call for corrections. Génesis Resendiz MD [address], [place], [address], [place] [facility] 05/09/2024 15:06:57 07/20/2024 text/html I am seeing the patient today under the supervision of Dr. Peraza who was available but who did not see the patient. HPI: Patient is a pleasant 68-year-old female who presents for evaluation of ongoing neck pain and worsening right and left shoulder pain. Patient states today she is only gone to 2-3 physical therapy visits that she has been sick repeatedly over the last few months. She continues to have 9 out of 10 pain reported in office today right sided radicular symptoms greater than left stating she has some numbness in bilateral elbows and pain into the wrist and forearm. She also again goes on to discuss her low back pain which it does appear she has an upcoming appointment for. Patient states that the muscle relaxer helped somewhat but not significantly. Denies any interval trauma. TREATMENTS: As noted in HPI Past family, medical, social history and review of systems has been reviewed, updated and signed by me and is located in the patient s chart. Examination: The patient is well appearing, alert and oriented x3 and in no acute distress. Gait is antalgic patient ambulates with a cane at baseline. Patient is able to transition from seated to standing position with minimal difficulty.Inspection of the spine reveals no step off, deformity or overlying skin changes or atrophy.The spine is nontender over the paravertebral musculature. Nontender over the upper trapezius and SCM.Range of motion of the cervical spine is 80% of normal however endrange of motion in all 4 directions flexion extension right and left rotation causes pain in the neck without significant increase in radicular symptoms in the shoulder.Range of motion of the shoulder is significantly limited on the right to about 90 degrees of forward flexion with pain elicited.Strength in all upper extremity myotomes 5/5 in left upper extremity right upper extremity myotomes 4+/5 in shoulder abduction internal and external rotation, elbow flexion and extension. Wrist flexion extension 5/5.Sensation intact.Re exes normal 2+, brachial triceps, brachioradialis.Hoffm an's sign negative. X-rays ordered, obtained and reviewed at [facility], 2 views of the cervical spine reveals no fractures, instability or bony lesions. Degenerative disc disease noted Most pacifically at the levels of the 5 C6 C6-C7 there is some endplate spurring at the level of C4. Independent review of patient's CT scan dated March 24, 2024 most pacifically for evaluation of the cervical spine showed no acute evidence of fracture changes however patient does have loss of intervertebral disc space and osteophyte formation from C4-T1 Impression/Plan: Cervical degenerative disc disease with radicular symptoms. Discussed with the patient as she has only had a few visits of physical therapy I would recommend an updated physical therapy referral to continue this care follow-up in 10 to 12 weeks and a refill of her cyclobenzaprine. Patient expressed understanding agreement with plan all her questions asked and answered. [employer] speech recognition hyperbaric nurse software was used to create portions of this document. An attempt at proofreading has been made to minimize errors. Please call for corrections. SADE GONZALEZ PA-C [address], [place], [address], [facility] - [facility] 07/20/2024 12:47:55 OBGyn Episode No OBEpisode recorded.
== END 2024-08-04 15:15 | disposition home or self-care (01) ==
LOC: HO.HGI 14:01
PROVIDERS: PCP Nurse Practitioner Family; Visit Provider Nurse Practitioner Family
DX: R19.7 Diarrhea, unspecified (principal); K21.9 Gastro-esophageal reflux disease without esophagitis
CPT/HCPCS: 99215

== ENCOUNTER 2024-10-03 12:47 | Outpatient (AMB) | payer OTHER, SELFPAY ==
--- OUTSIDE RECORDS SUMMARY | 2024-09-28 10:10 | XMS_ITS | Encounter Summary ---
Author Organization [facility] Address [address] [place] [address] Care Team Providers Care Grip Assembler Name Role Phone Hiral Leo Primary Care Provider [phone] Reason for Visit * Reason Comments Sleep Apnea Life supply Asthma Pre-op Exam Respiratory * Consultation (Routine) - Closed Specialty Diagnoses / Procedures Referred By Fernando gaytan Referred To Contact Pulmonology Diagnoses Obstructive sleep apnea (adult) (pediatric) Procedures [place] VISIT OFFICE OUTPATIENT ESTABLISHED MODERATE LEVEL Hiral Leo FNP [address] [place] [phone] Phone: tel: [facility] [address] [address] Phone: tel: fax: Referral ID Status Reason Start Date Expiration Date Visits Re quested Visits Authorized [id number] Closed 09/13/2024 09/13/2025 1 1 Encounter Details Date Type Department Care Team (Late st Contact Info) Description 09/28/2024 10:10 AM EDT Office Visit [facility] 175 [facility] [address] [place] [phone] Jennifer Carvajal NP 175 [facility] [address] [place], [place] [phone] Encounter for pre-operative respiratory clearance (Primary Dx); Moderate asthma without complication, unspecified whether persistent; Obstructive sleep apnea syndrome Social History Tobacco Use Types Packs/Day Years [...] on file Sexual Orientation Not on file documented as of this encounter Last Filed Vital Signs Vital Sign Reading Time Taken Comments Blood Pressure 132/74 09/28/2024 10:13 AM EDT Pulse 62 09/28/2024 10:13 AM EDT Temperature 35.8 C (96.4 F) 09/28/2024 10:13 AM EDT Respiratory Rate 18 09/28/2024 10:13 AM EDT Oxygen Saturation 98% 09/28/2024 10:13 AM EDT Inhaled Oxygen Concentration - - Weight 99.8 kg (220 lb) 09/28/2024 10:13 AM EDT Height 162.6 cm (5' 4 ) 09/28/2024 10:13 AM EDT Body Mass Index 37.76 09/28/2024 10:13 AM EDT documented in this encounter Ordered Prescriptions Prescription Sig Dispense Quantity Refills Last Filled Start Date End Date budesonide-formote roL (Symbicort) 160-4.5 mcg/actuation inhalerIndications :Moderate asthma without complication, unspecified whether persistent Inhale 2 puffs by mouth 2 (two) times a day. Rinse mouth with water after use to reduce aftertaste and incidence of candidiasis. Do not swallow. 1 each 2 09/28/2024 documented in this encounter Progress Notes * Jennifer Carvajal NP - 09/28/2024 10:10 AM EDT ADULT PULMONARY MEDICINE FOLLOW UP CHIEF COMPLAINT or REASON FOR CONSULTATION: Sleep Apnea (Life supply), Asthma, and Pre-op Exam (Respiratory) INITIAL VISIT AT THIS PULMONARY CLINIC 07/12/2019. See note for further details. IDENTIFIER Kristin Madrid is a 69 y.o. years old, female History of Present Illness The patient is a 69-year-old female who comes for evaluation of sleep apnea, asthma and preoperative clearance for spinal surgery. She reports experiencing shortness of breath and fatigue, similar to her mother's condition. She has asthma but only had to use her inhaler once in the past month due to a cold that was over 30 days ago. She does not experience congestion or coughing, although she occasionally has a dry cough. She uses Symbicort daily and albuterol once or twice a week. She also has a nebulizer, which she used about 2 months ago. She experiences hoarseness, for which she has consulted an ENT specialist. Shortness of breath occurs when walking, requiring her to stop after about 15 steps. She has not had any respiratory infections since 08/28/2024. She has not had any breathing issues that required emergency r oom visits. She is allergic to prednisone and has not been hospitalized since 2023. She was hospitalized for RSV in 12/2023 but no record of this in [facility]. She uses a CPAP machine daily for her sleep apnea, which she finds beneficial. She does not snore but experiences dry mouth in the morning. She does not gasp for air, choke, or cough during sleep with the mask on. She moves a lot during sleep and feels more energetic in the morning after using the machine. She does not use the mask when she has a cold as it makes her feel like she is going to choke. She is scheduled for surgery on 11/17/2024 for lumbar spinal stenosis. She has had previous surgeries and experienced headaches and nausea with anesthesia but no issues with breathing. She states will be performed by Dr. Peraza for spinal surgery but she does not exactly know what would be done or how long it is going to take. She states will have appointment with surgery for clearance where would be given information about surgery. She states no previous months respiratory infections. Asthma states with good control. ARISCAT shows mild to intermediate risk. She has a pinched nerve in her shoulder, which limits her mobility. She will discuss this repair after her back surgery due to falls. ALLERGIES: Allergies Allergen Reactions Other Seasonal allergies Penicillins Itching and Rash Prednisone Elevated blood sugar ACTIVE MEDICATIONS: Outpatient Medications Marked as Taking for the 09/28/24 encounter (Office Visit) with Jennifer Carvajal NP Medication Sig Dispense Refill albuterol 2.5 mg /3 mL (0.083 %) nebulizer solution Take 1 Vial by nebulization every 4 hours as needed for Wheezing, Shortness of Breath or Cough. albuterol HFA (PROAIR HFA ; PROVENTIL HFA ; VENTOLIN HFA) 90 mcg/actuation inhaler INHALE 2 PUFFS BY MOUTH EVERY 6 HOURS NEEDED FOR COUGH OR WHEEZING OR SHORTNESS OF BREATH alcohol swabs (Alcohol Wipes) pads, medicated Alcohol Swabs (ALCOHOL WIPES) 70 % Pads 1 Applicator by Does not apply route daily. apixaban (Eliquis) 5 mg tablet Take 1 tablet (5 mg total) by mouth 2 (two) times a day. 180 tablet 2 atorvastatin (LIPITOR) 40 mg tablet TAKE 1 TABLET BY MOUTH AT BEDTIME blood glucose control high,low (FreeStyle Control) solution Check FSG once daily for DM II without known complications blood sugar diagnostic (FreeStyle Lite Strips) test strip 1 Strip by In Vitro route daily. blood-glucose meter kit BLOOD GLUCOSE MONITORING SUPPL (ONE TOUCH ULTRA 2) W/DEVICE KIT Use to test suigars twice daily budesonide-formoteroL (Symbicort) 160-4.5 mcg/actuation inhaler Inhale 2 Puffs into the lungs 2 times daily. calcium carbonate-vitamin D3 600 mg-10 mcg (400 unit) chewable tablet Take by mouth. clonazePAM (KlonoPIN) 0.5 mg tablet Take 1 Tab by mouth every morning. clonazePAM (KlonoPIN) 1 mg tablet Take 1 Tab by mouth at bedtime. empagliflozin (Jardiance) 10 mg tablet Take 10 mg by mouth daily. fluticasone propionate (FLONASE) 50 mcg/actuation nasal spray 2 Sprays by Nasal route daily. glucose blood test strip ONE TOUCH BASIC STRIPS 1 Strip by Does not apply route 2 times daily. inhalational spacing device inhaler SPACER/AERO-HOLDING CHAMBERS (BREATHERITE VALVED MDI CHAMBER) DEVICE 1 Each by Does not apply route as needed for Other (with use of inhalers lancets lancets ONE TOUCH ULTRASOFT LANCETS Misc Use to check blood sugar twice daily losartan (COZAAR) 25 mg tablet Take 1 Tablet by mouth daily. metFORMIN XR (GLUCOPHAGE-XR) 500 mg 24 hr tablet Take 2 tablets (1,000 mg total) by mouth 2 (two) times a day. mirtazapine (REMERON) 30 mg tablet Take 1 Tablet by mouth at bedtime. miscellaneous medical supply misc Foot Care Products (SHOE HORN) Misc 1 Each by Does not apply route daily. To be used to help put on shoes miscellaneous medical supply misc Misc. Devices (EXTENDABLE BEDSIDE RAIL) Misc 1 Each by Does not apply route daily. OXcarbazepine (TRILEPTAL) 600 mg tablet Take 0.5 tablets (300 mg total) by mouth 2 (two) times a day. polyethylene glycol (MIRALAX) 17 gram packet Take 17 g by mouth daily as needed for Constipation. reservoir inhalation (INSPIREASE) device SPACER DEVICE-ADULT To be used prn with albuterol and with flovent PROVIDER ATTESTS THAT THE MEDICATION LIST WAS OBTAINED, REVIEWED AND UPDATED. REVIEW OF SYSTEMS: GENERAL: Negative for malaise, fever, chills, night sweats, unexpected weight changes, but + significant fatigue. HEENT: No changes in hearing or vision, no nose bleeds or nasal congestion or runny nose, sneezing,itchiness, clearing throat, and lump in the throat, +snoring, and dry mouth. NECK: Negative for lumps, goiter, pain and significant neck swelling RESPIRATORY: see HPI CARDIOVASCULAR: No chest pain or leg swelling or palpitations or orthopnea or paroxysmal night dyspnea. GI: No abdominal discomfort, blood in stools or black stools, or acid reflex : No dysuria, frequency, urgency, incontinence or nocturia MUSCULOSKELETAL: No joint pain or swelling, back pain, or muscle pain. SKIN: No lesions, rash or itching PSYCH: No sleep disturbance, anxiety, depression, claustrophobia or SI/HI. HEMATOLOGY/LYMPHOLOGY No prolonged bleeding, easy bruisability or swollen nodes ENDOCRINE: No cold or heat intolerance, polyuria, polydipsia or goiter. NEURO: No persistent headache, syncope, seizures, weakness or numbness, The remainder of the review of systems is noncontributory PAST MEDICAL HISTORY: Patient Active Problem List Diagnosis Date Noted Chest pain 07/13/2024 Chest pressure 06/01/2024 Pre-op evaluation 06/01/2024 (HFpEF) heart failure with preserved ejection fraction (CMS/HCC V24, CMS/HCC V28) 05/26/2023 Atrial fibrillation (CMS/HCC V24, CMS/HCC V28) 08/21/2022 Shortness of breath 12/13/2020 Palpitations 12/13/2020 Pulmonary hypertension ([facility] V24, [facility] V28) 12/12/2020 Nephrolithiasis 10/07/2019 Venous insufficiency of both lower extremities 08/03/2019 Varicose veins of both lower extremities 04/27/2019 DM (diabetes mellitus), type 2 with peripheral vascular complications ([facility] V24, [facility] V28) 04/27/2019 Cirrhosis ([facility] V24, [facility] V28) 07/02/2018 Osteoarthritis 12/16/2017 Post-operative infection 12/16/2017 Puncture wound of foot 12/16/2017 Spinal stenosis of lumbar region 11/17/2017 Vertigo 09/24/2017 Microalbuminuria 03/09/2017 Atypical squamous cells of undetermined significance (ASCUS) on Papanicolaou smear of cervix 03/09/2017 Bilateral chronic knee pain 11/26/2016 Nail abnormalities 11/26/2016 Depression 11/07/2016 Fibromyalgia 11/07/2016 LAURITA (obstructive sleep apnea) 11/07/2016 Asthma 11/07/2016 Anxiety 11/07/2016 Allergic rhinitis 11/07/2016 GERD (gastroesophageal reflux disease) 11/07/2016 Overactive bladder 11/07/2016 Hyperlipidemia 11/07/2016 Panic attacks 11/07/2016 Osteoarthritis of knees, bilateral 11/07/2016 Right heart failure due to pulmonary hypertension ([facility] V24, [facility] V28) 11/07/2016 Empty sella syndrome ([facility] V24) 11/07/2016 Past Surgical History: Procedure Laterality Date BACK SURGERY 11/26/2017 PROCEDURE: HISTORICAL BACK SURGERY; COMMENT: L4/L5 daisha.laminotomy,partial facetectomy,foraminotomy,removal synovial cyst R side,facet arthrodesis L4/L5 CARDIOVERSION 03/23/2023 Afib CATARACT EXTRACTION Bilateral PROCEDURE: HISTORICAL CATARACT REMOVAL COLONOSCOPY 03/07/2009 PROCEDURE: HISTORICAL COLONOSCOPY; COMMENT: Repeat 10 yrs OTHER SURGICAL HISTORY Right 05/23/2009 PROCEDURE: [place] SYNVCT TDN SHTH RAD FLXR TDN PALM&/FNGR EA TDN; COMMENT: ring finger, tenosynovectomy OTHER SURGICAL HISTORY 12/11/2017 PROCEDURE: [place] REMOVAL IMPLANT DEEP; COMMENT: Irrigation debridement lumbar wound w/ removal of posterior hardware OTHER SURGICAL HISTORY Right 09/20/2019 PROCEDURE: ---- OTHER ----; COMMENT: Right lower extremity endovenous laser ablation SOCIAL HISTORY: TOBACCO: Started 19 years old, Quit: 1999, but smoke socially on weekends 10 years. Patient is lessthen 5 PPY. ALCOHOL: past- weekend. 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 LUNGS FAMILY HISTORY: None. IMMUNIZATION: 2020 Influenza Vaccine never Pneumococcal 13 2007 Pneumococcal 23 05/2020 [facility] PULMONARY HOSPITALIZATION Hx: Never. Visit Vitals BP 132/74 Pulse 62 Temp 35.8 ??C (96.4 ??F) (Temporal) Resp 18 Ht 1.626 m (64 ) Wt 99.8 kg (220 lb) SpO2 98% BMI 37.76 kg/m?? Smoking Status Former BSA 2.04 m?? Physical Exam General Appearance: Obese(37.76). Alert and in no acute distress. Speaks in full sentences. No stridor. Eyes: Conjunctiva and sclera normal. Nose/Sinus: Nares normal. Septum midline. Mucosa pink with no drainage or sinus tenderness. Mouth/Throat: Oral mucosa is moist and pink without lesions or exudates. Mallampati class III Neck: Neck supple with normal circumference, thyroid symmetric and trachea midline. Respiratory: Vesicular sounds adequate bilaterally without wheezes, crackles, rhonchi, rales or rubs. Normal chest expansion and tactile fremitus. Cardiovascular: RRR with normal S1 and S2, no murmurs, no gallops, no JVD appreciated. Gastrointestinal: Bowel sounds normoactive, soft, non-tender. Lymphatic: No cervical and supra-clavicular lymphadenopathy. Extremities: No swelling noted. Skin: Warm and dry, no rash. Neurological: Awake, alert and oriented x 3, no focalization. DIAGNOSTIC DATA: Peripheral oxygen saturation or SpO2 on RA today is 98%. CARDIOPULMONARY TEST: Last Pulmonary function Test showed: Date: March 19, 2021 Spirometry: FVC is 103% predicted. FEV1 is 121% predicted. FEV1/FVC is 117. There is no significantresponse to bronchodilator. Lung volumes: TLC is 94% predicted. RV 70% predicted. Diffusing capacity: The uncorrected diffusing capacity is normal at 18 or 83% predicted. Interpretation: Normal pulmonary function studies NIOX is 15 ppm RADIOLOGIST IMAGING: Chest Xray 2Viewes done at [facility] 01/22/2023 Impression: No pneumonia or CHF. Consistant with chronic bronchittis or asthma SLEEP TEST: [facility] Polysomnogram: Date 09/05/2011; Wt 264#; BMI 44; SE 84%; SM 85%; REM 16%; (AHI 8), REM ( AHI 35), Central apneas 0; Obstructive apneas 0; Mixed apneas 0; hypopneas 44; ; average oxygen saturation was 97% and oxygen jin was 92%. ASSESSMENT: 1. Encounter for pre-operative respiratory clearance 2. Moderate asthma without complication, unspecified whether persistent 3. Obstructive sleep apnea syndrome Assessment & Plan 1. Asthma: Controlled on current therapy. Mild symptoms but gets dyspnea on exertion not new more likely due to heart since her testing does not show significant abnormalities. - Use Symbicort 160/4.5 2 puffs twice daily as prescribed. - Use Albuterol 2 puffs as needed but not more then every 4-6 hours for respiratory symptoms. - Use nebulizer with severe symptoms. . - Chest x-ray at [facility] to ensure no underlying issues before surgery. 2. Sleep Apnea: Per patient uses daily but AirView does not show any data. States feels better on machine and has no symptoms with better sleep and energy during day then prior to CPAP. She also has lost 40lb since study and feels that mask is not fitting properly. - Contact [employer] for compliance and therapy report, as well as for mask change. - Use CPAP machine daily. - Contact CPAP supply provider for a different mask size due to weight loss. - Bring CPAP machine to the hospital for use during stay. 3. Preoperative Clearance. ARISCAT risk score, depending on time under anesthesia, will be mild to moderate risk of intraoperative respiratory complications. ARISCAT index is: 19-26. low (<26 points), Intermediate (26-44 points) and high (> 45 points;pulmonary risk after major no cardiac surgery is around 1.6%, 13.3% or 42.1%. Patient has no absolute contraindications for spinal surgery from pulmonary point of view. She willbe cleared for surgery pending on Chest Xray. Some Recommendations including Preoperative Inspiratory muscle training ( Incentive Inspirometry) Inhaled ipratropium and albuterol for all patients with clinically significant COPD/asthma or dyspnea. Preoperative glucocorticoids for patients with COPD or asthma who are not optimized and whose airway obstruction has not been maximally reduced Preoperative education regarding lung expansion maneuvers including and chest physical therapy Intraoperative Avoid neuromuscular agents, if it will be used, then other than pancuronium Choose alternative procedure lasting less than three to four hours when possible Regional anesthesia (nerve block), when this is an option. Postoperative Incentive Spirometry NIVPP like CPAP/BIPAP Epidural analgesia in place of parenteral opioids Well pain control to prevent atelectasis and superficial respiration. Consult with Pulmonary Dept. as inpatient if the patient has any pulmonary exacerbation. - Scheduled for lumbar spinal stenosis surgery on 11/17/2024. - Oxygen saturation 98%. Lung sounds clear. - Chest x-ray at [facility] to complete preoperative clearance. - Bring CPAP machine to the hospital. Follow-up - Chest x-ray at [facility]. - The patient was educated about respiratory problems, where assessment and plan was reviewed and explained, some educational material about his pulmonary problems was given with the discharge summary. All questions were answered.The above assessment and plan was discussed with Clovis Rincon MD ( ). Diagnostic testing results were available for review during the discussion. Based on physical exam, symptomatology, tests requested and baseline pulmonary evaluation/disease, I instructed the patient to follow-up with me in 3 months as needed in the interim if other concerns/worsening symptoms. - Follow up with [facility] Del [facility] for the other co-morbidities. Thanks [facility] Real for allowing me to have the opportunity to assist in the care of this patient. I have obtained verbal consent from Kristin Madrid prior to the recording. I have advised Kristin Julius that she may refuse the recording and require the recording to be turned off at any time during this encounter. documented in this encounter Plan of Treatment Upcoming Encounters Date Type Department Care Team (Late st Contact Info) Description 12/14/2024 1:25 PM EST Office Visit Pulmonolgy - [address] [place] [address] Jennifer Carvajal NP [address] [place] [address] 12/15/2024 2:40 PM EST Office Visit [facility] - [address] [place] [id number] Alejandra Alvarado NP [address] [place] [address] Scheduled Orders Name Type Priority Associated Diagnoses Orde r Schedule XR Chest 2 Views Imaging Routine Encounter for pre-operative respiratory clearance Moderate asthma without complication, unspecified whether persistent Expected: 09/28/2024, Expires: 09/28/2025 documented as of this encounter Visit Diagnoses Diagnosis Encounter for pre-operative respiratory clearance- Primary Moderate asthma without complication, unspecified whether persistent Obstructive sleep apnea syndrome Obstructive sleep apnea (adult) (pediatric) documented in this encounter Discontinued Medications Medication Sig Discontinue Reason Start Date End Da te budesonide-formoteroL (Symbicort) 160-4.5 mcg/actuation inhaler Inhale 2 Puffs into the lungs 2 times daily. Reorder 03/27/2023 09/28/2024 documented as of this encounter Orders General Supply Count Last Ordered Date First Or dered Date CPAP DME 1 09/28/2024 documented in this encounter Care Teams Grip Assembler Relationship Specialty Start Date End Date Hiral Leo FNP [address] [place] [phone] PCP - General Nurse Practitioner 06/01/24 documented as of this encounter
--- NOTE | 2024-10-03 12:52 | A.OFFPC_ITS ---
Vital Signs 10/03/24 13:01 Height 5 ft 3 in Weight 221 lb BMI 39.1 BP 122/70 Blood Pressure Location Lt brachial Position Sitting Respiration 12 Pulse 58 Pulse Source Pulse Oximeter Temp 97.1 F Temp Source Oral Pulse Oximetry (%) 98 Oxygen Delivery Method Room Air Intake Visit Reasons: back issue Intake Note: Patient c/o back pain and knee px. Patient is having issues with sitting down at home and was wondering if insurance can cover a recliner seat that helps her getting up from a seat. Patient is wondering about zepbound for her dm. 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 Allergies Penicillins Allergy (Intermediate, Verified 10/03/24 13:13) itchy, hives lisinopril Adverse Reaction (Intermediate, Verified 10/03/24 13:13) Cough prednisone Adverse Reaction (Intermediate, Verified 10/03/24 13:13) high blood pressure Medication List - Last Reconciled 10/03/24 by Hiral Leo, PET NUTRITION SPECIALIST- albuterol sulfate 90 mcg/actuation 2 puffs inhalation BID 30 days albuterol sulfate 2.5 mg (3 mL) inhalation Q6H PRN 1 month apixaban 5 mg PO BID atorvastatin 80 mg PO BEDTIME back brace As directed LUMBAR SACRAL SUPPORT WITH OVERLAP ABD BELT 10 , SIZE XXXL blood pressure monitor As directed blood sugar diagnostic (Passenger Baggage XpressTouch Ultra Test strips) test blood sugar two to three time a day blood-glucose meter (Passenger Baggage XpressTouch Ultra2 Meter) As directed budesonide-formoterol 160-4.5 mcg/actuation (Symbicort) inhalation cholecalciferol (vitamin D3) 1,250 mcg PO QWEEK clonazepam 1 mg PO BEDTIME PRN clonazepam 0.5 mg PO QAM empagliflozin (Jardiance) 10 mg PO QAM 30 days famotidine 20 mg PO BEDTIME PRN furosemide mg PO DAILY lancets (Passenger Baggage XpressTouch UltraSoft Lancets) check blood sugar twice a day and as needed for s/s of dm lancets (Passenger Baggage XpressTouch Delica Plus Lancet) As directed loperamide 4 mg orally PRN; 4 mg, followed by 2 mg after each loose stool; maximum: 16 mg/day loratadine 10 mg PO DAILY losartan 25 mg PO DAILY 90 days metformin ER 1,000 mg (2 x 500 mg) PO BID 30 days mirtazapine 30 mg PO BEDTIME miscellaneous medical supply As directed, RAISED TOILET SEAT WITH ARMS miscellaneous medical supply incontinence prod, disp large underpads as directed; miscellaneous medical supply disposable linner/shield/guard/pad/undergarment for incontinence as directed; miscellaneous medical supply skin sealents, protectants, moisturiszre, ointments any type and size as directed; miscellaneous medical supply Aleotouch wipes, frag free 110/pk incont supply as directed; miscellaneous medical supply diabetic shoes as directed; oxcarbazepine 600 mg PO BID pantoprazole 40 mg PO DAILY polyethylene glycol 3350 (Miralax) 238 grams PO ONCE 1 day Shower Chair As directed BATH BENCH sotalol 80 mg PO BID [traveling bed rail standard 5000 As directed] Tobacco use date assessed: 10/03/24 Fall risk assessment: 2 + Falls in past year Last assessed Fall Risk: 10/03/24 Dental Screening Dental Screen Date: 10/03/24 Did you have a dental visit in the last 12 months?: Yes Did you have a dental problem in the last 6 months where you did not have access to dental care?: No Was dental information given to patient?: Patient has dentist HPI HPI Comments History of Present Illness Details 69-year-old female with AFib, GERD, hype rlipidemia, bipolar disorder, mild intermittent asthma, CVA (2002), seasonal allergies, diabetes, hypertension, urinary incontinence, LAURITA, fibromyalgia, pulmonary hypertension, nephrolithiasis, venous insufficiency of bilateral lower extremities, cirrhosis, osteoarthritis, microalbuminuria, Anxiety with panic,MDD, CHF, empty sella syndrome, former smoker, osteopenia Status post right lower extremity endovenous laser ablation 2019, L4-L5 bilateral laminectomy, partial facetectomy, removal of synovial cyst on the right side in 2017, cataract removal bilat, trigger finger release on the right 2009 PFT 03/19/21 FVC is 103% of predicted, FEV1 is 121% predicted, FEV1/FEC is 117. No significant response to bronchodilator. TLC 94% predicted, RV 70% predicted. Uncorrected diffusion capacity is normal 18 or 83% Specialists GI Cardiology Podiatry Vascular Pulmonology Health maintenance Pap ASCUS 2016 normal, 2020 NIL negative HPV Mammogram 05/2023 WNL DEXA 06/05/23 Osteopenia based on the lowest T-score value of -2.0 in the femoral neck applying World Health Organization criteria. Colon referred again to [facility] [place] today: Wants a lift chair Reports needs back surgery I dont have any notes on this. Asthma is controlled Htn controlled Reports taking meds. Review of Systems - General: Reports feeling sleepy. - Respiratory: Reports mild intermittent asthma. - Musculoskeletal: Reports osteoarthriti s, pain with dressing, and falls. - Psychiatric: Reports anxiety with sandrine c disorder, depression, cognitive decline affecting memory. - Gastrointestinal: Reports history of G ERD and abdominal discomfort. - Genitourinary: Reports urinary inconti nence, history of nephrolithiasis. - Cardiovascular: Reports atrial fibrill ation, hypertension, pulmonary hypertension, CHF. - Dermatologic: Reports venous insuffici ency in lower extremities. Physical Exam General: Well developed, well nourished, in no acute distress. Appears stated age. Head: Normocephalic, atraumatic. Eyes: Pupils are equal, round and reactive to light and accommodation. Conjunctivae are clear. Vision grossly normal. Lungs: Clear to auscultation bilaterally. No rales, rhonchi or wheeze noted. Good air flow in all can. Heart: Regular rate and rhythm. No murmurs, click, rubs or gallops are noted. Pulses: Peripheral pulses are equal and palpable bilaterally. Extremities: No clubbing, cyanosis nor edema is noted. + varicosities ble Neurologic: Gait and station normal. Cranial Nerves 2-12 intact. Motor strength grossly symmetrical and intact. No sensory loss. Balance normal. . Psych: Normal eye contact, affect and mood appropriate, and normal interactions. Patient is alert and appropriate to context. . Plan Request sent to nursing staff to arrange for lift chair she should request surgeon notes be sent to me for review cont all meds and care w/ care team RTO as scheduled, sooner as needed. Total time spent caring for the patient today was 40 minutes. This includes time spent before the visit reviewing the chart, time spent during the visit, and time spent after the visit on documentation, reviewing laboratory results, diagnostic imaging, medications, performing a medically necessary evaluation, counseling on diagnoses, care coordination, ordering appropriate tests, ordering appropriate medications, review of tests performed by other providers, reporting test results with the patient, communication with other healthcare providers. [facility] Medical History (Updated 10/03/24 @ 13:16 by Hiral Leo, [facility]) Back pain with left-sided sciatica Chronic low back pain Chronic pain of both shoulders Constipation by delayed colonic transit Diarrhea History of cardioversion No pertinent past medical history Surgical History History of back surgery History of hand surgery Family History Other Mental health disorder Substance use disorder Social History Household Members: Other Housing: Apartment Are you a primary summer child caregiver to a significant other at home: No Do you presently have visiting nurse or other home services: Yes 75 years or older and lives alone: No Alcohol intake: never Patient Tobacco Use Status: Former Tobacco user Tobacco use type: Cigarette e-Cigarette/Vaping Use: Never Used Second Hand Smoke Exposure: Yes Special jeannette needs: No Agree to transfusion: Yes service: No Current occupational status: disabled Current occupational exposures/hazards: No Sexual orientation: Straight/Heterosexual Gender identity: Female Cognitive needs: No (cane) Hearing needs: No (hearing aide) Vision needs: No (Glasses) Questionnaire Thrive Questionnaire Date Thrive assessed: 02/23/24 I am a: Patient What is your living situation today?: I choose not to answer this question Within the past 12 months, did the food you bought not last and you didn't have the money to get more?: I choose not to answer this question Within the past 12 months, did you worry whether your food would run out before you got money to buy more?: I choose not to answer this question Do you have trouble paying for medicines?: I choose not to answer this question Do you have trouble getting transportation to medical appointments?: I choose not to answer this question Do you have trouble paying your heating and electricity bill?: I choose not to answer this question Do you have trouble taking care of your child, family member or friend?: I choose not to answer this question Do you have trouble with day-to-day activities such as bathing, preparing meals, shopping, managing finances, etc.?: I choose not to answer this question Are you currently unemployed and looking for a job?: I choose not to answer this question Are you interested in more education?: I choose not to answer this question Please select the resources that you would like help with: None Currently or been in a relationship where the following occur: I choose not to answer THRIVE Score: 0 MATTHEW-7 AMB Questionnaire MATTHEW-7 Date MATTHEW - 7 assessed: 06/10/24 Source: Developed by Drs. Jose D Lundy, Madalyn Henry, Marty Carrasco and colleagues, with an educational simeon from 5o9. ACT Questionnaire In the past 4 weeks, how much of the time did your asthma keep you from getting as much done at work, school or at home?: None of the time During the past 4 weeks, how often have you had shortness of breath?: Not at all During the past 4 weeks, how often did your asthma symptoms wake you up at night or earlier than usual in the morning?: Not at all During the past 4 weeks, how often have you had to use your rescue inhaler or nebulizer medication?: Not at all How would you rate your asthma control during the past 4 weeks?: Completely controlled ACT Interpretation: Negative Score: 25 Physical exam (Primary Care) Vital Signs: Last Vital Signs Temp 97.1 F 10/03/24 13:01 Pulse 58 10/03/24 13:01 Resp 12 10/03/24 13:01 BP 122/70 10/03/24 13:01 Pulse Ox 98 10/03/24 13:01 Oxygen Delivery Method Room Air 10/03/24 13:01 BMI result Body Mass Index 39.1 BMI Assessment/Plan discussion: High BMI High, discussed plan: lifestyle Tobacco/Smoking Status: Tobacco use Status Tobacco use date assessed 10/03/24 10/03/24 12:54 Patient Tobacco Use Status Former Tobacco user 10/03/24 12:54 Tobacco use type Cigarette 10/03/24 12:54 e-Cigarette/Vaping Use Never Used 10/03/24 12:54 Thrive Assessment: Date of Thrive Assessment Date Thrive assessed 02/23/24 10/03/24 12:54 Currently or been in a relationship where the following occur: I choose not to answer Coding Level of Care Code Est Pt Level 5 (20157) Complex EM visit Add On G2211 Diagnoses Multiple joint pain M25.50 Chronic midline low back pain without sciatica M54.50; G89.29 Back pain laterality: midline Sciatica presence: without sciatica Limited mobility Z74.09 Multiple falls R29.6 Asthma, mild intermittent, well-controlled J45.20 Obesity (BMI 30-39.9) E66.9 Primary hypertension I10 Hypertension type: primary hypertension Additional Codes Asthma Control Questionnaire - ACT Interpretation: Negative ([id number]) Assessment & Plan Assessment & Plan (1) Multiple joint pain: Code(s): M25.50 - Pain in unspecified joint Category: Medical (2) Chronic low back pain: Code(s): M54.50 - Low back pain, unspecified; G89.29 - Other chronic pain Category: Medical Qualifiers: Back pain laterality: midline Sciatica presence: without sciatica Qualified Code(s): M54.50 - Low back pain, unspecified; G89.29 - Other chronic pain (3) Limited mobility: Code(s): Z74.09 - Other reduced mobility Category: Medical (4) Multiple falls: Code(s): R29.6 - Repeated falls Category: Medical (5) Asthma, mild intermittent, well-controlled: Comment: Managed by pulmonology at [facility]. Doing well on p.r.n. albuterol; Symbicort Code(s): J45.20 - Mild intermittent asthma, uncomplicated Category: Medical (6) Obesity (BMI 30-39.9): Code(s): E66.9 - Obesity, unspecified (7) HTN (hypertension): Comment: Blood pressure at goal on losartan 25 mg p.o. daily and sotalol 80 mg p.o. b.i.d. Code(s): I10 - Essential (primary) hypertension Category: Medical Qualifiers: Hypertension type: primary hypertension Qualified Code(s): I10 - Essential (primary) hypertension Plan .
[2024-10-03 13:01] VITALS: BP 122/70; PULSE 58; RESP 12; TEMP 36.2; O2SAT 98; BMI 39.1
== END 2024-10-03 13:30 | disposition home or self-care (01) ==
LOC: HO.HMCFM 12:47
PROVIDERS: PCP Nurse Practitioner Family; Visit Provider Nurse Practitioner Family
DX: M25.50 Pain in unspecified joint (principal); E66.9 Obesity, unspecified; Z68.39 Body mass index [BMI] 39.0-39.9, adult; M54.50 Low back pain, unspecified; G89.29 Other chronic pain; Z74.09 Other reduced mobility; R29.6 Repeated falls; J45.20 Mild intermittent asthma, uncomplicated; I10 Essential (primary) hypertension

== ENCOUNTER → 2024-10-03 12:47 | Outpatient (BNVA) | payer OTHER, SELFPAY | PROVIDERS: PCP Nurse Practitioner Family; Visit Provider Nurse Practitioner Family | DX: K21.9 Gastro-esophageal reflux disease without esophagitis (principal); I48.91 Unspecified atrial fibrillation; E78.5 Hyperlipidemia, unspecified; F31.9 Bipolar disorder, unspecified; J45.20 Mild intermittent asthma, uncomplicated; J30.2 Other seasonal allergic rhinitis; E11.9 Type 2 diabetes mellitus without complications; I10 Essential (primary) hypertension; R32 Unspecified urinary incontinence; M25.50 Pain in unspecified joint; M54.50 Low back pain, unspecified; G89.29 Other chronic pain; R29.6 Repeated falls; E66.9 Obesity, unspecified; Z86.73 Personal history of transient ischemic attack (TIA), and cerebral infarction without residual deficits; Z74.09 Other reduced mobility; Z68.39 Body mass index [BMI] 39.0-39.9, adult | CPT/HCPCS: 96160 ==

== ENCOUNTER 2024-10-04 11:56 | Outpatient (AMB) | payer OTHER, SELFPAY ==
[2024-10-04 12:02] VITALS: BP 131/54; PULSE 67; O2SAT 98; BMI 39.1
--- NOTE | 2024-10-04 12:02 | A.OFFVIS_ITS ---
Vital Signs 10/04/24 12:02 Height 5 ft 3 in Weight 221 lb BMI 39.1 BP 131/54 L Blood Pressure Location Lt brachial Position Sitting Pulse 67 Pulse Oximetry (%) 98 Oxygen Delivery Method Room Air Intake Visit Reasons: diarrhea Intake Note: Patient follow up for diarrhea and Chronic GERD, no fecal and lab results. Patient cc: N/V, upper abdominal pain and bloating, Chronic GERD, patient is getting a lot of saliva on her mouth in the morning, between diarrha and constipation and some swallowing difficulty. Certified Residential Medication Aide Required: No Allergies Penicillins Allergy (Intermediate, Verified 10/04/24 12:02) itchy, hives lisinopril Adverse Reaction (Intermediate, Verified 10/04/24 12:02) Cough prednisone Adverse Reaction (Intermediate, Verified 10/04/24 12:02) high blood pressure HPI HPI diarrhea: Details: Patient is a 69-year-old female with PMH of bipolar, diabetes, AFib, CHF, hypertension, hyperlipidemia, asthma and GERD. Since the last visit in late July, the patient reports ongoing diarrhea with episodes influenced by dietary habits. Diarrheal episodes are often classified as type 6 on the Edmonson Stool Chart, while non-diarrheal stools are described as type 2, occasionally alternating in consistency during bowel movements. Symptoms of abdominal pain, particularly with straining, improve after defecation. The patient denies significant worsening or improvement overall. The reflux symptoms are reportedly controlled with pantoprazole, which the patient takes daily without missing doses. Swallowing difficulties, including choking on pills and saliva accumulation, persist but are somewhat mitigated. The patient reports hair loss, which has been evaluated by primary care without findings of abnormal thyroid function. Patient continues to work on weight management but states intermittent gains. No recent hospitalizations or acute events reported. [facility] Medical History (Updated 10/04/24 @ 13:18 by [place] French CNP) Urinary incontinence IBS (irritable bowel syndrome) Elevated LFTs Diarrhea Chronic low back pain Chronic pain of both shoulders Back pain with left-sided sciatica Constipation by delayed colonic transit History of cardioversion No pertinent past medical history Surgical History History of hand surgery History of back surgery Family History Other Mental health disorder Substance use disorder Social History Household Members: Other Housing: Apartment Are you a primary patient care associate to a significant other at home: No Do you presently have visiting nurse or other home services: Yes 75 years or older and lives alone: No Alcohol intake: never Patient Tobacco Use Status: Former Tobacco user Tobacco use type: Cigarette e-Cigarette/Vaping Use: Never Used Second Hand Smoke Exposure: Yes Special jeannette needs: No Agree to transfusion: Yes service: No Current occupational status: disabled Current occupational exposures/hazards: No Sexual orientation: Straight/Heterosexual Gender identity: Female Cognitive needs: No (cane) Hearing needs: No (hearing aide) Vision needs: No (Glasses) Review of Systems Const Reports as per HPI ENT Reports as per HPI Card Reports as per HPI Resp Reports as per HPI GI Reports as per HPI Reports as per HPI Physical Exam Vital Signs: Last Vital Signs Pulse 67 10/04/24 12:02 BP 131/54 L 10/04/24 12:02 Pulse Ox 98 10/04/24 12:02 Oxygen Delivery Method Room Air 10/04/24 12:02 BMI result Body Mass Index 39.1 Const General: healthy appearing, no acute distress and well developed Nutritional Appearance: average body habitus Orientation/consciousness: patient oriented x3 HEENT Head: Yes normal to inspection, Yes normocephalic and Yes atraumatic Face and sinus: Yes normal facial exam Eyes General: appearance normal, both eyes and all related structures Neck Neck: Yes normal visual inspection Resp Effort & Inspection: normal respiratory effort, able to speak in complete sentences, no tracheal deviation and symmetric chest movement Cardio Jugular venous distension: no JVD Heart sounds: Murmur heart sound present Neuro General: patient oriented x3 Gait exam (Neuro): Normal gait present Psych Appearance: grossly normal Mental Status: mental status grossly normal Speech and movement: Normal speech and movement present Affect: normal affect Attitude: cooperative Thought process: Normal thought process present Thought content: Normal thought content present Insight: Good insight present (Psych) Judgement: Good judgement present (Psych) Assessment & Plan Assessment & Plan (1) IBS (irritable bowel syndrome): Code(s): K58.9 - Irritable bowel syndrome, unspecified Category: Medical Qualifiers: Irritable bowel syndrome type: with both diarrhea and constipation Qualified Code(s): K58.2 - Mixed irritable bowel syndrome Plan: Persistent symptoms alternating between diarrhea (type 6) and constipation (type 2), triggered by dietary factors. Need for symptom stabilization and dietary optimization. Additional Testing: Pending stool test for further evaluation. Medications: Initiate fiber supplement (e.g., tablets), starting with 1 tablet daily for 2 weeks, then increasing to 2 tablets daily for maintenance. Lifestyle Recommendations: -Reinforce low FODMAP diet with specific guide provided in Kiswahili. Advised patient to refer to pages 5 (foods to try) and 6 (foods to avoid). -Maintain hydration: continue drinking water; limit juices and ensure any juice is diluted to reduce sugar intake. Referrals / Coordination of Care: None at this time. Follow-Up Plan: Review stool study results and symptoms at the next visit, planned after completion of endoscopy/colonoscopy. (2) Chronic GERD: Code(s): K21.9 - Gastro-esophageal reflux disease without esophagitis Category: Medical Plan: Controlled on pantoprazole, but patient reports ongoing challenges with swallowing pills and saliva accumulation. Normal swallow study 04/2022. Upper endoscopy required to evaluate for anatomical contributors to symptoms. Additional Testing: Confirmed scheduling for upper endoscopy. Medications: No changes; pantoprazole 40 mg daily continued. Lifestyle Recommendations: Suggested taking medications with applesauce or pudding to ease swallowing. Referrals / Coordination of Care: GI procedural project scheduler to secure appointments for upper endoscopy and colonoscopy. Follow-Up Plan: Reassess post-procedure and determine additional steps based on findings. For (3) Elevated LFTs: Code(s): R79.89 - Other specified abnormal findings of blood chemistry Category: Medical Plan: Stable, but further investigation required based on mildly elevated hepatic markers in past results. Unable to locate imaging indicating cirrhosis. Need to Rule out advanced pathology beyond fatty liver; monitor progression. FIB-4 Index (10/04/2024): 3.62 (inputs: age 69, AST 37, ALT 38, platelets 116 ? 10?/?L), consistent with likely advanced fibrosis (METAVIR F3-F4; Zeina 4-6). Additional Testing: -Obtain liver function tests (LFTs) and additional labs while fasting to assess for inflammatory or fibrotic progression. -Ultrasound deferred for now, pending lab findings. Medications: Continue management of metabolic risk factors: diabetes, hypercholesterolemia, and obesity. Lifestyle Recommendations: Emphasize weight loss, glycemic control, and lipid management. Referrals / Coordination of Care: None at this time. Follow-Up Plan: Follow up after laboratory evaluation and determine if imaging is necessary. (4) Colon cancer screening: Code(s): Z12.11 - Encounter for screening for malignant neoplasm of colon Category: Medical Plan: Due for routine screening. Previous colonoscopy records not available at time of visit. Medications: -prescriptions for laxative tablets and MiraLax sent to pharmacy; instructions for Gatorade purchase and clear liquid diet given. -understands diabetes medications and apixaban will need to be held days prior to procedure. Nurse to review med holds per protocol. Patient educated on scheduling process, procedure preparation, including avoiding certain foods and ensuring clear liquid intake Advised on necessity for ride post-procedure due to sedation. (5) Urinary incontinence: Code(s): R32 - Unspecified urinary incontinence Category: Medical Qualifiers: Urinary Incontinence type: unspecified incontinence Qualified Code(s): R32 - Unspecified urinary incontinence Plan: Patient reports recent episode of significant urinary incontinence. Rationale for Management Changes: Further evaluation needed to determine impact on quality of life. Additional Testing: Patient encouraged to discuss urological workup with primary care. Referrals / Coordination of Care: Continue reporting to primary care Plan Follow-up after endoscopy or sooner as needed Time: I spent a total of 40 minutes on the date of encounter which includes: Preparing to see the patient (reviewed previous documentation, test results and medical history) Performing a medically appropriate exam and/or evaluation Ordering medications, tests, and procedures Documenting clinical information in the health record Orders: Orders Comprehensive Mcroberts. Panel Fast Today R79.89 - Other specified abnormal findings of blood chemistry Lipase Today R79.89 - Other specified abnormal findings of blood chemistry Prothrombin Time INR Today R79.89 - Other specified abnormal findings of blood chemistry Smooth Muscle Antibody Today R79.89 - Other specified abnormal findings of blood chemistry Transglutaminase IgA Today R79.89 - Other specified abnormal findings of blood chemistry Ferritin Today R79.89 - Other specified abnormal findings of blood chemistry Complete Blood Count Auto Diff Today R79.89 - Other specified abnormal findings of blood chemistry Hepatitis A,B,C Profile Today R79.89 - Other specified abnormal findings of blood chemistry KENNY Reflex Titer and Pattern Today R79.89 - Other specified abnormal findings of blood chemistry Mitochondrial Antibody Today R79.89 - Other specified abnormal findings of blood chemistry Medications: New bisacodyl (Dulcolax (bisacodyl)) Take four tablets pre colonoscopy instructions 20 mg (4 x 5 mg) PO ONCE 4 tabs 0RF 1 day methylcellulose (laxative) (Fiber Laxative (methylcellulose)) Take 1 daily X 2 weeks, increase to two tablets daily thereafter 500 mg PO DAILY 180 tabs 3RF Refilled polyethylene glycol 3350 (Miralax) Take as directed by mouth the day before your procedure. 238 grams PO ONCE 238 grams 0RF 1 day Coding Level of Care Code Established Pt Est Pt Level 4 (23799) Patient Type Established Diagnoses Irritable bowel syndrome with both constipation and diarrhea K58.2 Irritable bowel syndrome type: with both diarrhea and constipation Chronic GERD K21.9 Elevated LFTs R79.89 Colon cancer screening Z12.11 Urinary incontinence, unspecified type R32 Urinary Incontinence type: unspecified incontinence
--- OUTSIDE RECORDS SUMMARY | 2024-10-04 12:50 | XMS_ITS | Clinical Summary ---
Author Organization [address] [place] [address] [place] [phone] Phone Care Team Providers Care Police Patrol Lieutenant Name Role Phone Hiral Leo Primary Care [...] by Nasal route daily. 03/27/19 24 Active losartan (COZAAR) 25 [...] OR WHEEZING OR SHORTNESS OF BREATH 11/06/19 Active calcium carbonate-vitam in D3 600 mg-10 mcg (400 unit) chewable tablet Take by mouth. Active atorvastatin (LIPITOR) 40 mg tablet TAKE 1 TABLET BY MOUTH AT BEDTIME 01/05/20 Active polyethylene glycol (MIRALAX) 17 gram packet Take 17 g by mouth daily as needed for Constipation. 10/13/19 21 Active lancets lancets ONE TOUCH ULTRASOFT LANCETS Misc Use to check blood sugar twice daily 10/13/19 Active glucose blood test strip ONE TOUCH BASIC STRIPS 1 Strip by Does not apply route 2 times daily. 08/04/19 Active blood-glucose meter kit BLOOD GLUCOSE MONITORING SUPPL (ONE TOUCH ULTRA 2) W/DEVICE KIT Use to test suigars twice daily 08/04/19 Active clonazePAM (KlonoPIN) 1 mg tablet Take [...] day. 180 tablet 2 02/25/19 25 Active budesonide-form oteroL (Symbicort) 160-4.5 mcg/actuation inhalerIndicati ons:Moderate asthma without complication, unspecified whether persistent Inhale 2 puffs by mouth 2 (two) times a day. Rinse mouth with water after use to reduce aftertaste and incidence of candidiasis. Do not swallow. 1 each 2 09/29/19 25 025 Active budesonide-form oteroL (Symbicort) 160-4.5 mcg/actuation inhaler Inhale 2 Puffs into the lungs 2 times daily. 03/27/19 24 025 Discontin ued(Reord er) Active Problems Problem Noted Date Diagnosed Date Chest pain 07/13/2024 Chest pressure 06/01/2024 Assessment & Plan (06/01/2024 [...] mellitus), type 2 with peripheral vascular complications ([facility] V24, [facility] V28) 04/27/2019 Cirrhosis ([facility] V24, [facility] V28) 07/02/2018 Overview (11/26/2023): Per abd/pelvis CT [...] heart failure due to p ulmonary hypertension ([facility] V24, [facility] V28) 11/07/2016 Overview (11/26/2023): H/O Fen- Phen use Empty sella syndrome ([facility] V24) 11/07/2016 Encounters Date Type Department Care Team Description 09/28/2024 10:10 AM EDT Office Visit Pul[facility]olgy - [place] [address] [facility] [address] [place] [phone] Jennifer Carvajal NP Encounter for pre-operative respiratory clearance (Primary Dx); Moderate asthma without complication, unspecified whether persistent; Obstructive sleep apnea syndrome 07/22/2024 Telephone [facility] [address] [facility] [address] [place] [phone] Kai Espinosa MD 07/12/2024 Telephone [facility] - [facility] [address] [facility] [address] [place] [phone] Kai Espinosa MD from Last 3 Months Immunizations Name Administration [...] yrs OTHER SURGICAL HISTORY 05/23/2009 Right PROCEDURE: SD SYNVCT TDN SHTH RAD FLXR TDN PALM&/FNGR EA TDN; COMMENT: ring finger, tenosynovectomy BACK SURGERY 11/26/2017 PROCEDURE: HISTORICAL BACK SURGERY; COMMENT: L4/L5 daisha.laminotomy,partial facetectomy,foraminotomy,removal synovial cyst R side,facet arthrodesis L4/L5 OTHER SURGICAL HISTORY 12/11/2017 PROCEDURE: SD REMOVAL IMPLANT DEEP; COMMENT: Irrigation debridement lumbar wound w/ removal of posterior hardware CATARACT EXTRACTION Bilateral PROCEDURE: HISTORICAL CATARACT REMOVAL OTHER SURGICAL HISTORY 09/20/2019 Right PROCEDURE: ---- OTHER ----; COMMENT: Right lower extremity endovenous laser ablation Medical History Medical History Date Comments (HFpEF) heart failure with p reserved ejection fraction ([facility] V24, [facility] V28) 05/26/2023 Atrial fibrillation ([facility] V24, [facility] V28) 08/21/2022 SOB (shortness of breath) 12/13/2020 Palpitations 12/13/2020 Portopulmonary hypertension ([facility] V24, [facility] V28) 12/12/2020 Nephrolithiasis 10/07/2019 Diabetes mellitus ([facility] V 24, [facility] V28) 04/27/2019 Type 2 Asthma 11/07/2016 GERD (gastroesophageal reflux disease) 7 Hyperlipidemia 11/07/2016 Right heart failure ([facility] V24, [facility] V28) 11/07/2016 due to pulmonary hypertensio n Morbid obesity with BMI of 4 0.0-44.9, adult ([facility] V24, [facility] V28) 11/07/2016 DX:Morbid obesity wit h BMI of 40.0-44.9, adult ([facility]) Depression 11/07/2016 DX:Depression Fibromyalgia 11/07/2016 DX:Fibromyalgia LAURITA (obstructive sleep apnea) 11/07/2016 DX :LAURITA (obstructive sleep apnea); COMMENT: CPAP Anxiety 11/07/2016 DX:Anxiety Asthma 11/07/2016 DX:Asthma Allergic rhinitis 11/07/2016 DX:Allergic rh initis GERD (gastroesophageal reflux disease) 11/07/2016 DX:GERD (gastroesophageal reflux disease) Overactive bladder 11/07/2016 DX:Overactive bladder Hyperlipidemia 11/07/2016 DX:Hyperlipidemi a Empty sella syndrome ([facility] V24) 11/07/2016 DX:Empty sella syndrome (HCC) Panic attacks 11/07/2016 DX:Panic attacks Prediabetes 11/07/2016 DX:Prediabetes Right heart failure due to p ulmonary hypertension ([facility] V24, [facility] V28) 11/07/2016 DX:Right heart failure due t o pulmonary hypertension (HCC); COMMENT: H/O Fen- Phen use Bilateral chronic [...] disease DX:Family history of cardiov ascular disease UTI (urinary tract infection) Family History Medical History Relation Name Comments [...] Mass Index 37.76 09/28/2024 10:13 AM EDT Plan of Treatment Upcoming Encounters Date Type Department Care Team (Late st Contact Info) Description 12/14/2024 1:25 PM EST [facility] 200 [place] [phone] Jennifer Carvajal NP [address] [place] [address] 12/15/2024 2:40 PM EST Office Visit [facility] [address] [facility] [address] [place] [phone] Alejandra Alvarado NP [address] [place] [address] Health Maintenance Due Date Last Done Comments Breast Cancer Screening 1954 Diabetes: Annual Foot Exam 1964 Diabetes: Annual Retina Eye Exam 1965 Pneumococcal Vaccine: 50+ Years (2 of 2 - PCV) 05/20/2007 05/19/2006 RSV Immunization Adult Patients (1 - Risk 60-74 years 1-dose series) 2014 Zoster Vaccines (2 of 2) 01/02/2021 11/07/2020 Diabetes: Annual GFR (Glomerular Filtration Rate) 11/07/2021 11/07/2020 Falls Risk Assessment 01/18/2022 Hepatitis C Screening 01/18/2022 Medicare Annual Wellness Visit 01/18/2022 Osteoporosis Screening (Bone Density Screening) 01/18/2022 Social Influencers of Health Screening 01/18/2022 Diabetes: Annual Urine Albumin-Creatinine Ratio (uACR) 01/25/2022 11/07/2020 Diabetes: Blood Sugar Control Test (HGBA1C) 01/25/2022 11/07/2020 Hypertension/CHF/CAD Annual BMP Blood Test 09/08/2023 11/07/2020 COVID-19 Vaccine ( - season) 2023 06/02/2020, 05/05/2020 Depression Screening 02/10/2024 Influenza Vaccine (#1) 2024 , 11/28/2021, 11/07/2020, Additional history exists Cholesterol Screening (Lipid Panel) 11/07/2025 11/07/2020 DTaP,Tdap,and Td Vaccines (3 - Td or Tdap) 08/06/2027 08/05/2017, 02/22/2007 Colorectal Cancer Screening: Colonoscopy 01/10/2031 01/10/2021 HIB Vaccines Aged Out No longer eligi [...] Procedure Name Priority Date/Time Associated Diagnosis Comments POLYSOMNOGRAPHY Routine 09/27/2024 3:18 PM EDT COLONOSCOPY Routine 01/10/2021 URINE ALBUMIN CREATININE RATIO Routine 11/07/2020 ANNUAL BMP BLOOD TEST Routine 11/07/2020 HEMOGLOBIN A1C Routine 11/07/2020 LIPID PANEL Routine 11/07/2020 from Last 3 Months or Most Recently Relevant to Health Maintenance Results * Polysomnography (09/27/2024 3:18 PM EDT) Result [facility] Provider SLEEP CENTER ORDERABLES F inal Result * Colonoscopy (01/10/2021) [facility] Colonoscopy abstracted, no interpretation Anatomical Region Laterality Modality Other Result [facility] Provider HEALTH MAINTENANCE Final Result * Urine Albumin Creatinine Ratio (11/07/2020) [facility] Urine Albumin Creatinine Ratio abstracted Result [facility] Provider HEALTH MAINTENANCE Final Result * Annual BMP Blood Test (11/07/2020) [facility] Annual BMP Blood Test abstracted [facility] Provider HEALTH MAINTENANCE Final Result * Hemoglobin A1c (11/07/2020) [facility] Hemoglobin A1C 6.0 <=6.5 % Blood Venous blood specimen / Unknown Result [facility] Provider LAB BLOOD ORDERABLES Frances l Result * Lipid panel (11/07/2020) [facility] LDL/HDL Ratio 2 0 - 4 Triglycerides 108 0 - 150 mg/dL Cholesterol 150 0 - 200 mg/dL HDL 66 >=40 mg/dL LDL Cholesterol 63 0 - 100 mg/dL Blood Venous blood specimen / Unknown Historical Provider LAB BLOOD ORDERABLES Frances huizar Result from Last 3 Months or Most Recently Relevant to Health Maintenance Insurance [address] [place] [address] [facility] [employer] Care Teams Police Patrol Lieutenant Relationship Specialty Start Date End Date Hiral Leo FNP [address] [place] [address] PCP - General Nurse Practitioner 06/01/24
--- OUTSIDE RECORDS SUMMARY | 2024-10-04 12:51 | XMS_ITS | Clinical Summary ---
Author Organization [facility] Address [address] [place] [address] Care Team Providers Care Client Relationship Consultant Name Role Phone Katlyn Shi DMD Primary Care Provider [phone] Source Comments PLEASE NOTE, if this patient [...] Plan of Treatment Not on file Insurance [facility] [employer] NET DENTAL [address] [place], [place] [address]NET DENTAL Care Teams Client Relationship Consultant Relationship Specialty Start Date End Date Katlyn Shi DMD [address] [place] [address] PCP - General 04/20/20
== END 2024-10-04 12:54 | disposition home or self-care (01) ==
LOC: HO.HGI 11:57
PROVIDERS: PCP Nurse Practitioner Family; Visit Provider Nurse Practitioner Family
DX: Z01.818 Encounter for other preprocedural examination (principal); Z12.11 Encounter for screening for malignant neoplasm of colon; K58.2 Mixed irritable bowel syndrome; K21.9 Gastro-esophageal reflux disease without esophagitis; R79.89 Other specified abnormal findings of blood chemistry; R32 Unspecified urinary incontinence
CPT/HCPCS: S0285

== ENCOUNTER 2024-10-13 07:38 | Outpatient (REF) | payer OTHER, SELFPAY ==
--- OUTSIDE RECORDS SUMMARY | 2024-10-13 07:41 | XMS_ITS | Clinical Summary ---
Author Organization [address] [place] [address] [place] [phone] Phone Care Team Providers Care Ekg Technician Name Role Phone Hiral Leo Primary Care [...] mellitus), type 2 with peripheral vascular complications ([facility] V24, [facility] V28) 04/27/2019 Cirrhosis ([facility] V24, [facility] V28) 07/02/2018 Overview (11/26/2023): Per abd/pelvis CT [...] heart failure due to p ulmonary hypertension ([facility] V24, [facility] V28) 11/07/2016 Overview (11/26/2023): H/O Fen- Phen use Empty sella syndrome ([facility] V24) 11/07/2016 Encounters Date Type Department Care Team Description 10/06/[address] [facility] 175 [facility] 200 [place] [phone] Ailin Garza MA 10/[facility] 200 [place] [phone] Ailin Garza MA 09/28/2024 10:10 AM EDT [facility] 200 [place] [phone] Jennifer Carvajal NP Encounter for pre-operative respiratory clearance (Primary Dx); Moderate asthma without complication, unspecified whether persistent; Obstructive sleep apnea syndrome 07/22/2024 Telephone [facility] - [facility] [address] [facility] 154 [place] [address] Kai Espinosa MD from Last 3 Months [...] yrs OTHER SURGICAL HISTORY 05/23/2009 Right PROCEDURE: NM SYNVCT TDN SHTH RAD FLXR TDN PALM&/FNGR EA TDN; COMMENT: ring finger, tenosynovectomy BACK SURGERY 11/26/2017 PROCEDURE: HISTORICAL BACK SURGERY; COMMENT: L4/L5 daisha.laminotomy,partial facetectomy,foraminotomy,removal synovial cyst R side,facet arthrodesis L4/L5 OTHER SURGICAL HISTORY 12/11/2017 PROCEDURE: NM REMOVAL IMPLANT DEEP; COMMENT: Irrigation debridement lumbar wound w/ removal of posterior hardware CATARACT EXTRACTION Bilateral PROCEDURE: HISTORICAL CATARACT REMOVAL OTHER SURGICAL HISTORY 09/20/2019 Right PROCEDURE: ---- OTHER ----; COMMENT: Right lower extremity endovenous laser ablation Medical History Medical History Date Comments (HFpEF) heart failure with p reserved ejection fraction ([facility] V24, [facility] V28) 05/26/2023 Atrial fibrillation ([facility] V24, [facility] V28) 08/21/2022 SOB (shortness of breath) 12/13/2020 Palpitations 12/13/2020 Portopulmonary hypertension ([facility] V24, [facility] V28) 12/12/2020 Nephrolithiasis 10/07/2019 Diabetes mellitus ([facility] V 24, [facility] V28) 04/27/2019 Type 2 Asthma 11/07/2016 GERD (gastroesophageal reflux disease) 7 Hyperlipidemia 11/07/2016 Right heart failure ([facility] V24, [facility] V28) 11/07/2016 due to pulmonary hypertensio n Morbid obesity with BMI of 4 0.0-44.9, adult ([facility] V24, [facility] V28) 11/07/2016 DX:Morbid obesity wit h BMI of 40.0-44.9, adult ([facility]) Depression 11/07/2016 DX:Depression Fibromyalgia 11/07/2016 DX:Fibromyalgia LAURITA (obstructive sleep apnea) 11/07/2016 DX :LAURITA (obstructive sleep apnea); COMMENT: CPAP Anxiety 11/07/2016 DX:Anxiety Asthma 11/07/2016 DX:Asthma Allergic rhinitis 11/07/2016 DX:Allergic rh initis GERD (gastroesophageal reflux disease) 11/07/2016 DX:GERD (gastroesophageal reflux disease) Overactive bladder 11/07/2016 DX:Overactive bladder Hyperlipidemia 11/07/2016 DX:Hyperlipidemi a Empty sella syndrome ([facility] V24) 11/07/2016 DX:Empty sella syndrome (HCC) Panic attacks 11/07/2016 DX:Panic attacks Prediabetes 11/07/2016 DX:Prediabetes Right heart failure due to p ulmonary hypertension ([facility] V24, [facility] V28) 11/07/2016 DX:Right heart failure due t [...] mellitus type 2, co ntrolled, with complications ([facility] V24, [facility] V28) DX:Diabetes mellitus type 2, controlled, with [...] 1:25 PM EST Office Visit Pulmonolgy - [place] 175 [facility] [address] [place] [phone] Jennifer Carvajal NP [address] [place] [address] 12/15/2024 2:40 PM EST Office Visit [facility] - [facility] [address] [facility] 154 [place] [phone] Alejandra Alvarado NP [place] [phone] Health Maintenance Due Date Last Done Comments [...] Hypertension/CHF/CAD Annual BMP Blood Test 09/08/2023 11/07/2020 Depression Screening 02/10/2024 COVID-19 Vaccine (3 - 2024- season) 2024 06/02/2020, 05/05/2020 Influenza Vaccine (#1) 2024 , 11/28/2021, 11/07/2020, [...] * Polysomnography (09/27/2024 3:18 PM EDT) Result [facility] Provider SLEEP CENTER ORDERABLES F inal Result * Colonoscopy (01/10/2021) [facility] Colonoscopy abstracted, no interpretation Anatomical Region Laterality Modality Other Result [facility] Provider HEALTH MAINTENANCE Final Result * Urine Albumin Creatinine Ratio (11/07/2020) [facility] Urine Albumin Creatinine Ratio abstracted Result [facility] Provider HEALTH MAINTENANCE Final Result * Annual BMP Blood Test (11/07/2020) [facility] Annual BMP Blood Test abstracted Result [facility] Provider HEALTH MAINTENANCE Final Result * Hemoglobin A1c (11/07/2020) [facility] Hemoglobin A1C 6.0 <=6.5 % Blood Venous blood specimen / Unknown us Historical Provider LAB BLOOD ORDERABLES Frances l [...] to Health Maintenance Insurance [address] [place] [address] [facility] Care Teams Ekg Technician Relationship Specialty Start Date End Date Hiral Leo FNP [address] [place] [address] PCP - General Nurse Practitioner 06/01/24
--- OUTSIDE RECORDS SUMMARY | 2024-10-13 07:41 | XMS_ITS | Encounter Summary ---
Author Organization [facility] Address [address] [place] [address] Care Team Providers Care Formal Waiter/Waitress Name Role Phone LiamHiral Sanders FADI Primary Care Provider [phone] Encounter Details Date Type Department Care Team ([facility] st Contact Info) Description 10/06/2024 Telephone [facility] 175 [facility] [address] [place] [phone] Ailin Garza MA Social History Tobacco Use Types Packs/Day Years [...] as of this encounter Progress Notes * Jennifer Carvajal NP - 10/11/2024 2:26 PM EDT Just call them again. * Ailin Deleon MA - 10/11/2024 1:50 PM EDT Wait for 20 minutes for someone to answer the phone * Ailin Deleon MA - 10/07/2024 11:58 AM EDT Flores Peraza M.D. Board Certified Orthopedic Surgeon Called but office is closed for lunch 12pm-1pm * Ailin Deleon MA - 10/06/2024 4:[address] Peraza where does he located documented in this encounter Plan of Treatment Upcoming Encounters Date Type Department Care Team (Late st Contact Info) Description 12/14/2024 1:25 PM EST Office Visit Pulmonolgy - [place] [address] [facility] [address] [place] [phone] Jennifer Carvajal NP [address] [place] [address] 12/15/2024 2:40 PM EST Office Visit [facility] - [address] [facility] [address] [place] [phone] Alejandra Alvarado NP [address] [place] [address] [place] [phone] documented as of this encounter Visit Diagnoses Not on filedocumented in this encounter Care Teams Formal Waiter/Waitress Relationship Specialty Start Date End Date Hiral Leo FNP [address] [place] [phone] PCP - General Nurse Practitioner 06/01/24 documented as of this encounter
--- OUTSIDE RECORDS SUMMARY | 2024-10-13 07:41 | XMS_ITS | Clinical Summary ---
Author Organization [facility] Address [address] [place] [address] Care Team Providers Care Electrophonic Engineer Name Role Phone Katlyn Shi DMD Primary Care Provider [phone] Source Comments PLEASE NOTE, if this patient [...] Plan of Treatment Not on file Insurance [facility] [employer]AF[employer] NET DENT[address] [place], [place] [address]NET DENT[place] Care Teams Electrophonic Engineer Relationship Specialty Start Date End Date Katlyn Shi DMD [address] [place] [address] PCP - General 04/20/20
[2024-10-13 11:21] LABS: MANUAL DIFF FLAG NO
[2024-10-13 11:34] LABS: Hematocrit 38.7 % (37.0-47.0); Hemoglobin 12.7 g/dl (12.0-16.0); Imm Gran Abs Auto 0.00 X10*3/uL (0.00-0.03); Imm Gran Pct Auto 0.0 % (0.0-0.4); Lymphocytes Absolute Auto 1.4 X10*3/uL (1.2-4.9); Mean Corpuscular HGB Conc 32.8 g/dl (31.0-35.0); Mean Corpuscular Hemoglobin 28.9 pg (27.0-33.0); Mean Corpuscular Volume 88.2 fL (80.0-98.0); NRBC Abs Auto 0.000 X10*3/uL (0.0-0.012); NRBC Pct Auto 0.0 /100WBC (0.0-0.2); Platelet Count 111 X10*3/uL (160-400); Red Blood Count 4.39 X10*6/uL (4.20-5.50); White Blood Count 3.9 X10*3/uL (4.8-10.8)
[2024-10-13 12:01] LABS: HBS Num1 0.00 mIU/mL (0-7.99); HBc Num1 0.12 S/CO (0.00-0.79); HBsAGNum1 0.34 S/CO (0.00-0.99); Hepatitis A Antibody IgM 0.23 Index (0-0.79); Hepatitis B Surface Antigen Negative (Negative); ~HepC Num1 0.25 S/CO (0.00-0.79); ~Hepatitis A Antibody IgM Nonreactive (Nonreactive); ~Hepatitis B Surface Antibody NONREACTIVE (Nonreactive); ~Hepatitis C Antibody Nonreactive (Nonreactive)
[2024-10-13 12:13] LABS: Alanine Aminotransferase 22 U/L (0-31); Albumin Level 4.2 g/dL (3.5-5.0); Alkaline Phosphatase 91 U/L (39-117); Anion Gap 12 (12-20); Aspartate Amino Transferase 39 U/L (5-31); Blood Urea Nitrogen 12 mg/dL (9-16); Calcium 9.4 mg/dL (8.4-10.2); Carbon Dioxide 26 mmol/L (22-29); Chloride 107 mmol/L (96-108); Estimated Glomerular Filt Rate > 60; Ferritin 37 ng/mL (10-250); Lipase 34 U/L (8-78); Potassium 4.2 mmol/L (3.3-5.1); Sodium 141 mmol/L (135-145); Total Protein 7.1 g/dL (6.5-8.0)
[2024-10-19 19:52] LABS: Anti Nuclear Antibody Pattern Nuclear, Speckled; Anti Nuclear Antibody Screen POSITIVE (NEGATIVE); Anti Nuclear Antibody Titer 1:40 titer
== END 2024-10-13 07:39 | disposition home or self-care (01) ==
LOC: HO.WFDLDS 07:38
PROVIDERS: Visit Provider Nurse Practitioner Family
DX: Z01.84 Encounter for antibody response examination (principal); R19.7 Diarrhea, unspecified; R79.89 Other specified abnormal findings of blood chemistry
CPT/HCPCS: 36415; 80053; 82728; 83690; 85025; 86015; 86038; 86039; 86140; 86364; 86381; 86704; 86706; 86709; 86803; 87340

== ENCOUNTER 2024-10-21 18:16 | Outpatient (REF) | payer OTHER, SELFPAY ==
--- OUTSIDE RECORDS SUMMARY | 2024-10-21 18:19 | XMS_ITS | Clinical Summary ---
Author Organization [facility] Address [address] [place] [address] Care Team Providers Care Paint Spraying Machine Operator Helper Name Role Phone Katlyn Shi DMD Primary Care Provider [phone] Source Comments PLEASE NOTE, if this patient [...] Plan of Treatment Not on file Insurance [facility] SAFET[employer] NET DENTAL [address] [place], [place] [id number] DENTAL Care Teams Paint Spraying Machine Operator Helper Relationship Specialty Start Date End Date Katlyn Shi DMD [address] [place] [address] PCP - General 04/20/20
--- OUTSIDE RECORDS SUMMARY | 2024-10-21 18:19 | XMS_ITS | Encounter Summary ---
Author Organization [facility] Address [address] [place] [address] Care Team Providers Care Undercutter Name Role Phone Hiral Leo FADI Primary Care Provider [phone] Encounter Details Date Type Department Care Team ([facility] st Contact Info) Description 10/06/2024 Telephone [facility] 175 [facility] [address] [place] [address] Ailin Garza MA Social History Tobacco Use [...] as of this encounter Progress Notes * Ailin Deleon MA - 10/18/2024 9:40 AM EDT Re-op clearance notes faxed to [facility] at [phone] * Jennifer Carvajal NP - 10/11/2024 2:26 [...] Care Team (Late st Contact Info) Description 10/24/2024 9:40 AM EDT Consult [facility]iology [facility] [address] [facility] [address] [place] [address] Alejandra Alvarado NP [address] [place] [address] [address] [place] [phone] 12/14/2024 1:25 PM EST Office Visit Pulmonolgy - [place] [address] [facility] [address] [place] [phone] Jennifer Carvajal NP [address] [place] [phone] 12/15/2024 2:40 PM EST Office Visit [facility] [address] [place] [phone] Alejandra Alvarado NP [address] [place] [address] [address] [place] [phone] documented as of this encounter Visit Diagnoses Not on filedocumented in this encounter Care Teams Undercutter Relationship Specialty Start Date End Date Hiral Leo FNP [address] [place] [phone] PCP - General Nurse Practitioner 06/01/24 documented as of this encounter
--- OUTSIDE RECORDS SUMMARY | 2024-10-21 18:19 | XMS_ITS | Clinical Summary ---
Author Organization [address] [place] [address] [place] [phone] Phone Care Team Providers Care Powder Blender Name Role Phone Hiral Leo Primary Care [...] mellitus), type 2 with peripheral vascular complications ([facility] V24, [facility] V28) 04/27/2019 Cirrhosis ([facility] V24, [facility] V28) 07/02/2018 Overview (11/26/2023): Per abd/pelvis CT [...] heart failure due to p ulmonary hypertension ([facility] V24, [facility] V28) 11/07/2016 Overview (11/26/2023): H/O Fen- Phen use Empty sella syndrome ([facility] V24) 11/07/2016 Encounters Date Type Department Care Team Description 10/14/[address] [facility] Cardiology [facility] [address] [place] [address] Kai Espinosa MD 10/06/2024 Telephone [facility] [address] [facility] [address] [place] [phone] Ailin Garza MA 10/06/20[facility] [address] [place] [phone] Ailin Garza MA 09/28/2024 10:10 AM EDT [facility] [address] [facility] [address] [place] [phone] Jennifer Carvajla NP Encounter for pre-operative respiratory clearance (Primary Dx); Moderate asthma without complication, unspecified whether persistent; Obstructive sleep apnea syndrome 07/22/2024 Telephone [facility] [address] [facility] [address] [place] [phone] Kai Espinosa MD from Last 3 Months [...] yrs OTHER SURGICAL HISTORY 05/23/2009 Right PROCEDURE: GA SYNVCT TDN SHTH RAD FLXR TDN PALM&/FNGR EA TDN; COMMENT: ring finger, tenosynovectomy BACK SURGERY 11/26/2017 PROCEDURE: HISTORICAL BACK SURGERY; COMMENT: L4/L5 daisha.laminotomy,partial facetectomy,foraminotomy,removal synovial cyst R side,facet arthrodesis L4/L5 OTHER SURGICAL HISTORY 12/11/2017 PROCEDURE: GA REMOVAL IMPLANT DEEP; COMMENT: Irrigation debridement lumbar wound w/ removal of posterior hardware CATARACT EXTRACTION Bilateral PROCEDURE: HISTORICAL CATARACT REMOVAL OTHER SURGICAL HISTORY 09/20/2019 Right PROCEDURE: ---- OTHER ----; COMMENT: Right lower extremity endovenous laser ablation Medical History Medical History Date Comments (HFpEF) heart failure with p reserved ejection fraction ([facility] V24, [facility] V28) 05/26/2023 Atrial fibrillation ([facility] V24, [facility] V28) 08/21/2022 SOB (shortness of breath) 12/13/2020 Palpitations 12/13/2020 Portopulmonary hypertension ([facility] V24, [facility] V28) 12/12/2020 Nephrolithiasis 10/07/2019 Diabetes mellitus ([facility] V 24, [facility] V28) 04/27/2019 Type 2 Asthma 11/07/2016 GERD (gastroesophageal reflux disease) 7 Hyperlipidemia 11/07/2016 Right heart failure ([facility] V24, [facility] V28) 11/07/2016 due to pulmonary hypertensio n Morbid obesity with BMI of 4 0.0-44.9, adult ([facility] V24, [facility] V28) 11/07/2016 DX:Morbid obesity wit h BMI of 40.0-44.9, adult ([facility]) Depression 11/07/2016 DX:Depression Fibromyalgia 11/07/2016 DX:Fibromyalgia LAURITA (obstructive sleep apnea) 11/07/2016 DX :LAURITA (obstructive sleep apnea); COMMENT: CPAP Anxiety 11/07/2016 DX:Anxiety Asthma 11/07/2016 DX:Asthma Allergic rhinitis 11/07/2016 DX:Allergic rh initis GERD (gastroesophageal reflux disease) 11/07/2016 DX:GERD (gastroesophageal reflux disease) Overactive bladder 11/07/2016 DX:Overactive bladder Hyperlipidemia 11/07/2016 DX:Hyperlipidemi a Empty sella syndrome ([facility] V24) 11/07/2016 DX:Empty sella syndrome (HCC) Panic attacks 11/07/2016 DX:Panic attacks Prediabetes 11/07/2016 DX:Prediabetes Right heart failure due to p ulmonary hypertension ([facility] V24, [facility] V28) 11/07/2016 DX:Right heart failure due t [...] mellitus type 2, co ntrolled, with complications ([facility] V24, [facility] V28) DX:Diabetes mellitus type 2, controlled, with [...] Info) Description 10/24/2024 9:[address] [facility] [address] [facility] [address] [place] [phone] Alejandra Alvarado NP [address] [place] [address] [place] [phone] 12/14/2024 1:25 PM EST Office Visit Pulmonolgy - [place] [address] [place] [phone] Jennifer Carvajal, CK [address] [place] [phone] 12/15/2024 2:40 PM EST Office Visit [facility] [address] [facility] [address] [place] [address] Alejandra Alvarado NP [address] [place] [address] Dr [address] [place] [phone] Health Maintenance Due Date Last Done Comments [...] 09/08/2023 11/07/2020 Depression Screening 02/10/2024 COVID-19 Vaccine ( season) 2024 06/02/2020, 05/05/2020 Influenza Vaccine (#1) [...] Results * Polysomnography (09/27/2024 3:18 PM EDT) us Historical Provider SLEEP CENTER ORDERABLES F inal Result * Colonoscopy (01/10/2021) Colonoscopy abstracted, no interpretation Anatomical Region Laterality Modality Other us Historical Provider HEALTH MAINTENANCE Final Result * Urine Albumin Creatinine Ratio (11/07/2020) Pathologist [facility] Urine Albumin Creatinine Ratio abstracted Historical Provider HEALTH MAINTENANCE Final Result * Annual BMP Blood Test (11/07/2020) [facility] Annual BMP Blood Test abstracted [facility] Provider HEALTH MAINTENANCE Final Result * Hemoglobin A1c (11/07/2020) [facility] Hemoglobin A1C 6.0 <=6.5 % Blood Venous blood specimen / Unknown Result [facility] Provider MD LAB BLOOD ORDERABLES Frances l Result * Lipid panel (11/07/2020) [facility] LDL/HDL Ratio 2 0 - 4 Triglycerides 108 0 - 150 mg/dL Cholesterol 150 0 - 200 mg/dL HDL 66 >=40 mg/dL LDL Cholesterol 63 0 - 100 mg/dL Blood Venous blood specimen / Unknown [facility] Provider LAB BLOOD ORDERABLES Frances l Result from Last 3 Months or Most Recently Relevant to Health Maintenance Insurance [address] [place], [place] [id number] [facility] [facility] [employer] Care Teams Powder Blender Relationship Specialty Start Date End Date Hiral Leo FNP [address] [place] [phone] PCP - General Nurse Practitioner 06/01/24
--- OUTSIDE RECORDS SUMMARY | 2024-10-21 18:19 | XMS_ITS | Encounter Summary ---
Author Organization [facility] Address [address] [place] [address] Care Team Providers Care Continuous Mining Machine Coal Miner Name Role Phone LiamHiral Sanders FADI Primary Care Provider [phone] Reason for Visit * Reason Onset Date Comments Pre-operative Clearance 10/14/2024 Encounter Details Date Type Department Care Team (Late st Contact Info) Description 10/14/2024 Telephone [facility] Cardiology [facility] [address] [place] [address] Kai Espinosa MD [address] [place] [address] Dr [address] [place] [phone] Social History Tobacco Use Types Packs/Day Years [...] as of this encounter Progress Notes * Mylene Otero - 10/18/2024 9:38 AM EDT Spoke with Sonia and scheduled for 10/24/24 with Alejandra Alvarado. * Haley Jones - 10/14/2024 4:51 PM EDT Spoke with Sonia from [facility] requesting cardiac clearance appointment. Type Of Surgery: Transforaminal Lumbar fusion EKG Needed: yes Date Of Surgery: 11/17 Performing Doctor: Dr Peraza Name of Caller/ Facility: [facility] Phone number: [phone] documented in this encounter Plan of Treatment Upcoming Encounters Date Type Department Care Team (Late st Contact Info) Description 10/24/2024 9:40 AM EDT Consult [facility] - [address] [facility] [address] [place] [phone] Alejandra Alvarado NP [address] [place] [address] Dr [address] [place] [phone] 12/14/2024 1:25 PM EST Office Visit Pulmonolgy - [place] [address] [place] [phone] Jennifer Carvajal NP [address] [place] [address] 12/15/2024 2:40 PM EST Office Visit [facility] Cardiology [facility] [address] [facility] [address] [place] [phone] Alejandra Alvarado NP [address] [place] [address] [place] [phone] documented as of this encounter Visit Diagnoses Not on filedocumented in this encounter Care Teams Continuous Mining Machine Coal Miner Relationship Specialty Start Date End Date Hiral Leo FNP [address] [place] [phone] PCP - General Nurse Practitioner 06/01/24 documented as of this encounter
[2024-11-01 21:43] LABS: Calprotectin, Fecal 106 mcg/g
== END 2024-10-21 18:17 | disposition home or self-care (01) ==
LOC: HO.LNP 18:16
PROVIDERS: Visit Provider Nurse Practitioner Family
DX: R19.7 Diarrhea, unspecified (principal)
CPT/HCPCS: 82705; 83993

== ENCOUNTER 2024-12-07 15:07 | Outpatient (AMB) | payer OTHER, SELFPAY ==
--- NOTE | 2024-12-07 15:09 | A.OFFPC_ITS ---
Vital Signs 3 12/07/24 15:22 Height 5 ft 3 in Weight 213 lb 2 oz BMI 37.7 BP 125/58 L Blood Pressure Location Lt brachial Position Sitting Respiration 16 Pulse 64 Pulse Source Pulse Oximeter Temp 97.9 F Temp Source Oral Pulse Oximetry (%) 99 Oxygen Delivery Method Room Air Intake Visit Reasons: back surgery/ need to sort out her medication Intake Note: patient here for follow up on back surgery and c/o one of her medication they gave her wrong dose. she would also like to speak to you about her paperwork Continuous Process Machine Operator Required: No Is last menstrual period known: No Post menopausal: No Patient : No Allergies Penicillins Allergy (Intermediate, Verified 12/07/24 15:13) itchy, hives lisinopril Adverse Reaction (Intermediate, Verified 12/07/24 15:13) Cough prednisone Adverse Reaction (Intermediate, Verified 12/07/24 15:13) high blood pressure Tobacco use date assessed: 12/07/24 Fall risk assessment: 1 Fall in past year Last assessed Fall Risk: 12/07/24 Dental Screening Dental Screen Date: 12/07/24 Did you have a dental visit in the last 12 months?: No Did you have a dental problem in the last 6 months where you did not have access to dental care?: No Was dental information given to patient?: Patient has dentist HPI HPI Comments 2 History of Present Illness0 Details 69-year-old female with AFib, GERD, hype rlipidemia, bipolar disorder, mild intermittent asthma, CVA (2002), seasonal allergies, diabetes, hypertension, urinary incontinence, LAURITA, fibromyalgia, pulmonary hypertension, nephrolithiasis, venous insufficiency of bilateral lower extremities, cirrhosis, osteoarthritis, microalbuminuria, Anxiety with panic,MDD, CHF, empty sella syndrome, former smoker, osteopenia Status post right lower extremity endovenous laser ablation 2019, L4-L5 bilateral laminectomy, partial facetectomy, removal of synovial cyst on the right side in 2017, cataract removal bilat, trigger finger release on the right 2009, s/p L4-L5 fusion PFT 03/19/21 FVC is 103% of predicted, FEV1 is 121% predicted, FEV1/FEC is 117. No significant response to bronchodilator. TLC 94% predicted, RV 70% predicted. Uncorrected diffusion capacity is normal 18 or 83% Here today for a Transitional Care Management Visit Discharge summary reviewed. Admission Date: 11/17/24-11/22/24 [facility] >> SNF 11/22-12/01/24 Discharge Date: Hospital: [facility] Date of interactive contact with Nurse Navigator: as documented in chart Pending diagnostic tests/treatments: Pending consults: DME: Walker PT/OT/INSULATION WORKER INTERIOR SURFACE: Y Home Health Aide/PLAYGROUND AIDE: Community Resources: Asst Living: Home Health: Hospice: Support group: Other: Referrals: None Alaplex Medications reconciled & updated. During todays TCM visit, the d/c summary was reviewed, along with the need for or follow-up on pending diagnostic tests and treatments, as necessary interaction with other health personal care home administrator who will assume or reassume care of the beneficiary?s system-specific problems was done or is being worked on, education was provided to the beneficiary, family, guardian, and/or caregiver, referrals to establish or re-establish and arrange needed community resources we completed, assistance in scheduling required follow-up with community providers and services & finally updated medication list given to patient/caregiver History of Present Illness The patient is a 69-year-old female presenting for a hospital discharge follow- up after a lumbar spine fusion. Postoperative status following lumbar fusion: - The patient underwent an L4-L5 fusion with facetectomy, discectomy, and decompression performed by Dr. Bartlett. - The surgery was necessitated by a fall on black ice, which also resulted in a shoulder injury that will require a separate surgery. - Postoperatively, she was at a rehab fa cility at [facility] and was discharged because she was reportedly doing good. - She reports not feeling well in genera l since the surgery, feeling tired and struggling with daily activities. - She is experiencing burning pain, sore ness, and swelling from R leg to her toes. - The patient has followed up with her kelli edward's assistant county engineer, who was pleased with her progress. - Her delivery supervisor prescribed Alaplex for her neuropathy, which she feels has been helpful. Gait Abnormality: - The patient notes that her weight affe cts her walking. - She describes needing to take small, s low steps when first standing up. - She requires a walker for stability bu t had difficulty obtaining one because the prescription was not specific enough. Chronic Pain: - The patient reports pain in her hands, shoulders, back, and leg. - She notes that changes in the weather exacerbate her pain. Constipation: - The patient experienced constipation w chris in the hospital. - She is taking MiraLax, which has been effective. Review of Systems - General: Reports feeling generally unw ell and tired post-surgery. - Neurological: Reports a history of str rosana with associated memory issues. - Musculoskeletal: Reports pain in her h ands, shoulders, back, and leg. - Extremities: Reports burning pain, sor eness, and swelling extending to her toes. - Gastrointestinal: Reports resolving co nstipation with the use of MiraLax. - Integumentary: Reports a resolving fun gal infection on one toe. Physical Exam General: Well developed, well nourished, in no acute distress. Appears stated age. Accompanied by Sister Head: Normocephalic, atraumatic. Eyes: Pupils are equal, round and reactive to light and accommodation. Conjunctivae are clear. Lungs: Clear to auscultation bilaterally. No rales, rhonchi or wheeze noted. Good air flow in all can. Heart: Regular rate and rhythm. No murmurs, click, rubs or gallops are noted. Musculoskeletal: Amb w/ walker Ind. Wearing a back brace. Pulses: Peripheral pulses are equal and palpable bilaterally. Extremities: No clubbing, cyanosis nor edema is noted. RLE neurovasc intact, no edema. Normal sensation. Wearing compression socks Bilat Psych: Mood and affect appropriate. Medical Decision Making The patient is a 69-year-old female presenting for a post-hospital discharge follow-up after an L4-L5 fusion. She expresses generalized malaise and frustration with her current level of independence, which is complicated by her need for a PLAYGROUND AIDE. Her post-operative course is marked by burning pain and swelling in her leg, which are being managed symptomatically. She has followed up with her surgical team and is scheduled for another visit. A significant social barrier identified is a dispute with her housing complex regarding a refrigerator that is difficult for her to use due to its design; it was explained that the reasonable accommodation form for this must be completed by her surgeon, as the primary limitation is related to her back condition and/or she can fu with the housing authority. There is no need for me to complete any paperwork. I will also submit a request to Dr Rausch office for a specific prescription for a walker to the DME company, per her request. She is encouraged to continue with physical therapy and follow up with her surgeon as planned. Plan 1. Postoperative Status Following Lumbar Fusion - The patient is recovering from an L4-L 5 fusion and reports post-operative burning pain and swelling in her leg. - The patient should continue with physi jose enrique therapy and follow up with her surgeon, Dr. Peraza, as scheduled. 2. Gait Abnormality / Need For Durable M edical Equipment - The patient requires a walker for stab ility, but the initial prescription was deemed insufficient by the DME supplier, [employer]. - A new, more specific prescription for a walker request will be sent to Dr Rausch by my nurses. 3 Constipation - The patient's postoperative constipati on is responding well to MiraLax. - Continue MiraLax as needed. 4. Regarging her psychosocial issues; ad vised to fu with her housing complex and seek support from family. Patient Instructions - You will need to keep your follow-up a ppointment with your surgeon, Dr. Peraza. - Continue going to physical therapy. - Regarding the issue with your refriger ator, the request form must be filled out by your surgeon's office. - Continue taking MiraLax as needed for constipation. Consent Patient was informed and verbally consented to the use of an ambient scribe for clinic note documentation during this visit. Total time spent caring for the patient today was 69 minutes. This includes time spent before the visit reviewing the chart, time spent during the visit, and time spent after the visit on documentation, reviewing laboratory results, diagnostic imaging, medications, performing a medically necessary evaluation, counseling on diagnoses, care coordination, ordering appropriate tests, ordering appropriate medications, review of tests performed by other providers, reporting test results with the patient, communication with other healthcare providers. [facility] Medical History (Updated 10/04/24 @ 13:18 by Jamaica French CNP) Back pain with left-sided sciatica Chronic low back pain Chronic pain of both shoulders Constipation by delayed colonic transit Diarrhea Elevated LFTs History of cardioversion IBS (irritable bowel syndrome) No pertinent past medical history Urinary incontinence Surgical History (Updated 12/07/24 @ 15:29 by FADI Cm-) History of back surgery History of hand surgery Family History Other Mental health disorder Substance use disorder Social History Household Members: Other Housing: Apartment Are you a primary care clinician to a significant other at home: No Do you presently have visiting nurse or other home services: Yes 75 years or older and lives alone: No Alcohol intake: never Patient Tobacco Use Status: Former Tobacco user Tobacco use type: Cigarette e-Cigarette/Vaping Use: Never Used Second Hand Smoke Exposure: Yes Special jeannette needs: No Agree to transfusion: Yes service: No Current occupational status: disabled Current occupational exposures/hazards: No Sexual orientation: Straight/Heterosexual Gender identity: Female Cognitive needs: No (cane) Hearing needs: No (hearing aide) Vision needs: No (Glasses) Questionnaire Thrive Questionnaire Date Thrive assessed: 02/23/24 I am a: Patient What is your living situation today?: I choose not to answer this question Within the past 12 months, did the food you bought not last and you didn't have the money to get more?: I choose not to answer this question Within the past 12 months, did you worry whether your food would run out before you got money to buy more?: I choose not to answer this question Do you have trouble paying for medicines?: I choose not to answer this question Do you have trouble getting transportation to medical appointments?: I choose not to answer this question Do you have trouble paying your heating and electricity bill?: I choose not to answer this question Do you have trouble taking care of your child, family member or friend?: I choose not to answer this question Do you have trouble with day-to-day activities such as bathing, preparing meals, shopping, managing finances, etc.?: I choose not to answer this question Are you currently unemployed and looking for a job?: I choose not to answer this question Are you interested in more education?: I choose not to answer this question Please select the resources that you would like help with: None Currently or been in a relationship where the following occur: I choose not to answer THRIVE Score: 0 MATTHEW-7 AMB Questionnaire MATTHEW-7 Date MATTHEW - 7 assessed: 06/10/24 Source: Developed by Drs. Jose D Lundy, Madalyn Henry, Marty Carrasco and colleagues, with an educational simeon from [employer]. Physical exam (Primary Care) Tobacco/Smoking Status: Tobacco use Status Tobacco use date assessed 10/03/24 12/07/24 15:11 Patient Tobacco Use Status Former Tobacco user 12/07/24 15:11 Tobacco use type Cigarette 12/07/24 15:11 e-Cigarette/Vaping Use Never Used 12/07/24 15:11 Thrive Assessment: Date of Thrive Assessment Date Thrive assessed 02/23/24 12/07/24 15:11 Currently or been in a relationship where the following occur: I choose not to answer Coding Level of Care Code TCM High MDM <= 7 Days Complex EM visit Add On G2211 Diagnoses Hospital discharge follow-up Z09 History of lumbar surgery Z98.890 CPT Codes [facility] OUTPT/OFFICE VIS - G2212 Assessment & Plan Assessment & Plan (1) Hospital discharge follow-up: Code(s): Z09 - Encounter for follow-up examination after completed treatment for conditions other than malignant neoplasm (2) History of lumbar surgery: Onset Date: ~11/2024 Comment: fusion l4-l5 with facetectomy, diskectomy and decompression, right transforaminal implant, titanium expandable cage; fusion anterior lumbar and posterior L4-L5 Dr Stu MAURICIO Code(s): Z98.890 - Other specified postprocedural states Category: Surgical Plan .
[2024-12-07 15:22] VITALS: BP 125/58; PULSE 64; RESP 16; TEMP 36.6; O2SAT 99; BMI 37.7
--- OUTSIDE RECORDS SUMMARY | 2024-12-07 19:34 | XMS_ITS | Patient Health Record ---
[facility] [place] Address [address] [place] [address] Care Team Providers Care Senior Outside Sales Representative Name Role Phone Hiral Aquino Primary Care Provider Unavailab Bishop Randle Unavailable [phone] Allergies Allergen (clinical drug ingredient) Drug/Non Drug Allergy documented on EMR Reaction Allergy Type Onset Date Status seasonal (uncoded) Unknown Allergy A ctive Results Component Value Reference Range Notes HEMOGLOBIN A1C (GLYCOHEMOGLO BIN) Reviewed date:11/16/2024 09:31:36 AM Interpretation: Performing Lab: Notes/Report: HEMOGLOBIN A1C % (HH) 7.6 Reason For Referral Diagnosis 1 Pain in unspecified foot (M79.673) Referring Provider First Name Hiral Referring Provider Last Name Kenia [facility] Referred Provider Bishop Brewster Referred Address [address] [place] [address],[address] [place] [phone], Referred Provider Specialty Podiatry Referral Priority Routine Medications Medication SIG (Take, Route, Frequency, Duration) Notes Start Date End Date Status clonazePAM 1 MG Oral; Duration: 28 Days Active Atorvastatin Calcium 80 MG Oral; Duration: 28 Days Active metFORMIN HCl ER 500 MG TAKE 2 TABLETS B Y MOUTH TWICE DAILY Oral; Duration: 28 Days Active Vitamin D3 1.25 MG (07738 UT) Oral; Duration: 28 Days Acti ve Famotidine 20 MG Oral; Duration: 28 Days Active Sotalol HCl 80 MG Oral; Duration: 28 Days Active Pantoprazole Sodium 40 MG Oral; Duration: 28 Days Active Extra Depth Orthopedic Shoes (1 Pair) with Customized Heat Molded Multidensity Innersoles (3 Pair) Dx: NIDDM/Polyneuropathy (E11.42), Hammertoe Foot Deformity (M20.41,M20.42), Preulcerative Skin Lesion(s) (L85.1); Duration: 365 days 10/27/2024 Active OXcarbazepine 600 MG Oral; Duration: 28 Days Active Ciclopirox 0.77 % 1 application to aff ected area Externally Twice a day to effected nails; Duration: 30 days 10/27/2024 Active Mirtazapine 30 MG Oral; Duration: 28 Days Active Losartan Potassium 25 MG Oral; Duration: 28 Days Active Jardiance 10 MG Oral; Duration: 28 Days Active Eliquis 5 MG Oral; Duration: 28 Days Active Symbicort 160-4.5 MCG/ACT Inhalation; Du ration: 30 Days Active Social History Tobacco Use: Social History Observation Description Date Details (start date - stop date) Never Smoker NA - NA Tobacco use other than smoking: Question Answer Notes Are you an other tobacco user? No Tobacco Control (Standard) Question Answer Notes Tobacco use: Nonsmoker Additional Findings: Tobacco non-user Current no nsmoker AUDIT-C (Standard) Question Answer Notes Did you have a drink containing alcohol in the p ast year? No Points 0 Interpretation Negative Problems Problem Type SNOMED Code ICD Code Onset Dates Problem Status W/U Status Risk Notes Problem Acquired hammer toe of right foot (5237866165812402 ) Other hammer toe(s) (acquired), right foot (M20.41) Active confirmed Problem Acquired hammer toe of left foot (6147709063110138 ) Other hammer toe(s) (acquired), left foot (M20.42) Active confirmed Problem Polyneuropathy due to type 2 diabetes mellitus (581684556) Type 2 diabetes mellitus with diabetic polyneuropathy (E11.42) Active confirmed Vital Signs Blood pressure diastolic 74 mm Hg 10/27/2024 Height 5ft 4in in 10/27/2024 Blood pressure systolic 132 mm Hg 10/27/2024 Weight 215 lbs 10/27/2024 BMI 36.9 kg/m2 10/27/2024 Procedures Procedure Date Ordered Date Performed Result Body Sit e 13299-OOZKGJZ NAIL, 1-5 10/27/2024 N/A 86209-ELKW SKIN LESIONS, OVER 4 10/27/2024 N/A H5050-QTIXURDT DYSTROPHIC NAILS ANY # 10/27/2024 N/A Encounters Encounter Location Date Provider Diagnosis [facility] [address] 10/27/2024 Bishop Brewster Type 2 diabetes mellitus with diabetic polyneuropathy E11.42 ; Tinea unguium B35.1 ; Other hammer toe(s) (acquired), right foot M20.41 and Other hammer toe(s) (acquired), left foot M20.42 [facility] [address] [place] [address] 10/24/2024 Bishopronel Brewster [facility] [address] [facility] [address] [place] [address] 11/14/2024 Bishopronel ChakrabortyNarcisa Assessments Encounter Date Diagnosis (ICD Code) Assessment Notes Treatment Notes Treatment Clinical Notes Section Notes 10/27/2024 Tinea unguium (ICD-10 - B35.1) 10/27/2024 Type 2 diabetes mellitus with diabetic polyneuropathy (ICD-10 - E11.42) 10/27/2024 Other hammer toe(s) (acquired), right foot (ICD-10 - M20.41) Patient Educated with: DIABETIC FOOT CARE INSTRUCTIONS. pdf (DIABETIC FOOT CARE INSTRUCTIONS. pdf) 10/27/2024 Other hammer toe(s) (acquired), left foot (ICD-10 - M20.42) Plan Of Treatment Pending Test Test Name Order Date 84098-HORVDZY NAIL, 1-5 10/27/2024 20877-HBOJ SKIN LESIONS, OVER 4 10/28/19 25 A7112-AZVSMKFI DYSTROPHIC NAILS ANY # Next Appt Details Provider Name:Bishop Brewster , 01/30/2025 03:15:00 PM, Counts include [facility] beds at the [facility] [address], [address], Insurance Providers Payer Name Payer Address Payer Phone Subscriber Number Group Number Insured Name Patient Relationship to Insured Coverage Start Date Coverage End Date [facility] [address] [place] [phone] [id number] Brett garcia Kristin Self - patient is the insured Medical (General) History Medical History History ICD Code Stroke Diabetic Neuropathy Cholesterol Bipolar disorder Hematuria Back pain A fib Cirrhosis Osteopenia Vertigo Fall Risk Reflux ( GERD) asthma Hypertension Surgical History Surgery Date(Month/Year) back surgery 2017
--- OUTSIDE RECORDS SUMMARY | 2024-12-07 19:34 | XMS_ITS | Encounter Summary ---
Author Organization [facility] [place] [address] Care Team Providers Care Cash Teller Name Role Phone Hiral Leo Primary Care Provider [phone] Encounter Details Date Type Department Care Team (Late st Contact Info) Description 11/09/2024 Results Follow-Up [facility] [address] [facility] [address] [place] [phone] Alejandra Alvarado NP [address] [place] [address] [place] [phone] Social History Tobacco Use Types Packs/Day Years [...] on file documented as of this encounter Plan of Treatment Upcoming Encounters Date Type Department Care Team (Late st Contact Info) Description 12/14/2024 1:25 PM EST Office Visit Pulmonology - [place] [address] [place] [phone] Jennifer Carvajal NP [address] [place] [address] documented as of this encounter Visit Diagnoses Not on filedocumented in this encounter Care Teams Cash Teller Relationship Specialty Start Date End Date Hiral Leo FNP [address] [place] [address] PCP - General Nurse Practitioner 06/01/24 documented as of this encounter
--- OUTSIDE RECORDS SUMMARY | 2024-12-07 19:34 | XMS_ITS | Data Portability ---
Author Organization [place] [facility], Allergy Address [address] [address] Care Team Providers Care Animal Groomer Name Role Phone NORBERTO SOLIMAN Primary Care Provider Assessment Encounter Date Assessment Date Assessment LastModified [...] - Appt 11/19 @ 10am 2023 024 [facility], [facility] [address], [address], [place], [address], 09:53:44 Procedures None recorded . Surgeries None [...] audio gram No observ ation record ed. [email or web address] Not Available 09/09 15:48:21 09/30/19 24 07/01/2022 [...] Name and Address Organization Details Recorded Time Sensorine ural hearing loss of bilateral ears 549256942 Active 2019 Sensorine ural hearing loss, bilateral ; Note: Date Diagnosed : 0 12:19 PM (H90.3) Not Available [facility] 4 02:17:11 Dizziness and giddiness 146296568 Active 2019 Dizziness and giddiness ; Note: Date Diagnosed : 0 12:19 PM (R42) Not Available [facility] 4 02:17:13 Bilateral tinnitus 16195632523 02 Active 2022 Tinnitus, bilateral ; Note: Date Diagnosed : 07/01/2022 4:38 PM (H93.13) Not Available [facility] 4 02:17:56 Chronic hoarsenes s 74097595211 05 Active 2023 TOMASZ LAWSON MD [address] [facility],[place] [address], [place], [address] , [facility] - [facility] 13:46:53 Problem Notes None recorded. Procedures Surgical History Date Name Laterality Status Provider Name and Address Organization Details Recorded Time 11/09/2023 FOL_DP completed TOMASZ LAWSON MD [address] [place] [address],[place] [address], [place], [address], [facility] - [facility] 11/06/2023 21:08:24 09/24/2023 Comp Audio with Tymps - 67951 & 20302 completed MATHEW MONSON MA, CCC-A [address] [place] [address],[place] [address], [place], [address], [facility] 09/24/2023 15:28:18 Imaging Results None recorded. Procedure Notes None [...] Updated DateTime 09/24/2023 162.56 cm 36.7 kg/m2 51794.77 g Abdulkadir Otero [facility] 09/24/2023 14:55:33 Date Recorded Body height Body mass index (BMI) Body weight Provider Name and Address Organization Details Last Updated DateTime 11/09/2023 162.56 cm 36.7 kg/m2 54598.77 g Carlita Frances [facility] 11/09/2023 13:31:41 Social History None recorded. Functional Status None recorded. Mental Status None recorded. Family History Nothing Reported. Medical History No medical history recorded. Gynecological HistoryNo gynecological history recorded. Obstetrics History GPAL:G 0 P 0 0 0 0 Past Encounters Encounter ID Performer Location Encounter Start Date Encounter Closed Date Diagnosis/Indication Diagnosis SNOMED-CT Code Diagnosis ICD10 Code Diagnosis IMO Codes Diagnosis Note [id number] EVANS CHOWDHURY PA-C [facility] [address] [address] 09/24/2023 14:37:21 09/24/2023 16:06:08 Bilateral tinnitus 4639430416 102 H93.13 68-year-ol d female presents for [...] Sensorineu ral hearing loss of bilateral ears 677131413 H90.3 Audiologic al evaluation results: Right ear: Borderline normal hearing sloping to a mild-moder ate SNHL with excellent word recognitio n. Left ear: Borderline normal hearing sloping to a mild to moderate SNHL with excellent word recognitio n. Tympanomet ry: Right Ear:Type A Left Ear:Type ARec.: [place] [id number] TOMASZ LAWSON MD [facility] [address] [place] [address] 11/09/2023 13:30:07 11/09/2023 13:49:27 Chronic hoarseness 3416764135 105 R49.0 Health Concerns Section Related Observation LastModified by Organization Detai ls LastModified Time None Recorded Concern Status LastModified by Organization Details LastModified Time None Recorded Advance Directives Directive None Recorded Payers Insurance Date Sequence Insurance Name Policy Number Policy Reyes Covered Member ID Reyes Member ID Guarantor Name 02/26/2024 1 [facility]MEDICARE REPLACEMENT /ADVANTAGE - HMO) Kristin Madrid [id number] Kristin Madrid Notes Date Note Type Note Provider Name and Address Organization Details Recorded Time 09/24/2023 text/html ROS as noted in the HPI 68-year-old female presents for evaluation of hearing loss. She [...] vertigo, otalgia, and otorrhea. JARED MEDEROS MD [address] [place] [address],[address], [address], [facility] - [facility] 09/24/2023 17:23:06 11/09/2023 text/html ROS as noted in the HPI intermittent hoarse for past 2 yrsAround 07/2023 had Afib at [facility]. had a trans esophageal exam but after procedure noted meds get stuck in throat and voice has been fluctuating PV 09/24/23 [facility] rec HAE TOMASZ LAWSON MD [address] [place] [address],[address], [address], [place] - [facility] 11/09/2023 13:49:08 OBGyn Episode No OBEpisode recorded.
--- OUTSIDE RECORDS SUMMARY | 2024-12-07 19:34 | XMS_ITS | Clinical Summary ---
Author Organization [address] [place] [address] [place] [phone] Phone Care Team Providers Care Supervisor Cold Rolling Name Role Phone Hiral Leo Primary Care [...] for Wheezing, Shortness of Breath or Cough. 4 Active fluticasone propionate (FLONASE) 50 mcg/actuation nasal spray 2 Sprays by Nasal route daily. 4 Active losartan (COZAAR) 25 mg tablet Take 1 Tablet by mouth daily. Active metFORMIN XR (GLUCOPHAGE-XR) 500 mg 24 hr tablet Take 2 tablets (1,000 mg total) by mouth 2 (two) times a day. 1 Active inhalational spacing device inhaler SPACER/AERO-HOLDI NG CHAMBERS (BREATHERITE VALVED MDI CHAMBER) DEVICE 1 Each by Does not apply route as needed for Other (with use of inhalers 3 Active albuterol HFA (PROAIR HFA ; PROVENTIL HFA ; VENTOLIN HFA) 90 mcg/actuation inhaler INHALE 2 PUFFS BY MOUTH EVERY 6 HOURS NEEDED FOR COUGH OR WHEEZING OR SHORTNESS OF BREATH 2 Active calcium carbonate-vitam in D3 600 mg-10 mcg (400 unit) chewable tablet Take by mouth. Active atorvastatin (LIPITOR) 40 mg tablet TAKE 1 TABLET BY MOUTH AT BEDTIME 1 Active lancets lancets ONE TOUCH ULTRASOFT LANCETS Mis Use to check blood sugar twice daily 1 Active glucose blood test strip ONE TOUCH BASIC STRIPS 1 Strip by Does not apply route 2 times daily. 1 Active blood-glucose meter kit BLOOD GLUCOSE MONITORING SUPPL (ONE TOUCH ULTRA 2) W/DEVICE KIT Use to test suigars twice daily 1 Active clonazePAM (KlonoPIN) 1 mg tablet Take 1 Tab by mouth at bedtime. 1 Active OXcarbazepine (TRILEPTAL) 600 mg tablet Take 0.5 tablets (300 mg total) by mouth 2 (two) times a day. 1 Active clonazePAM (KlonoPIN) 0.5 mg tablet Take 1 Tab by mouth every morning. 1 Active blood sugar diagnostic (FreeStyle Lite Strips) test strip 1 Strip by In Vitro route daily. 0 Active alcohol swabs (Alcohol Wipes) pads, medicated Alcohol Swabs (ALCOHOL WIPES) 70 % Pads 1 Applicator by Does not apply route daily. 0 Active blood glucose control high,low (FreeStyle Control) solution Check FSG once daily for DM II without known complications 0 Active miscellaneous medical supply [facility] Foot Care Products (SHOE HORN) Mis 1 Each by Does not apply route daily. To be used to help put on shoes 0 Active miscellaneous medical [facility] Misc. Devices (EXTENDABLE BEDSIDE RAIL) Mis 1 Each by Does not apply route daily. 0 Active reservoir inhalation (INSPIREASE) device SPACER DEVICE-ADULT To be used prn with albuterol and with flovent 9 Active apixaban (Eliquis) 5 mg tablet Take 1 tablet (5 mg total) by mouth 2 (two) times a day. 180 tablet 2 5 Active budesonide-form oteroL (Symbicort) 160-4.5 mcg/actuation inhalerIndicati ons:Moderate asthma without complication, unspecified whether persistent Inhale 2 puffs by mouth 2 (two) times a day. Rinse mouth with water after use to reduce aftertaste and incidence of candidiasis. Do not swallow. 1 each 2 5 025 Active sotaloL (BETAPACE) 80 mg tablet Take 1 tablet (80 mg total) by mouth every 12 (twelve) hours. Active Hospital, Clinic, or Other Facility Administered Medication Ordered Dose Route Frequency Start Date End Date Status TC-99M tetrofosmin P radio-isotope injection 11.7 millicurie 11.7 millicurie IV Once in imaging 11/08/2024 11/08/2024 Ende d regadenoson (LEXISCAN) injection 0.4 mg 0.4 mg IV Once in imaging 11/08/2024 11/08/2024 End ed TC-99M tetrofosmin P radio-isotope injection 37.8 millicurie 37.8 millicurie IV Once in imaging 11/08/2024 11/08/2024 Ende d aminophylline injection 75 mg 75 mg IV Once in imaging 11/08/2024 11/08/2024 Ende d Active Problems Problem Noted Date Diagnosed Date Chest pain 07/13/2024 Assessment & Plan (10/31/2024 2:18 PM EDT): Patient is reporting episodes of atypical chest pain. Stress testing in March 2023 was normal. Nonetheless she has cardiac risk factors including hypertension, hyperlipidemia, obesity and former tobacco use. Will update pharmacological nuclear stress test to evaluate for ischemia. 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 Last Assessment & Plan: Enrrique has acute decompensated heart failure from diastolic [...] encourage compliance with CPAP Assessment & Plan (10/31/2024 2:13 PM EDT): Most recent echocardiogram from March 2023 showed normal LV systolic function with an EF of 55-60%. She appears euvolemic on physical exam, weight is down 3 pounds since her last office visit, no increased shortness of breath, orthopnea or paroxysmal nocturnal dyspnea. She does have intermittent lower extremity edema but I do not appreciate any today. She has not been on diuretics. I will make no changes to her present medical therapy. Patient is encouraged to follow a low-sodium, heart healthy diet, monitor daily weights and contact provider with any sudden increases such as 2 lbs overnight or 4-5 lbs over the course of a week, and/or for worsening shortness of breath and/or increased lower extremity edema. Assessment & Plan (06/01/2024 11:29 AM EDT): [...] diabetes and hypertension Last Assessment & Plan: Enrrique is maintaining sinus rhythm on sotalol. Her [...] treat her blood pressure. Assessment & Plan (10/31/2024 2:16 PM EDT): Status post ablation procedure. She has been maintained on sotalol and has been in sinus rhythm since the ablation without perceived recurrence. EKG today showing NSR with a normal QT /QTc. She remains on Eliquis for a [id number] score of 7. Continue to monitor for abnormal bruising or bleeding. Continue sotalol as prescribed. Assessment & Plan (06/01/2024 11:29 AM EDT): [...] complications (CMS/HCC V24, CMS/HCC V28) 04/27/2019 Cirrhosis ([facility] V24, [facility] V28) 07/02/2018 Overview (11/26/2023): Per [...] ulmonary hypertension ([facility] V24, [facility] V28) 11/07/2016 Overview (11/26/2023): H/O Fen- Phen use Empty sella syndrome ([facility] V24) 11/07/2016 Encounters Date Type Department Care Team Description 11/09/2024 Results Follow-Up [facility] Cardiology [facility] [address] [place] [phone] Alejandra Alvarado NP 11/08/2024 8:30 AM EDT Ancillary Procedure [facility] [address] [place] [phone] Chest pain, unspecified type 11/04/2024 Telephone [facility] [address] [place] [phone] Kai Espinosa MD 11/02/2024 Telephone Pulmonology - [place] [address] [place] [phone] Jennifer Carvajal NP 10/31/2024 2:20 PM EDT - 10/31/2024 11:59 PM EDT Hospital Encounter [facility] Xray [address] [place] [phone] Encounter for pre-operative respiratory clearance; Moderate asthma without complication, unspecified whether persistent Discharge Disposition: Home or Self Care 10/31/2024 12:40 PM EDT Consult [facility] [address] [place] [phone] Alejandra Alvarado NP Paroxysmal atrial fibrillation ([facility] V24, [facility] V28) (Primary Dx); Chest pain, unspecified type; Heart failure with preserved ejection fraction, unspecified HF chronicity ([facility] V24, [facility] V28); Preop cardiovascular exam 10/14/2024 Telephone [facility] Cardiology [address] [place] [phone] Kai Espinosa MD 10/06/2024 Telephone Pulmonology [facility] [address] [phone] Ailin Garza [place] 10/06/2024 Telephone Pulmonology [facility] [address] [facility] [address] [place] [address] Ailin Garza MA 09/28/2024 10:10 AM EDT Office Visit Pulmonology [address] [phone] Jennifer Carvajal, CK Encounter for pre-operative respiratory clearance (Primary Dx); Moderate asthma without complication, unspecified whether persistent; Obstructive sleep apnea syndrome from Last 3 Months Immunizations Immunization Administration Dates Next Due Influenza trivalent, 0.5mL [...] yrs OTHER SURGICAL HISTORY 05/23/2009 Right PROCEDURE: CT SYNVCT TDN SHTH RAD FLXR TDN PALM&/FNGR EA TDN; COMMENT: ring finger, tenosynovectomy BACK SURGERY 11/26/2017 PROCEDURE: HISTORICAL BACK SURGERY; COMMENT: L4/L5 daisha.laminotomy,partial facetectomy,foraminotomy,removal synovial cyst R side,facet arthrodesis L4/L5 OTHER SURGICAL HISTORY 12/11/2017 PROCEDURE: CT REMOVAL IMPLANT DEEP; COMMENT: Irrigation debridement lumbar wound w/ removal of posterior hardware CATARACT EXTRACTION Bilateral PROCEDURE: HISTORICAL CATARACT REMOVAL OTHER SURGICAL HISTORY 09/20/2019 Right PROCEDURE: ---- OTHER ----; COMMENT: Right lower extremity endovenous laser ablation Medical History Medical History Date Comments (HFpEF) heart failure with p reserved ejection fraction (CMS/HCC V24, CMS/HCC V28) 05/26/2023 Atrial fibrillation (CMS/HCC V24, CMS/HCC V28) 08/21/2022 SOB (shortness of breath) 12/13/2020 Palpitations 12/13/2020 Portopulmonary hypertension ([facility] V24, [facility] V28) 12/12/2020 Nephrolithiasis 10/07/2019 Diabetes mellitus ([facility] V 24, [facility] V28) 04/27/2019 Type 2 Asthma 11/07/2016 GERD (gastroesophageal reflux disease) 7 Hyperlipidemia 11/07/2016 Right heart failure ([facility] V24, [facility] V28) 11/07/2016 due to pulmonary hypertensio n Morbid obesity with BMI of 4 0.0-44.9, adult ([facility] V24, [facility] V28) 11/07/2016 DX:Morbid obesity wit h BMI of 40.0-44.9, adult ([facility]) Depression 11/07/2016 DX:Depression Fibromyalgia 11/07/2016 DX:Fibromyalgia LAURITA (obstructive sleep apnea) 11/07/2016 DX :LAURITA (obstructive sleep apnea); COMMENT: CPAP Anxiety 11/07/2016 DX:Anxiety Asthma 11/07/2016 DX:Asthma Allergic rhinitis 11/07/2016 DX:Allergic rh initis GERD (gastroesophageal reflux disease) 11/07/2016 DX:GERD (gastroesophageal reflux disease) Overactive bladder 11/07/2016 DX:Overactive bladder Hyperlipidemia 11/07/2016 DX:Hyperlipidemi a Empty sella syndrome ([facility] V24) 11/07/2016 DX:Empty sella syndrome (HCC) Panic attacks 11/07/2016 DX:Panic attacks Prediabetes 11/07/2016 DX:Prediabetes Right heart failure due to p ulmonary hypertension ([facility] V24, [facility] V28) 11/07/2016 DX:Right heart failure due t [...] mellitus type 2, co ntrolled, with complications ([facility]/HCC V24, [facility]/HCC V28) DX:Diabetes mellitus type 2, controlled, with complications ([facility]) Family history of cardiovasc ular disease DX:Family [...] Sign Reading Time Taken Comments Blood Pressure 110/56 11/08/2024 8:56 AM EDT Pulse 61 10/31/2024 1:17 PM EDT Temperature 35.8 C (96.4 F) 09/28/2024 10:13 AM EDT Respiratory Rate 18 09/28/2024 10:13 AM EDT Oxygen Saturation 98% 10/31/2024 1:17 PM EDT Inhaled Oxygen Concentration - - Weight 98.4 kg (217 lb) 11/08/2024 8:56 AM EDT Height 162.6 cm (5' 4 ) 11/08/2024 8:56 AM EDT Body Mass Index 37.25 11/08/2024 8:56 AM EDT Plan of Treatment Upcoming Encounters Date Type Department Care Team (Late st Contact Info) Description 12/14/2024 1:25 PM EST Office Visit Pulmonology - [address] [place] [phone] Jennifer Carvajal, CK [address] [place] [phone] Health Maintenance Due Date Last Done Comments Breast Cancer Screening 1955 Diabetes: Annual Foot Exam 1964 Diabetes: Annual Retina Eye Exam 1965 RSV Immunization Adult Patients (1 - Risk 50-74 years 1-dose series) 2004 Pneumococcal Vaccine: 50+ Years (2 of 2 - PCV) 05/20/2007 05/19/2006 Zoster Vaccines (2 of 2) 01/02/2021 11/07/2020 [...] Depression Screening 02/10/2024 COVID-19 Vaccine (3 - season) 2024 06/02/2020, 05/05/2020 Influenza Vaccine (#1) [...] Procedure Name Priority Date/Time Associated Diagnosis Comments NM LEXISCAN STRESS TEST W/ MYOCARDIAL PERFUSION Routine 11/08/2024 11:03 AM EDT Chest pain, unspecified type XR CHEST 2 VIEWS Routine 10/31/2024 2:29 PM EDT Encounter for pre-operative respiratory clearance Moderate asthma without complication, unspecified whether persistent ECG 12-LEAD Routine 10/31/2024 2:25 PM EDT Paroxysmal atrial fibrillation (CMS/HCC V24, CMS/HCC V28) POLYSOMNOGRAPHY Routine 09/27/2024 3:18 PM EDT COLONOSCOPY Routine 01/10/2021 URINE ALBUMIN CREATININE RATIO Routine 11/07/2020 ANNUAL BMP BLOOD TEST Routine 11/07/2020 HEMOGLOBIN A1C Routine 11/07/2020 LIPID PANEL Routine 11/07/2020 from Last 3 Months or Most Recently Relevant to Health Maintenance Results * NM LEXISCAN STRESS TEST W/ MYOCARDIAL PERFUSION (11/08/2024 11:03 AM EDT) Exercise/injec tion duration (min) 0 CV PACS STRESS Exercise/injec tion duration (sec) 41 CV PACS STRESS Peak SBP 100 mmHg CV PACS STRESS Peak DBP 64 mmHg CV PACS STRESS Peak HR 81 bpm CV PACS STRESS Baseline HR 61 bpm CV PACS STRESS Baseline SBP 110 mmHg CV PACS STRESS Baseline DBP 56 mmHg CV PACS STRESS Estimated workload 1.0 METS CV PACS STRESS Percent HR 54 % CV PACS STRESS Rate Pressure Product 8,100.0 mmHg*bpm CV PACS STRESS Target HR 128 bpm CV PACS STRESS TID 0.97 CV PACS STRESS Nuc Stress EF 82 % CV PACS STRESS Nuc Rest EF 84 % CV PACS STRESS BSA 2.11 m2 CV PACS STRESS Anatomical Region Laterality Modality Nuclear Medicine 11/08/2024 9:51 AM EDT 11/08/2024 10:15 AM EDT Narrative 11/09/2024 3:05 PM EDT Normal regadenoson nuclear perfusion stress test. LV perfusion is normal with no ischemia or infarct.. Left ventricular systolic function is normal with LVEF greater than 70%. Stress Findings A pharmacological stress test was performed using regadenoson, 0.4 mg IV over 10-15 seconds, followed by radiopharmacological injection 10 seconds post infusion. Total stress time was 0 min and 41 sec. The patient reached the end of the protocol. Reversal medication aminophylline and 75 mg given at minute 2 of recovery. Blood pressure demonstrated a normal response. Heart rate demonstrated a normal response. The patient reported nausea and dry heaving after regadenoson that resolved after aminophylline was given. ECG 69 female with multiple cardiac risk factors, PAF on sotalol preop risk stratification prior to lumbar surgery. The ECG shows normal sinus rhythm. There were no ECG changes and no sustained arrhythmiad with regadenoson or during recovery. Nuclear Study Quality Study technique: MPI, SPECT, multi, rest and stress, 1 day and gated. Overall image quality is good. CT attenuation correction was utilized. No radiopharmaceutical dose was extravasated. Stress Function Comments Stress ejection fraction is 82%. Rest Function Comments Resting ejection fraction was 84%. CT Findings Moderate coronary artery calcification. Perfusion Comments LV perfusion is normal. There is no evidence of inducible ischemia. us Alejandra Alvarado NP CV STRESS PROCEDURES Final Resu lt * XR Chest 2 Views (10/31/2024 2:29 PM EDT) Anatomical Region Laterality Modality Body Radiographic Steph ging 11/01/2024 7:11 AM EDT Impressions 11/01/2024 7:13 AM EDT Low normal lung volumes without focal pneumonia or major zone of atelectasis. -------- FINAL REPORT -------- Dictated By: Willard Almanza Dictated Date: 11/01/2024 07:11 ET Assigned Physician: Willard Almanza Reviewed and Electronically Signed By: Willard Almanza Signed Date: 11/01/2024 07:13 ET Workstation ID: [id number] Transcribed By: Self Edit Transcribed Date: 11/01/2024 07:11 ET Narrative 11/01/2024 7:13 AM EDT EXAMINATION: CHEST CLINICAL INFORMATION: Evaluate prior to surgery. Moderate asthma. COMPARISON: Frontal view 04/09/23 TECHNIQUE: 2 views of the chest FINDINGS: There is calcification and tortuosity of the aorta. The cardiac size is within normal limits. The central markings are prominent with some airway thickening. Lung volumes are low normal. No focal pneumonia or major zone of atelectasis. No pleural fluid or pneumothorax. Exaggerated kyphosis in the lower thoracic region. Procedure Note Willard Almanza MD - 11/01/2024 EXAMINATION: CHEST CLINICAL INFORMATION: Evaluate prior to surgery. Moderate asthma. COMPARISON: Frontal view 04/09/23 TECHNIQUE: 2 views of the chest FINDINGS: There is calcification and tortuosity of the aorta. The cardiac size iswithin normal limits. The central markings are prominent with some airwaythickening. Lung volumes are low normal. No focal pneumonia or major zone of atelectasis. No pleural fluid orpneumothorax. Exaggerated kyphosis in the lower thoracic region. IMPRESSION: Low normal lung volumes without focal pneumonia or major zone ofatelectasis. -------- FINAL REPORT -------- Dictated By: Willard Almanza Dictated Date: 11/01/2024 07:11 ET Assigned Physician: Willard Almanza Reviewed and Electronically Signed By: Willard Almanza Signed Date: 11/01/2024 07:13 ET Workstation ID: [id number] Transcribed By: Self Edit Transcribed Date: 11/01/2024 07:11 ET Jennifer Carvajal HAIR WORKER IMG XR PROCEDURES Final Result * ECG 12 lead (10/31/2024 2:25 PM EDT) Ventricular Rate ECG 61 BPM GEMUSE Atrial Rate 61 BPM GEMUSE P-R Interval 148 ms GEMUSE QRS Duration 72 ms GEMUSE Q-T Interval 446 ms GEMUSE QTc 448 ms GEMUSE P Wave [place] 61 degrees GEMUSE R [place] 57 degrees GEMUSE T [place] 42 degrees GEMUSE ECG Interpretation Normal sinus rhythm Nonspecific ST and T wave abnormality Abnormal ECG When compared with ECG of 01-JUN-2024 10:45, No significant change was found Confirmed by Ciro OWENS, XAVIER ([id number]) on 11/02/2024 9:46:39 AM GEMUSE 10/31/2024 1:28 PM EDT 11/02/2024 9:46 AM EDT Alejandra Alvarado HAIR WORKER ECG ORDERABLES Edited Result - Final GEMUSE * Polysomnography (09/27/2024 3:18 PM EDT) [facility] Provider SLEEP CENTER ORDERABLES F inal Result * Colonoscopy (01/10/2021) Pathologist [facility] Colonoscopy abstracted, no interpretation Anatomical Region Laterality Modality Other [facility] Provider HEALTH MAINTENANCE Final Result * Urine Albumin Creatinine Ratio (11/07/2020) [facility] Urine Albumin Creatinine Ratio abstracted [facility] Provider HEALTH MAINTENANCE Final Result * Annual BMP Blood Test (11/07/2020) [facility] Annual BMP Blood Test abstracted [facility] Provider HEALTH MAINTENANCE Final Result * Hemoglobin A1c (11/07/2020) [facility] Hemoglobin A1C 6.0 <=6.5 % Blood Venous blood specimen / Unknown Result [facility] Provider LAB BLOOD ORDERABLES Frances l Result * Lipid panel (11/07/2020) [facility] LDL/HDL Ratio 2 0 - 4 Triglycerides 108 0 - 150 mg/dL Cholesterol 150 0 - 200 mg/dL HDL 66 >=40 mg/dL LDL Cholesterol 63 0 - 100 mg/dL Blood Venous blood specimen / Unknown [facility] Provider LAB BLOOD ORDERABLES Frances l Result from Last 3 Months or Most Recently Relevant to Health Maintenance Insurance [address] [place] [address] [employer] Care Teams Supervisor Cold Rolling Relationship Specialty Start Date End Date Hiral Leo FNP [address] [place] [phone] PCP - General Nurse Practitioner 06/01/24
--- OUTSIDE RECORDS SUMMARY | 2024-12-07 19:34 | XMS_ITS | Clinical Summary ---
Author Organization [facility] Address [address] [place] [address] Care Team Providers Care Pig Handler Name Role Phone Katlyn Shi DMD Primary Care Provider [phone] Source Comments PLEASE NOTE, if this patient [...] Plan of Treatment Not on file Insurance [employer] [address] [place], [place] [id number] DENTAL Care Teams Pig Handler Relationship Specialty Start Date End Date Katlyn Shi DMD [address] [place] [address] PCP - General 04/20/20
== END 2024-12-07 15:54 | disposition home or self-care (01) ==
LOC: HO.HMCFM 15:08
PROVIDERS: PCP Nurse Practitioner Family; Visit Provider Nurse Practitioner Family
DX: Z09 Encounter for follow-up examination after completed treatment for conditions other than malignant neoplasm (principal); Z98.890 Other specified postprocedural states; Z98.1 Arthrodesis status; R26.2 Difficulty in walking, not elsewhere classified